=== PATIENT | female | born 1945 | race Caucasian/White ===

== ENCOUNTER 2020-05-01 13:50 | Outpatient (CLI) | payer MEDICARE, SELFPAY ==
[2020-05-03 21:00] LABS: SARS-CoV-2 RNA Undetected (Undetected); SARS-CoV-2 Specimen Source Nasopharynx
== END 2020-05-01 14:10 ==
PROVIDERS: Visit Provider Family Medicine
DX: Z11.59 Encounter for screening for other viral diseases (principal)
CPT/HCPCS: U0003

== ENCOUNTER 2022-08-30 05:27 | Inpatient (IN) | payer MEDICARE, SELFPAY ==
[2022-08-30] VITALS (86 sets, daily range): BP systolic 92–143; BP diastolic 33–103; PULSE 68–820; RESP 10–24; TEMP 36.6–36.8; O2SAT 94–100
--- NOTE | 2022-08-30 05:45 | RT.EKG_ITS ---
APPROVED REPORT Exam: Resting ECG Reason for Exam: weakness Patient Location: E HR:82 bpm ECG Measurements Heart Rate 82 AXIS FL 143 P 54 QRSd 135 QRS -84 QT 476 T 180 QTc 558 Conclusion Atrial-sensed ventricular-paced rhythm...ventricular pacing tracks p-waves
--- NOTE | 2022-08-30 05:59 | W.ED.GENAD ---
Discharge Plan Disposition Patient Disposition: Admit to [facility] Condition: Stable Discharge Details Chief Complaint: GenMedical Clinical Impression: Bilateral leg weakness, History of multiple sclerosis Primary Care Provider: Humera Kovacs ED Provider: Awilda Olmedo Home Meds and New Rx's Prescriptions: No Action multivitamin Tablet 1 tab PO DAILY carvedilol 6.25 mg Tablet 6.25 mg PO BID glipizide 5 mg Tablet Extended Release 24hr 5 mg PO BID levothyroxine 150 mcg Tablet 150 mcg PO DAILY omeprazole 20 mg Capsule,Delayed Release(Dr/Ec) 20 mg PO DAILY aspirin 81 mg Tablet 81 mg PO DAILY hydrochlorothiazide 25 mg Tablet 25 mg PO DAILY losartan 100 mg Tablet 100 mg PO DAILY metformin 500 mg Tablet Extended Release 24hr 500 mg PO DAILY insulin glargine [Lantus Solostar U-100 Insulin] 100 unit/mL (3 mL) Insulin Pen 12 unit SUBCUT .QHS cholecalciferol (vitamin D3) 50 mcg (2,000 unit) Tablet 2,000 mcg PO BID acetaminophen 500 mg Tablet 1,000 mg PO .Q6HRS Medical Decision Making <Dejuan Ferreira MD - Last Filed: 08/30/22 06:58> This is a 77-year-old female who presents with lower extremity weakness and some progressive over 2 weeks time. 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 She has been involved in a clinical study with once monthly spinal injections that she receives in [facility]. She was admitted to 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 She states that she presents today due to inability to ambulate at home with her walker. Upon arrival she is alert and interactive, pleasant and in no acute distress. Her pulse is slightly elevated at 99 blood pressure slightly low at 92/66. She was noted to have hyperglycemia prior to arrival. She is able to actively move both legs against gravity and resistance. Screening laboratories obtained, fluids initiated. Given the patient's recent cough a viral swab was obtained. Recent discharge summary from [facility] obtained. This notes the patient's admission for lower extremity weakness and encephalopathy that began after receiving her last intrathecal study injection on August 12. MRI imaging was performed on Carlos 10. MRI brain showed new demyelinating lesions compared to previous imaging from 2013, MRI of the spine showed new enhancing lesions at C2, T1, T8-9. The discharge summary notes concern for the reactivation of MS. During her admission, the case was discussed with her physician at the [facility], Dr. Cruz Salinas. The admission to [facility] also noted acute kidney injury. Today, white count of 9, hematocrit 29.6, platelets 244. Sodium 137, potassium 4.3, chloride 101, bicarb 27, BUN 29, creatinine 1.8, glucose 356. Troponin negative. MRI is pending. We will sign the patient out to Dr. Olmedo. Please see her note regarding final impression and disposition. <Awilda Olmedo, DO - Last Filed: 08/30/22 15:00> This is a 77-year-old female who presents with lower extremity weakness and some progressive over 2 weeks time. 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 She has been involved in a clinical study with once monthly spinal injections that she receives in [facility]. She was admitted to 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 She states that she presents today due to inability to ambulate at home with her walker. Upon arrival she is alert and interactive, pleasant and in no acute distress. Her pulse is slightly elevated at 99 blood pressure slightly low at 92/66. She was noted to have hyperglycemia prior to arrival. She is able to actively move both legs against gravity and resistance. Screening laboratories obtained, fluids initiated. Given the patient's recent cough a viral swab was obtained. Recent discharge summary from [facility] obtained. This notes the patient's admission for lower extremity weakness and encephalopathy that began after receiving her last intrathecal study injection on August 12. MRI imaging was performed on August 17. MRI brain showed new demyelinating lesions compared to previous imaging from 2013, MRI of the spine showed new enhancing lesions at C2, T1, T8-9. The discharge summary notes concern for the reactivation of MS. During her admission, the case was discussed with her physician at the [facility], Dr. Cruz Salinas. The admission to [facility] also noted acute kidney injury. Today, white count of 9, hematocrit 29.6, platelets 244. Sodium 137, potassium 4.3, chloride 101, bicarb 27, BUN 29, creatinine 1.8, glucose 356. Troponin negative. MRI is pending. We will sign the patient out to Dr. Olmedo. Please see her note regarding final impression and disposition. Dr. Olmedo [id number] --please see Dr. Ferreira's note for initial presentation, exam and plan. Case endorsed to follow-up on MRI results. Discussed with MRI and they are unable to take patient until 10:30 AM this morning. Discussed with patient and son at bedside. Patient and son state that patient has had similar lower extremity weakness in the past but states it has been can increase since last night and she was unable to ambulate without two-person assistance this morning. Patient is able to lift both legs and push against resistance. She does also admit to diminished sensation in her bilateral lower extremities. She denies any bowel or bladder incontinence. She denies any increased weakness in her upper extremities. She is oriented x3. Discussed again with MRI in patient is unable to receive MRIs here as she has a pacemaker in the near is no pacemaker compatible MRI system here. 1130 --discussed with Dr. Rodriguez Gomez neurology at [facility] --he agrees that patient needs an MRI and is unsure if her symptoms are secondary to MS as her age would make her unusual to have a relapsing remitting MS picture. He is going to review her chart further and call back. At this point in time recommends a CT head to rule out any acute process. She cannot receive a CTA head and neck secondary to her altered kidney function. 1400 --CT head negative. Discussed again with Dr. Gomez and he recommends starting Solu-Medrol 125 mg once daily. There is no bed availability at [facility] for transfer. He recommends admission here with IV fluid hydration to improve renal function with plan for transfer to [facility] for MRI brain with contrast for further evaluation once renal function improves. He discussed that her symptom presentation per neurology during her recent admission could be consistent with MS but also question the possible contributing factor of her intrathecal injections she receives in [place] as she reports that this causes brain fog. Case discussed with hospitalist who accepts patient for admission. Medical Records Medical records reviewed: Yes I reviewed the patient's medical records. Imaging Data Radiologic Study: Radiologist's impression: XR CHEST 2V PA ? LATERAL CLINICAL HISTORY:? cough, r/o acute disease TECHNIQUE:? 2D digital imaging was performed of the chest.? Two images were obtained.? PA and lateral views were obtained. COMPARISON:? No exams were available for comparison FINDINGS: MEDIASTINUM: Normal.? HEART: Normal. PULMONARY VASCULATURE: Normal. LUNGS: Clear. ? PLEURAL SPACE: No pleural effusion or pneumothorax. BONE:Within normal limits for the patient's age.? OTHER FINDINGS:Cardiac pacer wires are in good position. ? IMPRESSION: No acute pulmonary findings. CT HEAD WO CLINICAL HISTORY: ? bilateral lower extremity weakness, r/o cva. ? TECHNIQUE:? Imaging Protocol: Axial computed tomography images with coronal and sagittal reformatted images were created and reviewed COMPARISON:? CT CT HEAD WO CONTRAST (GENERIC) from 08/16/2022 FINDINGS: Ventricles and Extra axial spaces: Normal in size and morphology for the patient's age. Hemorrhage: None. Cerebral parenchyma: No evidence of an acute territorial infarct. Basal gangliar calcifications are unchanged compared to the prior examination. There are areas of decreased attenuation in the white matter most consistent with small vessel ischemic disease.? Midline shift: None. Brainstem/Cerebellum: Normal. Calvarium: Normal. Visualized Paranasal sinuses/Mastoids: Clear. Soft Tissues: Unremarkable. IMPRESSION: 1. No acute intracranial process. Lab Data Lab results reviewed: Yes I reviewed the patient's lab results. Labs: Laboratory Tests Range/Units 08/30/22 08/30/22 08/30/22 05:35 05:35 05:40 WBC (4.4-10.8) 10^3/uL 9.96 RBC (3.93-5.22) 10^6/uL 3.09 L Hgb (11.2-15.7) g/dL 9.4 L Hct (36.0-46.0) % 29.6 L MCV (80-95) fL 96 H MCH (27.0-33.0) pg 30.4 MCHC (32.0-36.0) % 31.8 L RDW (11.7-14.6) % 12.6 Plt Count (130-400) 10^3/uL 244 MPV (8.0-11.0) fL 9.8 Immature Gran % 0.2 Neutrophils % 74.5 Lymphocytes % 12.0 Monocytes % 11.2 Eosinophils % 1.4 Basophils % 0.7 Nucleated RBC % (0.0-0.3) % 0.0 Absolute Neutrophils (1.2-6.7) 10^3/uL 7.41 H Absolute Lymphocytes (1.2-3.4) 10^3/uL 1.20 Absolute Monocytes (0.1-0.8) 10^3/uL 1.12 H Absolute Eosinophils (0.0-0.7) 10^3/uL 0.14 Absolute Basophils (0.0-0.2) 10^3/uL 0.07 Sodium (136-145) mmol/L 137 Potassium (3.5-5.1) mmol/L 4.3 Chloride (98-107) mmol/L 101 Carbon Dioxide (21.0-32.0) mmol/L 27.3 Anion Gap (3-11) mmol/L 8.7 BUN (7-18) mg/dL 29 H Creatinine (0.55-1.02) mg/dL 1.8 H Est GFR (CKD-EPI 2020) (mL/min/1.73m2) 28.48 Glucose (74-106) mg/dL 356 H Calcium (8.5-10.1) mg/dL 10.0 Magnesium (1.8-2.4) mg/dL 1.6 L Total Bilirubin (0.2-1.0) mg/dL 0.5 AST (15-37) U/L 13 L ALT (14-59) U/L 12 L Alkaline Phosphatase (46-116) U/L 96 Troponin I (<or=60) ng/L < 50 Total Protein (6.4-8.2) g/dL 7.9 Albumin (3.4-5.0) g/dL 4.0 Urine Color (Yellow) Urine Clarity (Clear) Urine pH (5-8) Ur Specific Julian (1.005-1.025) Urine Protein (Negative) mg/dL Urine Ketones (Negative) mg/dL Urine Blood (Negative) Urine Nitrite (Negative) Urine Bilirubin (Negative) Urine Urobilinogen (Up TO 0.2) EU/dL Ur Leukocyte Esterase (Negative) Urine RBC (0-2) HPF Urine WBC (0-5) HPF Ur Epithelial Cells (Negative) HPF Urine Crystals (Negative) HPF Urine Bacteria (Negative) HPF Urine Casts (Negative) LPF Urine Mucus (Negative) Ur Culture Indicated? Urine Glucose (Negative) mg/dL COVID-19 Source Nasopharynx SARS-CoV-2 (PCR) (Negative) Negative Influenza Type A (PCR) (Negative) Negative Influenza Type B (PCR) (Negative) Negative RSV (PCR) (Negative) Negative Range/Units 08/30/22 06:20 WBC (4.4-10.8) 10^3/uL RBC (3.93-5.22) 10^6/uL Hgb (11.2-15.7) g/dL Hct (36.0-46.0) % MCV (80-95) fL MCH (27.0-33.0) pg MCHC (32.0-36.0) % RDW (11.7-14.6) % Plt Count (130-400) 10^3/uL MPV (8.0-11.0) fL Immature Gran % Neutrophils % Lymphocytes % Monocytes % Eosinophils % Basophils % Nucleated RBC % (0.0-0.3) % Absolute Neutrophils (1.2-6.7) 10^3/uL Absolute Lymphocytes (1.2-3.4) 10^3/uL Absolute Monocytes (0.1-0.8) 10^3/uL Absolute Eosinophils (0.0-0.7) 10^3/uL Absolute Basophils (0.0-0.2) 10^3/uL Sodium (136-145) mmol/L Potassium (3.5-5.1) mmol/L Chloride (98-107) mmol/L Carbon Dioxide (21.0-32.0) mmol/L Anion Gap (3-11) mmol/L BUN (7-18) mg/dL Creatinine (0.55-1.02) mg/dL Est GFR (CKD-EPI 2020) (mL/min/1.73m2) Glucose (74-106) mg/dL Calcium (8.5-10.1) mg/dL Magnesium (1.8-2.4) mg/dL Total Bilirubin (0.2-1.0) mg/dL AST (15-37) U/L ALT (14-59) U/L Alkaline Phosphatase (46-116) U/L Troponin I (<or=60) ng/L Total Protein (6.4-8.2) g/dL Albumin (3.4-5.0) g/dL Urine Color (Yellow) Yellow Urine Clarity (Clear) Clear Urine pH (5-8) 5.5 Ur Specific Julian (1.005-1.025) 1.020 Urine Protein (Negative) mg/dL Trace H Urine Ketones (Negative) mg/dL Negative Urine Blood (Negative) Negative Urine Nitrite (Negative) Negative Urine Bilirubin (Negative) Negative Urine Urobilinogen (Up TO 0.2) EU/dL 0.2 Ur Leukocyte Esterase (Negative) Negative Urine RBC (0-2) HPF Negative Urine WBC (0-5) HPF Negative Ur Epithelial Cells (Negative) HPF Rare Urine Crystals (Negative) HPF Negative Urine Bacteria (Negative) HPF Rare Urine Casts (Negative) LPF 0-2 Hyaline Urine Mucus (Negative) Negative Ur Culture Indicated? No Urine Glucose (Negative) mg/dL 500 H COVID-19 Source SARS-CoV-2 (PCR) (Negative) Influenza Type A (PCR) (Negative) Influenza Type B (PCR) (Negative) RSV (PCR) (Negative) HPI <Dejuan Ferreira MD - Last Filed: 08/30/22 06:58> General Mode of arrival: EMS. Date/Time Provider Initiated Documentation: 08/30/22 06:04. Limitations to Documentation: no limitations. Information obtained by: patient, family and EMS. History of Present Illness 77 year old F presents to the emergency department with the chief complaint of Lower extremity weakness, described as moderate, Quality is described as constant, and is localized to the left, right and lower extremity. Patient reports no radiation. Patient started experiencing this day(s) and it has been constant. No relieving factors improve symptom(s), No exacerbating factors reported . Patient notes cough and weakness; denies chest pain, fever/chills and loss of appetite. Patient did receive the following treatments prior to arrival, none Related Data Home Medications Medication Instructions Recorded Confirmed acetaminophen 500 mg tablet 1,000 mg PO .Q6HRS 08/30/22 08/30/22 aspirin 81 mg tablet 81 mg PO DAILY 08/30/22 08/30/22 carvedilol 6.25 mg tablet 6.25 mg PO BID 08/30/22 08/30/22 cholecalciferol (vitamin D3) 50 2,000 mcg PO BID 08/30/22 08/30/22 mcg (2,000 unit) tablet glipizide 5 mg tablet, extended 5 mg PO BID 08/30/22 08/30/22 release 24 hr hydrochlorothiazide 25 mg tablet 25 mg PO DAILY 08/30/22 08/30/22 insulin glargine 100 unit/mL (3 12 unit subcut .QHS 08/30/22 08/30/22 mL) subcutaneous pen (Lantus Solostar U-100 Insulin) levothyroxine 150 mcg tablet 150 mcg PO DAILY 08/30/22 08/30/22 losartan 100 mg tablet 100 mg PO DAILY 08/30/22 08/30/22 metformin 500 mg tablet,extended 500 mg PO DAILY 08/30/22 08/30/22 release 24hr multivitamin 1 tab PO DAILY 08/30/22 08/30/22 omeprazole 20 mg capsule,delayed 20 mg PO DAILY 08/30/22 08/30/22 release Allergies Allergy/AdvReac Type Severity Reaction Status Date / Time amlodipine Allergy Unverified 08/30/22 06:27 [id number] Reductase Allergy Unverified 08/30/22 06:28 Inhibitor milk containing products Allergy Uncoded 08/30/22 06:28 General Stated Complaint: GenMedical JUAN CARLOS: 3 Review of Systems <Dejuan Ferreira MD - Last Filed: 08/30/22 06:58> Narrative: 2 days of cough. Denies bowel or bladder incontinence. No numbness. No fevers. Denies headache. No back or neck pain. PFSH <Dejuan Ferreira MD - Last Filed: 08/30/22 06:58> All Active Problems (Updated 08/30/22 @ 15:00 by Awilda Olemdo DO) Bilateral leg weakness (Acute) History of multiple sclerosis (Acute) Social History Smoking/Tobacco Use Status: Never Smoking risk assessment performed?: Yes Substance use type: does not use Exam <Dejuan Ferreira MD - Last Filed: 08/30/22 06:58> Narrative Exam Narrative: GEN: awake, alert, oriented 3. Pleasant, well groomed, interactive. HEAD: Normocephalic, atraumatic ENT: Mucous membranes dry, oropharynx unremarkable, External ear exam unremarkable EYES: PERRL, EOMI NECK: Full ROM, no EDY, no menigismus CHEST/RESP: Nontender, clear to auscultation bilateral, no wheeze/rhonchi/rales CARDIOVASCULAR: RRR, no murmur, rub kwasi. 2+ Rad pulse bilateral ABDOMEN: Soft, nontender, no mass. +Bowel sounds EXT: Full ROM, able to move both legs off the bed against gravity and against resistance. Sensation is intact throughout. 1+ patellar reflexes bilaterally Neuro: Grossly normal neurologic exam, conversant, interactive. Psych: Speech fluent, thoughts congruent, affect normal Course <Dejuan Ferreira MD - Last Filed: 08/30/22 06:58> Vital Signs Vital signs: Vital Signs Temperature 36.7 C 08/30/22 05:30 Pulse 99 H 08/30/22 05:30 Blood Pressure 92/66 L 08/30/22 05:30 Pulse Oximetry 98 08/30/22 05:30 Temperature 36.7 C 08/30/22 05:30 Temperature Source Skin 08/30/22 05:30 Pulse 99 H 08/30/22 05:30 Respiratory Effort Non-Labored 08/30/22 05:45 Respiratory Depth Normal 08/30/22 05:45 Respiratory Pattern Normal 08/30/22 05:45 Blood Pressure 92/66 L 08/30/22 05:30 Blood Pressure Position Supine 08/30/22 05:30 Pulse Oximetry 98 08/30/22 05:30 Oxygen Delivery Method Room Air 08/30/22 05:30 Oxygen Flow Rate 0 08/30/22 05:30 Sign Out <Dejuan Ferreira MD - Last Filed: 08/30/22 06:58> Sign Out Data: Sign Out Comment: Followup MRI Last updated by Dejuan Ferreira MD at 08/30/22 06:59
[2022-08-30 06:08] LABS: Abs Immature Grans 0.02 10^3/uL (0.0-0.06); Absolute Basophil Count 0.07 10^3/uL (0.0-0.2); Absolute Eosinophil Count 0.14 10^3/uL (0.0-0.7); Absolute Monocyte Count 1.12 10^3/uL (0.1-0.8); Absolute Neutrophil Count 7.41 10^3/uL (1.2-6.7); Basophils % 0.7; Eosinophils % 1.4; HCT 29.6 % (36.0-46.0); HGB 9.4 g/dL (11.2-15.7); Immature Grans % 0.2; MCH 30.4 pg (27.0-33.0); MCHC 31.8 % (32.0-36.0); MCV 96 fL (80-95); MPV 9.8 fL (8.0-11.0); Monocytes % 11.2; Neutrophils % 74.5; Platelet Count 244 10^3/uL (130-400); RBC 3.09 10^6/uL (3.93-5.22); RDW 12.6 % (11.7-14.6); RDW-SD 43.2 fL; WBC 9.96 10^3/uL (4.4-10.8)
[2022-08-30 06:24] LABS: COVID-19 PCR Negative (Negative); Influenza A PCR Negative (Negative); Influenza B PCR Negative (Negative); RSV PCR Negative (Negative)
[2022-08-30 06:29] LABS: ALT 12 U/L (14-59); AST 13 U/L (15-37); Alkaline Phosphatase 96 U/L (46-116); Anion Gap 8.7 mmol/L (3-11); BUN 29 mg/dL (7-18); Bilirubin, Total 0.5 mg/dL (0.2-1.0); CO2 27.3 mmol/L (21.0-32.0); CREATININE 1.8 mg/dL (0.55-1.02); Chloride 101 mmol/L (98-107); Estimated GFR 28.48 (mL/min/1.73m2); Glucose 356 mg/dL (74-106); Magnesium 1.6 mg/dL (1.8-2.4); Potassium 4.3 mmol/L (3.5-5.1); Sodium 137 mmol/L (136-145); Total Protein 7.9 g/dL (6.4-8.2); Troponin I < 50 ng/L (<or=60)
[2022-08-30 06:30] LABS: Source Nasopharynx
[2022-08-30 06:35] LABS: Bilirubin Negative (Negative); Blood Negative (Negative); Clarity Clear (Clear); Glucose 500 mg/dL (Negative); Ketones Negative (Negative); Leukocyte Esterase Negative (Negative); Nitrite Negative (Negative); Urobilinogen 0.2 EU/dL (Up TO 0.2); pH 5.5 (5-8)
[2022-08-30] MEDS: Normal Saline 1,000 ML 1000 ML IV (06:40)
[2022-08-30] MEDS: MAGNESIUM SULFATE 2 GM/50 ML BAG IVPB (06:40)
[2022-08-30 06:48] LABS: Bacteria Rare HPF (Negative); C & S Indicated? No; Casts 0-2 Hyaline LPF (Negative); Crystals Negative HPF (Negative); Epithelial Cells Rare HPF (Negative); Mucus Negative (Negative); RBC Negative HPF (0-2); WBC Negative HPF (0-5)
--- NOTE | 2022-08-30 08:15 | DI.RAD_ITS ---
Exam(s) XR CHEST 2V PA LATERAL EXAM: XR CHEST 2V PA LATERAL CLINICAL HISTORY: cough, r/o acute disease TECHNIQUE: 2D digital imaging was performed of the chest. Two images were obtained. PA and lateral views were obtained. COMPARISON: No exams were available for comparison FINDINGS: MEDIASTINUM: Normal. HEART: Normal. PULMONARY VASCULATURE: Normal. LUNGS: Clear. PLEURAL SPACE: No pleural effusion or pneumothorax. BONE:Within normal limits for the patient's age. OTHER FINDINGS:Cardiac pacer wires are in good position. IMPRESSION: No acute pulmonary findings. DATA REPOSITORY: RADIATION DOSE DELIVERED:
[2022-08-30] MEDS: ACETAMINOPHEN 1,000 MG/100 ML BTL 400 MG IVPB (08:23)
--- NOTE | 2022-08-30 11:55 | DI.CT_ITS ---
Exam(s) CT HEAD WO EXAM: CT HEAD WO CLINICAL HISTORY: bilateral lower extremity weakness, r/o cva. TECHNIQUE: Imaging Protocol: Axial computed tomography images with coronal and sagittal reformatted images were created and reviewed COMPARISON: CT CT HEAD WO CONTRAST (GENERIC) from 08/16/2022 FINDINGS: Ventricles and Extra axial spaces: Normal in size and morphology for the patient's age. Hemorrhage: None. Cerebral parenchyma: No evidence of an acute territorial infarct. Basal gangliar calcifications are u nchanged compared to the prior examination. There are areas of decreased attenuation in the white mat ter most consistent with small vessel ischemic disease. Midline shift: None. Brainstem/Cerebellum: Normal. Calvarium: Normal. Visualized Paranasal sinuses/Mastoids: Clear. Soft Tissues: Unremarkable. IMPRESSION: 1. No acute intracranial process. 2. Findings were discussed with Dr. Olmedo on 08/30/2022. RADIATION DOSE DELIVERED: 710.27mGy.cm Total DLP DATA REPOSITORY: All CT scans at this facility are submitted to the National Radiology Data Registry (NRDR) Dose Index Registry (DIR) with the [employer] ([employer]). RADIATION OPTIMIZATION: All CT scans at this facility use at least one of these dose optimization te chniques: automated exposure control; mA and/or kV adjustment per patient size (includes targeted exa ms where dose is matched to clinical indication); or iterative reconstruction.
[2022-08-30] MEDS: methylPREDNISolone SUCC 125 MG VIAL IVP (13:51)
[2022-08-30] MEDS: Insulin Aspart 300 UNITS/3 ML PEN SC ×2 (16:32→21:36)
[2022-08-30] MEDS: Normal Saline Flush 10 ML SYR IVP (17:03)
[2022-08-30 17:04] LABS: Glucose 443 mg/dL (74-106)
[2022-08-30] MEDS: Lactated Ringers 1,000 ML 125 ML IV (17:42)
[2022-08-30] MEDS: Enoxaparin 40 MG/0.4 ML SYR SC (17:46)
--- NOTE | 2022-08-30 18:10 | W.PM.HP.N ---
Date of service: 08/30/22 Time of Service: 18:11 Assessment and Plan Assessment and plan (1) Bilateral leg weakness: Status: Acute Assessment and plan: Suspected to be due to MS flare. Trialing high dose steroids, as recommended by [facility] neurology. Consult neurology on Friday. (2) Ambulatory dysfunction: Status: Acute Assessment and plan: Due to above. PT consulted. (3) History of multiple sclerosis: Status: Acute Assessment and plan: As above (4) IDDM (insulin dependent diabetes mellitus): Status: Chronic Assessment and plan: Add NPH, adjust long acting insulin, add prandial coverage. 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 Will obtain medical records. (6) Steroid-induced hyperglycemia: Status: Acute Assessment and plan: As above (7) DVT prophylaxis: Status: Acute Assessment and plan: Enoxaparin (8) Discharge planning issues: Status: Acute Assessment and plan: Full code History of Present Illness History of Present Illness Chief Complaint: BLE weakness Narrative: Ms Alford is a 77 year old female with PMHx of MS and familial ALS, on a clinical study with intrathecal topherecin in [place], as well as h/o IDDM2, hypertension, hypothyroidism, who was recently discharged from [facility] (about two weeks ago) for intermittent weakness of BLEs of unclear etiology, who presented to [facility] today c/o BLE weakness since 3 days ago. At that time, she was walking to the bathroom with a walker when her legs gave out and she slid to the ground without injury. She spent two minutes on the ground and was helped up by her and another person. When she attempted to go to the bathroom again with a walker, her legs became shaky and she could not walk. She had not been able to get up independently and walk since then, necessitating her ER visit today. [facility] neurology recommended a trial of high dose steroids and a possible [id number] MRI Review of Systems Narrative: She specifically denies trauma, back pain, saddle anesthesia, incontinence of bowel/urine, numbness in her feet. 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) Bilateral leg edema (Acute) Arthritis (Acute) Eczema (Acute) Endometrial hyperplasia (Acute) Anemia due to stage 4 chronic kidney disease (Acute) 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) Hypercholesterolemia (Acute) Diabetic polyneuropathy (Acute) Familial ALS (amyotrophic lateral sclerosis) (Chronic) Hypothyroidism (Chronic) GERD (gastroesophageal reflux disease) (Chronic) Hypertension (Chronic) IDDM (insulin dependent diabetes mellitus) (Chronic) Bilateral leg weakness (Acute) History of multiple sclerosis (Acute) Medical History (Updated 08/31/22 @ 10:39 by Stephani Katz MD) 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 Surgical History (Updated 08/31/22 @ 10:33 by Stephani Katz MD) H/O colonoscopy with polypectomy H/O colposcopy with cervical biopsy several H/O left mastectomy Hx of esophagogastroduodenoscopy S/P bilateral cataract extraction S/P breast biopsy, right S/P carpal tunnel release right S/P left knee arthroscopy S/P lumpectomy, left breast S/P placement of cardiac pacemaker Family History (Updated 08/31/22 @ 10:35 by Stephani Katz MD) Sister Familial ALS (amyotrophic lateral sclerosis) Diabetes Sister Familial ALS (amyotrophic lateral sclerosis) Brother Familial ALS (amyotrophic lateral sclerosis) Maternal Grandmother Familial ALS (amyotrophic lateral sclerosis) Heart disease Mother Familial ALS (amyotrophic lateral sclerosis) Son Familial ALS (amyotrophic lateral sclerosis) Diabetes Father Family history of early CAD Paternal Grandmother Diabetes Social History (Updated 08/31/22 @ 10:41 by Stephani Katz MD) Smoking/Tobacco Use Status: Former Tobacco Use tobacco type: cigarettes Smoking risk assessment performed?: Yes Alcohol Intake: former Substance use type: does not use Meds Allergies and Home Medications Allergies Allergy/AdvReac Type Severity Reaction Status Date / Time amlodipine Allergy Unverified 08/30/22 06:27 Leqnoaa-TVA-LnN Reductase Allergy Unverified 08/30/22 06:28 Inhibitor milk containing products Allergy Uncoded 08/30/22 06:28 Home Medications Medication Instructions Recorded Confirmed Type acetaminophen 500 mg tablet 1,000 mg PO Q6H PRN PRN 08/30/22 08/31/22 History aspirin 81 mg tablet 81 mg PO DAILY 08/30/22 08/30/22 History carvedilol 6.25 mg tablet 6.25 mg PO BID 08/30/22 08/30/22 History hydrochlorothiazide 25 mg tablet 25 mg PO DAILY 08/30/22 08/30/22 History insulin glargine 100 unit/mL (3 12 unit subcut HS 08/30/22 08/31/22 History mL) subcutaneous pen (Lantus Solostar U-100 Insulin) levothyroxine 150 mcg tablet 150 mcg PO DAILY 08/30/22 08/30/22 History losartan 100 mg tablet 100 mg PO DAILY 08/30/22 08/30/22 History metformin 500 mg tablet,extended 500 mg PO BID 08/30/22 08/31/22 History release 24hr multivitamin 1 tab PO DAILY 08/30/22 08/30/22 History omeprazole 20 mg capsule,delayed 20 mg PO BID 08/30/22 08/31/22 History release glipizide 5 mg tablet 2.5 mg PO BID AC 08/31/22 08/31/22 History Exam Narrative Exam Narrative: General: Pleasant female who is A&Ox3, NAD Neurological: A&Ox3, able to move all 4 extremities in bed, 5/5 strength on exam in bed Psychiatric: appropriate speech pattern/content Skin: visible skin intact with the except of digit 4 RLE with several abrasions HEENT: Atraumatic, normocephalic, EOMI, MMM, clear oropharynx, no submandibular or cervical lymphadenopathy, no goiter or JVD Cardiovascular: RRR, no m/r/g, has a pacemaker Lungs: CATB Gastrointestinal: soft, nontender, nondistended Genitourinary: deferred Extremities: trace edema BLEs, BLEs are cold, able to move BLEs against resistance while in bed, no c/c. Results Imaging Additional studies: CXR: No acute pulmonary findings CT head: 1. No acute intracranial process. EKG: paced rhythm, HR 82 Labs Result diagrams: 08/31/22 06:00 08/31/22 06:00 Labs: Laboratory Results - last 24 hr 08/30/22 08/30/22 08/30/22 05:35 05:35 05:40 WBC 9.96 RBC 3.09 L Hgb 9.4 L Hct 29.6 L MCV 96 H MCH 30.4 MCHC 31.8 L RDW 12.6 Plt Count 244 MPV 9.8 Immature Gran % 0.2 Neutrophils % 74.5 Lymphocytes % 12.0 Monocytes % 11.2 Eosinophils % 1.4 Basophils % 0.7 Nucleated RBC % 0.0 Absolute Neutrophils 7.41 H Absolute Lymphocytes 1.20 Absolute Monocytes 1.12 H Absolute Eosinophils 0.14 Absolute Basophils 0.07 Sodium 137 Potassium 4.3 Chloride 101 Carbon Dioxide 27.3 Anion Gap 8.7 BUN 29 H Creatinine 1.8 H Est GFR (CKD-EPI 2020) 28.48 Glucose 356 H Calcium 10.0 Magnesium 1.6 L Total Bilirubin 0.5 AST 13 L ALT 12 L Alkaline Phosphatase 96 Troponin I < 50 Total Protein 7.9 Albumin 4.0 Urine Color Urine Clarity Urine pH Ur Specific [place] Urine Protein Urine Ketones Urine Blood Urine Nitrite Urine Bilirubin Urine Urobilinogen Ur Leukocyte Esterase Urine RBC Urine WBC Ur Epithelial Cells Urine Crystals Urine Bacteria Urine Casts Urine Mucus Ur Culture Indicated? Urine Glucose COVID-19 Source Nasopharynx SARS-CoV-2 (PCR) Negative Influenza Type A (PCR) Negative Influenza Type B (PCR) Negative RSV (PCR) Negative 08/30/22 08/30/22 06:20 16:43 WBC RBC Hgb Hct MCV MCH MCHC RDW Plt Count MPV Immature Gran % Neutrophils % Lymphocytes % Monocytes % Eosinophils % Basophils % Nucleated RBC % Absolute Neutrophils Absolute Lymphocytes Absolute Monocytes Absolute Eosinophils Absolute Basophils Sodium Potassium Chloride Carbon Dioxide Anion Gap BUN Creatinine Est GFR (CKD-EPI 2020) Glucose 443 H Calcium Magnesium Total Bilirubin AST ALT Alkaline Phosphatase Troponin I Total Protein Albumin Urine Color Yellow Urine Clarity Clear Urine pH 5.5 Ur Specific [place] 1.020 Urine Protein Trace H Urine Ketones Negative Urine Blood Negative Urine Nitrite Negative Urine Bilirubin Negative Urine Urobilinogen 0.2 Ur Leukocyte Esterase Negative Urine RBC Negative Urine WBC Negative Ur Epithelial Cells Rare Urine Crystals Negative Urine Bacteria Rare Urine Casts 0-2 Hyaline Urine Mucus Negative Ur Culture Indicated? No Urine Glucose 500 H COVID-19 Source SARS-CoV-2 (PCR) Influenza Type A (PCR) Influenza Type B (PCR) RSV (PCR) Last Vital Signs Temp 36.6 C 08/30/22 15:26 Pulse 80 08/30/22 15:26 Resp 16 08/30/22 15:26 BP 136/73 08/30/22 15:26 Pulse Ox 97 08/30/22 15:26
[2022-08-30] MEDS: glipiZIDE C.R. 5 MG TABCR PO (21:27)
[2022-08-30] MEDS: Acetaminophen 500 MG TAB 1000 MG PO (21:28)
[2022-08-30] MEDS: Carvedilol 6.25 MG TAB PO (21:28)
[2022-08-30] MEDS: Cholecalciferol (Vitamin D3) 1,000 UNIT TAB 2000 UNITS JT (21:28)
[2022-08-31] VITALS (10 sets, daily range): BP systolic 96–129; BP diastolic 43–70; PULSE 62–76; RESP 16–20; TEMP 34.2–36.8; O2SAT 93–100
[2022-08-31] MEDS: Acetaminophen 500 MG TAB 1000 MG PO ×4 (00:48→19:49)
[2022-08-31] MEDS: Lactated Ringers 1,000 ML 125 ML IV ×2 (00:50→08:57)
[2022-08-31] MEDS: Levothyroxine 150 MCG TAB PO (05:57)
[2022-08-31 06:43] LABS: Abs Immature Grans 0.04 10^3/uL (0.0-0.06); Absolute Basophil Count 0.01 10^3/uL (0.0-0.2); Absolute Lymphocyte Count 0.59 10^3/uL (1.2-3.4); Absolute Monocyte Count 0.17 10^3/uL (0.1-0.8); Absolute Neutrophil Count 7.57 10^3/uL (1.2-6.7); Basophils % 0.1; HCT 26.5 % (36.0-46.0); HGB 8.6 g/dL (11.2-15.7); Immature Grans % 0.5; MCH 30.5 pg (27.0-33.0); MCHC 32.5 % (32.0-36.0); MCV 94 fL (80-95); MPV 10.1 fL (8.0-11.0); Neutrophils % 90.4; Platelet Count 204 10^3/uL (130-400); RBC 2.82 10^6/uL (3.93-5.22); WBC 8.38 10^3/uL (4.4-10.8)
[2022-08-31 07:08] LABS: BUN 33 mg/dL (7-18); CREATININE 1.7 mg/dL (0.55-1.02); Calcium 9.5 mg/dL (8.5-10.1); Chloride 100 mmol/L (98-107); Glucose 386 mg/dL (74-106); Magnesium 1.9 mg/dL (1.8-2.4); Potassium 4.4 mmol/L (3.5-5.1); Sodium 133 mmol/L (136-145)
--- NOTE | 2022-08-31 08:01 | PDOC.CMIN ---
- If Service Date Differs Date of service: 08/31/22 Time of Service: 08:01 Care Management Initial Assess REASON FOR HOSPITALIZATION:: MS Flair PAST MEDICAL HISTORY/PAST SURGICAL HISTORY:: All Active Problems (Updated 08/30/22 @ 18:30 by Stephani Katz MD). Familial ALS (amyotrophic lateral sclerosis) (Acute). Hypothyroidism (Chronic). GERD (gastroesophageal reflux disease) (Chronic). Hypertension (Chronic). IDDM (insulin dependent diabetes mellitus) (Chronic). Bilateral leg weakness (Acute). History of multiple sclerosis (Acute) PREVIOUS FUNCTIONAL STATUS/SOCIAL/FAMILY SUPPORTS:: Betsy lives in [place] with her Ned. She is active, drives and independent at baseline. 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 Betsy shares that she has a large family and over 100 friends that she could call if she needed anything. CURRENT FUNCTIONAL STATUS:: Betsy is sitting up in her chair when CM met with her. She is awake, alert and easily engages in conversation. She is very talkatve and it is clear that she is very proud of her children and speaks of them with great pride. Betsy has a large family and feels very supported at home. ADVANCE DIRECTIVES:: None on file Has patient been provided with info about the portal/API?: Yes Did the patient sign up for the portal?: No CODE STATUS:: Full Code INSURANCE COVERAGE / FINANCIAL ISSUES:: [facility] PRIMARY CARE PHYSICIAN:: Goes to [facility] for her primary care. POTENTIAL DISCHARGE NEEDS:: Discharge plan of care, follow up appointments and evaluations for increased community support. PATIENT/FAMILY EDUCATION NEEDS:: Review discharge instructions, limitatons, medications and plan to follow up with community providers. Discuss ask me three and goals of self care. TRANSPORTATION:: via private vehicle with family. PLAN:: Anticipate, Betsy will discharge home with [facility] PT, if indicated. She will follow up with community providers and discharge plan of care as prescribed. Betsy will transport via private vehicle with family. CM will continue to follow.
[2022-08-31] MEDS: Insulin Glargine 300 UNITS/3 ML PEN 16 UNITS SC (08:57)
[2022-08-31] MEDS: Insulin Aspart 300 UNITS/3 ML PEN SC ×6 (08:58→21:11)
[2022-08-31] MEDS: Insulin NPH-Human 300 UNITS/3 ML PEN 20 UNIT SC (08:59)
[2022-08-31] MEDS: Aspirin 81 MG CHEW PO (09:00)
[2022-08-31] MEDS: Cholecalciferol (Vitamin D3) 1,000 UNIT TAB 2000 UNITS JT (09:00)
[2022-08-31] MEDS: glipiZIDE C.R. 5 MG TABCR PO ×2 (09:00→19:48)
[2022-08-31] MEDS: Multivitamin TAB 1 TAB PO (09:00)
[2022-08-31] MEDS: Carvedilol 6.25 MG TAB PO ×2 (09:00→19:48)
--- NOTE | 2022-08-31 11:58 | IN_ITS ---
PT Notes Visit Reasons: MS flare Physical Therapy Inpatient Initial Evaluation Date: 08/31/22 Referring Doctor: Stephnai Katz MD PT Orders: PT CONSULT: Limited Ability Precautions: Fall. Standard. Patient Profile/Admitting Diagnosis: Betsy is 77 yo female that presented to the ER on 08/30/22 for increasing LE weakness. She has MS and has been participating in a research study, receiving spinal injections monthly. She states it has been going well until recent injection. Was at [facility] and states left AMA. Found herself to be unable to get up to go to the bathroom so presented to the ER. PMHX: See EMR Social History/Home Situation: Lives with spouse, reports independent at [facility]. Equipment Owned/DME: Not assessed Subjective: Cleared by nursing to see patient and patient is agreeable to PT. Patient is sitting up in chair at time of consult and connected to IV. Objective: General Observation: Patient alert, very chatty Mental Status: A&O x3 Pain: None reported ROM: Right Upper Extremity: Shoulder Flexion WFL. Shoulder abduction WFL. Elbow flexion WFL. Wrist flexion WFL. Opening and closing of hand WFL. Left Upper Extremity: Shoulder Flexion WFL. Shoulder abduction WFL. Elbow flexion WFL. Wrist flexion WFL. Opening and closing of hand WFL. Right Lower Extremity: Hip flexion WFL. Hip abduction WFL. Knee flexion WFL. Ankle dorsiflexion WFL. Ankle plantarflexion WFL. Left Lower Extremity: Hip flexion WFL. Hip abduction WFL. Knee flexion WFL. Ankle dorsiflexion WFL. Ankle plantarflexion WFL. Strength: Right Upper Extremity: Shoulder flexors 5/5. Shoulder abductors 5/5. Elbow flexors 5/5. Elbow extensors 5/5. Director Of Photography strong. Left Upper Extremity: Shoulder flexors 5/5. Shoulder abductors 5/5. Elbow flexors 5/5. Elbow extensors 5/5. Director Of Photography strong. Right Lower Extremity: Hip flexors 3+/5. Knee flexors 4+/5. Knee extensors 4+/5. Ankle dorsiflexors 4/5. Ankle plantarflexors 5/5. Left Lower Extremity: Hip flexors 3+/5. Knee flexors 4+/5. Knee extensors 4+/5. Ankle dorsiflexors 4/5. Ankle plantarflexors 5/5. Sensation: Intact as to pain and pressure on bilateral lower extremities. Reports decreased plantar surface of feet Bed Mobility/Transfers: Supine to sit: Not assessed Sit to supine: Not assessed Sit to stand: Supervision Stand to sit: Supervision, Poor control Gait: Ambulated in room with FWW, CGA Stairs: Not assessed Balance: Static Sitting: Normal Dynamic Sitting: Normal Static Standing: Fair Dynamic Standing: Poor Special Tests: Mobility Limitations Standardized Measure [facility] 6 clicks Basic Mobility Inpatient Short Form: Raw Score: 16 CMS Score: 54% Informed Consent/Education: Patient instructed in purpose of PT consult and plan of care. Assessment: Patient presents with clinical signs and symptoms consistent with current/admitting diagnoses that have resulted to mobility limitations, gait instability, generalized weakness, and impairment of motor control as demonstrated by the following impairment level findings: 1. Decreased strength to hip major muscle groups 2. Impaired sitting/standing balance 3. Impaired activity tolerance Impairments are contributing to the following functional limitations: 1. Increased dependence with transfers 2. Inability to safely ambulate without assistive device and physical assistance 3. Increase completion time for mobility ADL performance 4. Increased fall risk 5. Inability to negotiate steps alone safely Patient is assessed as a moderate complexity based on the following: History: 77 year old female with impairment level findings, functional limitations, and past medical history as indicated above Examination: Demonstrable impairment in strength, balance, and mobility level with underlying impairments and functional limitations as documented above Presentation: Evolving Decision Making: moderate complexity Patient is very animated. Has definite leg weakness and left appears to be worse. Will not tolerate long distances of ambulation and use of AD is needed at this time. She has a lot of stories and reports being quite active. A little difficult to determine if all is accurate. Given HEP for her legs. Goals: Goals x1 week 1. Supine-Sit: independent 2. Sit-Supine: independent 3. Sit-Stand: independent 4. Stand-Sit: independent 5. Bed-Chair: independent 6. Chair-Bed: independent 7. Independent gait on level surface with use of least restrictive device for at least 300 feet without report of pain nor dyspnea 8. Good static and dynamic standing balance/tolerance 9. Independent with home exercise program 10. Independent stair negotiation while holding onto bilateral rails for at least 10 steps without report of pain nor dyspnea Plan of Care/Treatment Plan: 1-2x/day, 7 days/week x1 week. Plan of care has been reviewed with the SCREEN PRINTING LOADER UNLOADER providing the service under Physical Therapy direction. Initiate Physical Therapy intervention for strengthening, bed mobility, transfers, gait, stairs, balance training, and use of assistive device. Discharge Plan DISCHARGE RECOMMENDATIONS: Home with outpatient PT TREATMENT CODE/TIME: 12:55-13:15 (20 minutes), [id number] Thank you for the opportunity to participate in the care of this patient. Carmen Galindo, PT, DPT, OCS [facility] [place], [place]
--- NOTE | 2022-08-31 14:39 | PGE_ITS ---
Date of Service Date of service: 08/31/22 Time of Service: 14:39 Assessment and Plan Assessment and plan (1) Bilateral leg weakness: Status: Acute Assessment and plan: Suspected to be due to MS flare. This is already improving, per patient. Continue high dose steroids, as recommended by [facility] neurology. 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 Importantly, there was no evidence cord compression. Await neurology consult on Friday. Will start a scheduled bowel regimen and monitor for urinary retention. (2) Urinary retention: Status: Acute Assessment and plan: Bladder Scans/PVR. Manage constipation. Obtain US renal to ensure no hydronephrosis (3) Constipation: Status: Acute Assessment and plan: Start scheduled bowel regimen. (4) Ambulatory dysfunction: Status: Acute Assessment and plan: Due to above. PT consulted. Improving. (5) History of multiple sclerosis: Status: Acute Assessment and plan: As above (6) IDDM (insulin dependent diabetes mellitus): Status: Chronic Assessment and plan: Continue basal bolus insulin with NPH to help with steroid induced hyperglycemia. Continue sulfanylurea, hold metformin. 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 Await medical records. (8) Steroid-induced hyperglycemia: Status: Acute Assessment and plan: As above (9) DVT prophylaxis: Status: Acute Assessment and plan: Enoxaparin (10) Discharge planning issues: Status: Acute Assessment and plan: Full code Continues to require hospitalization Subjective Subjective Interval history since last seen: Retained urine (1300 cc per nursing, 1600 cc per patient) last night. She did not feel uncomfortable. She has not urinated since. The nursing said that she did. She also reports not having had a BM in 3 days. She denies ever having to have a catheter before. She does feel better as far as her strength today and was able to walk with a walker around the room, but she is not back to baseline. Nursing reports some confusion. No CP/SOB. Exam Narrative Exam Narrative: General: Pleasant female who is A&Ox3, NAD HEENT: EOMI, MMM Cardiovascular: RRR, no m/r/g, has a pacemaker Lungs: CTAB Gastrointestinal: soft, nontender, nondistended Extremities: trace edema BLEs, Objective Last Vital Signs Temp 36.2 C L 08/31/22 11:02 Pulse 70 08/31/22 11:28 Resp 17 08/31/22 11:02 BP 127/70 08/31/22 11:02 Pulse Ox 93 08/31/22 11:02 Laboratory Results - last 24 hr 08/30/22 08/31/22 08/31/22 16:43 06:00 06:00 WBC 8.38 RBC 2.82 L Hgb 8.6 L Hct 26.5 L MCV 94 MCH 30.5 MCHC 32.5 RDW 12.0 Plt Count 204 MPV 10.1 Immature Gran % 0.5 Neutrophils % 90.4 Lymphocytes % 7.0 Monocytes % 2.0 Eosinophils % 0.0 Basophils % 0.1 Nucleated RBC % 0.0 Absolute Neutrophils 7.57 H Absolute Lymphocytes 0.59 L Absolute Monocytes 0.17 Absolute Eosinophils 0.00 Absolute Basophils 0.01 Sodium 133 L Potassium 4.4 Chloride 100 Carbon Dioxide 23.0 Anion Gap 10.0 BUN 33 H Creatinine 1.7 H Est GFR (CKD-EPI 2020) 30.50 Glucose 443 H 386 H Calcium 9.5 Magnesium 1.9
[2022-08-31] MEDS: Docusate Sodium 100 MG CAP PO (14:49)
[2022-08-31] MEDS: Polyethylene Glycol 3350 17 GM PACKET PO (14:49)
[2022-08-31] MEDS: Enoxaparin 40 MG/0.4 ML SYR SC (17:26)
[2022-08-31] MEDS: Insulin Glargine 300 UNITS/3 ML PEN 12 UNITS SC (21:12)
[2022-09-01 03:25] VITALS: BP 95/54; PULSE 68; RESP 17; TEMP 35.3; O2SAT 97
[2022-09-01] MEDS: Levothyroxine 150 MCG TAB PO (05:21)
[2022-09-01 06:14] LABS: Abs Immature Grans 0.08 10^3/uL (0.0-0.06); Absolute Basophil Count 0.02 10^3/uL (0.0-0.2); Absolute Lymphocyte Count 0.83 10^3/uL (1.2-3.4); Absolute Monocyte Count 0.65 10^3/uL (0.1-0.8); Absolute Neutrophil Count 10.85 10^3/uL (1.2-6.7); Basophils % 0.2; HCT 26.4 % (36.0-46.0); HGB 8.6 g/dL (11.2-15.7); Immature Grans % 0.6; Lymphocytes % 6.7; MCH 30.1 pg (27.0-33.0); MCHC 32.6 % (32.0-36.0); MCV 92 fL (80-95); MPV 10.4 fL (8.0-11.0); Monocytes % 5.2; Neutrophils % 87.3; Platelet Count 226 10^3/uL (130-400); RBC 2.86 10^6/uL (3.93-5.22); RDW-SD 40.9 fL; WBC 12.43 10^3/uL (4.4-10.8)
[2022-09-01 06:28] LABS: Anion Gap 8.9 mmol/L (3-11); BUN 43 mg/dL (7-18); CO2 25.1 mmol/L (21.0-32.0); CREATININE 1.8 mg/dL (0.55-1.02); Calcium 9.4 mg/dL (8.5-10.1); Chloride 101 mmol/L (98-107); Estimated GFR 28.48 (mL/min/1.73m2); Glucose 158 mg/dL (74-106); Magnesium 1.9 mg/dL (1.8-2.4); Potassium 4.1 mmol/L (3.5-5.1); Sodium 135 mmol/L (136-145)
[2022-09-01 07:58] VITALS: BP 127/56; PULSE 62; RESP 17; TEMP 36; O2SAT 100
[2022-09-01] MEDS: Aspirin 81 MG CHEW PO (08:46)
[2022-09-01] MEDS: Carvedilol 6.25 MG TAB PO ×2 (08:46→19:32)
[2022-09-01] MEDS: Acetaminophen 500 MG TAB 1000 MG PO ×3 (08:46→23:13)
[2022-09-01] MEDS: glipiZIDE C.R. 5 MG TABCR PO ×2 (08:46→17:42)
[2022-09-01] MEDS: Multivitamin TAB 1 TAB PO (08:47)
[2022-09-01] MEDS: Insulin Aspart 300 UNITS/3 ML PEN SC ×7 (08:49→23:01)
[2022-09-01] MEDS: Insulin Glargine 300 UNITS/3 ML PEN 16 UNITS SC (08:50)
--- NOTE | 2022-09-01 11:39 | PGE_ITS ---
Date of Service Date of service: 09/01/22 Time of Service: 11:39 Assessment and Plan Assessment and plan (1) Bilateral leg weakness: Status: Acute Assessment and plan: Suspected to be due to MS flare. Improving. Continue high dose steroids, as recommended by [facility] neurology. Her MRI of the whole spine w/ contrast 08/17/22 at [facility] shows multiple new lesions, including abnormal thickening and enhancement of the nerve roots of the cauda equina which is seen with inflammatory demyelinating polyneuropathy. Importantly, there was no evidence cord compression. Await neurology consult tomorrow. (2) Urinary retention: Status: Acute Assessment and plan: S/p damon. Suspect neurogenic bladder. C/s urology. Manage constipation. Await US renal to ensure no hydronephrosis (3) Constipation: Status: Acute Assessment and plan: Continue scheduled bowel regimen. Has known decreased rectal tone and I suspect neurogenic bowel. (4) Ambulatory dysfunction: Status: Acute Assessment and plan: Due to above. PT consulted. Improving. (5) History of multiple sclerosis: Status: Acute Assessment and plan: As above (6) IDDM (insulin dependent diabetes mellitus): Status: Chronic Assessment and plan: Continue basal bolus insulin. Didn't require NPH today. Continue sulfanylurea, hold metformin. 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 Await medical records. (8) Steroid-induced hyperglycemia: Status: Acute Assessment and plan: As above (9) DVT prophylaxis: Status: Acute Assessment and plan: Enoxaparin (10) Discharge planning issues: Status: Acute Assessment and plan: Full code Continues to require hospitalization Subjective Subjective Interval history since last seen: Ms Alford did have to have a damon catheter placed yesterday. She was retaining 476 cc, 266 ccs, and 875 cc's. She had 1 BM yesterday and is about to have another. She states that she was told by neuroloyg at [facility] that she had decreased rectal tone. Has a headache. No dizziness, CP, SOB, nausea. Looking forward to her treats. Exam Narrative Exam Narrative: General: Pleasant female who is A&Ox3, NAD HEENT: EOMI, MMM Cardiovascular: RRR, no m/r/g, has a pacemaker Lungs: CTAB Gastrointestinal: soft, nontender, nondistended : has a damon - clear urine Extremities: trace edema BLEs, Objective Last Vital Signs Temp 36 C L 09/01/22 07:58 Pulse 62 09/01/22 07:58 Resp 17 09/01/22 07:58 BP 127/56 L 09/01/22 07:58 Pulse Ox 100 09/01/22 07:58 Laboratory Results - last 24 hr 09/01/22 09/01/22 05:32 05:32 WBC 12.43 H RBC 2.86 L Hgb 8.6 L Hct 26.4 L MCV 92 MCH 30.1 MCHC 32.6 RDW 12.0 Plt Count 226 MPV 10.4 Immature Gran % 0.6 Neutrophils % 87.3 Lymphocytes % 6.7 Monocytes % 5.2 Eosinophils % 0.0 Basophils % 0.2 Nucleated RBC % 0.0 Absolute Neutrophils 10.85 H Absolute Lymphocytes 0.83 L Absolute Monocytes 0.65 Absolute Eosinophils 0.00 Absolute Basophils 0.02 Sodium 135 L Potassium 4.1 Chloride 101 Carbon Dioxide 25.1 Anion Gap 8.9 BUN 43 H Creatinine 1.8 H Est GFR (CKD-EPI 2020) 28.48 Glucose 158 H Calcium 9.4 Magnesium 1.9
[2022-09-01 11:48] VITALS: BP 102/60; PULSE 64; RESP 17; TEMP 36.1; O2SAT 99
[2022-09-01 15:10] VITALS: BP 131/72; PULSE 63; RESP 17; TEMP 36.4; O2SAT 98
[2022-09-01] MEDS: Docusate Sodium 100 MG CAP PO ×2 (17:14→19:32)
[2022-09-01] MEDS: Enoxaparin 30 MG/0.3 ML SYR SC (17:56)
[2022-09-01 20:05] VITALS: BP 130/72; PULSE 65; RESP 17; TEMP 36.6; O2SAT 98
[2022-09-01] MEDS: Insulin Glargine 300 UNITS/3 ML PEN 12 UNITS SC (23:02)
[2022-09-01 23:08] VITALS: BP 132/66; PULSE 61; RESP 16; TEMP 36.4; O2SAT 97
[2022-09-02 03:35] VITALS: BP 130/66; PULSE 62; RESP 16; TEMP 36.8; O2SAT 97
[2022-09-02] MEDS: Levothyroxine 150 MCG TAB PO (05:54)
[2022-09-02 06:22] LABS: Absolute Basophil Count 0.01 10^3/uL (0.0-0.2); Absolute Lymphocyte Count 0.76 10^3/uL (1.2-3.4); Absolute Monocyte Count 0.77 10^3/uL (0.1-0.8); Absolute Neutrophil Count 8.51 10^3/uL (1.2-6.7); Basophils % 0.1; HCT 24.9 % (36.0-46.0); HGB 8.2 g/dL (11.2-15.7); Lymphocytes % 7.5; MCHC 32.9 % (32.0-36.0); MCV 91 fL (80-95); MPV 10.2 fL (8.0-11.0); Monocytes % 7.6; Neutrophils % 83.8; Platelet Count 230 10^3/uL (130-400); RBC 2.73 10^6/uL (3.93-5.22); WBC 10.15 10^3/uL (4.4-10.8)
[2022-09-02 06:29] LABS: Anion Gap 10.6 mmol/L (3-11); BUN 46 mg/dL (7-18); CO2 24.4 mmol/L (21.0-32.0); CREATININE 1.8 mg/dL (0.55-1.02); Calcium 8.9 mg/dL (8.5-10.1); Chloride 101 mmol/L (98-107); Estimated GFR 28.48 (mL/min/1.73m2); Glucose 185 mg/dL (74-106); Magnesium 1.8 mg/dL (1.8-2.4); Sodium 136 mmol/L (136-145)
[2022-09-02 07:19] VITALS: BP 137/86; PULSE 71; RESP 16; TEMP 36.5; O2SAT 98
[2022-09-02] MEDS: Multivitamin TAB 1 TAB PO (08:48)
[2022-09-02] MEDS: Normal Saline Flush 10 ML SYR IVP (08:49)
[2022-09-02] MEDS: glipiZIDE C.R. 5 MG TABCR PO (08:49)
[2022-09-02] MEDS: Acetaminophen 500 MG TAB 1000 MG PO (08:49)
[2022-09-02] MEDS: Aspirin 81 MG CHEW PO (08:49)
[2022-09-02] MEDS: Insulin Aspart 300 UNITS/3 ML PEN SC ×2 (08:50→08:53)
[2022-09-02] MEDS: Insulin Glargine 300 UNITS/3 ML PEN 16 UNITS SC (08:51)
[2022-09-02 11:24] VITALS: BP 140/74; PULSE 65; RESP 16; TEMP 36.4; O2SAT 97
--- NOTE | 2022-09-02 13:45 | W.PM.DS.N ---
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 (10) Steroid-induced hyperglycemia: Status: Acute Discharge Plan Disposition Patient Disposition: Home W/Home Health Services Condition: Good Discharge Details Reason For Visit: MS flare Admit Date/Time: 08/30/22 14:15 Admit Provider: Stephani Katz Attending Provider: Stephani Katz Hospital Course Hospital Course: Ms Alford is a 77 year old female with PMHx of MS and familial ALS, on a clinical trial with intrathecal topherecin, as well as h/o IDDM2, hypertension, hypothyroidism, who was a patient on [facility] hospitalist service from 08/30/22 until 09/02/22, having presented with bilateral leg weakness and inability to walk for three days prior to hospitalization. The patient denied any trauma, though did fall at the onset of symptoms. She had a negative CT of the head. [facility] neurology was consulted and recommended a trial of high dose steroids to see if the symptoms could be due to an MS flare. The patient responded rather well to 4 days of methylprednisolone 1000 mg. She worked with PT for the duration of her hospitalization and mobilized well enough today with a walker where I feel she would be safe to return home with a referral to home health physical therapy. The patient was also found to be retaining urine on this admission. On one of her post-void residuals, she had >1300 cc's. She did have a landin catheter placed. She initially denied, but later admitted to being constipated. She states she was told previously she had a weak rectal tone. She was started on a bowel regimen and is being discharged home on one. She is going to [place] where her medical team is located at the end of this week. She is felt safe for discharge home today with a landin catheter after urinary catheter teaching. She is being discharged home with a referral to home health nursing as well to help with the catheter management. Care for patient as well as completion of her discharge summary on day of discharge took 45 minutes. Home Meds and New Rx's Prescriptions: New bisacodyl 5 mg Tablet,Delayed Release (Dr/Ec) 5 mg PO DAILY PRN PRNQty: 10 0RF docusate sodium [Colace] 100 mg Capsule 100 mg PO TID Qty: 90 0RF polyethylene glycol 3350 17 gram Powder In Packet 17 g PO DAILY Qty: 30 0RF Continued multivitamin Tablet 1 tab PO DAILY carvedilol 6.25 mg Tablet 6.25 mg PO BID levothyroxine 150 mcg Tablet 150 mcg PO DAILY omeprazole 20 mg Capsule,Delayed Release(Dr/Ec) 20 mg PO BID aspirin 81 mg Tablet 81 mg PO DAILY hydrochlorothiazide 25 mg Tablet 25 mg PO DAILY losartan 100 mg Tablet 100 mg PO DAILY metformin 500 mg Tablet Extended Release 24hr 500 mg PO DAILY insulin glargine [Lantus Solostar U-100 Insulin] 100 unit/mL (3 mL) Insulin Pen 12 unit SUBCUT HS acetaminophen 500 mg Tablet 1,000 mg PO Q6H PRN PRN glipizide 5 mg Tablet 2.5 mg PO BID AC Discharge Instructions Instructions: Constipation (DC), Landin Catheter Placement and Care (GEN), Acute Urinary Retention in Women (ED), Chronic Urinary Retention in Women (DC), How to Change a Catheter Drainage Bag (DC) Additional Instructions: Follow up with your medical team in [place]. Return to the hospital with any fever, bleeding, chest pain, or shortness of breath. Return to the hospital with neurologic changes. Care Plan Goals: Home with home health nursing Stand Alone Forms: Nursing Discharge Form Referrals: Unknown,Unknown [STAFF PHYSICIAN] - (please follow up with your primary care provider in the next 2 weeks for hospital discharge ) Activity:: Activity as Tolerated Equipment/Supplies:: urinary catheter supplies Diet:: consistent carb heart healthy Discharge Orders Discharge Orders: Discharge Order (Routine); Ordered 09/02/22 Ordered By: Stephani Katz DS: Summary Time Spent with Patient providing and/or coordinating discharge services: Greater than 30 minutes Status at Discharge Functional status at discharge: uses cane/walker Overall status at discharge: patient is back to baseline Mental Status: mental status grossly normal Speech and Movement: speech and movement normal Mood: congruent mood Affect: normal affect Exam Narrative Exam Narrative: General: Pleasant female who is A&Ox3, NAD HEENT: EOMI, MMM Cardiovascular: RRR, no m/r/g, has a pacemaker Lungs: CTAB Gastrointestinal: soft, nontender, nondistended : has a landni - clear urine Extremities: trace edema BLEs, Psych Mental Status: mental status grossly normal Speech and Movement: speech and movement normal Mood: congruent mood Affect: normal affect DS: Data Vitals/I&O Vitals and I&O: Vital Signs Temperature 36.4 C L 09/02/22 11:24 Temperature Source Tympanic 09/02/22 11:24 Pulse 65 09/02/22 11:24 Pulse Rhythm Regular 09/02/22 08:37 Pulse 80 08/30/22 14:50 Respiratory Rate 16 09/02/22 11:24 Respiratory Effort Non-Labored 09/02/22 08:37 Respiratory Depth Normal 09/02/22 08:37 Respiratory Pattern Normal 09/02/22 08:37 Blood Pressure 140/74 09/02/22 11:24 Blood Pressure Mean 72 08/30/22 14:45 Blood Pressure Position Supine 08/30/22 05:30 Pulse Oximetry 97 09/02/22 11:24 Oxygen Delivery Method Room Air 09/02/22 11:24 Oxygen Flow Rate 0 09/02/22 11:24 Pain Level 0 09/02/22 11:24 Comment 09/01/22 11:48 Intake & Output 09/01/22 09/02/22 09/02/22 23:59 11:59 23:59 Intake Total 480 / 490 310 / 310 Output Total 1150 / 1800 500 / 500 Balance -670 / -1310 -190 / -190 Intake: IV 100 / 110 110 / 110 Oral 380 / 380 200 / 200 Output: Urine 1150 / 1800 500 / 500 Other: Urine Color Yellow Urine Appearance Clear Data Completed and Pending Completed studies during hospitalization [Text1]: CT head 08/30/22: 1. No acute intracranial process. CXR 08/30/22: No acute pulmonary findings. Labs on day of discharge: Labs from last 24 hours 09/02/22 09/02/22 05:40 05:40 WBC 10.15 RBC 2.73 L Hgb 8.2 L Hct 24.9 L MCV 91 MCH 30.0 MCHC 32.9 RDW 12.0 Plt Count 230 MPV 10.2 Immature Gran % 1.0 Neutrophils % 83.8 Lymphocytes % 7.5 Monocytes % 7.6 Eosinophils % 0.0 Basophils % 0.1 Nucleated RBC % 0.0 Absolute Neutrophils 8.51 H Absolute Lymphocytes 0.76 L Absolute Monocytes 0.77 Absolute Eosinophils 0.00 Absolute Basophils 0.01 Sodium 136 Potassium 4.0 Chloride 101 Carbon Dioxide 24.4 Anion Gap 10.6 BUN 46 H Creatinine 1.8 H Est GFR (CKD-EPI 2020) 28.48 Glucose 185 H Calcium 8.9 Magnesium 1.8 PFSH All Active Problems (Updated 09/02/22 @ 13:46 by Stephani Katz MD) Neurogenic bowel (Acute) Neurogenic bladder (Acute) Multiple sclerosis exacerbation (Acute) Constipation (Acute) Urinary retention (Acute) Discharge planning issues (Acute) DVT prophylaxis (Acute) Steroid-induced hyperglycemia (Acute) Ambulatory dysfunction (Acute) Bilateral leg weakness (Acute) Osteoarthritis (Chronic) Pulmonary hypertension (Acute) Right carpal tunnel syndrome (Acute) 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) Bilateral leg edema (Acute) Arthritis (Acute) Eczema (Acute) Endometrial hyperplasia (Acute) Anemia due to stage 4 chronic kidney disease (Acute) 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) Hypercholesterolemia (Acute) Diabetic polyneuropathy (Acute) Familial ALS (amyotrophic lateral sclerosis) (Chronic) Hypothyroidism (Chronic) GERD (gastroesophageal reflux disease) (Chronic) Hypertension (Chronic) IDDM (insulin dependent diabetes mellitus) (Chronic) Bilateral leg weakness (Acute) History of multiple sclerosis (Acute) Medical History (Updated 09/02/22 @ 13:46 by Stephani Katz MD) 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 Surgical History (Updated 08/31/22 @ 10:33 by Stephani Katz MD) H/O colonoscopy with polypectomy H/O colposcopy with cervical biopsy several H/O left mastectomy Hx of esophagogastroduodenoscopy S/P bilateral cataract extraction S/P breast biopsy, right S/P carpal tunnel release right S/P left knee arthroscopy S/P lumpectomy, left breast S/P placement of cardiac pacemaker Family History (Updated 08/31/22 @ 10:35 by Stephani Katz MD) Sister Familial ALS (amyotrophic lateral sclerosis) Diabetes Sister Familial ALS (amyotrophic lateral sclerosis) Brother Familial ALS (amyotrophic lateral sclerosis) Maternal Grandmother Familial ALS (amyotrophic lateral sclerosis) Heart disease Mother Familial ALS (amyotrophic lateral sclerosis) Son Familial ALS (amyotrophic lateral sclerosis) Diabetes Father Family history of early CAD Paternal Grandmother Diabetes Social History (Updated 08/31/22 @ 10:41 by Stephani Katz MD) Smoking/Tobacco Use Status: Former Tobacco Use tobacco type: cigarettes Smoking risk assessment performed?: Yes Alcohol Intake: former Substance use type: does not use
--- NOTE | 2022-09-02 14:21 | PDOC.HHF2F ---
Home Health Referral Home Health Orders Clinical synopsis of why skilled professionals are needed: Ms Alford is a 77 year old female with PMHx of MS and familial ALS, on a clinical trial with intrathecal topherecin, as well as h/o IDDM2, hypertension, hypothyroidism, who was a patient on [facility] hospitalist service from 08/30/22 until 09/02/22, having presented with bilateral leg weakness and inability to walk for three days prior to hospitalization. The patient denied any trauma, though did fall at the onset of symptoms. She had a negative CT of the head. [facility] neurology was consulted and recommended a trial of high dose steroids to see if the symptoms could be due to an MS flare. The patient responded rather well to 4 days of methylprednisolone 1000 mg. She worked with PT for the duration of her hospitalization and mobilized well enough today with a walker where I feel she would be safe to return home with a referral to home health physical therapy. The patient was also found to be retaining urine on this admission. On one of her post-void residuals, she had >1300 cc's. She did have a damon catheter placed. She initially denied, but later admitted to being constipated. She states she was told previously she had a weak rectal tone. She was started on a bowel regimen and is being discharged home on one. She is going to [place] where her medical team is located at the end of this week. She is felt safe for discharge home today with a damon catheter after urinary catheter teaching. She is being discharged home with a referral to home health nursing as well to help with the catheter management. Medical diagnosis necessitation home health referral: Multiple sclerosis flare, neurogenic bladder and bowel Registered Nurse: Check all that apply Instruct on, and maintenance of, urinary device: Ordered Physical Therapist: Check all that apply Increase strength & endurance for safe mobility at home: Ordered To design/establish home maintenance program: Ordered Fall reduction therapy program for patient with history of frequent falls: Ordered Home safety evaluation and teaching/gait training including stair management (if applicable): Ordered Home Bound Status Requires the aid of supportive device (check all that apply): Walker Describe why leaving home would require a considerable and taxing effort: Requires frequent rest periods Encounter Date and Reason: I certify that a FTF encounter for this patient was performed on September 02, 2022 and that such encounter was related to the primary reason the patient requires home health services. The encounter was conducted in the following manner: By me as the certifying physician, TACTICAL INTELLIGENCE OFFICER, PA or By an inpatient physician, TACTICAL INTELLIGENCE OFFICER or PA during an inpatient stay who communicated findings to me, Certification And Authentication I certify that I composed the above information based on my clinical judgment relating to this patient's medical condition and, if applicable, clinical findings communicated to me by the NPP or inpatient physician who performed the FTF encounter. Name of Provider that will be monitoring home health services: Joanna Stoddard
--- NOTE | 2022-09-02 14:25 | NUR.NOTE ---
Nursing Note: Pt teaching provided to patient with Landin care. Pt taught how to keep catheter and surrounding area clean with soap and water. No baths. Showers only. Pt states understanding. Teaching provided to patient on how to exchange mechanic Landin bag to leg bag. Pt return demonstrated how to empty Landin bag and leg bag, Took leg bag on and off of leg and adjusted the straps. Pt emptied both Landin bag and leg back independently after teaching. Pt denies any questions on Landin care. Pt voiced to RN how to change the leg bag over to the larger overnight Landin bag. Pt states good understanding of all teaching. 2 overnight Landin bags and 2 leg bags provided to patient to go home with. Pt currently has leg bag on leg.
[2022-09-02 15:05] VITALS: BP 138/78; PULSE 65; RESP 16; TEMP 36.5; O2SAT 97
--- NOTE | 2022-09-04 16:54 | INDS_ITS ---
Date of service: 09/04/22 Time of Service: 16:54 PT Notes Visit Reasons: MS flare Physical Therapy Inpatient Discharge Summary Date: 09/04/22 DAtes of Service: 08/31/2022 only This is a clinical summary of care provided for the duration of dates listed above. No charge was made in the completion of this documentation Referring Doctor: Stephani Katz MD PT Orders: PT CONSULT: Limited Ability Precautions: Fall. Standard. Patient Profile/Admitting Diagnosis:Malou Meyer is 77 yo female that presented to the ER on 08/30/22 for increasing LE weakness. She has MS and has been participating in a research study, receiving s madhuri injections monthly. She states it has been going well until recent injection. Was at [facility] and states left AMA. Found herself to be unable to get up to go to the bathroom so presented to the ER. PMHX: See EMR Social History/Home Situation: Lives with spouse, reports independent at baseline. Equipment Owned/DME: Not assessed Subjective:? NT. See most recent CHIEF ENGINEER notes. Objective:? General Observation: NT. See most recent CHIEF ENGINEER notes. Mental Status: NT. See most recent CHIEF ENGINEER notes. Pain: NT. See most recent CHIEF ENGINEER notes. ROM: Right Upper Extremity: Shoulder Flexion WFL. Shoulder abduction WFL. Elbow flexion WFL. Wrist flexion WFL. Opening and closing of hand WFL. Left Upper Extremity: Shoulder Flexion WFL. Shoulder abduction WFL. Elbow flexion WFL. Wrist flexion WFL. Opening and closing of hand WFL. Right Lower Extremity: Hip flexion WFL. Hip abduction WFL. Knee flexion WFL. Ankle dorsiflexion WFL. Ankle plantarflexion WFL. Left Lower Extremity: Hip flexion WFL. Hip abduction WFL. Knee flexion WFL. Ankle dorsiflexion WFL. Ankle plantarflexion WFL. Strength: Right Upper Extremity: Shoulder flexors 5/5. Shoulder abductors 5/5. Elbow flexors 5/5. Elbow extensors 5/5. Strike Off Machine Operator strong. Left Upper Extremity: Shoulder flexors 5/5. Shoulder abductors 5/5. Elbow flexors 5/5. Elbow extensors 5/5. Strike Off Machine Operator strong. Right Lower Extremity: Hip flexors 3+/5. Knee flexors 4+/5. Knee extensors 4+/5. Ankle dorsiflexors 4/5. Ankle plantarflexors 5/5. Left Lower Extremity: Hip flexors 3+/5. Knee flexors 4+/5. Knee extensors 4+/5. Ankle dorsiflexors 4/5. Ankle plantarflexors 5/5. Sensation:?Intact as to pain and pressure on bilateral lower extremities. Reports decreased plantar surface of feet Bed Mobility/Transfers: Supine to sit: Not assessed Sit to supine: Not assessed Sit to stand: Supervision Stand to sit: Supervision, Poor control Gait:?Ambulated in room with FWW, CGA Stairs:?Not assessed Balance:? Static Sitting: Normal Dynamic Sitting: Normal Static Standing: Fair Dynamic Standing: Poor Assessment: Patient presents with clinical signs and symptoms consistent with current/admitting diagnoses that have resulted to mobility limitations, gait instability, generalized weakness, and impairment of motor control as demonstrated by the following impairment level findings: 1. Decreased strength to hip major muscle groups 2. Impaired sitting/standing balance 3. Impaired activity tolerance Impairments are contributing to the following functional limitations: 1. Increased dependence with transfers 2. Inability to safely ambulate without assistive device and physical assistance 3. Increase completion time for mobility ADL performance 4. Increased fall risk 5. Inability to negotiate steps alone safely Goals: Goals x1 week 1. Supine-Sit: independent NOT MET 2. Sit-Supine: independent NOT MET 3. Sit-Stand: independent NOT MET 4. Stand-Sit: independent NOT MET 5. Bed-Chair: independent NOT MET 6. Chair-Bed: independent NOT MET 7. Independent gait on level surface with use of least restrictive device for at least 300 feet without report of pain nor dyspnea NOT MET 8. Good static and dynamic standing balance/tolerance NOT MET 9. Independent with home exercise program NOT MET 10. Independent stair negotiation while holding onto bilateral rails for at least 10 steps without report of pain nor dyspnea NOT MET Discharge Plan DISCHARGE RECOMMENDATIONS: Home with outpatient PT TREATMENT CODE/TIME: NC Thank you for the opportunity to participate in the care of this patient. Meera Fletcher PT, DPT, CLT [facility] [place], [place]
== END 2022-09-02 15:12 | disposition home health service (06) | DRG 59 ==
LOC: ER 15:00 → MS 15:23
PROVIDERS: Emergency Medicine; Admitting Provider Internal Medicine; Emergency Provider Physician Assistant; Visit Provider Internal Medicine
DX: G35 Multiple sclerosis (principal); G12.21 Amyotrophic lateral sclerosis; K59.2 Neurogenic bowel, not elsewhere classified; N18.4 Chronic kidney disease, stage 4 (severe); R29.898 Other symptoms and signs involving the musculoskeletal system; R53.1 Weakness; T38.0X5A Adverse effect of glucocorticoids and synthetic analogues, initial encounter; R33.9 Retention of urine, unspecified; K59.00 Constipation, unspecified; N31.9 Neuromuscular dysfunction of bladder, unspecified; E11.22 Type 2 diabetes mellitus with diabetic chronic kidney disease; I12.9 Hypertensive chronic kidney disease with stage 1 through stage 4 chronic kidney disease, or unspecified chronic kidney disease; E03.9 Hypothyroidism, unspecified; I27.20 Pulmonary hypertension, unspecified; D63.1 Anemia in chronic kidney disease; E11.42 Type 2 diabetes mellitus with diabetic polyneuropathy; E78.00 Pure hypercholesterolemia, unspecified; K21.9 Gastro-esophageal reflux disease without esophagitis; Z85.3 Personal history of malignant neoplasm of breast; W18.39XA Other fall on same level, initial encounter; E11.3299 Type 2 diabetes mellitus with mild nonproliferative diabetic retinopathy without macular edema, unspecified eye; I44.1 Atrioventricular block, second degree; Z95.0 Presence of cardiac pacemaker; Z87.891 Personal history of nicotine dependence; Z79.4 Long term (current) use of insulin; Z79.82 Long term (current) use of aspirin; Z79.84 Long term (current) use of oral hypoglycemic drugs; E11.65 Type 2 diabetes mellitus with hyperglycemia; R29.6 Repeated falls
CPT/HCPCS: 36415; 36416; 51701; 80048; 80053; 82947; 82962; 87637; 93005; 96361; 96365; 96366; 96367; 96375; 97162; 99284; 99285; J1650; 70450; 71046; 81003; 81015; 83735; 84484; 85025; 93010; 99223; 99232; 99233; 99239; J0131; J2930

== ENCOUNTER → 2022-09-04 02:00 | Outpatient (CLI) | payer MEDICARE, SELFPAY ==
--- NOTE | 2022-09-04 | DI.US_ITS ---
Exam(s) US RENAL EXAM: US RENAL CLINICAL HISTORY: urinary retention, concern for hydronephrosis. TECHNIQUE: Tim scale, color and spectral Doppler were used. COMPARISON: No exams were available for comparison FINDINGS: Renal size in cm: Right: 9.6. Left: 9.4. Echogenicity: Normal. Hydronephrosis: No. Cyst or mass: No. Nephrolithiasis: No. Other findings: None. Bladder:Normal. There is a Landin catheter in place. Ureteral jets: Right: Not visualized on this examination. Left: Not visualized on this examination. Prevoid vol:169 cc Postvoid vol:0 cc Renal color flow: Symmetric and within normal limits. IMPRESSION: No acute abnormality. DATA REPOSITORY:
== END ==
PROVIDERS: Visit Provider Internal Medicine
DX: R33.9 Retention of urine, unspecified (principal); N18.4 Chronic kidney disease, stage 4 (severe)
CPT/HCPCS: 76770

== ENCOUNTER 2022-12-25 18:54 | Emergency (ER) | payer MEDICARE, SELFPAY ==
[2022-12-25 18:54] VITALS: BP 169/70; PULSE 101; RESP 18; TEMP 36.7; O2SAT 100
[2022-12-25 19:33] LABS: HCT 25.7 % (36.0-46.0); HGB 8.2 g/dL (11.2-15.7); MCH 29.6 pg (27.0-33.0); MCHC 31.9 % (32.0-36.0); MCV 93 fL (80-95); MPV 8.6 fL (8.0-11.0); Platelet Count 274 10^3/uL (130-400); RBC 2.77 10^6/uL (3.93-5.22); RDW 13.4 % (11.7-14.6); RDW-SD 46.2 fL; WBC 6.62 10^3/uL (4.4-10.8)
[2022-12-25 19:47] LABS: INR 0.9 (0.9-1.1); Prothrombin Time 9.3 sec (9.3-11.0)
[2022-12-25 19:48] LABS: ALT 18 U/L (14-59); AST 12 U/L (15-37); Albumin 3.5 g/dL (3.4-5.0); Alkaline Phosphatase 67 U/L (46-116); Anion Gap 7.9 mmol/L (3-11); BUN 51 mg/dL (7-18); Bilirubin, Total 0.4 mg/dL (0.2-1.0); CO2 23.1 mmol/L (21.0-32.0); CREATININE 2.3 mg/dL (0.55-1.02); Calcium 9.5 mg/dL (8.5-10.1); Chloride 109 mmol/L (98-107); Estimated GFR 21.22 (mL/min/1.73m2); Glucose 233 mg/dL (74-106); Potassium 5.7 mmol/L (3.5-5.1); Sodium 140 mmol/L (136-145); Total Protein 7.2 g/dL (6.4-8.2)
--- NOTE | 2022-12-25 21:20 | ED.GENADUL_ITS ---
Discharge Plan Disposition Patient Disposition: Home Condition: Good Discharge Details Clinical Impression: Laceration of left lower leg Primary Care Provider: Unknown,Unknown ED Provider: Sari Rodriguez Home Meds and New Rx's Prescriptions: Continued multivitamin Tablet 1 tab PO DAILY carvedilol 6.25 mg Tablet 6.25 mg PO BID levothyroxine 150 mcg Tablet 150 mcg PO DAILY omeprazole 20 mg Capsule,Delayed Release(Dr/Ec) 20 mg PO BID aspirin 81 mg Tablet 81 mg PO DAILY hydrochlorothiazide 25 mg Tablet 25 mg PO DAILY losartan 100 mg Tablet 100 mg PO DAILY metformin 500 mg Tablet Extended Release 24hr 500 mg PO DAILY insulin glargine [Lantus Solostar U-100 Insulin] 100 unit/mL (3 mL) Insulin P en 12 unit SUBCUT HS acetaminophen 500 mg Tablet 1,000 mg PO Q6H PRN PRN glipizide 5 mg Tablet 2.5 mg PO BID AC bisacodyl 5 mg Tablet,Delayed Release (Dr/Ec) 5 mg PO DAILY PRN PRNQty: 10 0RF docusate sodium [Colace] 100 mg Capsule 100 mg PO TID Qty: 90 0RF polyethylene glycol 3350 17 gram Powder In Packet 17 g PO DAILY Qty: 30 0RF Discharge Instructions Instructions: Laceration (ED) Additional Instructions: Leave the dressing on for 48 hours. May then reapply 4 x 4's and Jo or Cobain. Return to ED for fever 100.4 or above, redness spreading outside the wound, etc. The black and blue on the skin flap is going to spread toward your ankle and foot and this is normal and baseline. Return also for cold pale p ainful foot. Sutures out in 10 days with your primary care provider or the ED. Expect to be achy and sore tomorrow. You can take Tylenol 650 mg every 4-6 hours as needed for pain. You should avoid Naprosyn or ibuprofen as your kidney function is not normal and has worsened slightly. Please call your primary care doc tomorrow for a follow-up appointment for next week regarding your kidney function. Return for severe headache, chest pain, belly pain, any other concerns. Medical Decision Making Patient complained of a very mild headache in the ED and asked for some Tylenol. She says she gets these off and on and does not want it getting worse. She starting to get a little bit sore from the fall. She again denies hitting her head or having any midline neck pain. She is not on anticoagulant medication. She understands what to watch out for in terms of infection. Cleansed the area well but did discuss antibiotics with her which I do not think she needs and she agrees. We talked about what to come back for in terms of severe head pain, chest pain, belly pain, infection issues, focal neurologic symptoms, compartment syndrome etc. The patient reported that her headache was gone on discharge. We again had discussed head CT and this was deferred. HPI General Date/Time Provider Initiated Documentation: 12/25/22 18:59 . HPI Narrative: This 77-year-old female patient presents with a right lower leg laceration after fall down the stairs. The patient tells me that she was worked up for familial ALS which runs in her family they have decided that she has MS. Her balance has been off for quite some time. She was walking up her carpeted stairs with much stuff in her hands when she lost her balance and fell backwards. She denies hitting her head and has no neck pain. She denies chest or abdominal pain. There is no pelvic pain. She has a significant laceration to her right lower leg but bleeding is controlled on arrival. Reportedly a tourniquet was placed by someone on the scene prior to EMS arrival. The patient has no idea when her last tetanus shot was. She has full recall and denies LOC. Nothing hurts except for the laceration. She denies any alcohol tonight. Related Data Home Medications Medication Instructions Recorded Confirmed acetaminophen 500 mg tablet 1,000 mg PO Q6H PRN PRN 08/30/22 08/31/22 aspirin 81 mg tablet 81 mg PO DAILY 08/30/22 08/30/22 carvedilol 6.25 mg tablet 6.25 mg PO BID 08/30/22 08/30/22 hydrochlorothiazide 25 mg tablet 25 mg PO DAILY 08/30/22 08/30/22 insulin glargine 100 unit/mL (3 12 unit subcut HS 08/30/22 08/31/22 mL) subcutaneous pen (Lantus Solostar U-100 Insulin) levothyroxine 150 mcg tablet 150 mcg PO DAILY 08/30/22 08/30/22 losartan 100 mg tablet 100 mg PO DAILY 08/30/22 08/30/22 metformin 500 mg tablet,extended 500 mg PO DAILY 08/30/22 08/31/22 release 24hr multivitamin 1 tab PO DAILY 08/30/22 08/30/22 omeprazole 20 mg capsule,delayed 20 mg PO BID 08/30/22 08/31/22 release glipizide 5 mg tablet 2.5 mg PO BID AC 08/31/22 08/31/22 bisacodyl 5 mg tablet,delayed 5 mg PO DAILY PRN PRN #10 tabs 09/02/22 release docusate sodium 100 mg capsule 100 mg PO TID #90 caps 09/02/22 (Colace) polyethylene glycol 3350 17 gram 17 g PO DAILY #30 ea 09/02/22 oral powder packet Previous Rx's Medication Instructions Recorded bisacodyl 5 mg tablet,delayed 5 mg PO DAILY PRN PRN #10 tabs 09/02/22 release docusate sodium 100 mg capsule 100 mg PO TID #90 caps 09/02/22 (Colace) polyethylene glycol 3350 17 gram 17 g PO DAILY #30 ea 09/02/22 oral powder packet Allergies Allergy/AdvReac Type Severity Reaction Status Date / Time amlodipine Allergy Unverified 08/30/22 06:27 [id number] Reductase Allergy Unverified 08/30/22 06:28 Inhibitor milk containing products Allergy Uncoded 08/30/22 06:28 General Stated Complaint: Fall/Non TraumaCriteria JUAN CARLOS: 3 Review of Systems Constitutional Constitutional: Denies chills, Denies fever(s), Denies headache(s) and Denies weakness Eyes Eyes: Denies diplopia, Denies loss of vision and Reports other (no redness) ENT Ears, Nose, Mouth, and Throat: Denies abnormal hearing, Denies otalgia, Denies headache(s), Denies nasal congestion, Denies nasal discharge, Denies neck pain and Denies sore throat Cardiovascular Cardiovascular: Denies chest pain, Denies palpitations and Denies dyspnea Comments: Chest is stable and nontender to compression Respiratory Respiratory: Denies cough and Denies dyspnea Gastrointestinal Gastrointestinal: Denies abdominal pain, Denies diarrhea, Denies nausea and Denies vomiting Genitourinary Genitourinary: Denies dysuria Musculoskeletal Musculoskeletal: Denies myalgias, Denies deformity (Extremities are atraumatic and nontender to palpation with FROM), Denies muscle weakness, Denies neck pain, Denies numbness and Reports other (edema) Comments: Pelvis is stable to compression, spine is nontender to palp, including cervical which has FROM Integumentary/Breasts Skin/Breast: Denies change in pigmentation and Denies rash Comments: Has 21 cm V-shaped laceration into the fat right lower leg medially Neurologic Neurologic: Denies abnormal hearing, Denies abnormal speech, Denies confusion, Denies headache(s), Denies localized weakness, Denies loss of vision, Denies memory loss, Denies numbness, Denies other visual disturbances, Reports restless legs (chronic), Denies sensory deficit, Denies weakness and Reports other (no LOC) Psychiatric Psychiatric: Denies confusion and Denies memory loss Endocrine Endocrine: Denies palpitations PFSH All Active Problems (Updated 12/25/22 @ 21:26 by Sari Rodriguez MD) Laceration of left lower leg (Acute) Neurogenic bowel (Acute) Neurogenic bladder (Acute) Multiple sclerosis exacerbation (Acute) Constipation (Acute) Urinary retention (Acute) Steroid-induced hyperglycemia (Acute) Ambulatory dysfunction (Acute) Bilateral leg weakness (Acute) Osteoarthritis (Chronic) Pulmonary hypertension (Acute) Right carpal tunnel syndrome (Acute) 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) Bilateral leg edema (Acute) Arthritis (Acute) Eczema (Acute) Endometrial hyperplasia (Acute) Anemia due to stage 4 chronic kidney disease (Acute) 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) Hypercholesterolemia (Acute) Diabetic polyneuropathy (Acute) Familial ALS (amyotrophic lateral sclerosis) (Chronic) Hypothyroidism (Chronic) GERD (gastroesophageal reflux disease) (Chronic) Hypertension (Chronic) IDDM (insulin dependent diabetes mellitus) (Chronic) Bilateral leg weakness (Acute) History of multiple sclerosis (Acute) Medical History (Updated 12/25/22 @ 21:26 by Sari Rodriguez MD) 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 Surgical History (Updated 08/31/22 @ 10:33 by Stephani Katz MD) H/O colonoscopy with polypectomy H/O colposcopy with cervical biopsy several H/O left mastectomy Hx of esophagogastroduodenoscopy S/P bilateral cataract extraction S/P breast biopsy, right S/P carpal tunnel release right S/P left knee arthroscopy S/P lumpectomy, left breast S/P placement of cardiac pacemaker Family History (Updated 08/31/22 @ 10:35 by Stephani Katz MD) Sister Familial ALS (amyotrophic lateral sclerosis) Diabetes Sister Familial ALS (amyotrophic lateral sclerosis) Brother Familial ALS (amyotrophic lateral sclerosis) Maternal Grandmother Familial ALS (amyotrophic lateral sclerosis) Heart disease Mother Familial ALS (amyotrophic lateral sclerosis) Son Familial ALS (amyotrophic lateral sclerosis) Diabetes Father Family history of early CAD Paternal Grandmother Diabetes Social History (Updated 08/31/22 @ 10:41 by Stephani Katz MD) Smoking/Tobacco Use Status: Former Tobacco Use tobacco type: cigarettes Smoking risk assessment performed?: Yes Alcohol Intake: former Substance use type: does not use Do you feel safe at home: Yes Do you feel safe in your relationship?: Yes Course Vital Signs Vital signs: Vital Signs Temperature 36.7 C 12/25/22 18:54 Pulse 101 H 12/25/22 18:54 Respiratory Rate 18 12/25/22 18:54 Blood Pressure 169/70 H 12/25/22 18:54 Pulse Oximetry 100 12/25/22 18:54 Temperature 36.7 C 12/25/22 18:54 Pulse 101 H 12/25/22 18:54 Respiratory Rate 18 12/25/22 18:54 Respiratory Effort Normal 12/25/22 19:01 Blood Pressure 169/70 H 12/25/22 18:54 Blood Pressure Position Supine 12/25/22 18:54 Pulse Oximetry 100 12/25/22 18:54 Oxygen Delivery Method Room Air 12/25/22 18:54 Oxygen Flow Rate 0 12/25/22 18:54 Pain Level 0 12/25/22 18:54 Lab/Test Results Lab/Test Results: Laboratory Tests Range/Units 12/25/22 12/25/22 12/25/22 19:24 19:24 19:24 WBC (4.4-10.8) 10^3/uL 6.62 RBC (3.93-5.22) 10^6/uL 2.77 L Hgb (11.2-15.7) g/dL 8.2 L Hct (36.0-46.0) % 25.7 L MCV (80-95) fL 93 MCH (27.0-33.0) pg 29.6 MCHC (32.0-36.0) % 31.9 L RDW (11.7-14.6) % 13.4 Plt Count (130-400) 10^3/uL 274 MPV (8.0-11.0) fL 8.6 PT (9.3-11.0) sec 9.3 INR (0.9-1.1) 0.9 APTT (21.5-31.9) sec 21.0 L Sodium (136-145) mmol/L 140 Potassium (3.5-5.1) mmol/L 5.7 H Chloride (98-107) mmol/L 109 H Carbon Dioxide (21.0-32.0) mmol/L 23.1 Anion Gap (3-11) mmol/L 7.9 BUN (7-18) mg/dL 51 H Creatinine (0.55-1.02) mg/dL 2.3 H Est GFR (CKD-EPI 2020) (mL/min/1.73m2) 21.22 Glucose (74-106) mg/dL 233 H Calcium (8.5-10.1) mg/dL 9.5 Total Bilirubin (0.2-1.0) mg/dL 0.4 AST (15-37) U/L 12 L ALT (14-59) U/L 18 Alkaline Phosphatase (46-116) U/L 67 Total Protein (6.4-8.2) g/dL 7.2 Albumin (3.4-5.0) g/dL 3.5 Procedures Other Description: Laceration repair: 21 cm avulsion lack, V-shaped, medial lower leg irrigated and then Betadine prepped. Wound was explored and was just into the subcutaneous fat with a small area of fascia lacerated. 1% lidocaine with epinephrine used to anesthetize the wound. The patient was sterilely draped and an attempt was made to bring the adipose together with 4-0 Vicryl. 4-0 Prolene was then used to finish closing the wound. This was done with horizontal mattress sutures and good approximation. The wound was cleansed and Steri-Strips with benzoin placed. Dressing and Cobain were placed on top of this. Patient tolerated this well.
== END 2022-12-25 21:50 | disposition home or self-care (01) ==
LOC: ER 21:41
PROVIDERS: Emergency Provider Emergency Medicine
DX: S81.811A Laceration without foreign body, right lower leg, initial encounter (principal); R51.9 Headache, unspecified; Z23 Encounter for immunization; W10.9XXA Fall (on) (from) unspecified stairs and steps, initial encounter; E11.40 Type 2 diabetes mellitus with diabetic neuropathy, unspecified
CPT/HCPCS: 12036; 80053; 85027; 90471; 99283; 85610; 85730

== ENCOUNTER 2023-02-03 08:47 | Emergency (ER) | payer MEDICARE, SELFPAY ==
[2023-02-03] VITALS (15 sets, daily range): BP systolic 139–165; BP diastolic 64–71; PULSE 89–99; RESP 18; TEMP 36.6; O2SAT 96–99
--- NOTE | 2023-02-03 08:45 | RT.EKG_ITS ---
APPROVED REPORT Exam: Resting ECG Reason for Exam: weakness Patient Location: E HR:94 bpm ECG Measurements Heart Rate [address] 137 P 79 QRSd 137 QRS -73 QT 395 T 89 QTc 495 Conclusion Atrial-sensed ventricular-paced rhythm...ventricular pacing tracks p-waves Atrial sensed ventricularly paced rhythm at a rate of 94. Not meeting Sgarbossa criteria nor ashwini Coley criteria for ischemia. T wave inversion in aVL persistent compared to prior dated last year. Improved T wave inversions in lead V3. No acute intervention. Mildly prolonged QTc improved darby red to prior.
[2023-02-03 09:24] LABS: Abs Immature Grans 0.01 10^3/uL (0.0-0.06); Absolute Basophil Count 0.09 10^3/uL (0.0-0.2); Absolute Lymphocyte Count 1.05 10^3/uL (1.2-3.4); Absolute Monocyte Count 0.72 10^3/uL (0.1-0.8); Absolute Neutrophil Count 3.12 10^3/uL (1.2-6.7); Basophils % 1.8; HCT 28.2 % (36.0-46.0); HGB 8.9 g/dL (11.2-15.7); Immature Grans % 0.2; Lymphocytes % 20.6; MCH 29.3 pg (27.0-33.0); MCHC 31.6 % (32.0-36.0); MCV 93 fL (80-95); MPV 9.5 fL (8.0-11.0); Monocytes % 14.1; Neutrophils % 61.3; Platelet Count 257 10^3/uL (130-400); RBC 3.04 10^6/uL (3.93-5.22); RDW 13.4 % (11.7-14.6); WBC 5.09 10^3/uL (4.4-10.8)
[2023-02-03 09:41] LABS: ALT 10 U/L (14-59); AST 10 U/L (15-37); Albumin 3.4 g/dL (3.4-5.0); Alkaline Phosphatase 96 U/L (46-116); Anion Gap 10.1 mmol/L (3-11); BUN 53 mg/dL (7-18); Bilirubin, Total 0.4 mg/dL (0.2-1.0); CO2 24.9 mmol/L (21.0-32.0); CREATININE 2.4 mg/dL (0.55-1.02); Calcium 10.3 mg/dL (8.5-10.1); Chloride 106 mmol/L (98-107); Estimated GFR 20.17 (mL/min/1.73m2); Glucose 414 mg/dL (74-106); Magnesium 1.7 mg/dL (1.8-2.4); Sodium 141 mmol/L (136-145); Total Protein 7.5 g/dL (6.4-8.2); Troponin I < 50 ng/L (<or=60)
[2023-02-03 09:43] LABS: BE (Venous) -4 mmol/L (-2-3); HCO3 (Venous) 22 mmol/L (23-28); O2 Sat (Venous) 81 %; TCO2 (Venous) 21 mmol/L (24-29); pCO2 (Venous) 42 mmHg (41-51); pH (Venous) 7.33 (7.31-7.41); pO2 (Venous) 46 mmHg
[2023-02-03 09:45] LABS: Lactate 1.4 mmol/L (0.6-1.4)
--- NOTE | 2023-02-03 09:45 | DI.RAD_ITS ---
Exam(s) XR PORTABLE CHEST AP EXAM: XR PORTABLE CHEST AP CLINICAL HISTORY: weakness. TECHNIQUE: 2D digital imaging was performed. COMPARISON: CR XR CHEST 2V PA LATERAL from 08/30/2022 FINDINGS: Single AP portable view. Right bipolar subclavian pacemaker wires are unchanged position. Heart size is upper normal. The mediastinum is not widened. Lungs are clear. No infiltrates nor obvious pleural effusions. No pulmonary edema. IMPRESSION: No acute pulmonary findings on this single AP portable view of the chest. Cardiac pacemaker. DATA REPOSITORY: RADIATION DOSE DELIVERED:
[2023-02-03] MEDS: Lactated Ringers 1,000 ML 1000 ML IV (10:08)
[2023-02-03 10:11] LABS: Bilirubin Negative (Negative); Blood Small (Negative); Clarity Clear (Clear); Glucose >=1000 mg/dL (Negative); Ketones Negative (Negative); Leukocyte Esterase Negative (Negative); Nitrite Negative (Negative); Specific Gravity 1.015 (1.005-1.025); Urobilinogen 0.2 mg/dL (Up to 0.2)
[2023-02-03 10:15] LABS: Procalcitonin 0.1 ng/mL
[2023-02-03] MEDS: Insulin REGULAR-Human 100 UNITS/ML UNIT 10 UNITS SC (10:17)
[2023-02-03 10:18] LABS: Bacteria Negative HPF (Negative); C & S Indicated? No; Casts 0-2 Hyaline LPF (Negative); Crystals Negative HPF (Negative); Epithelial Cells Rare HPF (Negative); Mucus Negative (Negative); WBC Negative HPF (0-5)
--- NOTE | 2023-02-03 10:30 | DI.VRAD_ITS ---
PROCEDURE INFORMATION: Exam: XR Chest Exam date and time: 02/03/2023 10:21 AM Age: 77 years old Clinical indication: Other: Weakness TECHNIQUE: Imaging protocol: Radiologic exam of the chest. Views: 1 view. COMPARISON: CR XR CHEST 2V PA LATERAL 08/30/2022 8:41 AM FINDINGS: Tubes, catheters and devices: Pacemaker right chest wall. Lungs: Unremarkable. No consolidation. Pleural spaces: Unremarkable. No pleural effusion. No pneumothorax. Heart/Mediastinum: Unremarkable. No cardiomegaly. Bones/joints: Unremarkable. IMPRESSION: No acute cardiopulmonary findings. Dictated and Authenticated by: Jose Gonzalez MD. Ordering:MARIBEL Mensah MD
--- NOTE | 2023-02-03 12:42 | W.ED.GENAD ---
Discharge Plan Disposition Patient Disposition: Transfer-Acute Inpatient Care Specific Acute Inpt Facility: [facility] Condition: Stable Discharge Details Clinical Impression: Bilateral leg weakness, History of multiple sclerosis, IDDM (insulin dependent diabetes mellitus), Ambulatory dysfunction Primary Care Provider: Humera Kovacs ED Provider: Makenna Vincent Home Meds and New Rx's Prescriptions: No Action multivitamin Tablet 1 tab PO DAILY carvedilol 6.25 mg Tablet 6.25 mg PO BID Patient Comments: does not take levothyroxine 150 mcg Tablet 150 mcg PO DAILY omeprazole 20 mg Capsule,Delayed Release(Dr/Ec) 20 mg PO BID aspirin 81 mg Tablet 81 mg PO DAILY hydrochlorothiazide 25 mg Tablet 25 mg PO DAILY losartan 100 mg Tablet 100 mg PO DAILY metformin 500 mg Tablet Extended Release 24hr 500 mg PO DAILY Patient Comments: pcp took off insulin glargine [Lantus Solostar U-100 Insulin] 100 unit/mL (3 mL) Insulin Pen 12 unit SUBCUT HS acetaminophen 500 mg Tablet 1,000 mg PO Q6H PRN PRN glipizide 5 mg Tablet 2.5 mg PO BID AC bisacodyl 5 mg Tablet,Delayed Release (Dr/Ec) 5 mg PO DAILY PRN PRNQty: 10 0RF Patient Comments: does not use docusate sodium [Colace] 100 mg Capsule 100 mg PO TID Qty: 90 0RF Patient Comments: does not use polyethylene glycol 3350 17 gram Powder In Packet 17 g PO DAILY Qty: 30 0RF Patient Comments: does not use insulin lispro 100 unit/mL Insulin Pen 1 - 5 sliding scale dose SUBCUT TID biotin 5 mg Tablet 5 mg PO DAILY cholecalciferol (vitamin D3) 50 mcg (2,000 unit) Capsule 500 mcg PO BID ubiquinone 90 mg Tablet,Disintegrating 100 mg PO DAILY teriflunomide [Aubagio] 7 mg Tablet 7 mg PO DAILY elderberry fruit 350 mg Capsule 350 mg PO DAILY Medical Decision Making 77-year-old female presents with complicated history specifically for MS and ALS and investigative trial [facility] under the care of Dr. Salinas Had a similar presentation in August of this year and had MRI with new MS lesions Unfortunately we are unable to form MRI on this patient secondary to patient's pacemaker status which was placed secondary to second-degree type II AV block No indication for CT imaging at this time, I have a low suspicion for intracranial lesion I also have low suspicion for infectious etiology of patient's complaints, she is notably hyperglycemic, she received 10 units of subcu regular insulin in the emergency department and fluids, there is no clinical evidence of diabetic ketoacidosis She does have CKD, her creatinine is 2.4, this is unchanged from her December blood work She has no obvious leukocytosis, she has baseline anemia with a hemoglobin of 8.9 which is actually improved for her Urinalysis does not show evidence of infection Chest x-ray without obvious infiltrate or acute abnormality She remains neurologically intact throughout this encounter Case was discussed with Dr. Brenner, neurology who is able to accept this patient in transfer [facility] General Date/Time Provider Initiated Documentation: 02/03/23 08:59. [facility] Narrative: This complex 77-year-old female with ALS, MS, neurogenic bladder, coronary artery disease, insulin-dependent diabetes CKD, hypothyroidism presents with report of ambulatory dysfunction. Unable to ambulate with reported weakness of bilateral lower extremities. And a trial at [facility] with Dr. Salinas and received intrathecal infusions for 5 days this week, last infusion was . She was ambulatory on Friday and then Friday morning she was unable to ambulate secondary to weakness. She states she feels slightly foggy to but this is normal postinfusion per patient. She denies any chest pain, shortness of breath, or dizziness. She states that she had a similar episode in August for which she was transferred to [facility] and had MRI. She denies any injuries. Denies any fever. Denies any urinary symptoms. Denies any sensation change to her extremities or changes in bowel or bladder. Denies any groin numbness. Patient also reports she supposed to have her wound VAC changed. She had a laceration repair to her lower extremity after a fall several weeks ago and had tissue necrosis and subsequent debridement and wound VAC placement. She denies any new concerns associated with this wound. Related Data Home Medications Medication Instructions Recorded Confirmed acetaminophen 500 mg tablet 1,000 mg PO Q6H PRN PRN 08/30/22 02/03/23 aspirin 81 mg tablet 81 mg PO DAILY 08/30/22 02/03/23 carvedilol 6.25 mg tablet 6.25 mg PO BID 08/30/22 08/30/22 hydrochlorothiazide 25 mg tablet 25 mg PO DAILY 08/30/22 02/03/23 insulin glargine 100 unit/mL (3 12 unit subcut HS 08/30/22 02/03/23 mL) subcutaneous pen (Lantus Solostar U-100 Insulin) levothyroxine 150 mcg tablet 150 mcg PO DAILY 08/30/22 02/03/23 losartan 100 mg tablet 100 mg PO DAILY 08/30/22 02/03/23 metformin 500 mg tablet,extended 500 mg PO DAILY 08/30/22 08/31/22 release 24hr multivitamin 1 tab PO DAILY 08/30/22 02/03/23 omeprazole 20 mg capsule,delayed 20 mg PO BID 08/30/22 02/03/23 release glipizide 5 mg tablet 2.5 mg PO BID AC 08/31/22 08/31/22 bisacodyl 5 mg tablet,delayed 5 mg PO DAILY PRN PRN #10 tabs 09/02/22 release docusate sodium 100 mg capsule 100 mg PO TID #90 caps 09/02/22 02/03/23 (Colace) polyethylene glycol 3350 17 gram 17 g PO DAILY #30 ea 09/02/22 oral powder packet biotin 5 mg tablet 5 mg PO DAILY 02/03/23 02/03/23 cholecalciferol (vitamin D3) 50 500 mcg PO BID 02/03/23 02/03/23 mcg (2,000 unit) capsule elderberry fruit 350 mg capsule 350 mg PO DAILY 02/03/23 02/03/23 insulin lispro 100 unit/mL 1 - 5 sliding scale dose subcut TID 02/03/23 02/03/23 subcutaneous pen teriflunomide 7 mg tablet (Aubagio) 7 mg PO DAILY 02/03/23 02/03/23 ubiquinone 90 mg disintegrating 100 mg PO DAILY 02/03/23 02/03/23 tablet Previous Rx's Medication Instructions Recorded bisacodyl 5 mg tablet,delayed 5 mg PO DAILY PRN PRN #10 tabs 09/02/22 release docusate sodium 100 mg capsule 100 mg PO TID #90 caps 09/02/22 (Colace) polyethylene glycol 3350 17 gram 17 g PO DAILY #30 ea 09/02/22 oral powder packet Allergies Allergy/AdvReac Type Severity Reaction Status Date / Time amlodipine Allergy Unverified 02/03/23 08:54 [id number] Reductase Allergy Unverified 02/03/23 08:54 Inhibitor milk containing products Allergy Uncoded 02/03/23 08:54 General Stated Complaint: [facility] JUAN CARLOS: 3 PFSH All Active Problems (Updated 02/03/23 @ 13:28 by JULISSA Rodrigues) Neurogenic bowel (Acute) Neurogenic bladder (Acute) Multiple sclerosis exacerbation (Acute) Constipation (Acute) Urinary retention (Acute) Steroid-induced hyperglycemia (Acute) Ambulatory dysfunction (Acute) Bilateral leg weakness (Acute) Osteoarthritis (Chronic) Pulmonary hypertension (Acute) Right carpal tunnel syndrome (Acute) 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) Bilateral leg edema (Acute) Arthritis (Acute) Eczema (Acute) Endometrial hyperplasia (Acute) Anemia due to stage 4 chronic kidney disease (Acute) 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) Hypercholesterolemia (Acute) Diabetic polyneuropathy (Acute) Familial ALS (amyotrophic lateral sclerosis) (Chronic) Hypothyroidism (Chronic) GERD (gastroesophageal reflux disease) (Chronic) Hypertension (Chronic) IDDM (insulin dependent diabetes mellitus) (Chronic) Bilateral leg weakness (Acute) History of multiple sclerosis (Acute) Medical History (Updated 02/03/23 @ 13:28 by JULISSA Rodrigues) 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 Surgical History (Updated 08/31/22 @ 10:33 by Stephani Katz MD) H/O colonoscopy with polypectomy H/O colposcopy with cervical biopsy several H/O left mastectomy Hx of esophagogastroduodenoscopy S/P bilateral cataract extraction S/P breast biopsy, right S/P carpal tunnel release right S/P left knee arthroscopy S/P lumpectomy, left breast S/P placement of cardiac pacemaker Family History (Updated 08/31/22 @ 10:35 by Stephani Katz MD) Sister Familial ALS (amyotrophic lateral sclerosis) Diabetes Sister Familial ALS (amyotrophic lateral sclerosis) Brother Familial ALS (amyotrophic lateral sclerosis) Maternal Grandmother Familial ALS (amyotrophic lateral sclerosis) Heart disease Mother Familial ALS (amyotrophic lateral sclerosis) Son Familial ALS (amyotrophic lateral sclerosis) Diabetes Father Family history of early CAD Paternal Grandmother Diabetes Social History (Updated 08/31/22 @ 10:41 by Stepahni Katz MD) Smoking/Tobacco Use Status: Former Tobacco Use tobacco type: cigarettes Smoking risk assessment performed?: Yes Alcohol Intake: former Substance use type: does not use Do you feel safe at home: Yes Do you feel safe in your relationship?: Yes Exam Narrative Exam Narrative: Patient is calm and cooperative, she is fully alert and oriented without obvious visible evidence of trauma, pupils equal round reactive to light and accommodation, no midline neck tenderness, no obvious carotid bruit, lungs clear to auscultation, cardiac rate rhythm regular, no abdominal tenderness, lumbar spine nontender without erythema, right lower extremity with wound VAC in place, large area of debridement noted without obvious cellulitis Drainage noted in wound VAC tubing Sensation intact distally to bilateral lower extremities and upper extremities, strength intact bilateral lower extremities and upper extremities, cranial nerves II through XII intact, distal pulses intact Course Vital Signs Vital signs: Vital Signs Temperature 36.6 C 02/03/23 08:48 Pulse 99 H 02/03/23 08:48 Respiratory Rate 18 02/03/23 08:48 Blood Pressure 165/71 H 02/03/23 08:48 Pulse Oximetry 99 02/03/23 08:48 Temperature 36.6 C 02/03/23 08:48 Temperature Source Oral 02/03/23 08:48 Pulse 89 02/03/23 11:32 Respiratory Rate 18 02/03/23 09:06 Respiratory Effort Normal 02/03/23 09:06 Respiratory Depth Normal 02/03/23 09:06 Respiratory Pattern Normal 02/03/23 09:06 Blood Pressure 139/71 02/03/23 11:32 Blood Pressure Mean 88 02/03/23 11:32 Blood Pressure Position Sitting 02/03/23 08:48 Pulse Oximetry 98 02/03/23 10:30 Oxygen Delivery Method Room Air 02/03/23 08:48 Oxygen Flow Rate 0 02/03/23 08:48 Pain Level 0 02/03/23 08:48 Lab/Test Results Lab/Test Results: 02/03/23 09:38 Blood Blood Culture - Pending 02/03/23 09:31 Blood Blood Culture - Pending Laboratory Tests Range/Units 02/03/23 02/03/23 02/03/23 08:50 08:50 09:31 WBC (4.4-10.8) 10^3/uL 5.09 RBC (3.93-5.22) 10^6/uL 3.04 L Hgb (11.2-15.7) g/dL 8.9 L Hct (36.0-46.0) % 28.2 L MCV (80-95) fL 93 MCH (27.0-33.0) pg 29.3 MCHC (32.0-36.0) % 31.6 L RDW (11.7-14.6) % 13.4 Plt Count (130-400) 10^3/uL 257 MPV (8.0-11.0) fL 9.5 Immature Gran % 0.2 Neutrophils % 61.3 Lymphocytes % 20.6 Monocytes % 14.1 Eosinophils % 2.0 Basophils % 1.8 Nucleated RBC % (0.0-0.3) % 0.0 Absolute Neutrophils (1.2-6.7) 10^3/uL 3.12 Absolute Lymphocytes (1.2-3.4) 10^3/uL 1.05 L Absolute Monocytes (0.1-0.8) 10^3/uL 0.72 Absolute Eosinophils (0.0-0.7) 10^3/uL 0.10 Absolute Basophils (0.0-0.2) 10^3/uL 0.09 VBG pH (7.31-7.41) VBG pCO2 (41-51) mmHg VBG pO2 mmHg VBG HCO3 (23-28) mmol/L VBG Total CO2 (24-29) mmol/L VBG O2 Saturation % VBG Base Excess (-2-3) mmol/L VBG Lactate (0.6-1.4) mmol/L 1.4 Sodium (136-145) mmol/L 141 Potassium (3.5-5.1) mmol/L 5.0 Chloride (98-107) mmol/L 106 Carbon Dioxide (21.0-32.0) mmol/L 24.9 Anion Gap (3-11) mmol/L 10.1 BUN (7-18) mg/dL 53 H Creatinine (0.55-1.02) mg/dL 2.4 H Est GFR (CKD-EPI 2020) (mL/min/1.73m2) 20.17 Glucose (74-106) mg/dL 414 H Calcium (8.5-10.1) mg/dL 10.3 H Magnesium (1.8-2.4) mg/dL 1.7 L Total Bilirubin (0.2-1.0) mg/dL 0.4 AST (15-37) U/L 10 L ALT (14-59) U/L 10 L Alkaline Phosphatase (46-116) U/L 96 Troponin I (<or=60) ng/L < 50 Total Protein (6.4-8.2) g/dL 7.5 Albumin (3.4-5.0) g/dL 3.4 Procalcitonin ng/mL 0.1 Urine Color (Yellow) Urine Clarity (Clear) Urine pH (5-8) Ur Specific [place] (1.005-1.025) Urine Protein (Negative) mg/dL Urine Ketones (Negative) mg/dL Urine Blood (Negative) Urine Nitrite (Negative) Urine Bilirubin (Negative) Urine Urobilinogen (Up to 0.2) mg/dL Ur Leukocyte Esterase (Negative) Urine RBC (0-2) HPF Urine WBC (0-5) HPF Ur Epithelial Cells (Negative) HPF Urine Crystals (Negative) HPF Urine Bacteria (Negative) HPF Urine Casts (Negative) LPF Urine Mucus (Negative) Ur Culture Indicated? Urine Glucose (Negative) mg/dL Range/Units 02/03/23 02/03/23 02/03/23 09:31 10:05 12:01 WBC (4.4-10.8) 10^3/uL RBC (3.93-5.22) 10^6/uL Hgb (11.2-15.7) g/dL Hct (36.0-46.0) % MCV (80-95) fL MCH (27.0-33.0) pg MCHC (32.0-36.0) % RDW (11.7-14.6) % Plt Count (130-400) 10^3/uL MPV (8.0-11.0) fL Immature Gran % Neutrophils % Lymphocytes % Monocytes % Eosinophils % Basophils % Nucleated RBC % (0.0-0.3) % Absolute Neutrophils (1.2-6.7) 10^3/uL Absolute Lymphocytes (1.2-3.4) 10^3/uL Absolute Monocytes (0.1-0.8) 10^3/uL Absolute Eosinophils (0.0-0.7) 10^3/uL Absolute Basophils (0.0-0.2) 10^3/uL VBG pH (7.31-7.41) 7.33 VBG pCO2 (41-51) mmHg 42 VBG pO2 mmHg 46 VBG HCO3 (23-28) mmol/L 22 L VBG Total CO2 (24-29) mmol/L 21 L VBG O2 Saturation % 81 VBG Base Excess (-2-3) mmol/L -4 L VBG Lactate (0.6-1.4) mmol/L Sodium (136-145) mmol/L Potassium (3.5-5.1) mmol/L Chloride (98-107) mmol/L Carbon Dioxide (21.0-32.0) mmol/L Anion Gap (3-11) mmol/L BUN (7-18) mg/dL Creatinine (0.55-1.02) mg/dL Est GFR (CKD-EPI 2020) (mL/min/1.73m2) Glucose (74-106) mg/dL Calcium (8.5-10.1) mg/dL Magnesium (1.8-2.4) mg/dL Total Bilirubin (0.2-1.0) mg/dL AST (15-37) U/L ALT (14-59) U/L Alkaline Phosphatase (46-116) U/L Troponin I (<or=60) ng/L Cancelled Total Protein (6.4-8.2) g/dL Albumin (3.4-5.0) g/dL Procalcitonin ng/mL Urine Color (Yellow) Yellow Urine Clarity (Clear) Clear Urine pH (5-8) 5.0 Ur Specific [place] (1.005-1.025) 1.015 Urine Protein (Negative) mg/dL 30 H Urine Ketones (Negative) mg/dL Negative Urine Blood (Negative) Small H Urine Nitrite (Negative) Negative Urine Bilirubin (Negative) Negative Urine Urobilinogen (Up to 0.2) mg/dL 0.2 Ur Leukocyte Esterase (Negative) Negative Urine RBC (0-2) HPF 3-5 H Urine WBC (0-5) HPF Negative Ur Epithelial Cells (Negative) HPF Rare Urine Crystals (Negative) HPF Negative Urine Bacteria (Negative) HPF Negative Urine Casts (Negative) LPF 0-2 Hyaline Urine Mucus (Negative) Negative Ur Culture Indicated? No Urine Glucose (Negative) mg/dL >=1000 H
== END 2023-02-03 13:25 | disposition short-term general hospital (02) ==
PROVIDERS: Emergency Provider Physician Assistant; PCP Internal Medicine Adolescent Medicine
DX: G35 Multiple sclerosis (principal); E11.22 Type 2 diabetes mellitus with diabetic chronic kidney disease; I25.10 Atherosclerotic heart disease of native coronary artery without angina pectoris; R53.1 Weakness; Z95.0 Presence of cardiac pacemaker
CPT/HCPCS: 36415; 36416; 80053; 82805; 82962; 84145; 87040; 93005; 96360; 96361; 96372; 99285; 71045; 81003; 81015; 83605; 83735; 84484; 85025; 93010

== ENCOUNTER 2023-03-03 15:28 | Inpatient (IN) | payer MEDICARE, SELFPAY ==
[2023-03-03 15:31] VITALS: BP 127/54; PULSE 70; RESP 18; TEMP 36.6; O2SAT 97
--- NOTE | 2023-03-03 16:21 | W.ED.GENAD ---
Discharge Plan Disposition Patient Disposition: Admit to [facility] Condition: Stable Discharge Details Clinical Impression: Bilateral leg weakness, History of multiple sclerosis Admit Date/Time: 03/03/23 17:17 Admit Provider: Rodriguez Doss Attending Provider: Rodriguez Doss Primary Care Provider: Humera Kovacs ED Provider: Rosalie Andrade Discharge Data Discharge Date/Time-TO BE ENTERED AT DEPARTURE: 03/03/23 17:34 Medical Decision Making Patient is a pleasant 77-year-old female with past medical history significant for MS, ALS, CKD, diabetes, HTN, BLE weakness, accompanied by her , with c/c of continued weakness, hoping for placement in assisted living facility. She states she was admitted one month ago, notes reviewed, since returning home has been struggling. States she has had several falls, all of which have been relatively atraumatic. has tried to help but is not able to pick her up well. She states that she has a wheelchair and walker at home but that she is even having difficulty with transitioning from one to the other. Denies fevers, chills, CP, SOB. Her neurologist is in [place], [place]. She goes down once a month for evaluation and care. New over recent months is bilatearl upper extremity tremor. She was previously on Aubagio but was concerned this ws causing some of her symtpoms and has not taken it in the past 3 week, since recent admission. On exam, patient appears chronically ill. She does appear anxious. She has tremor, is resting in wheelchair. She has no focal areas of weakness but does have global weakness. Wound vac to E. Will have PT evaluate the patient. Will refer to palliative care. Her story is not suggestive of acute process, sounds to be more chronic in nature. Concerned about progression of disease particulates the patient is not taking her medications. She did recently have an MRI and no new MS lesions were noted. Question of patient having reaction to medication recently. Patient would prefer to be able to be discharged home once able to be safe but is concerned that she is falling quite frequently recently. Management will be dictated by physical therapy but we will try to assist her with home health services and palliative care. Also offered referral to local neurologist if she does not wish to travel to [place]. Physical therapy evaluated the patient does not feel that she is safe for discharge home. Care management also saw the patient as well as her . Advised the patient does not need a 3 night qualifying stay but could potentially be moved to a rehabilitation center soon. Patient is not able to get to into rehab center at this time. She agrees to admission with plan for placement so she can work more with PT. Her ultimate goal is to be home with family, hopes to transition home after with palliative care. Consulted with hopstialist who agrees to admission for weakness, MS, ALS and medication noncompliance with plan for transition to rehab facility. HPI General Date/Time Provider Initiated Documentation: 03/03/23 15:46. Limitations to Documentation: no limitations. Information obtained by: patient, family, RN notes reviewed and old records reviewed. History of Present Illness 77 year old F presents to the emergency department with the chief complaint of struggingling at home with weakness, difficulties with ADLS, falls, described as moderate and similar to prior episodes (was recently hospitalized for possible MS flair, states she has not improved since ), Quality is described as aching (BLE has chronic pain, no acute change, no pain at the vac site on RLE), Patient started experiencing this month(s) (has become overwhelming, weak, falling and unsafe but no acute change) Patient notes weakness (generalized, no focal weak areas); denies confusion, chest pain, cough, fever/chills, headaches, loss of appetite, nausea/vomiting, rash, seizure and shortness of breath. Patient did receive the following treatments prior to arrival, none (stopped her aubagio) Related Data Home Medications Medication Instructions Recorded Confirmed aspirin 81 mg tablet 81 mg PO DAILY 08/30/22 03/03/23 carvedilol 6.25 mg tablet 6.25 mg PO BID 08/30/22 08/30/22 hydrochlorothiazide 25 mg tablet 25 mg PO DAILY 08/30/22 03/03/23 insulin glargine 100 unit/mL (3 20 unit subcut DAILY AM 08/30/22 03/03/23 mL) subcutaneous pen (Lantus Solostar U-100 Insulin) levothyroxine 150 mcg tablet 150 mcg PO DAILY 08/30/22 03/03/23 losartan 100 mg tablet 100 mg PO DAILY 08/30/22 03/03/23 multivitamin 1 tab PO DAILY 08/30/22 03/03/23 omeprazole 20 mg capsule,delayed 20 mg PO QDAY 08/30/22 03/03/23 release polyethylene glycol 3350 17 gram 17 g PO DAILY #30 ea 09/02/22 03/03/23 oral powder packet biotin 5 mg tablet 10 mg PO BID 02/03/23 03/03/23 elderberry fruit 350 mg capsule 350 mg PO DAILY 02/03/23 03/03/23 insulin lispro 100 unit/mL 1 - 5 sliding scale dose subcut TID 02/03/23 03/03/23 subcutaneous pen ubiquinone 90 mg disintegrating 100 mg PO DAILY 02/03/23 03/03/23 tablet acetaminophen 325 mg tablet 650 mg PO QAM 03/03/23 03/03/23 diphenhydramine 25 2 tab PO QHS 03/03/23 03/03/23 mg-acetaminophen 500 mg tablet (Acetaminophen PM) Previous Rx's Medication Instructions Recorded polyethylene glycol 3350 17 gram 17 g PO DAILY #30 ea 09/02/22 oral powder packet Allergies Allergy/AdvReac Type Severity Reaction Status Date / Time amlodipine Allergy Unverified 03/03/23 15:36 [id number]-[id number] Reductase Allergy Unverified 03/03/23 15:36 Inhibitor General Stated Complaint: GenMedical JUAN CARLOS: 4 Review of Systems Constitutional Constitutional: Reports as per HPI, Denies chills, Denies fever(s), Denies headache(s) and Denies poor appetite Eyes Eyes: Denies change in vision ENT Ears, Nose, Mouth, and Throat: Denies dizziness, Denies headache(s) and Reports disequilibrium Cardiovascular Cardiovascular: Reports as per HPI and Denies dyspnea Respiratory Respiratory: Reports as per HPI, Denies chest congestion, Denies cough and Denies dyspnea Gastrointestinal Gastrointestinal: Reports as per HPI, Denies abdominal pain, Denies diarrhea, Denies nausea and Denies vomiting Musculoskeletal Musculoskeletal: Reports as per HPI and Denies back pain Integumentary/Breasts Skin/Breast: Reports as per HPI and Denies rash Neurologic Neurologic: Reports as per HPI, Denies confusion, Denies dizziness, Denies headache(s), Reports lack of coordination, Denies localized weakness, Denies memory loss, Denies radicular pain, Denies restless legs, Denies convulsions, Reports tremor(s) (bilateral upper extremities for months, associates with ALS) and Reports disequilibrium Psychiatric Psychiatric: Denies confusion and Denies memory loss PFSH All Active Problems (Updated 03/07/23 @ 18:19 by JULISSA Law) Hypercalcemia (Acute) Discharge planning issues (Acute) Stroke (Chronic) Weakness (Acute) Medication care plan discussed with primary care provider (Acute) Wound of right lower extremity (Acute) Neurogenic bowel (Acute) Neurogenic bladder (Acute) Multiple sclerosis exacerbation (Acute) Constipation (Acute) Urinary retention (Acute) Steroid-induced hyperglycemia (Acute) Ambulatory dysfunction (Acute) Bilateral leg weakness (Acute) Osteoarthritis (Chronic) Pulmonary hypertension (Acute) Right carpal tunnel syndrome (Acute) 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 Surgical History (Updated 08/31/22 @ 10:33 by Stephani Katz MD) H/O colonoscopy with polypectomy H/O colposcopy with cervical biopsy several H/O left mastectomy Hx of esophagogastroduodenoscopy S/P bilateral cataract extraction S/P breast biopsy, right S/P carpal tunnel release right S/P left knee arthroscopy S/P lumpectomy, left breast S/P placement of cardiac pacemaker Family History (Updated 08/31/22 @ 10:35 by Stephani Katz MD) Sister Familial ALS (amyotrophic lateral sclerosis) Diabetes Sister Familial ALS (amyotrophic lateral sclerosis) Brother Familial ALS (amyotrophic lateral sclerosis) Maternal Grandmother Familial ALS (amyotrophic lateral sclerosis) Heart disease Mother Familial ALS (amyotrophic lateral sclerosis) Son Familial ALS (amyotrophic lateral sclerosis) Diabetes Father Family history of early CAD Paternal Grandmother Diabetes Social History (Updated 08/31/22 @ 10:41 by Stephani Katz MD) Smoking/Tobacco Use Status: Former Tobacco Use tobacco type: cigarettes Smoking risk assessment performed?: Yes Alcohol Intake: former Substance use type: does not use Do you feel safe at home: Yes Do you feel safe in your relationship?: Yes Exam Const General: cooperative, comfortable, no acute distress, well developed, frail appearing and ill appearing chronically Nutritional Appearance: average body habitus and well nourished Orientation: alert, awake and oriented x3 HENMT Head: normal to inspection Ears: hearing grossly normal bilaterally Mouth: moist mucous membranes Eyes General: appearance normal, both eyes and all related structures Resp Effort & Inspection: normal respiratory effort, able to speak in complete sentences and no respiratory distress Auscultation: clear to auscultation bilaterally, no rales, no rhonchi and no wheezes Cardio Rate: regular rate Rhythm: regular rhythm Heart Sounds: S1 normal and S2 normal GI Inspection: normal to inspection, no edema and non-distended Palpation: soft, no hepatosplenomegaly, not firm, no guarding, not rigid and nontender Auscultation: normal bowel sounds Back/Spine/Pelvis Back: no CVA tenderness Thoracic/Lumbar Spine: thoracic and lumbar spine normal to inspection Skin General skin exam: other (wound vac RLE) Neuro General: patient alert, patient awake and patient oriented x3 Cognition: normal cognition Speech: speech normal Gait: gait abnormal (in wheelchair) Motor: strength not 5/5 throughout (4/5 throughout), no pronator drift and tremor Extrem General: normal to inspection, capillary refill normal, no pedal edema, no calf tenderness and normal gait Psych Appearance: grossly normal and well kempt Mental Status: mental status grossly normal Speech and Movement: speech and movement normal Course Vital Signs Vital signs: Vital Signs Temperature 36.6 C 03/03/23 15:31 Pulse 70 03/03/23 15:31 Respiratory Rate 18 03/03/23 15:31 Blood Pressure 127/54 L 03/03/23 15:31 Pulse Oximetry 97 03/03/23 15:31 Temperature 36.6 C 03/03/23 15:31 Pulse 70 03/03/23 15:31 Respiratory Rate 18 03/03/23 15:31 Blood Pressure 127/54 L 03/03/23 15:31 Blood Pressure Position Sitting 03/03/23 15:31 Pulse Oximetry 97 03/03/23 15:31 Oxygen Delivery Method Room Air 03/03/23 15:31 Oxygen Flow Rate 0 03/03/23 15:31 Pain Level 0 03/03/23 15:31
--- NOTE | 2023-03-03 17:06 | IN_ITS ---
Date of service: 03/03/23 Time of Service: 16:29 PT Notes Visit Reasons: [facility] Emergency Department Initial Evaluation Date: 03/03/2023 Referring Doctor: JULISSA Law PT Orders: PT CONSULT: Safety consult for D/C Precautions: Fall. Standard. Activity as tolerated. Patient Profile/Admitting Diagnosis: Betsy is a 77-year-old female patient admitted to the ED today due to worsening B LE weakness, fall, history of MS, history of ALS, and ambulatory dysfunction. Referral was made to assess for safe discharge recommendations. 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) Bilateral leg edema (Acute) Arthritis (Acute) Eczema (Acute) Endometrial hyperplasia (Acute) Anemia due to stage 4 chronic kidney disease (Acute) 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) Hypercholesterolemia (Acute) Diabetic polyneuropathy (Acute) Familial ALS (amyotrophic lateral sclerosis) (Chronic) Hypothyroidism (Chronic) GERD (gastroesophageal reflux disease) (Chronic) Hypertension (Chronic) IDDM (insulin dependent diabetes mellitus) (Chronic) Bilateral leg weakness (Acute) History of multiple sclerosis (Acute) Medical History?(Updated 02/03/23 @ 13:28 by JULISSA Rodrigues) 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 uses a single point-cane to walk. Son and son's family live close by but may not available consistently during the day. Bedroom is on the second floor of the house. Has entry steps. Equipment Owned/DME: Wheelchair, FWW, shower chair Subjective: Per patient and patient's , patient has been a member of a research study for patients with MS and ALS for quite a while now but patient had been having worsening adverse reactions from medications and so needed to stop taking them. Patient has had 3 falls and was getting weaker family is unable to care for her at home. Son verbalized that they were advised at [facility] about options for care and mentioned bout palliative care. Per son, patient had zero strength yesterday when he and his were trying to help her off the floor. Objective: General Observation: Seated on transport chair. present throughout session, son came in in the middle of the session. Wound vacuum in place on R foot/leg. Mental Status: Alert and oriented as to person, place, time, and purpose. Able to pay attention, focus, and respond appropriately. Pain: Denies Vital Signs: Closley monitored by nursing staff ROM: Right Upper Extremity: Shoulder Flexion WFL. Shoulder abduction WFL. Elbow flexion WFL. Wrist flexion WFL. Functional opening and closing of hand WFL. Left Upper Extremity: Shoulder Flexion WFL. Shoulder abduction WFL. Elbow flexion WFL. Wrist flexion WFL. Functional opening and closing of hand WFL. Right Lower Extremity: Hip flexion WFL. Hip abduction WFL. Knee flexion WFL. Ankle dorsiflexion WFL. Ankle plantarflexion WFL. Left Lower Extremity: Hip flexion WFL. Hip abduction WFL. Knee flexion WFL. Ankle dorsiflexion WFL. Ankle plantarflexion WFL. Strength: Right Upper Extremity: Shoulder flexors 4-/5. Shoulder abductors 4-/5. Elbow flexors 4-/5. Elbow extensors 4-/5. Dinker strong. Left Upper Extremity: Shoulder flexors 4-/5. Shoulder abductors 4-/5. Elbow flexors 4-/5. Elbow extensors 4-/5. Dinker strong. Right Lower Extremity: Hip flexors 4/5. Hip abductors 4/5. Knee flexors 4/5. Knee extensors 4-/5. Ankle dorsiflexors 4/5. Ankle plantarflexors 4/5. Left Lower Extremity: Hip flexors 3/5. Hip abductors 3/5. Knee flexors 4-/5. Knee extensors 4-/5. Ankle dorsiflexors 4-/5. Ankle plantarflexors 4-/5. Bed Mobility/Transfers: Sit to stand with minimal assist using FWW Stand to sit with minimal assist using FWW Bed to reclining chair minimal assist using FWW Reclining chair to bed minimal assist using FWW Gait: Instructed patient with level surface ambulation of 6 feet requiring minimal assist and wheelchair follow for safety assist. Colleen decreased. Step height decreased. Step length decreased. Patient appears shaky and reports significant fatigue. Balance: Static Sitting: Normal Dynamic Sitting: Fair Static Standing: Fair Dynamic Standing: Fair Special Tests: Mobility Limitations Standardized Measure [facility] AM-PAC 6 clicks [facility] Mobility Inpatient Short Form: Raw Score: 18 CMS Score: 47% deficit 4-Stage Balance Test: Unable Informed Consent/Education: Patient was instructed in purpose of PT consult and plan of care. Agreeable to proceed with established PT POC to achieve personal goals. Assessment: Patient presents with clinical signs and symptoms consistent with current/admitting diagnoses that have resulted to mobility limitations, gait instability, generalized weakness, and overall ADL decline as demonstrated by the following impairment level findings: 1. Decreased strength to B UE/LE major muscle groups, L more affected than R 2. Impaired sitting/standing balance 3. Impaired activity tolerance 4. Fatigue Impairments are contributing to the following functional limitations: 1. Decline in bed mobility skills 2. Decline in transfer skills 3. Difficulty with ambulation without assistive device and physical assistance 4. Increased completion time for mobility ADL performance 5. Increased risk for falls 6. Difficulty with managing steps alone safely Patient is assessed as a [id number] moderate complexity based on the following: History: 77-year-old female with past medical history as indicated above Examination: Demonstrable impairment in strength, balance, and mobility level with underlying impairments and functional limitations as exhibited above as well as deficit score of 47% utilizing the [facility] Mobility Inpatient Short Form Presentation: Evolving Decision Makin moderate complexity Goals: Goals X1 week 1. Supine-Sit independent 2. Sit-Supine independent 3. Sit-Stand independent 4. Stand-Sit independent with FWW 5. Bed-Chair independent with FWW 6. Chair-Bed independent with FWW 7. Independent gait on level surface with use of FWW for at least 30 feet without report of pain nor dyspnea 8. Independent stair negotiation while holding onto B rails for at least 5 steps without report of pain nor dyspnea 9. Independent with home exercise program 10. Good static and dynamic standing balance/tolerance Plan of Care/Treatment Plan: 1-2x/day, 7 days/week x 1 week. Plan of care has been reviewed with the PREMI[employer] CANCELLATION CLERK providing the service under Physical Therapy direction. Initiate Physical Therapy intervention for pain management as needed, str engthening, bed mobility, transfers, gait, stairs, balance training, and use of assistive device. DISCHARGE RECOMMENDATIONS: [] Home with no services [] [] Home with services [specify] [] Home with outpatient PT [] [] SNF for continued rehabilitation [] [] Intermediate Care [] [X] SNF versus LTC based on ability to participate and progress towards goals TREATMENT CODE/TIME: 17033 x 33 minutes beginning at 4:29 PM. Thank you for the opportunity to participate in the care of this patient. Meera Fletcher PT, DPT, CLT [facility] [place], [place]
[2023-03-03 18:06] LABS: Abs Immature Grans 0.04 10^3/uL (0.0-0.06); Absolute Basophil Count 0.09 10^3/uL (0.0-0.2); Absolute Eosinophil Count 0.47 10^3/uL (0.0-0.7); Absolute Lymphocyte Count 1.08 10^3/uL (1.2-3.4); Absolute Monocyte Count 0.79 10^3/uL (0.1-0.8); Absolute Neutrophil Count 3.37 10^3/uL (1.2-6.7); Basophils % 1.5; HCT 29.7 % (36.0-46.0); HGB 9.3 g/dL (11.2-15.7); Immature Grans % 0.7; Lymphocytes % 18.5; MCH 28.1 pg (27.0-33.0); MCHC 31.3 % (32.0-36.0); MCV 90 fL (80-95); MPV 8.9 fL (8.0-11.0); Monocytes % 13.5; Neutrophils % 57.8; Platelet Count 249 10^3/uL (130-400); RBC 3.31 10^6/uL (3.93-5.22); WBC 5.84 10^3/uL (4.4-10.8)
--- NOTE | 2023-03-03 18:29 | HPE_ITS ---
Date of service: 03/03/23 Time of Service: 18:29 Assessment and Plan Assessment and plan (1) Bilateral leg weakness: Status: Acute Assessment and plan: Suspected to be due to MS flare or ALS progression Neuro consult pending (2) Constipation: Status: Acute Assessment and plan: Continue scheduled bowel regimen. Has known decreased rectal tone (3) Ambulatory dysfunction: Status: Acute Assessment and plan: Due to above. PT consulted. (4) History of multiple sclerosis: Status: Acute Assessment and plan: As above (5) IDDM (insulin dependent diabetes mellitus): Status: Chronic Assessment and plan: Continue basal bolus insulin. Continue sulfanylurea, hold metformin. 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 (7) DVT prophylaxis: Status: Acute Assessment and plan: Enoxaparin (8) Discharge planning issues: Status: Acute Assessment and plan: Does not want to be intubated, but would like compressions Care mgrs working on placement Discussed with Dr Doss (9) Wound of right lower extremity: Status: Acute Assessment and plan: Dressing intact, wound vac operating, no s/s of infection, minimal serosang drainage in vac; dsg was changed 03/02 We have reached out to to get records, it is unclear who is following her for her leg wound. (10) Medication care plan discussed with primary care provider: Status: Acute Assessment and plan: Recommended med changes from [facility] pharmacy Email to PCP for input; nothing is acute, will hold on any changes until reviewed with PCP - new PCP Ping Vázquez MD @ [facility] Internal Med History of Present Illness Narrative: This is a 77 year old female patient with past medical history of hypertension, diabetes, multiple sclerosis, GERD, hypothyroidism, ALS, CKD, hyperchcolesterolemia and pulmonary hypertension who presented to the [facility] ED with complaint of not being able to walk, increased weakness. She goes to [place] once a month for treatment of ALS. She endorses increased tremors. She has no new complaints. She has a wound vac on her right lower leg from a chronic wound. She would like compressions but would not like to be intubated. She is requesting SNF. Review of Systems All systems reviewed & are unremarkable except as noted in HPI and below PFSH All Active Problems (Updated 03/04/23 @ 17:29 by Bonnie Arce NP) DVT prophylaxis (Acute) Discharge planning issues (Acute) Medication care plan discussed with primary care provider (Acute) Wound of right lower extremity (Acute) Neurogenic bowel (Acute) Neurogenic bladder (Acute) Multiple sclerosis exacerbation (Acute) Constipation (Acute) Urinary retention (Acute) Steroid-induced hyperglycemia (Acute) Ambulatory dysfunction (Acute) Bilateral leg weakness (Acute) Osteoarthritis (Chronic) Pulmonary hypertension (Acute) Right carpal tunnel syndrome (Acute) 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) Bilateral leg edema (Acute) Arthritis (Acute) Eczema (Acute) Endometrial hyperplasia (Acute) Anemia due to stage 4 chronic kidney disease (Acute) 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) Hypercholesterolemia (Acute) Diabetic polyneuropathy (Acute) Familial ALS (amyotrophic lateral sclerosis) (Chronic) Hypothyroidism (Chronic) GERD (gastroesophageal reflux disease) (Chronic) Hypertension (Chronic) IDDM (insulin dependent diabetes mellitus) (Chronic) Bilateral leg weakness (Acute) History of multiple sclerosis (Acute) Medical History (Updated 03/04/23 @ 17:29 by Bonnie Arce NP) 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 Surgical History (Updated 08/31/22 @ 10:33 by Stephani Katz MD) H/O colonoscopy with polypectomy H/O colposcopy with cervical biopsy several H/O left mastectomy Hx of esophagogastroduodenoscopy S/P bilateral cataract extraction S/P breast biopsy, right S/P carpal tunnel release right S/P left knee arthroscopy S/P lumpectomy, left breast S/P placement of cardiac pacemaker Family History (Updated 08/31/22 @ 10:35 by Stephani Katz MD) Sister Familial ALS (amyotrophic lateral sclerosis) Diabetes Sister Familial ALS (amyotrophic lateral sclerosis) Brother Familial ALS (amyotrophic lateral sclerosis) Maternal Grandmother Familial ALS (amyotrophic lateral sclerosis) Heart disease Mother Familial ALS (amyotrophic lateral sclerosis) Son Familial ALS (amyotrophic lateral sclerosis) Diabetes Father Family history of early CAD Paternal Grandmother Diabetes Social History (Updated 08/31/22 @ 10:41 by Stephani Katz MD) Smoking/Tobacco Use Status: Former Tobacco Use tobacco type: cigarettes Smoking risk assessment performed?: Yes Alcohol Intake: former Substance use type: does not use Do you feel safe at home: Yes Do you feel safe in your relationship?: Yes Meds Allergies and Home Medications Allergies Allergy/AdvReac Type Severity Reaction Status Date / Time amlodipine Allergy Unverified 03/03/23 15:36 Lkkxuvi-MKA-HjD Reductase Allergy Unverified 03/03/23 15:36 Inhibitor Home Medications Medication Instructions Recorded Confirmed Type aspirin 81 mg tablet 81 mg PO DAILY 08/30/22 03/03/23 History carvedilol 6.25 mg tablet 6.25 mg PO BID 08/30/22 08/30/22 History hydrochlorothiazide 25 mg tablet 25 mg PO DAILY 08/30/22 03/03/23 History insulin glargine 100 unit/mL (3 20 unit subcut DAILY AM 08/30/22 03/03/23 History mL) subcutaneous pen (Lantus Solostar U-100 Insulin) levothyroxine 150 mcg tablet 150 mcg PO DAILY 08/30/22 03/03/23 History losartan 100 mg tablet 100 mg PO DAILY 08/30/22 03/03/23 History multivitamin 1 tab PO DAILY 08/30/22 03/03/23 History omeprazole 20 mg capsule,delayed 20 mg PO QDAY 08/30/22 03/03/23 History release polyethylene glycol 3350 17 gram 17 g PO DAILY #30 ea 09/02/22 03/03/23 Rx oral powder packet biotin 5 mg tablet 10 mg PO BID 02/03/23 03/03/23 History cholecalciferol (vitamin D3) 50 2,000 mcg PO BID 02/03/23 03/03/23 History mcg (2,000 unit) capsule elderberry fruit 350 mg capsule 350 mg PO DAILY 02/03/23 03/03/23 History insulin lispro 100 unit/mL 1 - 5 sliding scale dose subcut TID 02/03/23 03/03/23 History subcutaneous pen ubiquinone 90 mg disintegrating 100 mg PO DAILY 02/03/23 03/03/23 History tablet acetaminophen 325 mg tablet 650 mg PO QAM 03/03/23 03/03/23 History diphenhydramine 25 2 tab PO QHS 03/03/23 03/03/23 History mg-acetaminophen 500 mg tablet (Acetaminophen PM) Exam Narrative Exam Narrative: GEN: awake, alert, oriented 3. Pleasant, well groomed, interactive. HEAD: Normocephalic, atraumatic ENT: Mucous membranes dry, oropharynx unremarkable, External ear exam unremarkable EYES: PERRL, EOMI NECK: Full ROM, no EDY, no menigismus CHEST/RESP: Nontender, clear to auscultation bilateral, no wheeze/rhonchi/rales CARDIOVASCULAR: RRR, no murmur, rub kwasi. 2+ Rad pulse bilateral ABDOMEN: Soft, nontender, no mass. +Bowel sounds EXT: Full ROM, able to move both legs off the bed against gravity and against resistance. Sensation is intact throughout. 1+ patellar reflexes bilaterally Neuro: Grossly normal neurologic exam, conversant, interactive. Psych: Speech fluent, thoughts congruent, affect normal Results Labs 03/04/23 05:41 03/04/23 05:41 Labs: Laboratory Results - last 24 hr 03/03/23 18:01 WBC 5.84 RBC 3.31 L Hgb 9.3 L Hct 29.7 L MCV 90 MCH 28.1 MCHC 31.3 L RDW 13.0 Plt Count 249 MPV 8.9 Immature Gran % 0.7 Neutrophils % 57.8 Lymphocytes % 18.5 Monocytes % 13.5 Eosinophils % 8.0 Basophils % 1.5 Nucleated RBC % 0.0 Absolute Neutrophils 3.37 Absolute Lymphocytes 1.08 L Absolute Monocytes 0.79 Absolute Eosinophils 0.47 Absolute Basophils 0.09 Last Vital Signs Temp 36.6 C 03/03/23 15:31 Pulse 70 03/03/23 15:31 Resp 18 03/03/23 15:31 BP 127/54 L 03/03/23 15:31 Pulse Ox 97 03/03/23 15:31 Time Spent Time spent with Patient: 55-74 minutes Time was spent: preparing to see the patient(eg.review tests), obtaining and/or reviewing separately otained hiistory, ordering medications,tests, procedures, referring, communicating with other health manager intensive care, indepentently interpreting results, counseling the patient and care coordination
[2023-03-03 18:31] LABS: ALT 11 U/L (14-59); AST 17 U/L (15-37); Albumin 3.2 g/dL (3.4-5.0); Alkaline Phosphatase 124 U/L (46-116); Anion Gap 11.2 mmol/L (3-11); BUN 39 mg/dL (7-18); Bilirubin, Total 0.4 mg/dL (0.2-1.0); CO2 24.8 mmol/L (21.0-32.0); CREATININE 2.4 mg/dL (0.55-1.02); Chloride 100 mmol/L (98-107); Estimated GFR 20.17 (mL/min/1.73m2); Glucose 168 mg/dL (74-106); Magnesium 1.5 mg/dL (1.8-2.4); Potassium 4.8 mmol/L (3.5-5.1); Sodium 136 mmol/L (136-145); Total Protein 6.9 g/dL (6.4-8.2)
[2023-03-03 18:33] LABS: Calcium 12.5 mg/dL (8.5-10.1)
--- NOTE | 2023-03-03 18:39 | NUR.NOTE ---
while this rn was doing med rec, found oxycod
--- NOTE | 2023-03-03 18:39 | NUR.NOTE ---
during med rec, found oxycodone 5mg in pt belongings bag. this bottle of medications did not have a lid on it and there were 4 tablets in the bag and not in the empty oxycodone bottle. charge nurse kavitha notified. verified count with charge nurse. will send to pharmacy.
[2023-03-03 18:41] VITALS: BP 115/56; PULSE 98; RESP 16; TEMP 36.5; O2SAT 98
[2023-03-03 20:09] VITALS: BP 115/69; PULSE 91; RESP 18; TEMP 36.1; O2SAT 97
--- NOTE | 2023-03-03 20:12 | TELEP.MEDR_ITS ---
Date of service: 03/03/23 Time of Service: 20:13 Telepharmacy Home Med Rec Allergies Allergies: amlodipine Allergy (Unverified 03/03/23 15:36) Pyjigna-IVI-AeS Reductase Inhibitor Allergy (Unverified 03/03/23 15:36) milk containing products Allergy (Uncoded 03/03/23 15:36) Interview Person Interviewed: Pt Quality Quality of Interview/Accuracy of Medication List: Good Sources Sources used to compile medication list: [employer] Medication List, Patient List and SureScripts Changes made to Home Medication List: ADDITIONS: Acetaminophen/diphenhydramine mg po qhs DELETIONS: Bisacodyl Bismuth subsalicylate Docusate Glipizide Metformin Oxycodone Teriflunomide CHANGES: APAP 650 mg po qam Cholecalciferol 2000 units po bid Insulin glargine 20 units sc qam Omeprazole 20 mg po qday Additional Notes Additional Notes: Pt self-d/c'ed Aubagio after hospital admit due to AEs from it roughly a week and a half ago. Pt reports that she could not see, walk straight, or think. She keeps it to carry it back to her doctor in [place] (MS specialist). Pt also receives a monthly experimental infusion from her doctor in [place], but unsure of the name. Pt has missed at least one of these infusions and may miss infusion scheduled for mid-March depending on her health. The biotin listed in pt's med list is a supplement recommended by pt's MS specialist, not used as a hair, skin, nails supplement. Pt thought she was taking carvedilol but dispense hx and absence from her bag of meds indicate that she hasn't been. Pt did not administer either of her insulins today due to low BG readings. Pt currently has oxycodone in her possession that she would like wasted for her. Recommended Changes Recommended Changes(reason for recommendation): Pt's most recent SCr values (2.3, 2.4, and 2.4 again today) indicate that losartan may not be the wisest antihypertensive agent for pt. Avoid ACEIs or other ARBs, can add another diuretic, beta paolo (maybe restarting carvedilol?), or CCB for most common and affordable options. Attestation: The home medication list is now updated to the best of my knowledge and is ready to be reconciled by the provider. Please contact the TelePharmacy Medication Reconciliation Pharmacist at for any questions.
[2023-03-03] MEDS: Cholecalciferol (Vitamin D3) 1,000 UNIT TAB 500 UNITS PO (20:31)
[2023-03-03] MEDS: Omeprazole 20 MG CAPCR PO (20:31)
[2023-03-03] MEDS: Carvedilol 6.25 MG TAB PO (20:32)
[2023-03-03] MEDS: Enoxaparin 30 MG/0.3 ML SYR SC (20:32)
[2023-03-03] MEDS: Insulin Aspart 300 UNITS/3 ML PEN SC (22:06)
[2023-03-03] MEDS: Insulin Glargine 300 UNITS/3 ML PEN 12 UNITS SC (22:08)
--- NOTE | 2023-03-03 23:10 | NUR.NOTE ---
Pt sent bag of meds to Pharm via [facility]. Tells RN she doesn't want 4 pills in open script bottle oxycodone. email sent pharmacy
[2023-03-03 23:27] VITALS: BP 114/61; PULSE 85; RESP 18; TEMP 36.2; O2SAT 94
--- NOTE | 2023-03-04 00:01 | NUR.NOTE ---
PT UNABLE TO VOID WHEN TRANSFERRED TO [facility]. BLADDER SCANNED FOR >999. ORDER RECEIVED TO PLACE A HOOKER CATHETER. #16 GRENADIAN PLACED WITH 800ML CLEAR YELLOW URINE RETURNED. PT TOLERATED WELL.
[2023-03-04 00:34] LABS: Bilirubin Negative (Negative); Blood Negative (Negative); Clarity Clear (Clear); Glucose Negative (Negative); Ketones Negative (Negative); Leukocyte Esterase Negative (Negative); Nitrite Negative (Negative); Urobilinogen 0.2 mg/dL (Up to 0.2)
[2023-03-04 04:18] VITALS: BP 118/72; PULSE 82; RESP 18; TEMP 36.6; O2SAT 95
[2023-03-04] MEDS: Levothyroxine 150 MCG TAB PO (05:40)
[2023-03-04 06:13] LABS: Abs Immature Grans 0.02 10^3/uL (0.0-0.06); Absolute Basophil Count 0.09 10^3/uL (0.0-0.2); Absolute Eosinophil Count 0.56 10^3/uL (0.0-0.7); Absolute Lymphocyte Count 1.05 10^3/uL (1.2-3.4); Absolute Monocyte Count 0.83 10^3/uL (0.1-0.8); Absolute Neutrophil Count 2.14 10^3/uL (1.2-6.7); Basophils % 1.9; Eosinophils % 11.9; HCT 26.8 % (36.0-46.0); HGB 8.4 g/dL (11.2-15.7); Immature Grans % 0.4; Lymphocytes % 22.4; MCH 27.8 pg (27.0-33.0); MCHC 31.3 % (32.0-36.0); MCV 89 fL (80-95); MPV 9.3 fL (8.0-11.0); Monocytes % 17.7; Neutrophils % 45.7; Platelet Count 226 10^3/uL (130-400); RBC 3.02 10^6/uL (3.93-5.22); RDW-SD 42.1 fL; WBC 4.69 10^3/uL (4.4-10.8)
[2023-03-04 06:30] LABS: Anion Gap 9.1 mmol/L (3-11); BUN 43 mg/dL (7-18); CO2 24.9 mmol/L (21.0-32.0); CREATININE 2.4 mg/dL (0.55-1.02); Chloride 103 mmol/L (98-107); Estimated GFR 20.17 (mL/min/1.73m2); Glucose 146 mg/dL (74-106); Magnesium 1.5 mg/dL (1.8-2.4); Potassium 4.5 mmol/L (3.5-5.1); Sodium 137 mmol/L (136-145)
[2023-03-04 06:33] LABS: Calcium 11.8 mg/dL (8.5-10.1)
[2023-03-04 07:27] VITALS: BP 106/61; PULSE 67; RESP 17; TEMP 36.6; O2SAT 95
--- NOTE | 2023-03-04 08:32 | INITIAL_ITS ---
Date of service: 03/04/23 Time of Service: 08:33 Care Management Initial Assmt Initial Assessment REASON FOR HOSPITALIZATION:: bilateral leg weakness PREVIOUS FUNCTIONAL STATUS/SOCIAL/FAMILY SUPPORTS:: Betsy lives in [place] with her Ned. She had 6 sons, but only 4 are alive. She lost one to SIDS at the age of 4 months and another to ALS at age 26. Betsy was active, continued to drive and was independent at baseline. 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 Most recently, Betsy has been falling at home and is not longer able to walk. She is seeking short term rehab for strengthening and ambulatory assistance. CURRENT FUNCTIONAL STATUS:: Betsy was sitting up in bed when CM met with her. She was polite and agreeable to conversation. Betsy talked about her family and her 6 sons, 2 of which are . She also talked about her active life style until recently. She is currently in a clinical trial in [place] for ALS treatment. She goes once a month for an infusion. She and her also winter in [place] and stay at their son's home. ADVANCE DIRECTIVES:: none on file Has patient been provided with info about the portal/API?: Yes Did the patient sign up for the portal?: No CODE STATUS:: DNI INSURANCE COVERAGE / FINANCIAL ISSUES:: [facility] Medicare replacement CURRENT HOME/COMMUNITY SERVICES/EQUIPMENT:: wheelchair, walker, home health nursing for wound care PRIMARY CARE PHYSICIAN:: Humera Kovacs ([facility]) PATIENT/FAMILY EDUCATION NEEDS:: Review discharge instructions, limitations, medications and plan to follow up with community providers. Discuss ask me three and goals of self care. TRANSPORTATION:: to be determined by disposition PLAN:: is seeking SNF placement for Betsy for short term rehab. He is only willing to consider [facility] at this time. Unfortunately, both facilities declined to offer Betsy a bed. CM has coordinated a family meeting for tomorrow, to discuss additional options. CM will continue to follow and assess for ongoing discharge concerns. 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) Bilateral leg edema (Acute) Arthritis (Acute) Eczema (Acute) Endometrial hyperplasia (Acute) Anemia due to stage 4 chronic kidney disease (Acute) 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) Hypercholesterolemia (Acute) Diabetic polyneuropathy (Acute) Familial ALS (amyotrophic lateral sclerosis) (Chronic) Hypothyroidism (Chronic) GERD (gastroesophageal reflux disease) (Chronic) Hypertension (Chronic) IDDM (insulin dependent diabetes mellitus) (Chronic) Bilateral leg weakness (Acute) History of multiple sclerosis (Acute) Medical History (Updated 02/03/23 @ 13:28 by JULISSA Rodrigues) 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 Surgical History (Updated 08/31/22 @ 10:33 by Stephani Katz MD) H/O colonoscopy with polypectomy H/O colposcopy with cervical biopsy several H/O left mastectomy Hx of esophagogastroduodenoscopy S/P bilateral cataract extraction S/P breast biopsy, right S/P carpal tunnel release right S/P left knee arthroscopy S/P lumpectomy, left breast S/P placement of cardiac pacemaker Family History (Updated 08/31/22 @ 10:35 by Stephani Katz MD) Sister Familial ALS (amyotrophic lateral sclerosis) Diabetes Sister Familial ALS (amyotrophic lateral sclerosis) Brother Familial ALS (amyotrophic lateral sclerosis) Maternal Grandmother Familial ALS (amyotrophic lateral sclerosis) Heart disease Mother Familial ALS (amyotrophic lateral sclerosis) Son Familial ALS (amyotrophic lateral sclerosis) Diabetes Father Family history of early CAD Paternal Grandmother Diabetes Social History (Updated 08/31/22 @ 10:41 by Stephani Katz MD) Smoking/Tobacco Use Status: Former Tobacco Use tobacco type: cigarettes Smoking risk assessment performed?: Yes Alcohol Intake: former Substance use type: does not use Do you feel safe at home: Yes Do you feel safe in your relationship?: Yes
[2023-03-04] MEDS: Carvedilol 6.25 MG TAB PO ×2 (08:48→19:39)
[2023-03-04] MEDS: Omeprazole 20 MG CAPCR PO ×2 (08:49→19:40)
[2023-03-04] MEDS: Cholecalciferol (Vitamin D3) 1,000 UNIT TAB 500 UNITS PO ×2 (08:50→19:40)
[2023-03-04] MEDS: Losartan 50 MG TAB 100 MG PO (08:51)
[2023-03-04] MEDS: hydroCHLOROthiazide 25 MG TAB PO (08:51)
[2023-03-04] MEDS: Aspirin 81 MG CHEW PO (08:51)
[2023-03-04] MEDS: glipiZIDE 5 MG TAB 2.5 MG PO ×2 (08:52→15:02)
[2023-03-04] MEDS: Insulin Aspart 300 UNITS/3 ML PEN SC ×3 (08:52→20:51)
[2023-03-04] MEDS: Multivitamin TAB 1 TAB PO (08:53)
--- NOTE | 2023-03-04 09:55 | NUR.NOTE ---
communicated with [facility] pcp office for pt to verify if she was still prescribed ubiquinone and they state that she still has an active prescription for this medication. pt was made aware and states that she does not have this medication at home and will communicate with about this rx
[2023-03-04] MEDS: MAGNESIUM SULFATE 2 GM/50 ML BAG IVPB (11:10)
[2023-03-04 11:11] VITALS: BP 97/62; PULSE 77; RESP 16; TEMP 35.9; O2SAT 97
[2023-03-04 15:14] VITALS: BP 102/61; PULSE 71; RESP 17; TEMP 35.8; O2SAT 96
--- NOTE | 2023-03-04 17:35 | W.PM.PROGNOT ---
Date of Service Date of service: 03/04/23 Time of Service: 17:35 Assessment and Plan Assessment and plan (1) Bilateral leg weakness: Status: Acute Assessment and plan: Suspected to be due to MS flare or ALS progression Neurology consult pending PT consult (2) Constipation: Status: Acute Assessment and plan: Continue scheduled bowel regimen. Has known decreased rectal tone (3) Ambulatory dysfunction: Status: Acute Assessment and plan: Due to above. PT consulted. (4) History of multiple sclerosis: Status: Acute Assessment and plan: As above (5) IDDM (insulin dependent diabetes mellitus): Status: Chronic Assessment and plan: Continue basal bolus insulin. Continue sulfanylurea, hold metformin. 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 Palliative and Neuro consult pending (7) Wound of right lower extremity: Status: Acute Assessment and plan: Dressing intact, wound vac operating, no s/s of infection, minimal serosang drainage in vac; dsg was changed 03/02 Wound consult We have reached out to to get records, it is unclear who is following her for her leg wound; still pending (8) DVT prophylaxis: Status: Acute Assessment and plan: Enoxaparin (9) Discharge planning issues: Status: Acute Assessment and plan: Does not want to be intubated, but would like compressions Care mgrs working on placement Discussed with Dr Preciado (10) Medication care plan discussed with primary care provider: Status: Acute Assessment and plan: Recommended med changes from [facility] pharmacy Email to PCP for input; nothing is acute, will hold on any changes until reviewed with PCP - new PCP Ping Vázquez MD @ [facility] Internal Med Subjective Subjective Patient reports: no new complaints, feels better, tolerating a regular diet, bowel movement and afebrile; denies diarrhea, nausea or vomiting Interval history since last seen: Urinary retention last pm > 700 ml - request urinary catheter be removed. No complaints otherwise Exam Narrative Exam Narrative: GEN: awake, alert, oriented 3. Pleasant, well groomed, interactive. HEAD: Normocephalic, atraumatic ENT: Mucous membranes dry, oropharynx unremarkable, External ear exam unremarkable EYES: PERRL, EOMI NECK: Full ROM, no EDY, no menigismus CHEST/RESP: Nontender, clear to auscultation bilateral, no wheeze/rhonchi/rales CARDIOVASCULAR: RRR, no murmur, rub kwasi. 2+ Rad pulse bilateral ABDOMEN: Soft, nontender, no mass. +Bowel sounds EXT: Full ROM, able to move both legs off the bed against gravity and against resistance. Sensation is intact throughout. 1+ patellar reflexes bilaterally, RLE wound vac, dsg intact, small serosang drainage in canister Neuro: Grossly normal neurologic exam, conversant, interactive. Psych: Speech fluent, thoughts congruent, affect normal Objective Last Vital Signs Temp 35.8 C L 03/04/23 15:14 Pulse 71 03/04/23 15:14 Resp 17 03/04/23 15:14 BP 102/61 03/04/23 15:14 Pulse Ox 96 03/04/23 15:14 Laboratory Results - last 24 hr 03/03/23 03/03/23 03/03/23 18:01 18:01 23:40 WBC 5.84 RBC 3.31 L Hgb 9.3 L Hct 29.7 L MCV 90 MCH 28.1 MCHC 31.3 L RDW 13.0 Plt Count 249 MPV 8.9 Immature Gran % 0.7 Neutrophils % 57.8 Lymphocytes % 18.5 Monocytes % 13.5 Eosinophils % 8.0 Basophils % 1.5 Nucleated RBC % 0.0 Absolute Neutrophils 3.37 Absolute Lymphocytes 1.08 L Absolute Monocytes 0.79 Absolute Eosinophils 0.47 Absolute Basophils 0.09 Sodium 136 Potassium 4.8 Chloride 100 Carbon Dioxide 24.8 Anion Gap 11.2 H BUN 39 H Creatinine 2.4 H Est GFR (CKD-EPI 2020) 20.17 Glucose 168 H Calcium 12.5 H* Magnesium 1.5 L Total Bilirubin 0.4 AST 17 ALT 11 L Alkaline Phosphatase 124 H Total Protein 6.9 Albumin 3.2 L Urine Color Cancelled Urine Clarity Cancelled Urine pH Cancelled Ur Specific [place] Cancelled Urine Protein Cancelled Urine Ketones Cancelled Urine Blood Cancelled Urine Nitrite Cancelled Urine Bilirubin Cancelled Urine Urobilinogen Cancelled Ur Leukocyte Esterase Cancelled Urine Glucose Cancelled 03/04/23 03/04/23 03/04/23 00:07 05:41 05:41 WBC 4.69 RBC 3.02 L Hgb 8.4 L Hct 26.8 L MCV 89 MCH 27.8 MCHC 31.3 L RDW 13.0 Plt Count 226 MPV 9.3 Immature Gran % 0.4 Neutrophils % 45.7 Lymphocytes % 22.4 Monocytes % 17.7 Eosinophils % 11.9 Basophils % 1.9 Nucleated RBC % 0.0 Absolute Neutrophils 2.14 Absolute Lymphocytes 1.05 L Absolute Monocytes 0.83 H Absolute Eosinophils 0.56 Absolute Basophils 0.09 Sodium 137 Potassium 4.5 Chloride 103 Carbon Dioxide 24.9 Anion Gap 9.1 BUN 43 H Creatinine 2.4 H Est GFR (CKD-EPI 2020) 20.17 Glucose 146 H Calcium 11.8 H* Magnesium 1.5 L Total Bilirubin AST ALT Alkaline Phosphatase Total Protein Albumin Urine Color Yellow Urine Clarity Clear Urine pH 5.0 Ur Specific [place] 1.020 Urine Protein Negative Urine Ketones Negative Urine Blood Negative Urine Nitrite Negative Urine Bilirubin Negative Urine Urobilinogen 0.2 Ur Leukocyte Esterase Negative Urine Glucose Negative Time Spent with Patient Time Spent with Patient: 35-49 minutes Time was spent: preparing to see the patient(eg.review tests), ordering medications,tests, procedures, referring, communicating with other health customer care professional, indepentently interpreting results, counseling the patient and care coordination
--- NOTE | 2023-03-04 17:50 | NUR.NOTE ---
pt is stating that her damon catheter is causing her pain. when this rn goes to assess pt, she is tearful and states that the catheter is bothering her and she hasnt put out a lot of urine all day. this rn educated pt that she has not drank an excessive amount to put out a lot of urine. pt states that she knows what it feels like when i have urine in my bladder. this rn offered pt different options. one option to bladder scan and to see if she was retaining any urine in her bladder or second to remove catheter but to monitor very closely the need to void and to frequent bladder scans and straight catheters if applicable. pt states that she will keep catheter in. bladder scan was zero on assessment. asked pt if she wanted deeper pradeep care area as that may also be contributing to pain in that area, and she refused until tomorrow. charge nurse notified.
[2023-03-04 19:37] VITALS: BP 103/61; PULSE 83; RESP 16; TEMP 35.6; O2SAT 98
[2023-03-04] MEDS: Docusate Sodium 100 MG CAP PO (19:39)
[2023-03-04] MEDS: Insulin Glargine 300 UNITS/3 ML PEN 12 UNITS SC (20:50)
[2023-03-04 23:45] VITALS: BP 116/69; PULSE 77; RESP 16; TEMP 36.4; O2SAT 96
[2023-03-05 05:34] VITALS: BP 122/68; PULSE 79; RESP 16; TEMP 36.6; O2SAT 96
[2023-03-05] MEDS: Levothyroxine 150 MCG TAB PO (05:34)
[2023-03-05 06:48] VITALS: BP 114/65; PULSE 67; TEMP 36.3; O2SAT 94
[2023-03-05 07:34] LABS: Abs Immature Grans 0.02 10^3/uL (0.0-0.06); Absolute Basophil Count 0.08 10^3/uL (0.0-0.2); Absolute Eosinophil Count 0.52 10^3/uL (0.0-0.7); Absolute Lymphocyte Count 0.85 10^3/uL (1.2-3.4); Absolute Monocyte Count 0.69 10^3/uL (0.1-0.8); Absolute Neutrophil Count 2.65 10^3/uL (1.2-6.7); Basophils % 1.7; Eosinophils % 10.8; HCT 27.6 % (36.0-46.0); Immature Grans % 0.4; Lymphocytes % 17.7; MCH 29.1 pg (27.0-33.0); MCHC 32.6 % (32.0-36.0); MCV 89 fL (80-95); MPV 9.4 fL (8.0-11.0); Monocytes % 14.3; Neutrophils % 55.1; Platelet Count 251 10^3/uL (130-400); RBC 3.09 10^6/uL (3.93-5.22); RDW 12.8 % (11.7-14.6); RDW-SD 41.4 fL; WBC 4.81 10^3/uL (4.4-10.8)
[2023-03-05] MEDS: hydroCHLOROthiazide 25 MG TAB PO (07:37)
[2023-03-05] MEDS: glipiZIDE 5 MG TAB 2.5 MG PO (07:37)
[2023-03-05] MEDS: Multivitamin TAB 1 TAB PO (07:38)
[2023-03-05] MEDS: Omeprazole 20 MG CAPCR PO ×2 (07:38→21:22)
[2023-03-05] MEDS: Losartan 50 MG TAB 100 MG PO (07:38)
[2023-03-05] MEDS: Carvedilol 6.25 MG TAB PO ×2 (07:38→21:22)
[2023-03-05] MEDS: Cholecalciferol (Vitamin D3) 1,000 UNIT TAB 500 UNITS PO (07:38)
[2023-03-05] MEDS: Aspirin 81 MG CHEW PO (07:38)
[2023-03-05] MEDS: Normal Saline Flush 10 ML SYR IVP (07:39)
[2023-03-05 07:54] LABS: Anion Gap 9.9 mmol/L (3-11); BUN 46 mg/dL (7-18); CO2 25.1 mmol/L (21.0-32.0); CREATININE 2.3 mg/dL (0.55-1.02); Chloride 102 mmol/L (98-107); Estimated GFR 21.22 (mL/min/1.73m2); Glucose 119 mg/dL (74-106); Potassium 4.7 mmol/L (3.5-5.1); Sodium 137 mmol/L (136-145)
[2023-03-05 07:56] LABS: Calcium 12.7 mg/dL (8.5-10.1)
--- NOTE | 2023-03-05 08:20 | CMPROGNOTE_ITS ---
Date of service: 03/05/23 Time of Service: 08:20 Care Management Progress Note Progress Note Text Progress Note Text: S/O:Betsy was sitting up in a chair when CM met with her. She informed CM that she no longer wants to go to rehab. She stated that she feels her place is at home with her . Betsy has been able to ambulate to the bathroom and from bed to chair independently. She stated that she feels she is back to her baseline. A family meeting had been scheduled for 1 pm and it was held as scheduled. CM explained that neither of the facilities that referrals were sent to were able to offer her a bed. CM then explained what Betsy had shared this mo rning and made it clear that whether or not she goes to rehab, is her choice. Everyone verbalized understanding. By the end of the meeting, Betsy agreed to go to rehab, if a bed offer is received, for no more than 3 weeks. CM assured her that if, at any time, she wanted to leave the SNF, she would be free to do so. Referrals were sent as requested to a number of facilities in both [place] and [place] and CM will follow up with them tomorrow. A:Betsy is a 77 year old woman admitted on 03/03/23 with ambulatory dysfunction P:Family ( and son) are seeking SNF placement for Betsy for short term rehab. Additional referrals were sent today as [facility] were unable to offer a bed..? CM will continue to follow and assess for ongoing discharge concerns.
--- NOTE | 2023-03-05 10:11 | W.PM.PROGNOT ---
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 (4) Hypothyroidism: Status: Chronic Assessment and plan: continue levothyroxine (5) IDDM (insulin dependent diabetes mellitus): Status: Chronic Assessment and plan: continue current diabetes management (6) Discharge planning issues: Status: Acute Assessment and plan: case management is following anticipate discharge to home with home health services for PT/OT discussed with DR Preciado Subjective Subjective Patient reports: no new complaints, feels better, tolerating liquids well, tolerating a regular diet and afebrile; denies shortness of breath Exam Const General: cooperative, comfortable and no acute distress Nutritional Appearance: average body habitus and well nourished Orientation: alert, awake and oriented x3 HENMT Head: normal to inspection Mouth: moist mucous membranes Chest Chest: normal inspection of the chest Resp Effort & Inspection: normal respiratory effort, able to speak in complete sentences and no respiratory distress Auscultation: clear to auscultation bilaterally Cardio Rate: regular rate Rhythm: regular rhythm GI Inspection: normal to inspection and non-distended Palpation: soft and nontender Auscultation: normal bowel sounds Back/Spine/Pelvis Back: no CVA tenderness Thoracic/Lumbar Spine: thoracic and lumbar spine normal to inspection Skin General skin exam: no rashes or lesions noted Neuro General: patient alert, patient awake and patient oriented x3 Cognition: normal cognition Speech: speech normal Extrem General: normal to inspection and no pedal edema Psych Appearance: grossly normal and well kempt Mental Status: mental status grossly normal Speech and Movement: speech and movement normal Objective Last Vital Signs Temp 36.4 C L 03/06/23 06:34 Pulse 65 03/06/23 06:34 Resp 18 03/06/23 06:34 BP 95/56 L 03/06/23 06:34 Pulse Ox 97 03/06/23 06:34 Laboratory Results - last 24 hr 03/05/23 06:55 25-OH Vitamin D Total 128.6 H* Time Spent with Patient Time Spent with Patient: 25-34 minutes Time was spent: preparing to see the patient(eg.review tests), obtaining and/or reviewing separately otained hiistory, ordering medications,tests, procedures, referring, communicating with other health health care legal assistant and care coordination
--- NOTE | 2023-03-05 10:50 | CHAPLAIN ---
Betsy was up in the chair when I visited this morning. She talked about wanting to go home, and not to a facility which is what had been considered before. Betsy said she has all she same equipment at home and she would rather be there with her . They have been 60 years. They have some children who live nearby who can help. Betsy told me that one of her sons purchased a place in [place] and she and her stayed there this past winter while she was taking part in a medical trial for her MS and Parkinson's and need to be in [place] for three days every month. Nine family members have of ALS in her lifetime, including her son, Betsy said. She may be discharged as early as this afternoon.
--- NOTE | 2023-03-05 11:15 | W.PM.DS.N ---
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 She is asymptomatic. Lab including PTH, ionized calcium and vit D level are pending at time of discharge. Will defer further work-up of her hypercalcemia to outpatient team but possibly due to vitamin D supplementation in [place]. She should continue wound VAC as previously directed she will be discharged with resumption of home health services. Home Meds and New Rx's Prescriptions: Continued multivitamin Tablet 1 tab PO DAILY carvedilol 6.25 mg Tablet 6.25 mg PO BID Patient Comments: 03/03/23- pt thought she was taking, not in bag of meds, not filled recently in dispense hx levothyroxine 150 mcg Tablet 150 mcg PO DAILY omeprazole 20 mg Capsule,Delayed Release(Dr/Ec) 20 mg PO QDAY aspirin 81 mg Tablet 81 mg PO DAILY hydrochlorothiazide 25 mg Tablet 25 mg PO DAILY losartan 100 mg Tablet 100 mg PO DAILY insulin glargine [Lantus Solostar U-100 Insulin] 100 unit/mL (3 mL) Insulin Pen 20 unit SUBCUT DAILY AM polyethylene glycol 3350 17 gram Powder In Packet 17 g PO DAILY Qty: 30 0RF Patient Comments: prn insulin lispro 100 unit/mL Insulin Pen 1 - 5 sliding scale dose SUBCUT TID Patient Comments: Has been injecting 4 units most often lately biotin 5 mg Tablet 10 mg PO BID ubiquinone 90 mg Tablet,Disintegrating 100 mg PO DAILY elderberry fruit 350 mg Capsule 350 mg PO DAILY acetaminophen 325 mg Tablet 650 mg PO QAM diphenhydramine-acetaminophen [Acetaminophen PM] 25-500 mg Tablet 2 tab PO QHS Discontinued cholecalciferol (vitamin D3) 50 mcg (2,000 unit) Capsule 2,000 mcg PO BID Discharge Instructions Instructions: Fall Prevention for Older Adults (DC), Weakness (DC), Hypercalcemia (DC) Additional Instructions: Continue wound VAC as previously directed. Her dressing was changed today prior to discharge Referrals: Humera Kovacs [Primary Care Provider] - Activity:: Activity as Tolerated Equipment/Supplies:: No Equipment Needed Diet:: As Tolerated DS: Data Vitals/I&O Vitals and I&O: Vital Signs Temperature 36.3 C L 03/05/23 06:48 Temperature Source Tympanic 03/05/23 06:48 Pulse 67 03/05/23 06:48 Pulse Rhythm Regular 03/05/23 07:45 Respiratory Rate 16 03/05/23 05:34 Respiratory Effort Normal, Non-Labored 03/05/23 07:45 Respiratory Depth Normal 03/05/23 07:45 Respiratory Pattern Normal 03/05/23 07:45 Blood Pressure 114/65 03/05/23 06:48 Blood Pressure Position Sitting 03/03/23 15:31 Pulse Oximetry 94 03/05/23 06:48 Oxygen Delivery Method Room Air 03/05/23 06:48 Oxygen Flow Rate 0 03/05/23 06:48 Pain Level 0 03/05/23 06:48 Comment Rn notified about blood pressure 03/04/23 11:11 Intake & Output 03/04/23 03/04/23 03/05/23 11:59 23:59 11:59 Intake Total 550 / 670 120 / 670 Output Total 650 / 900 250 / 900 625 / 625 Balance -100 / -230 -130 / -230 -625 / -625 Intake: Oral 550 / 670 120 / 670 Output: Urine 650 / 900 250 / 900 625 / 625 Other: Urine Color Pale Yellow Pale Yellow Yellow Urine Appearance Clear Clear Clear Comment pt was having complaints that her damon catheter was not draining. used bladder scan to verify amount of urine in bladder for pt comfort Stool Size Large Stool Characteristics Soft Formed Data Completed and Pending Labs on day of discharge: Labs from last 24 hours 03/05/23 03/05/23 03/05/23 Unknown 11:14 06:55 WBC 4.81 RBC 3.09 L Hgb 9.0 L Hct 27.6 L MCV 89 MCH 29.1 MCHC 32.6 RDW 12.8 Plt Count 251 MPV 9.4 Immature Gran % 0.4 Neutrophils % 55.1 Lymphocytes % 17.7 Monocytes % 14.3 Eosinophils % 10.8 Basophils % 1.7 Nucleated RBC % 0.0 Absolute Neutrophils 2.65 Absolute Lymphocytes 0.85 L Absolute Monocytes 0.69 Absolute Eosinophils 0.52 Absolute Basophils 0.08 Sodium Potassium Chloride Carbon Dioxide Anion Gap BUN Creatinine Est GFR (CKD-EPI 2020) Glucose Calcium Ionized Calcium Pending Magnesium Anti-Parathy Hormone Ab Pending 03/05/23 06:55 WBC RBC Hgb Hct MCV MCH MCHC RDW Plt Count MPV Immature Gran % Neutrophils % Lymphocytes % Monocytes % Eosinophils % Basophils % Nucleated RBC % Absolute Neutrophils Absolute Lymphocytes Absolute Monocytes Absolute Eosinophils Absolute Basophils Sodium 137 Potassium 4.7 Chloride 102 Carbon Dioxide 25.1 Anion Gap 9.9 BUN 46 H Creatinine 2.3 H Est GFR (CKD-EPI 2020) 21.22 Glucose 119 H Calcium 12.7 H* Ionized Calcium Magnesium 2.0 Anti-Parathy Hormone Ab PFSH All Active Problems (Updated 03/04/23 @ 17:29 by Bonnie Arce NP) DVT prophylaxis (Acute) Discharge planning issues (Acute) Medication care plan discussed with primary care provider (Acute) Wound of right lower extremity (Acute) Neurogenic bowel (Acute) Neurogenic bladder (Acute) Multiple sclerosis exacerbation (Acute) Constipation (Acute) Urinary retention (Acute) Steroid-induced hyperglycemia (Acute) Ambulatory dysfunction (Acute) Bilateral leg weakness (Acute) Osteoarthritis (Chronic) Pulmonary hypertension (Acute) Right carpal tunnel syndrome (Acute) 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) Bilateral leg edema (Acute) Arthritis (Acute) Eczema (Acute) Endometrial hyperplasia (Acute) Anemia due to stage 4 chronic kidney disease (Acute) 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) Hypercholesterolemia (Acute) Diabetic polyneuropathy (Acute) Familial ALS (amyotrophic lateral sclerosis) (Chronic) Hypothyroidism (Chronic) GERD (gastroesophageal reflux disease) (Chronic) Hypertension (Chronic) IDDM (insulin dependent diabetes mellitus) (Chronic) Bilateral leg weakness (Acute) History of multiple sclerosis (Acute) Medical History (Updated 03/04/23 @ 17:29 by Bonnie Arce NP) 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 Surgical History (Updated 08/31/22 @ 10:33 by Stephani Katz MD) H/O colonoscopy with polypectomy H/O colposcopy with cervical biopsy several H/O left mastectomy Hx of esophagogastroduodenoscopy S/P bilateral cataract extraction S/P breast biopsy, right S/P carpal tunnel release right S/P left knee arthroscopy S/P lumpectomy, left breast S/P placement of cardiac pacemaker Family History (Updated 08/31/22 @ 10:35 by Stephani Katz MD) Sister Familial ALS (amyotrophic lateral sclerosis) Diabetes Sister Familial ALS (amyotrophic lateral sclerosis) Brother Familial ALS (amyotrophic lateral sclerosis) Maternal Grandmother Familial ALS (amyotrophic lateral sclerosis) Heart disease Mother Familial ALS (amyotrophic lateral sclerosis) Son Familial ALS (amyotrophic lateral sclerosis) Diabetes Father Family history of early CAD Paternal Grandmother Diabetes Social History (Updated 08/31/22 @ 10:41 by Stephani Katz MD) Smoking/Tobacco Use Status: Former Tobacco Use tobacco type: cigarettes Smoking risk assessment performed?: Yes Alcohol Intake: former Substance use type: does not use Do you feel safe at home: Yes Do you feel safe in your relationship?: Yes
[2023-03-05 13:18] LABS: Vitamin D 25 Total 128.6 ng/mL (30-100)
[2023-03-05] MEDS: Insulin Aspart 300 UNITS/3 ML PEN SC (14:10)
[2023-03-05 15:04] VITALS: BP 102/54; PULSE 73; TEMP 36.5; O2SAT 98
--- NOTE | 2023-03-05 15:30 | NUR.NOTE ---
pt has not had a bm since her admission. pt has been refusing her stool softener and miralax and states that i go three days without a poop and thats normal for me. this rn educated pt that if she stars feeling pain or discomfort in her abd she should take the medications that assist with bms as that could be the contributing factor. pt verbalizes understanding. no acute distress at this time.
--- NOTE | 2023-03-05 15:49 | NCONE_ITS ---
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 Alford is a 77 year-old woman with MS, SOD1 mutation, and family history of ALS - but who does NOT have ALS herself, who has been participating in the [employer] AT[employer] trial since February 2022 which has involved monthly intrathecal infusions of tofersen in people with SOD1 mutation withOUT si/sx of ALS - who has been having complications over the last 6 months, likely due to the study drug, involving MS-type activation of her PATTERN MAKER system and small areas of ischemia/stroke. She presents again with increased weakness and falls, with exam findings consistent with her known diabetic neuropathy. Her clinical status is complicated by worsening chronic renal failure (Cr 1.8 in Aug 2022 and now 2.4) and seemingly new hypercalcemia - please check SPEP in addition to other work- up. We are unable to perform MRI on her here at our facility due to her PM placement, though it is MRI compatible. MRIs performed 1mo ago at [facility] showed no active PATTERN MAKER inflammation, but given decline and previous response to prednisone, I think it would be reasonable to re-trial high dose steroids to see if this helps her. She is agreeable. Recommend 1000mg IV methylprednisone daily x 3 days (could do up to 5 days if still improving). Continue PT and working on placement for SNF. Otherwise, I am presuming that previously seen ischemia is also secondary to tofersen infusions, however, usual causes of ischemia should also likely be explored. She cannot get a CTA due to renal function and cannot get an MRA here due to her PM placement. A carotid ultrasound would not be helpful as both prior ischemic findings were in the posterior circulation. I recommend TTE and telemetry, with classroom monitor at discharge. Please also check A1c and lipid panel. She should continue aspirin 81mg daily for now. I also placed a phone call to discuss her case with her study team at [facility]. History of Present Illness History of Present Illness Chief Complaint: weakness Narrative: Handedness: right. HPI: Ms. 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 Ms. Alford was brought by family to the [facility] ER on 03/03/23 for increasing weakness and falls and inability to be cared for at home. She has had a complicated last few months and has a complicated history as below. She has had no further tofersen infusions since late January. She notes she had been improving following admission to [facility] earlier this month until the last few days/1 week in which she reports 2 falls. #1. MS. She was diagnosed with MS at age ~29 years when she developed bilateral hand numbness and discooridination for which she was treated with IV steroids. She had an MS relapse in 2013 manifested by R hemibody numbness, found to have a new/active T9 lesion at that time, which was treated with IV steroids. She otherwise had very minimal effects from her MS and was never on disease mo difying therapy. #2. SOD1 mutation, participation in clinical trial. Ms. Alford has a strong fami ly history of ALS including her mother, son (passed at age 26), 2 brothers, sister, MGM, and numerous cousins. She carries the SOD1 mutation but has NOT clinically developed ALS herself. In February 2022, she enrolled in the [employer] ATLAS trial through the [facility] with Dr. Salinas for SOD1 mutation carriers, pre-symptomatic of ALS. She has been getting intrathecal infusions of tofersen once monthly since that time. Tofersen is an antisense oligonucelotide that induces mRNA targeted at SOD1. -08/15/22-08/19/22 [facility] Admission: for generalized weakness and falls following her tofersen infusion. She underwent the work-up as below which showed active inflammation/demyelination throughout the PATTERN MAKER in an MS-like pattern as well as an apparent small pontine stroke. The [facility] team thought that these findings were likely an adverse effect from the tofersen. It doesn't appear that she was treated with steroids, though her symptoms improved. She was already on aspirin. -08/30/23-09/02/23 [facility] admission: again for weakness and falls falling tofersen infusion. She was treated with IVMP 1000mg daily x 4 days for suspected demyelinating/inflammatory process with improvement. -November 2022: Started on Aubagio 7mg daily by team in [place] for her demyelinating lesions. -December 2022: fall sustaining significant would to RLE which was later debrieded at [facility] in January 2023 and with wound vac placement. -02/03/23-02/08/23 [facility] admission: for weakness and falls but also confusion. MRI imaging with no acute findings per radiology - but per my view shows a small acute R medial occipital stroke. She improved. Following admission, she stopped Aubagio as she felt it was the cause of her symptoms. Work-up: -MRi brain w/o (08/17/22 at [facility]): Likely acute small R lateral pontine stroke. Chronic white matter changes consistent with MS. I reviewed these images personally and this is my personal interpretation. -MRI C-spine/T-spine (08/17/22 at [facility]): Active/enhancing lesions at C2, T1, T2- 3, T8-9, T9-10, and T10. Old linear C3-4 lesion. I reviewed these images personally and this is my personal interpretation. -MRI brain w/wo (02/07/23 at [facility]): She appears to have a small R medial occipital acute infarct. White matter changes consistent with MS and unchanged compared to previous. I reviewed these images personally and this is my personal interpre tation. -MRI c-spine w/wo (02/07/23 at [facility]): Old C3-4 linear lesion. Moderate central stenosis C4-6. I reviewed these images personally and this is my personal interpretation. PFSH All Active Problems (Updated 03/05/23 @ 21:08 by Fadumo Gallagher MD) Stroke (Chronic) Weakness (Acute) DVT prophylaxis (Acute) Discharge planning issues (Acute) Medication care plan discussed with primary care provider (Acute) Wound of right lower extremity (Acute) Neurogenic bowel (Acute) Neurogenic bladder (Acute) Multiple sclerosis exacerbation (Acute) Constipation (Acute) Urinary retention (Acute) Steroid-induced hyperglycemia (Acute) Ambulatory dysfunction (Acute) Bilateral leg weakness (Acute) Osteoarthritis (Chronic) Pulmonary hypertension (Acute) Right carpal tunnel syndrome (Acute) 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 Surgical History (Updated 08/31/22 @ 10:33 by Stephani Katz MD) H/O colonoscopy with polypectomy H/O colposcopy with cervical biopsy several H/O left mastectomy Hx of esophagogastroduodenoscopy S/P bilateral cataract extraction S/P breast biopsy, right S/P carpal tunnel release right S/P left knee arthroscopy S/P lumpectomy, left breast S/P placement of cardiac pacemaker Family History (Updated 08/31/22 @ 10:35 by Stephani Katz MD) Sister Familial ALS (amyotrophic lateral sclerosis) Diabetes Sister Familial ALS (amyotrophic lateral sclerosis) Brother Familial ALS (amyotrophic lateral sclerosis) Maternal Grandmother Familial ALS (amyotrophic lateral sclerosis) Heart disease Mother Familial ALS (amyotrophic lateral sclerosis) Son Familial ALS (amyotrophic lateral sclerosis) Diabetes Father Family history of early CAD Paternal Grandmother Diabetes Social History (Updated 08/31/22 @ 10:41 by Stephani Katz MD) Smoking/Tobacco Use Status: Former Tobacco Use tobacco type: cigarettes Smoking risk assessment performed?: Yes Alcohol Intake: former Substance use type: does not use Do you feel safe at home: Yes Do you feel safe in your relationship?: Yes Visit Medication and Allergies Active Medications Generic Name Dose Route Start Last Admin Trade Name Freq PRN Reason Stop Dose Admin Acetaminophen 0 mg 03/03/23 17:17 Acetaminophen 325 Mg Tab PO Q4H PRN PRN Aspirin 81 mg 03/04/23 08:30 03/05/23 07:38 Aspirin 81 Mg Chew PO 81 mg DAILY HADLEY Administration Bisacodyl 5 mg 03/03/23 17:21 Bisacodyl 5 Mg Tabec PO DAILY PRN PRN Carvedilol 6.25 mg 03/03/23 20:00 03/05/23 07:38 Carvedilol 6.25 Mg Tab PO 6.25 mg BID HADLEY Administration Dextrose 0 gm 03/03/23 17:23 Glucose Oral Gel 15 Gm/37.5 Gm Tube PO DIRECTED PRN Dextrose/Water 0 gm 03/03/23 17:23 Dextrose 50%-Water 25 Gm/50 Ml Syr IVP DIRECTED PRN Dimethicone/Zinc Oxide 0 gm 03/03/23 17:17 Christel Protect Cream 142 Gm Tube TP PRN PRN Docusate Sodium 100 mg 03/03/23 20:00 03/05/23 14:10 Docusate Sodium 100 Mg Cap PO Not Given TID [facility] Enoxaparin Sodium 30 mg 03/03/23 18:45 03/04/23 17:40 Enoxaparin 30 Mg/0.3 Ml Syr SC Not Given Q24H [facility] Glipizide 2.5 mg 03/04/23 07:30 03/05/23 07:37 Glipizide 5 Mg Tab PO 2.5 mg BID AC HADLEY Administration Hydrochlorothiazide 25 mg 03/04/23 08:30 03/05/23 07:37 Hydrochlorothiazide 25 Mg Tab PO 25 mg DAILY [facility] Administration Sodium Chloride 500 mls @ 0 mls/hr 03/03/23 18:42 Saline 500ml Bag IV PRN PRN As Directed IV Miscellaneous Supplies 1 each 03/03/23 18:45 Iv Access IV DIRECTED [facility] Insulin Aspart 0 units 03/03/23 22:00 03/05/23 14:10 Insulin Aspart 300 Units/3 Ml Pen SC 4 units 0800,1200,1700,2200 [facility] Administration Protocol Insulin Glargine 12 units 03/03/23 22:00 03/04/23 20:50 Insulin Glargine 300 Units/3 Ml Pen SC 12 units HS [facility] Administration Levothyroxine Sodium 150 mcg 03/04/23 05:35 03/05/23 05:34 Levothyroxine 150 Mcg Tab PO 150 mcg DAILY AM HADLEY Administration Losartan Potassium 100 mg 03/04/23 08:30 03/05/23 07:38 Losartan 50 Mg Tab PO 100 mg DAILY HADLEY Administration Multivitamins 1 tab 03/04/23 08:30 03/05/23 07:38 Multivitamin Tab PO 1 tab DAILY HADLEY Administration Omeprazole 20 mg 03/03/23 20:00 03/05/23 07:38 Omeprazole 20 Mg Capcr PO 20 mg BID HADLEY Administration Patient's Own 1 each 03/04/23 08:30 Medication ( PO Teriflunomide ( DAILY HADLEY Aubagio) 7 Mg Tablet ) Patient's Own 1 each 03/04/23 08:30 03/05/23 07:44 Medication ( PO Not Given Ubiquinone 90 Mg DAILY HADLEY Tablet) Patient's Own 2 each 03/04/23 20:00 03/05/23 07:44 Medication (Biotin PO 2 each 1000 Mcg Capsule) BID HADLEY Administration Polyethylene Glycol 17 gm 03/03/23 17:17 Polyethylene Glycol 3350 17 Gm Packet PO DAILY PRN PRN Constipation Polyethylene Glycol 17 gm 03/04/23 08:30 03/05/23 07:44 Polyethylene Glycol 3350 17 Gm Packet PO Not Given DAILY HADLEY Sodium Chloride 0 ml 03/03/23 18:42 03/05/23 07:39 Normal Saline Flush 10 Ml Syr IVP 20 ml PRN PRN Administration Allergies amlodipine Allergy (Unverified 03/03/23 15:36) [id number] Reductase Inhibitor Allergy (Unverified 03/03/23 15:36) Exam Narrative Exam Narrative: Physical Exam: Gen: Patient of apparent stated age, NAD Head and face: no facial or cranial abnormalities Neck: Supple, no meningismus, no occipital tenderness CV: RRR Resp: CTA B/L Abd: soft, nontender, nondistended Ext: No edema. No clubbing or cyanosis. No bony deformity. Wound vac on right lower leg. Neuro Exam: Language: fluency, naming, repetition, and comprehension intact; Mental Status: AAOx3, current events intact, fund of knowledge intact; Speech: no dysarthria Cranial nerves: Funduscopy: not performed CN II: visual michele intact CN III, IV, : extraocular movements intact, no nystagmus, pupils symmetric and reactive to light CN V: face sensation intact to LT and PP CN VII: no facial asymmetry noted CN VIII: hearing intact bilaterally CN IX, X: palate rises symmetrically CN XI: trapezius/SCM 5/5 bilaterally CN XII: protrudes tongue symmetrically Sensory: intact to LT, PP, and joint position in all extremities; reduced vibration in the toes bilaterally; Motor: bulk and tone intact. Fine motor movements intact bilaterally. No pronator drift. Strength 4+/5 throughout including the deltoids, biceps, triceps, wrist extensors, hip flexors, knee flexors, knee extensors, ankle flexors, and ankle extensors. Mild bilateral UE postural and action tremor. Reflexes: 1+/2+ at the biceps, triceps, brachioradialis, patella, and achilles tendons bilaterally; toes down going bilaterally; Coordination: FTN and HTS intact bilaterally Gait: not seen Results Last Vital Signs Temp 97.7 F 03/05/23 15:04 Pulse 73 03/05/23 15:04 Resp 16 03/05/23 05:34 BP 102/54 L 03/05/23 15:04 Pulse Ox 98 03/05/23 15:04 Labs 03/05/23 06:55 03/05/23 06:55 Labs: Laboratory Results - last 24 hr 03/05/23 03/05/23 03/05/23 06:55 06:55 06:55 WBC 4.81 RBC 3.09 L Hgb 9.0 L Hct 27.6 L MCV 89 MCH 29.1 MCHC 32.6 RDW 12.8 Plt Count 251 MPV 9.4 Immature Gran % 0.4 Neutrophils % 55.1 Lymphocytes % 17.7 Monocytes % 14.3 Eosinophils % 10.8 Basophils % 1.7 Nucleated RBC % 0.0 Absolute Neutrophils 2.65 Absolute Lymphocytes 0.85 L Absolute Monocytes 0.69 Absolute Eosinophils 0.52 Absolute Basophils 0.08 Sodium 137 Potassium 4.7 Chloride 102 Carbon Dioxide 25.1 Anion Gap 9.9 BUN 46 H Creatinine 2.3 H Est GFR (CKD-EPI 2020) 21.22 Glucose 119 H Calcium 12.7 H* Magnesium 2.0 25-OH Vitamin D Total 128.6 H*
[2023-03-05 19:30] VITALS: BP 115/65; PULSE 73; RESP 18; TEMP 36.3; O2SAT 97
[2023-03-05] MEDS: Insulin Glargine 300 UNITS/3 ML PEN 12 UNITS SC (21:25)
[2023-03-05 23:53] VITALS: BP 118/66; PULSE 73; RESP 18; TEMP 36.1; O2SAT 99
[2023-03-06 03:32] VITALS: BP 105/60; PULSE 70; RESP 16; TEMP 36.8; O2SAT 97
[2023-03-06] MEDS: Levothyroxine 150 MCG TAB PO (06:18)
[2023-03-06 06:34] VITALS: BP 95/56; PULSE 65; RESP 18; TEMP 36.4; O2SAT 97
[2023-03-06] MEDS: Insulin Aspart 300 UNITS/3 ML PEN SC ×4 (09:09→21:21)
[2023-03-06] MEDS: Polyethylene Glycol 3350 17 GM PACKET PO (09:09)
[2023-03-06] MEDS: Multivitamin TAB 1 TAB PO (09:10)
[2023-03-06] MEDS: Docusate Sodium 100 MG CAP PO ×2 (09:10→21:22)
[2023-03-06] MEDS: Aspirin 81 MG CHEW PO (09:10)
[2023-03-06] MEDS: glipiZIDE 5 MG TAB 2.5 MG PO ×2 (09:10→17:45)
[2023-03-06] MEDS: Omeprazole 20 MG CAPCR PO ×2 (09:10→21:22)
--- NOTE | 2023-03-06 09:23 | PDOC.CMPRO ---
Date of service: 03/06/23 Time of Service: 09:24 Care Management Progress Note Progress Note Text Progress Note Text: S/O:Betsy was sitting up in a chair when CM met with her. She was polite but not very talkative. CM informed her that there has been no response to the many referrals sent yesterday for short term rehab. CM also discussed the fact that her status has been changed from observation to inpatient due to some medical issues that arose. Betsy was seen by Dr. Raygoza who has recommended a short course of high dose steroids to help with the MS flare that she seems to be having. CM will follow. A:Betsy is a 77 year old woman admitted on 03/03/23 with ambulatory dysfunction P:Family ( and son) are seeking SNF placement for Betsy for short term rehab. Additional referrals were sent yesterday. No response has been received from any of the facilities and CM has called all of them and left messages, requesting an update.? CM will continue to support Betsy and any ongoing discharge concerns.
--- NOTE | 2023-03-06 10:17 | W.PM.PROGNOT ---
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 Alford is a 77 year-old woman with MS, SOD1 mutation, and family history of ALS - but who does NOT have ALS herself, who has been participating in the [employer] AT[employer] trial since February 2022 which has involved monthly intrathecal infusions of tofersen in people with SOD1 mutation withOUT si/sx of ALS - who has been having complications over the last 6 months, likely due to the study drug, involving MS-type activation of her PESTICIDE CHEMIST system and small areas of ischemia/stroke. She presents again with increased weakness and falls, with exam findings consistent with her known diabetic neuropathy. Her clinical status is complicated by worsening chronic renal failure (Cr 1.8 in Aug 2022 and now 2.4) and seemingly new hypercalcemia - work-up pending. We are unable to perform MRI on her here at our facility due to her PM placement, though it is MRI compatible. MRIs performed 1mo ago at [facility] showed no active PESTICIDE CHEMIST inflammation, but given decline and previous response to prednisone, I think it would be reasonable to re-trial high dose steroids to see if this helps her. She is agreeable. Recommend 1000mg IV methylprednisone daily x 3 days (could do up to 5 days if still improving). Continue PT and working on placement for SNF. Otherwise, I am presuming that previously seen ischemia is also secondary to tofersen infusions, however, usual causes of ischemia should also likely be explored. She cannot get a CTA due to renal function and cannot get an MRA here due to her PM placement. A carotid ultrasound would not be helpful as both prior ischemic findings were in the posterior circulation. I recommend TTE and telemetry, with etched circuit processor at discharge. A1c and lipid panel are pending. She should continue aspirin 81mg daily for now. MRA head/neck to be done outpatient at [facility]. I am anticipating discussion with her study team at [facility]. Subjective Subjective Interval history since last seen: No issues overnight. Betsy was seen by PT this am and able to walk the hallways. She remains interested in short stay SNF - no longer than 3 weeks per her. I have not heard back from her clinical study biomedical engineering technician. She will receive first dose of prednisone later this am. -VitD (03/05/23): 128.6 -Pending labs: SPEP, A1c, Lipid -Pending tests: TTE, telemetry Exam Narrative Exam Narrative: Physical Exam: Constitutional: Patient of apparent stated age, well nourished, well developed, no acute distress Neuro: MS/Language/Speech: Alert, oriented, clear language (fluency and comprehension), no dysarthria Motor: Normal bulk and tone. FMM intact, no pronator drift. 4+/5 strength in bilateral upper and lower extremities. Mild bilateral UE postural and action tremor - less prominent than yesterday. Coordination: Finger to nose performed without dysmetria Gait: not seen Objective Last Vital Signs Temp 97.5 F L 03/06/23 06:34 Pulse 65 03/06/23 06:34 Resp 18 03/06/23 06:34 BP 95/56 L 03/06/23 06:34 Pulse Ox 97 03/06/23 06:34 Laboratory Results - last 24 hr 03/05/23 06:55 25-OH Vitamin D Total 128.6 H* Time Spent with Patient Time Spent with Patient: 25-34 minutes Time was spent: preparing to see the patient(eg.review tests), referring, communicating with other health care tech and counseling the patient
--- NOTE | 2023-03-06 10:17 | W.PM.PROGNOT ---
Date of Service Date of service: 03/06/23 Time of Service: 10:18 Assessment and Plan Assessment and plan (1) Weakness: Status: Acute Assessment and plan: continue PT/OT (2) Stroke: Status: Chronic Assessment and plan: unable to obtain MRI (has pacer) neurology consulted with recommendations: continue asa daily TTE, cardiac monitoring, A1C and lipid panel PT/OT (3) CKD stage 4 due to type 2 diabetes mellitus: Status: Acute Assessment and plan: avoid nephrotoxic drugs, renal dose medication as needed. monitor. 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 (7) Hypothyroidism: Status: Chronic Assessment and plan: continue levothyroxine add TSH (8) IDDM (insulin dependent diabetes mellitus): Status: Chronic Assessment and plan: continue current diabetes management anticipate hyperglycemia with high dose steroids (9) Discharge planning issues: Status: Acute Assessment and plan: case management is following anticipate discharge to home with home health services for PT/OT discussed with DR Preciado Subjective Subjective Patient reports: no new complaints, tolerating liquids well, tolerating a regular diet and afebrile; denies shortness of breath Exam Const General: cooperative, comfortable and no acute distress Nutritional Appearance: average body habitus and well nourished Orientation: alert, awake and oriented x3 HENMT Head: normal to inspection Mouth: moist mucous membranes Chest Chest: normal inspection of the chest Resp Effort & Inspection: normal respiratory effort, able to speak in complete sentences and no respiratory distress Auscultation: clear to auscultation bilaterally Cardio Rate: regular rate Rhythm: regular rhythm GI Inspection: normal to inspection and non-distended Palpation: soft and nontender Auscultation: normal bowel sounds Back/Spine/Pelvis Back: no CVA tenderness Thoracic/Lumbar Spine: thoracic and lumbar spine normal to inspection Skin General skin exam: no rashes or lesions noted Neuro General: patient alert, patient awake and patient oriented x3 Cognition: normal cognition Speech: speech normal Extrem General: normal to inspection and no pedal edema Psych Appearance: grossly normal and well kempt Mental Status: mental status grossly normal Speech and Movement: speech and movement normal Objective Last Vital Signs Temp 36.4 C L 03/06/23 06:34 Pulse 65 03/06/23 06:34 Resp 18 03/06/23 06:34 BP 95/56 L 03/06/23 06:34 Pulse Ox 97 03/06/23 06:34 Laboratory Results - last 24 hr 03/05/23 06:55 25-OH Vitamin D Total 128.6 H* Time Spent with Patient Time Spent with Patient: 25-34 minutes Time was spent: preparing to see the patient(eg.review tests), obtaining and/or reviewing separately otained hiistory, ordering medications,tests, procedures, referring, communicating with other health care center manager and care coordination
--- NOTE | 2023-03-06 10:55 | PT.INIE ---
Date of service: 03/06/23 Time of Service: 09:29 PT Notes Visit Reasons: Ambulatory Dysfunction Physical Therapy Inpatient Initial Evaluation Date: 03/03/2023 Referring Doctor:? Rosalie Andrade? PA PT Orders: PT CONSULT: Safety consult for D/C Precautions: Fall. Standard. Activity as tolerated. Patient Profile/Admitting Diagnosis:? Betsy is a 77-year-old female wit past medical history significant for MS, CVA, and SOD1 mutation who presented to the ED on 03/03/2023 due to worsening B LE weakness,? falls,? and ambulatory dysfunction.? Patient is admitted for mangement of generalized weakness, late effects of CVA, stage IV CKD, hypercalcemia, MS exacerbation, hypothyroidism, NIDDM. Per clarification by neurologist Dr. Whyte, patient has no official diagnosis of ALS but that she has the mutated gene, SOD 1 gene, that increases predisposition for it. 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) Bilateral leg edema (Acute) Arthritis (Acute) Eczema (Acute) Endometrial hyperplasia (Acute) Anemia due to stage 4 chronic kidney disease (Acute) 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) Hypercholesterolemia (Acute) Diabetic polyneuropathy (Acute) Familial ALS (amyotrophic lateral sclerosis) (Chronic) Hypothyroidism (Chronic) GERD (gastroesophageal reflux disease) (Chronic) Hypertension (Chronic) IDDM (insulin dependent diabetes mellitus) (Chronic) Bilateral leg weakness (Acute) History of multiple sclerosis (Acute) Medical History?(Updated 02/03/23 @ 13:28 by JULISSA Rodrigues) 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 uses a single point-cane to walk.? Son and son's family live close by but may not available consistently during the day.? Bedroom is on the second floor of the house.? Has entry steps. Equipment Owned/DME: Wheelchair,? FWW,? shower chair Subjective: Patient agreeable to consult. Willing to get out of bed. Denies headache, chest pain, and lightheadedness throughout session. Still some shakiness but not as pronounced as several days ago. Objective: General Observation: Resting in bed.? Wound vacuum in place on?distal R foot/leg. Landin catheter in place. Mental Status: Alert and oriented as to person, place, time, and purpose. Able to pay attention, focus, and respond appropriately. Pain: Denies Vital Signs: Closely monitored by nursing staff ROM: Right Upper Extremity: ? Shoulder Flexion WFL. Shoulder abduction WFL. Elbow flexion WFL. Wrist flexion WFL. Functional opening and closing of hand WFL. Left Upper Extremity:? Shoulder Flexion WFL. Shoulder abduction WFL. Elbow flexion WFL. Wrist flexion WFL. Functional opening and closing of hand WFL. Right Lower Extremity: Hip flexion WFL. Hip abduction WFL. Knee flexion WFL. Ankle dorsiflexion WFL. Ankle plantarflexion WFL. Left Lower Extremity: Hip flexion WFL. Hip abduction WFL. Knee flexion WFL. Ankle dorsiflexion WFL. Ankle plantarflexion WFL. Strength: Right Upper Extremity: Shoulder flexors 4-/5. Shoulder abductors 4-/5. Elbow flexors 4-/5. Elbow extensors 4-/5. 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 Left Upper Extremity: Shoulder flexors 4-/5. Shoulder abductors 4-/5. Elbow flexors 4-/5. Elbow extensors 4-/5. 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 Right Lower Extremity: Hip flexors 4/5. Hip abductors 4/5. Knee flexors 4/5. Knee extensors 4-/5. Ankle dorsiflexors 4/5. Ankle plantarflexors 4/5. Left Lower Extremity: Hip flexors 3/5. Hip abductors 3/5. Knee flexors 4-/5. Knee extensors 4-/5. Ankle dorsiflexors 4-/5. Ankle plantarflexors 4-/5. Bed Mobility/Transfers: Sit to stand with contact guard assist using FWW Stand to sit with contact guard assist using FWW Bed to reclining contact guard assist using FWW Reclining chair to bed contact guard assist using FWW Gait: Instructed patient with level surface ambulation of 25 feet + 25 feet requiring contact guard assist and wheelchair follow for safety. Colleen decreased. Step height decreased. Step length decreased.? Patient appears shaky and reports significant fatigue. Balance: Static Sitting: Normal Dynamic Sitting: Fair Static Standing: Fair Dynamic Standing: Fair Special Tests: Mobility Limitations Standardized Measure [facility] 6 clicks Basic Mobility Inpatient Short Form: Raw Score: 18? CMS Score: 47% deficit? ? ? 4-Stage Balance Test:? Able to maintain feet together for 10 seconds but is unable to with semi-tandem, full tandem, and [id number] stance. Informed Consent/Education:? Patient was instructed in purpose of PT consult and plan of care. Agreeable to proceed with established PT POC to achieve personal goals. ASSESSMENT: Per clarification by neurologist Dr. Whyte, patient has no official diagnosis of ALS but that she has the mutated gene, SOD 1 gene, that increases predisposition for it. Patient performed much better this time compared to ED evaluation on 03/03/2023 where patient was considerably shaky and fatigued, only tolerated 5 small unsteady steps. Patient will beenfit from a consistent, gradual strengthening program coordinated with her MS pill intake Patient presents with clinical signs and symptoms consistent with current/admitting diagnoses that have resulted to mobility limitations, gait instability, generalized weakness, and overall ADL decline as demonstrated by the following impairment level findings: 1.? Decreased strength to B UE/LE major muscle groups,? L more affected than R 2.? Impaired sitting/standing balance 3.? Impaired activity tolerance 4.? Fatigue Impairments are contributing to the following functional limitations: 1.? Decline in bed mobility skills 2.? Decline in transfer skills 3.? Difficulty with ambulation without assistive device and physical assistance 4.? Increased completion time for mobility ADL performance 5.? Increased risk for falls 6.? Difficulty with managing steps alone safely Patient is assessed as a 75368 moderate complexity based on the following: History: 77-year-old female with past medical history as indicated above Examination: Demonstrable impairment in strength, balance, and mobility level with underlying impairments and functional limitations as exhibited above as well as deficit score of 47% utilizing the [facility] Mobility Inpatient Short Form Presentation: Evolving Decision Makin moderate complexity Goals: Goals X1 week 1. Supine-Sit independent 2. Sit-Supine independent 3. Sit-Stand independent 4. Stand-Sit independent with FWW 5. Bed-Chair independent with FWW 6. Chair-Bed independent with FWW 7. Independent gait on level surface with use of FWW for at least 30 feet without report of pain nor dyspnea 8. Independent stair negotiation while holding onto B rails for at least 5 steps without report of pain nor dyspnea 9. Independent with home exercise program 10. Good static and dynamic standing balance/tolerance Plan of Care/Treatment Plan: 1-2x/day, 7 days/week x 1 week. Plan of care has been reviewed with the [employer] providing the service under Physical Therapy direction. Initiate Physical Therapy intervention for pain management as needed, strengthening, bed mobility, transfers, gait, stairs, balance training, and use of assistive device. DISCHARGE RECOMMENDATIONS: [] ? Home with no services [] [] ? Home with services [specify] [] ? Home with outpatient PT [] [] ? SNF for continued rehabilitation [] [] ? Retirement Care [] [X] ? SNF versus PT based on ability to participate and progress towards goals. Will benefit from OT services TREATMENT CODE/TIME: 29981 x 20 minutes, 85489 x 12 minutes beginning at 9:29 AM. Thank you for the opportunity to participate in the care of this patient. Meera Fletcher PT, DPT, CLT [facility] [place], [place]
[2023-03-06] MEDS: Normal Saline Flush 10 ML SYR IVP (11:04)
[2023-03-06 11:07] VITALS: BP 90/59; PULSE 78; RESP 16; TEMP 37; O2SAT 97
[2023-03-06 11:10] LABS: Calculated LDL 158 mg/dL (<100); Cholesterol 243 mg/dL (<200); HDL Cholesterol 43 mg/dL (40-60); TSH (W/Ref FT4) 0.55 uIU/mL (0.36-3.74); Triglyceride 212 mg/dL (<150)
[2023-03-06 11:25] LABS: Hemoglobin A1C 8.7 % (<5.7)
--- NOTE | 2023-03-06 15:10 | DI.US_ITS ---
APPROVED REPORT EXAM: Comprehensive 2D, Doppler, and color-flow Echocardiogram Patient Location: In-Patient Room/Bed: [facility] [employer] Supervisor: Wei Denton RDMS, NATALIAT Indications: Stroke Evaluation Other Information Study Quality: Adequate Conclusion Normal left ventricular wall thickness and chamber size. Ejection fraction is 60%. Wall motion is n ormal Normal right ventricular size and systolic function Both atria are normal in size Device lead noted in the right heart Aortic valve is trileaflet and mildly sclerotic with trace regurgitation Normal mitral valve with mild regurgitation Normal tricuspid valve with trace regurgitation. Estimated right ventricular systolic pressure is 33 mmHg Borderline dilated ascending aorta Wall motion Left Ventricle The left ventricle is normal size. The left ventricular systolic function is normal. The left ventric ular ejection fraction is within the low normal range. There is normal left ventricular wall thicknes s. There is normal LV segmental wall motion. There is no ventricular septal defect visualized. LVEF i s 60%. Right Ventricle The right ventricle is normal size. The right ventricular systolic function is normal. The RVSP is 33 ,0_ mmHg. Pacemaker lead is present in the right ventricle. Atria The left atrium size is normal. The right atrium size is normal. The interatrial septum is intact wit h no evidence for an atrial septal defect. Aortic Valve Valve is very mildly sclerotic. It is trileaflet There is no aortic valvular stenosis. Trace aortic r egurgitation. Mitral Valve The mitral valve is normal in structure. No evidence of mitral valve stenosis. mild mitral regurgitat ion. Tricuspid Valve The tricuspid valve is normal in structure. There is no tricuspid valve stenosis. Trace tricuspid reg urgitation. Pulmonic Valve Pulmonic valve is not well visualized. There is no pulmonic valvular stenosis. There is no pulmonic v alvular regurgitation. Great Vessels The aortic root is normal in size. The ascending aorta is borderline dilated. Aortic arch is not well visualized. IVC is normal in size and collapses >50% with inspiration. Pericardium There is no pericardial effusion. 2D Dimensions IVSD d PLAX 0.62 cm F: 0.6-1.0 LV Vol A2C d MOD 64.2 mL LVPW d PLAX 0.65 cm F: 0.6 - 1.0 LV Vol A4C d MOD 95.5 mL LVID d PLAX 3.86 cm F: 3.8 - 5.2 LA vol/ BSA A4C s A-L 11.9 mL/m2 LVDs 2.50 cm F: 2.2 - 3.5 LA Area A4C s MOD 9.94 cm2 Ao Root d 3.00 cm F: 2.7 - 3.3 LV EF A4C MOD 51.5 % Ao Asc Diam d 3.38 cm F: 2.3 - 3.1 LV EF A2C MOD 52.6 % LV EF Teichholz 63.8 % LV EF Biplane MOD 52.3 % LVEF (Veras's) 52.28 % F: 54 - 74 SV 41.78 mL LV Volume 62.35 mL F: 46 - 106 SV Index 23.41 mL/m2 LV Volume Index 34.83 mL/m2 F: 29 - 61 LV Vol Biplane MOD 79.9 mL FS 34.10 % M-Mode TAPSE 1.75 cm (M/F) >1.7 LV Diastology MV E' medial 0.116 (>0.07 m/s) E/A Ratio 0.6 LV E/e MED 3.80 (<14) MV E Vmax 0.44 (0.4-1.3 m/s) MV E' lateral 0.088 (>0.1 m/s) MV A Vmax 0.80 (0.4-1.3 m/s) LV E/e LAT 5.00 (<14) MV E/A Ratio 0.54 MV E/E' medial 3.83 MV E/E' lateral 5.04 Aortic Valve LVOT Area 3.64 cm2 AoV Area Vmax 3.90 cm2 LVOT Vmax 0.86 m/s AoV Area/ BSA (Vmax) 2.19 cm2/m2 LVOT Mean Fermin. 0.58 m/s INDU Mean Fermin. 3.23 cm2 LVOT Peak Grad 3.0 mmHg INDU Mean Fermin. Index 1.81 cm2/m2 LVOT Mean Grad 1.5 mmHg LVOT VTI 0.190 m LVOT Diam s 2.15 cm AoV Vmax 0.80 m/s Velocity Ratio 1.08 AoV Mean Fermin. 0.65 m/s AoV Peak Grad 2.6 mmHg LVOT SV 69.18 mL AoV Mean Grad 1.8 mmHg AoV VTI 0.165 m AoV Area VTI 4.20 cm2 AoV Area/ BSA (VTI) 2.35 cm/m2 Mitral Valve MV DT 221 (160-240 msec) MV PHT 64 msec MV Area PHT 3.44 cm2 MV VTI 0.191 m MV Area VTI 3.63 (4.0-6.0 cm2) Pulmonary Valve PV Vmax 0.93 (0.5-1.5 m/s) RVOT Peak Gr. 2.40 mmHg PV Peak Grad 3.5 mmHg RVOT Mean Gr. 1.40 mmHg PV Mean Grad 1.5 mmHg RVOT VTI 0.144 m PV VTI 0.199 m RVOT Vmax 0.78 m/s Tricuspid Valve TR Peak Grad 29.9 mmHg TR Vmax 2.74 m/s RA Pressure 3.00 mmHg RVSP (TR) 33.0 mmHg
[2023-03-06 15:17] VITALS: BP 130/76; PULSE 73; RESP 16; TEMP 36.1; O2SAT 97
--- NOTE | 2023-03-06 15:27 | W.PALLCONSUL ---
Date of service: 03/06/23 Time of Service: 15:28 [facility] All Active Problems (Updated 03/06/23 @ 10:21 by Berenice Champagne NP) Hypercalcemia (Acute) Discharge planning issues (Acute) Stroke (Chronic) Weakness (Acute) Medication care plan discussed with primary care provider (Acute) Wound of right lower extremity (Acute) Neurogenic bowel (Acute) Neurogenic bladder (Acute) Multiple sclerosis exacerbation (Acute) Constipation (Acute) Urinary retention (Acute) Steroid-induced hyperglycemia (Acute) Ambulatory dysfunction (Acute) Bilateral leg weakness (Acute) Osteoarthritis (Chronic) Pulmonary hypertension (Acute) Right carpal tunnel syndrome (Acute) 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 Surgical History (Updated 08/31/22 @ 10:33 by Stephani Katz MD) H/O colonoscopy with polypectomy H/O colposcopy with cervical biopsy several H/O left mastectomy Hx of esophagogastroduodenoscopy S/P bilateral cataract extraction S/P breast biopsy, right S/P carpal tunnel release right S/P left knee arthroscopy S/P lumpectomy, left breast S/P placement of cardiac pacemaker Family History (Updated 08/31/22 @ 10:35 by Stephani Katz MD) Sister Familial ALS (amyotrophic lateral sclerosis) Diabetes Sister Familial ALS (amyotrophic lateral sclerosis) Brother Familial ALS (amyotrophic lateral sclerosis) Maternal Grandmother Familial ALS (amyotrophic lateral sclerosis) Heart disease Mother Familial ALS (amyotrophic lateral sclerosis) Son Familial ALS (amyotrophic lateral sclerosis) Diabetes Father Family history of early CAD Paternal Grandmother Diabetes Social History (Updated 08/31/22 @ 10:41 by Stephani Katz MD) Smoking/Tobacco Use Status: Former Tobacco Use tobacco type: cigarettes Smoking risk assessment performed?: Yes Alcohol Intake: former Substance use type: does not use Do you feel safe at home: Yes Do you feel safe in your relationship?: Yes Results Last Vital Signs Temp 36.1 C L 03/06/23 15:17 Pulse 73 03/06/23 15:17 Resp 16 03/06/23 15:17 BP 130/76 03/06/23 15:17 Pulse Ox 97 03/06/23 15:17 Labs 03/05/23 06:55 03/05/23 06:55 Labs: Laboratory Results - last 24 hr 03/06/23 03/06/23 06:35 06:35 Hemoglobin A1c 8.7 H Triglycerides 212 H Total Cholesterol 243 H LDL Cholesterol, Calc 158 H HDL Cholesterol 43 TSH 0.55
--- NOTE | 2023-03-06 17:18 | PT.INTREAT ---
Date of service: 03/06/23 Time of Service: 16:52 PT Notes Visit Reasons: Ambulatory Dysfunction Inpatient Physical Therapy Treatment Note [facility] Date: 03/06/23 PRECAUTIONS: Fall, standard, activity as tolerated, 24 hour urine collection, wound vac in place. SUBJECTIVE: Patient supine in bed, agreeable to therapy. OBJECTIVE: PAIN: none reported BED MOBILITY/TRANSFERS Sit-stand: Contact guard Stand-sit: Contact guard Bed-Chair: Contact guard Chair-bed: Contact guard GAIT Assistive Device: FWW Weight bearing: full Assist: contact guard Distance: 20 feet, seated rest, 80 feet. Deviation: slight antalgic gait pattern. ASSESSMENT: Patient tolerates therapy well PLAN: continue global strengthening per plan of care. TREATMENT CODE/TIME: 65597 Gait 22 minutes beginning at 1652
[2023-03-06] MEDS: Enoxaparin 30 MG/0.3 ML SYR SC (17:51)
[2023-03-06 18:05] LABS: Ionized Calcium 1.51 mmol/L (1.14-1.35)
[2023-03-06 19:27] LABS: Parathyroid Hormone,Intact 11 pg/mL (19-88)
[2023-03-06 19:49] VITALS: BP 113/67; PULSE 80; RESP 18; TEMP 36.2; O2SAT 94
[2023-03-06] MEDS: Insulin Glargine 300 UNITS/3 ML PEN 12 UNITS SC (21:20)
[2023-03-06] MEDS: Carvedilol 6.25 MG TAB PO (21:22)
[2023-03-06 21:24] LABS: Glucose 444 mg/dL (74-106)
[2023-03-06 22:21] VITALS: BP 117/70; PULSE 79; RESP 18; TEMP 36.1; O2SAT 93
[2023-03-06] MEDS: Insulin Aspart 100 UNITS/ML UNIT 8 UNITS SC (22:38)
[2023-03-07 03:41] VITALS: BP 113/72; PULSE 68; RESP 16; TEMP 36.2; O2SAT 95
[2023-03-07] MEDS: Levothyroxine 150 MCG TAB PO (05:19)
[2023-03-07] MEDS: Omeprazole 20 MG CAPCR PO (07:15)
[2023-03-07] MEDS: glipiZIDE 5 MG TAB 2.5 MG PO ×2 (07:15→16:42)
[2023-03-07 07:16] VITALS: BP 118/63; PULSE 81; RESP 16; TEMP 36.1; O2SAT 95
[2023-03-07] MEDS: Docusate Sodium 100 MG CAP PO (08:12)
[2023-03-07] MEDS: Carvedilol 6.25 MG TAB PO (08:12)
[2023-03-07] MEDS: Multivitamin TAB 1 TAB PO (08:12)
[2023-03-07] MEDS: hydroCHLOROthiazide 25 MG TAB PO (08:12)
[2023-03-07] MEDS: Aspirin 81 MG CHEW PO (08:12)
[2023-03-07] MEDS: Losartan 50 MG TAB 100 MG PO (08:13)
--- NOTE | 2023-03-07 08:28 | CMPROGNOTE_ITS ---
Date of service: 03/07/23 Time of Service: 08:28 Care Management Progress Note Progress Note Text Progress Note Text: S/O:Betsy was sitting up in bed when CM met with her. She was pleasant, but a little vague. Betsy apparently became quite confused and agitated during the night and called her son and [id number] at 3 am. She also called her at 5 am and insisted he come to the hospital right away for a meeting. This afternoon Betsy informed CM that a meeting with the doctors was scheduled for 10 pm. No meeting is scheduled. She also seemed unclear about her discharge plan. Betsy agreed to go to a SNF for short term rehab prior to returning home. Today she stated she agreed to remain here until next week. Referrals have been sent to 9 facilities but no bed offers have been received. She will likely remain at [facility] until at least Friday, possibly until Friday with the holiday weekend approaching. A:Betsy is a 77 year old woman admitted on 03/03/23 with ambulatory dysfunction P:Family ( and son) are seeking SNF placement for Betsy for short term rehab. Additional referrals were sent yesterday. No response has been received from any of the facilities and CM has called all of them and left messages, requesting an update.? CM will continue to support Betsy and any ongoing discharge concerns.
[2023-03-07] MEDS: Insulin Aspart 300 UNITS/3 ML PEN SC ×4 (08:44→21:23)
[2023-03-07] MEDS: Normal Saline Flush 10 ML SYR IVP (09:34)
[2023-03-07 09:52] VITALS: BP 119/76; PULSE 77; TEMP 36; O2SAT 99
--- NOTE | 2023-03-07 10:17 | OTIE_ITS ---
Occupational Therapy Notes Inpatient Occupational Therapy Evaluation Date: 03/07/23 Referring Doctor:Berenice Champagne NP OT Orders: Non Urgent Precautions: Fall, standard, DNI PATIENT PROFILE/ADMITTING DIAGNOSIS: Pt is a 77 year old female who was admitted through the ED to [facility] with the following dx of hypercalcemia, stroke, weakness, would of (R) LE, neurogenic bladdder, MS exacerbation, constipation, urinary retention, hypergylcemia, ambulatory dysfunction, (B) leg weakness, osteoarthritis, pulmonary hypertension, (R) CTS, (B) leg edema, arthritis, familial ALS, CKD stage 4, GERD. 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) Bilateral leg edema (Acute) Arthritis (Acute) Eczema (Acute) Endometrial hyperplasia (Acute) Anemia due to stage 4 chronic kidney disease (Acute) 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) Hypercholesterolemia (Acute) Diabetic polyneuropathy (Acute) Familial ALS (amyotrophic lateral sclerosis) (Chronic) Hypothyroidism (Chronic) GERD (gastroesophageal reflux disease) (Chronic) Hypertension (Chronic) IDDM (insulin dependent diabetes mellitus) (Chronic) Bilateral leg weakness (Acute) History of multiple sclerosis (Acute) Medical History?(Updated 03/04/23 @ 17:29 by Bonnie Arce NP) 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 She has a supportive family with her sons all relatively close nearby. She was previously (I) with her ADLs/IADL routines but has had a decline in her functional (I). She has Familial ALS and is emotional today speaking about the loss of her family members. She is currently participating in clinical trials and has been for numerous years at this time. She states that the first floor of her home is handicap accessible. She notes that she rents this out as an air B&B but states that this is currently on hold as she is not able to take care of it. She states that she was driving (I) up until this time. She is emotional about talking about her Ned and states that she needs to get home because she is not ready to leave him yet. She is receptive to (A) as needed but does feel that if she could walk better then she could be more (I). Equipment owned/DME: [employer] first floor of home. SUBJECTIVE: Pt was sitting in bed when OT arrives, she reports that she is confused on what the plan is. She notes that she thought she was supposed to have a meeting with the doctor this morning and reports that now its at night. She states that she just wants to go home but is not sure how she is going to be able to walk if she isn't allowed to walk freely in her room. OBJECTIVE: General Observation: Pleasant, Landin in place, wound vac on (R) ankle, (B) UE tremors with functional use Mental Status: A&Ox3 Pain: no c/o pain she reports that I have not had pain this whole time. ROM: RUE AROM WFL L UE AROM WFL STRENGTH: RUE 4/5 throughout LUE 4/5 throughout FUNCTIONAL MOBILITY/ADLS: BATHING NT at this time DRESSING Dressing LE NT d/t wound vac on pts ankle which is for her wound on the (R) LE. GROOMING (I) with brushing hair and oral hygiene in the sitting position TOILETING Landin in place, incontinent with bowel movements at this time. EATING Pt was eating her breakfast with (B) hand support. She has (B) UE tremors which limit her at this time. She is functionally (I) to bring hand to mouth and performance of this with no issues at this time with chewing or swallowing. BALANCE: Static sitting Good Dynamic Sitting Good INFORMED CONSENT/EDUCATION: Pt instructed in purpose of OT Consult and plan of care. ASSESSMENT: Patient is a 77-year-old female referred to occupational therapy services with diagnosis of hypercalcemia, stroke, weakness, would of (R) LE, neurogenic bladdder, MS exacerbation, constipation, urinary retention, hypergylcemia, ambulatory dysfunction, (B) leg weakness, osteoarthritis, pulmonary hypertension, (R) CTS, (B) leg edema, arthritis, familial ALS, CKD stage 4, GERD. Patient presents with clinical signs and symptoms consistent with dx, as demonstrated by the following impairment level findings/functional limitations: Impairments in ADL/IADL and leisure activities, decreased functional activity tolerance, decreased functional mobility required for ADL performance, decreased performance of ADLs at her baseline level of function, incontinent for toileting routines at this time. Patient is assessed as a Moderate 42570 complexity based on the following: History: see above Examination: see functional limitations as noted above Presentation: evolving Decision Making: moderate complexity GOALS Goals x1 week 1. Transfers (I) 2. Dressing (I) UE, min (A) LE 3. Bathing (I) seated 4. Toileting on toilet min (A) 5. Eating (I) PLAN OF CARE/TREATMENT PLAN: 1x/day, 5 days/ week x 1week Initiate Occupational Therapy Services for bathing, dressing, grooming, rinku leting, eating, transfer training. DISCHARGE RECOMMENDATIONS OT recommends SNF vs. HH OT/PT/Nursing services in home setting. Pt states that she wants to return home and feels that she could be successful with this. TREATMENT TIME/MINUTES/CODES 57999, 30 minutes Yanira Lovett OTR/[facility] [place], [place]
[2023-03-07] MEDS: Insulin NPH-Human 300 UNITS/3 ML PEN 20 UNIT SC (10:31)
[2023-03-07 10:58] VITALS: BP 99/52; PULSE 78; RESP 20; TEMP 36.1; O2SAT 96
[2023-03-07 14:48] LABS: Albumin 52.7 % (55.8-66.1); Albumin g/dL 3.2 g/dL (3.6-5.2)
[2023-03-07 15:13] VITALS: BP 111/49; PULSE 76; TEMP 35.9; O2SAT 96
[2023-03-07] MEDS: QUEtiapine 25 MG TAB PO (16:42)
--- NOTE | 2023-03-07 17:59 | PGE_ITS ---
Date of Service Date of service: 03/07/23 Time of Service: 17:59 Assessment and Plan Assessment and plan (1) Weakness: Status: Acute Assessment and plan: continue PT/OT (2) Stroke: Status: Chronic Assessment and plan: unable to obtain MRI (has pacer) neurology consulted with recommendations: continue asa daily TTE, cardiac monitoring, A1C and lipid panel PT/OT (3) CKD stage 4 due to type 2 diabetes mellitus: Status: Acute Assessment and plan: avoid nephrotoxic drugs, renal dose medication as needed. monitor. 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 she is followed in [place], on clinical trial. (7) Hypothyroidism: Status: Chronic Assessment and plan: continue levothyroxine add TSH (8) IDDM (insulin dependent diabetes mellitus): Status: Chronic Assessment and plan: continue current diabetes management anticipate hyperglycemia with high dose steroids (9) Discharge planning issues: Status: Acute Assessment and plan: case management is following anticipate discharge to home with home health services for PT/OT discussed with DR Preciado Subjective Subjective Patient reports: tolerating liquids well, tolerating a regular diet, diarrhea and afebrile Interval history since last seen: increased confusion overnight, no behavioral disturbances, denies pain Exam Const General: cooperative, comfortable and no acute distress Nutritional Appearance: average body habitus and well nourished Orientation: alert, awake and confused [facility] Head: normal to inspection Mouth: moist mucous membranes Chest Chest: normal inspection of the chest Resp Effort & Inspection: normal respiratory effort, able to speak in complete sentences and no respiratory distress Auscultation: clear to auscultation bilaterally Cardio Rate: regular rate Rhythm: regular rhythm GI Inspection: normal to inspection and non-distended Palpation: soft and nontender Auscultation: normal bowel sounds Back/Spine/Pelvis Back: no CVA tenderness Skin General skin exam: no rashes or lesions noted Neuro General: patient alert and patient awake Speech: speech normal Extrem General: normal to inspection and no pedal edema Psych Appearance: grossly normal and well kempt Mental Status: mental status grossly normal Speech and Movement: speech and movement normal Objective Last Vital Signs Temp 35.9 C L 03/07/23 15:13 Pulse 76 03/07/23 15:13 Resp 20 03/07/23 10:58 BP 111/49 L 03/07/23 15:13 Pulse Ox 96 03/07/23 15:13 Laboratory Results - last 24 hr 03/05/23 03/06/23 03/06/23 11:55 06:35 21:06 Glucose 444 H Ionized Calcium 1.51 H Total Protein (PEP) 6.0 L Albumin % (PEP) 52.7 L Albumin (PEP) 3.2 L Lruqp-2-Ksajnynbs 0.40 Vhiet-4-Jolmtckva (%) 6.3 H Llygr-6-Jxltfidqj 1.10 H Fxpgu-3-Wvwelqcvn (%) 18.3 H Beta Globulins (%) 12.8 Beta Gamma Globulin 0.80 Gamma Globulins 0.60 Gamma Globulins (%) 9.9 L M-Jesús Not Applicable M-Jesús % Not Applicable PEP Comment SEE BELOW PTH Intact 11 L Time Spent with Patient Time Spent with Patient: 25-34 minutes Time was spent: preparing to see the patient(eg.review tests), obtaining and/or reviewing separately otained hiistory, ordering medications,tests, procedures, indepentently interpreting results, counseling the patient and care coordination
--- NOTE | 2023-03-07 18:09 | PT.INTREAT ---
Date of service: 03/07/23 Time of Service: 17:42 PT Notes Visit Reasons: Ambulatory Dysfunction Inpatient Physical Therapy Treatment Note [facility] Date: 03/07/23 PRECAUTIONS: Fall, standard, activity as tolerated, Landin and wound vac in place SUBJECTIVE: patient supine in bed, agreeable to therapy OBJECTIVE: PAIN: none reported BED MOBILITY/TRANSFERS Rolling L/R: Standby Supine-sit: standby Sit-supine: standby Sit-stand: CGA Stand-sit: CGA Bed-Chair: CGA with help managing Landin and wound vac Chair-bed: CGA with help managing Landin and wound vac GAIT Assistive Device: FWW Weight bearing: full Assist: CGA with help managing Landin and wound vac Distance: 25 feet Deviation: Patient's posture is more stooped than it was when last this therapist treated her. Seems short of breath, confused which tube is Landin and which is wound vac, became increasingly wobbly as session progressed. THERACT: Bed mobility training, tube management training ASSESSMENT: Per RN Elaine, patient recently took a dose of Seroquel to help calm her, which would cause her to be more unsteady than normal. Patient tolerated therapy well, reports being fatigued at end of session. PLAN: continue strengthening per plan of care until patient is medically ready for discharge. TREATMENT CODE/TIME: 62630 Ther Act 16 [id number] Gait 8 minutes beginning at 17:42
[2023-03-07 19:00] VITALS: BP 96/49; PULSE 74; RESP 18; TEMP 36.4; O2SAT 95
--- NOTE | 2023-03-07 20:13 | WOUNDCARE ---
Wound Care Report I was planning on seeing this pt on 03/05/23 for her scheduled wound vac change and for assessment. When I called to check whether supplies had been received, I was told that the pt is being discharged and that the dressing had already been change. Therefore, I did not come in to do the wound eval. Upon my arrival today, I see the pt has not been discharged. I have called the Nursing [employer] to obtain a wound vac from storage so that a wound eval and dressing change can be done while I am here this evening.
[2023-03-07] MEDS: Insulin Glargine 300 UNITS/3 ML PEN 12 UNITS SC (21:23)
[2023-03-08 03:20] VITALS: BP 126/70; PULSE 83; RESP 18; TEMP 36.7; O2SAT 97
[2023-03-08 05:47] LABS: Abs Immature Grans 0.07 10^3/uL (0.0-0.06); Absolute Lymphocyte Count 0.49 10^3/uL (1.2-3.4); Absolute Monocyte Count 0.64 10^3/uL (0.1-0.8); Absolute Neutrophil Count 11.64 10^3/uL (1.2-6.7); Basophils % 0.2; HGB 8.7 g/dL (11.2-15.7); Immature Grans % 0.5; Lymphocytes % 3.8; MCH 28.8 pg (27.0-33.0); MCHC 33.5 % (32.0-36.0); MCV 86 fL (80-95); MPV 9.9 fL (8.0-11.0); Neutrophils % 90.5; Platelet Count 263 10^3/uL (130-400); RBC 3.02 10^6/uL (3.93-5.22); RDW 12.8 % (11.7-14.6); RDW-SD 39.7 fL; WBC 12.86 10^3/uL (4.4-10.8)
[2023-03-08 05:51] LABS: Absolute Basophil Count 0.03 10^3/uL (0.0-0.2)
[2023-03-08 06:03] LABS: ALT 14 U/L (14-59); AST 14 U/L (15-37); Alkaline Phosphatase 115 U/L (46-116); Anion Gap 13.3 mmol/L (3-11); Bilirubin, Total 0.2 mg/dL (0.2-1.0); CO2 20.7 mmol/L (21.0-32.0); Calcium 11.3 mg/dL (8.5-10.1); Chloride 100 mmol/L (98-107); Estimated GFR 15.43 (mL/min/1.73m2); Glucose 368 mg/dL (74-106); Potassium 3.9 mmol/L (3.5-5.1); Sodium 134 mmol/L (136-145); Total Protein 6.8 g/dL (6.4-8.2)
[2023-03-08] MEDS: Levothyroxine 150 MCG TAB PO (06:03)
[2023-03-08 06:06] LABS: BUN 88 mg/dL (7-18)
--- NOTE | 2023-03-08 08:05 | PT.INTREAT ---
PT Notes Visit Reasons: Ambulatory Dysfunction Date: 03/08/23 PRECAUTIONS: Fall, standard, activity as tolerated, Landin and wound vac in place SUBJECTIVE: patient sitting in chair, pt reports no pain, slept well last night OBJECTIVE: ? PAIN: none reported ? BED MOBILITY/TRANSFERS? Rolling L/R: Standby Supine-sit: standby? Sit-supine: standby ? Sit-stand: CGA? Stand-sit: CGA ? Bed-Chair: CGA with help managing Landin and wound vac ? Chair-bed: CGA with help managing Landin and wound vac ? GAIT? Assistive Device: FWW? Weight bearing: full Assist: CGA with help managing Landin and wound vac? Distance:? 150 feet? Deviation: Patient completed walk w/ standing rest breaks ? THERACT: Transfer training going in and out of recliner SBA, ? ASSESSMENT:? PLAN: continue strengthening per plan of care until patient is medically ready for discharge. TREATMENT CODE/TIME: 92839 Ther Act 16, 57617 Gait? (9:08-9:25am)
[2023-03-08] MEDS: Multivitamin TAB 1 TAB PO (08:15)
[2023-03-08] MEDS: glipiZIDE 5 MG TAB 2.5 MG PO ×2 (08:15→16:03)
[2023-03-08] MEDS: Omeprazole 20 MG CAPCR PO ×2 (08:15→20:13)
[2023-03-08] MEDS: Aspirin 81 MG CHEW PO (08:15)
[2023-03-08] MEDS: Insulin Aspart 300 UNITS/3 ML PEN SC ×3 (08:16→21:12)
[2023-03-08] MEDS: Docusate Sodium 100 MG CAP PO (08:16)
[2023-03-08] MEDS: Carvedilol 6.25 MG TAB PO ×2 (08:16→20:13)
[2023-03-08] MEDS: Heparin 5,000 UNITS/ML VIAL 5000 UNITS SC ×2 (09:36→16:03)
[2023-03-08] MEDS: Insulin NPH-Human 300 UNITS/3 ML PEN 20 UNIT SC (09:36)
[2023-03-08 11:12] VITALS: BP 99/51; PULSE 73; TEMP 36.1; O2SAT 99
--- NOTE | 2023-03-08 11:41 | W.PM.PROGNOT ---
Date of Service Date of service: 03/08/23 Time of Service: 11:41 Assessment and Plan Assessment and plan (1) Weakness: Status: Acute Assessment and plan: continue PT/OT (2) Stroke: Status: Chronic Assessment and plan: unable to obtain MRI (has pacer) neurology consulted with recommendations: continue asa daily TTE, cardiac monitoring, A1C and lipid panel PT/OT (3) CKD stage 4 due to type 2 diabetes mellitus: Status: Acute Assessment and plan: creatinine and BUN climbing. combination of poor po intake and continue hctz. will place on hold and initiate IV fluids. avoid nephrotoxic drugs, renal dose medication as needed. monitor. 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 she is followed in [place], on clinical trial. (7) Hypothyroidism: Status: Chronic Assessment and plan: continue levothyroxine TSH 0.55 (8) IDDM (insulin dependent diabetes mellitus): Status: Chronic Assessment and plan: continue current diabetes management anticipate hyperglycemia with high dose steroids (9) Discharge planning issues: Status: Acute Assessment and plan: case management is following anticipate discharge to home with home health services for PT/OT discussed with DR Preciado Subjective Subjective Patient reports: no bowel movement and afebrile Interval history since last seen: still confused intermittently, no behavioral issues. eating and drinking minimally Exam Const General: cooperative, no acute distress, frail appearing and ill appearing chronically Nutritional Appearance: average body habitus Orientation: alert, awake and confused [facility] Head: normal to inspection Mouth: moist mucous membranes Chest Chest: normal inspection of the chest Resp Effort & Inspection: normal respiratory effort, able to speak in complete sentences and no respiratory distress Auscultation: clear to auscultation bilaterally Cardio Rate: regular rate Rhythm: regular rhythm GI Inspection: normal to inspection and non-distended Palpation: soft and nontender Auscultation: normal bowel sounds Back/Spine/Pelvis Back: no CVA tenderness Skin General skin exam: no rashes or lesions noted Neuro General: patient alert and patient awake Speech: speech normal Extrem General: normal to inspection and no pedal edema Psych Appearance: grossly normal and well kempt Mental Status: mental status grossly normal Speech and Movement: speech and movement normal Objective Last Vital Signs Temp 36.1 C L 03/08/23 11:12 Pulse 73 03/08/23 11:12 Resp 18 03/08/23 03:20 BP 99/51 L 03/08/23 11:12 Pulse Ox 99 03/08/23 11:12 Laboratory Results - last 24 hr 03/06/23 03/08/23 03/08/23 06:35 05:28 05:28 WBC 12.86 H RBC 3.02 L Hgb 8.7 L Hct 26.0 L MCV 86 MCH 28.8 MCHC 33.5 RDW 12.8 Plt Count 263 MPV 9.9 Immature Gran % 0.5 Neutrophils % 90.5 Lymphocytes % 3.8 Monocytes % 5.0 Eosinophils % 0.0 Basophils % 0.2 Nucleated RBC % 0.0 Absolute Neutrophils 11.64 H Absolute Lymphocytes 0.49 L Absolute Monocytes 0.64 Absolute Eosinophils 0.00 Absolute Basophils 0.03 Sodium 134 L Potassium 3.9 Chloride 100 Carbon Dioxide 20.7 L Anion Gap 13.3 H BUN 88 H* Creatinine 3.0 H Est GFR (CKD-EPI 2020) 15.43 Glucose 368 H Calcium 11.3 H Total Bilirubin 0.2 AST 14 L ALT 14 Alkaline Phosphatase 115 Total Protein 6.8 Total Protein (PEP) 6.0 L Albumin 3.0 L Albumin % (PEP) 52.7 L Albumin (PEP) 3.2 L Mdgly-2-Jqexvvotr 0.40 Welcc-1-Abwuxuokr (%) 6.3 H Edmzp-0-Lwbxrabck 1.10 H Wivny-5-Yxizhxwfa (%) 18.3 H Beta Globulins (%) 12.8 Beta Gamma Globulin 0.80 Gamma Globulins 0.60 Gamma Globulins (%) 9.9 L M-Jesús Not Applicable M-Jesús % Not Applicable PEP Comment SEE BELOW Time Spent with Patient Time Spent with Patient: 25-34 minutes Time was spent: preparing to see the patient(eg.review tests), obtaining and/or reviewing separately otained hiistory, ordering medications,tests, procedures and indepentently interpreting results
[2023-03-08 14:56] VITALS: BP 100/62; PULSE 78; RESP 18; TEMP 36.5; O2SAT 94
[2023-03-08 19:20] VITALS: BP 106/60; PULSE 74; RESP 17; TEMP 35.8; O2SAT 98
[2023-03-08] MEDS: Insulin Glargine 300 UNITS/3 ML PEN 12 UNITS SC (21:12)
[2023-03-09 03:00] VITALS: BP 113/74; PULSE 68; RESP 14; TEMP 36.2; O2SAT 96
[2023-03-09] MEDS: Levothyroxine 150 MCG TAB PO (05:38)
[2023-03-09 05:50] VITALS: BP 128/67; PULSE 82; RESP 17; TEMP 35.3; O2SAT 96
[2023-03-09 07:24] VITALS: BP 121/65; PULSE 81; RESP 18; TEMP 36.5; O2SAT 96
[2023-03-09] MEDS: Aspirin 81 MG CHEW PO (07:50)
[2023-03-09] MEDS: glipiZIDE 5 MG TAB 2.5 MG PO ×2 (07:50→16:23)
[2023-03-09] MEDS: Carvedilol 6.25 MG TAB PO ×2 (07:50→21:02)
[2023-03-09] MEDS: Docusate Sodium 100 MG CAP PO (07:50)
[2023-03-09] MEDS: Insulin Aspart 300 UNITS/3 ML PEN SC ×4 (07:51→23:58)
[2023-03-09] MEDS: Heparin 5,000 UNITS/ML VIAL 5000 UNITS SC ×3 (07:51→23:56)
[2023-03-09] MEDS: Omeprazole 20 MG CAPCR PO ×2 (07:52→21:02)
[2023-03-09] MEDS: Multivitamin TAB 1 TAB PO (07:52)
--- NOTE | 2023-03-09 10:47 | PT.INTREAT ---
PT Notes Visit Reasons: Ambulatory Dysfunction Date: 03/09/23 PRECAUTIONS: Fall, standard, activity as tolerated, Ladnin and wound vac in place SUBJECTIVE: patient in bed when approached for therapy this morning, pt reports she had a good night and slept well, pt agreed to participating with therapy. OBJECTIVE: ? PAIN: none reported ? BED MOBILITY/TRANSFERS? Rolling L/R: Standby Supine-sit: standby? Sit-supine: standby ? Sit-stand: CGA? Stand-sit: CGA ? Bed-Chair: CGA with help managing Landin and wound vac ? Chair-bed: CGA with help managing Landin and wound vac ? GAIT? Assistive Device: FWW? Weight bearing: full Assist: CGA with help managing Landin and wound vac? Distance:? 20'x4 feet? Deviation: Patient completed walk w/ standing rest breaks ? THERACT: Transfer training going in and out of recliner? SBA,? ASSESSMENT:? PLAN: continue strengthening per plan of care until patient is medically ready for discharge. TREATMENT CODE/TIME: 27551 Ther Act 16? (9:50-10:05am)
[2023-03-09 11:04] VITALS: BP 100/63; PULSE 71; RESP 18; TEMP 36.5; O2SAT 98
--- NOTE | 2023-03-09 12:07 | W.PM.PROGNOT ---
Date of Service Date of service: 03/09/23 Time of Service: 12:07 Assessment and Plan Assessment and plan (1) Weakness: Status: Acute Assessment and plan: continue PT/OT (2) Stroke: Status: Chronic Assessment and plan: unable to obtain MRI (has pacer) neurology consulted with recommendations: continue asa daily TTE, cardiac monitoring, A1C and lipid panel PT/OT (3) CKD stage 4 due to type 2 diabetes mellitus: Status: Acute Assessment and plan: creatinine and BUN climbing. combination of poor po intake and continue hctz. will place on hold and initiate IV fluids. avoid nephrotoxic drugs, renal dose medication as needed. monitor. 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 she is followed in [place], on clinical trial. (7) Hypothyroidism: Status: Chronic Assessment and plan: continue levothyroxine TSH 0.55 (8) IDDM (insulin dependent diabetes mellitus): Status: Chronic Assessment and plan: continue current diabetes management anticipate hyperglycemia with high dose steroids (9) Discharge planning issues: Status: Acute Assessment and plan: case management is following anticipate discharge to home with home health services for PT/OT discussed with DR Preciado Subjective Subjective Patient reports: no new complaints, feels better and afebrile Exam Const General: cooperative, no acute distress, frail appearing and ill appearing chronically Nutritional Appearance: average body habitus Orientation: alert and awake [facility] Head: normal to inspection Mouth: moist mucous membranes Chest Chest: normal inspection of the chest Resp Effort & Inspection: normal respiratory effort, able to speak in complete sentences and no respiratory distress Auscultation: clear to auscultation bilaterally Cardio Rate: regular rate Rhythm: regular rhythm GI Inspection: normal to inspection and non-distended Palpation: soft and nontender Auscultation: normal bowel sounds Back/Spine/Pelvis Back: no CVA tenderness Skin General skin exam: no rashes or lesions noted Neuro General: patient alert and patient awake Speech: speech normal Extrem General: normal to inspection and no pedal edema Psych Appearance: grossly normal and well kempt Mental Status: mental status grossly normal Speech and Movement: speech and movement normal Objective Last Vital Signs Temp 36.5 C 03/09/23 11:04 Pulse 71 03/09/23 11:04 Resp 18 03/09/23 11:04 BP 100/63 03/09/23 11:04 Pulse Ox 98 03/09/23 11:04 Laboratory Results - last 24 hr 03/06/23 06:35 Iqtk-4-Avutbwcrfmjxl 10.40 H Time Spent with Patient Time Spent with Patient: 25-34 minutes Time was spent: preparing to see the patient(eg.review tests), ordering medications,tests, procedures, referring, communicating with other health continuum of care manager, indepentently interpreting results, counseling the patient (family) and care coordination
[2023-03-09 14:43] VITALS: BP 101/54; PULSE 68; RESP 16; TEMP 36.7; O2SAT 98
[2023-03-09 20:57] VITALS: BP 110/64; PULSE 80; RESP 18; TEMP 36.7; O2SAT 99
[2023-03-09] MEDS: Normal Saline Flush 10 ML SYR IVP (21:02)
[2023-03-09 21:58] LABS: Glucose 335 mg/dL (74-106)
[2023-03-09] MEDS: QUEtiapine 25 MG TAB PO (22:11)
[2023-03-09] MEDS: Insulin Glargine 300 UNITS/3 ML PEN 12 UNITS SC (23:57)
[2023-03-10] VITALS (7 sets, daily range): BP systolic 112–130; BP diastolic 63–69; PULSE 69–86; RESP 16–18; TEMP 35.5–36.8; O2SAT 95–99
--- NOTE | 2023-03-10 04:16 | NUR.NOTE ---
Patient Wound vac was heard beeping. Wound vac was reinforced and the beeping sound stopped.
[2023-03-10] MEDS: Levothyroxine 150 MCG TAB PO (06:26)
[2023-03-10 06:38] LABS: Abs Immature Grans 0.05 10^3/uL (0.0-0.06); Absolute Basophil Count 0.01 10^3/uL (0.0-0.2); Absolute Lymphocyte Count 0.44 10^3/uL (1.2-3.4); Absolute Monocyte Count 0.88 10^3/uL (0.1-0.8); Basophils % 0.1; HCT 27.8 % (36.0-46.0); HGB 9.4 g/dL (11.2-15.7); Immature Grans % 0.5; MCH 28.8 pg (27.0-33.0); MCHC 33.8 % (32.0-36.0); MCV 85 fL (80-95); Neutrophils % 87.4; Platelet Count 284 10^3/uL (130-400); RBC 3.26 10^6/uL (3.93-5.22); RDW-SD 39.8 fL; WBC 11.05 10^3/uL (4.4-10.8)
[2023-03-10 06:44] LABS: Absolute Neutrophil Count 9.66 10^3/uL (1.2-6.7)
[2023-03-10 07:11] LABS: ALT 16 U/L (14-59); AST 21 U/L (15-37); Alkaline Phosphatase 98 U/L (46-116); Anion Gap 12.9 mmol/L (3-11); Bilirubin, Total 0.3 mg/dL (0.2-1.0); CO2 24.1 mmol/L (21.0-32.0); CREATININE 2.5 mg/dL (0.55-1.02); Chloride 98 mmol/L (98-107); Glucose 180 mg/dL (74-106); Potassium 3.8 mmol/L (3.5-5.1); Sodium 135 mmol/L (136-145); Total Protein 6.9 g/dL (6.4-8.2)
[2023-03-10 07:15] LABS: BUN 87 mg/dL (7-18)
[2023-03-10] MEDS: Insulin Aspart 300 UNITS/3 ML PEN SC ×4 (08:29→20:00)
[2023-03-10] MEDS: Carvedilol 6.25 MG TAB PO ×2 (08:30→19:57)
[2023-03-10] MEDS: Multivitamin TAB 1 TAB PO (08:30)
[2023-03-10] MEDS: Heparin 5,000 UNITS/ML VIAL 5000 UNITS SC ×3 (08:30→23:31)
[2023-03-10] MEDS: Omeprazole 20 MG CAPCR PO ×2 (08:30→19:58)
[2023-03-10] MEDS: Aspirin 81 MG CHEW PO (08:30)
[2023-03-10] MEDS: glipiZIDE 5 MG TAB 2.5 MG PO ×2 (08:30→16:44)
[2023-03-10] MEDS: Docusate Sodium 100 MG CAP PO (08:30)
--- NOTE | 2023-03-10 12:55 | PT.INTREAT ---
Date of service: 03/10/23 Time of Service: 12:36 PT Notes Visit Reasons: Ambulatory Dysfunction Inpatient Physical Therapy Treatment Note [facility] Date: 03/10/23 PRECAUTIONS: Fall, standard, activity as tolerated, wound vac in place RLE, damon in place SUBJECTIVE: Patient supine in bed, bed alarm active, agreeable to therapy. Reports she got up in the middle of the night alone to jump to the commode. Expected to fall but didn't. OBJECTIVE: PAIN: none reported BED MOBILITY/TRANSFERS Rolling L/R: independent Supine-sit: independent Sit-supine: independent Sit-stand: standby Stand-sit: standby Bed-Chair: CGA Chair-bed: CGA GAIT Assistive Device: FWW Weight bearing: full Assist: CGA Distance: 200 feet Deviation: Frequent standing rests ASSESSMENT: Patient tolerates therapy well, Resting in recliner at end of session with LINDSAY alarm on, call adler in reach. PLAN: Continue global strengthening per plan of care TREATMENT CODE/TIME: 95121 Gait 16 minutes beginning at 12:36
[2023-03-10 13:23] LABS: Albumin, Urine % 22.6 %; Albumin, Urine mg/24hrs 38 mg/24hrs; Globulins, Urine % 77.4 %; Globulins, Urine mg/24hrs 131 mg/24hrs; Immunotyping, Urine (See Note); Total Protein Urine 13 mg/dL (See Note); Total Protein, Urine 24hrs 169 mg/24hrs (<150); Urine Volume 1300 mL
--- NOTE | 2023-03-10 15:10 | W.PM.PROGNOT ---
Date of Service Date of service: 03/10/23 Time of Service: 15:11 Assessment and Plan Assessment and plan (1) Weakness: Status: Acute Assessment and plan: continue PT/OT (2) Stroke: Status: Chronic Assessment and plan: unable to obtain MRI (has pacer) neurology consulted with recommendations: continue asa daily TTE, cardiac monitoring, A1C and lipid panel PT/OT (3) CKD stage 4 due to type 2 diabetes mellitus: Status: Acute Assessment and plan: creatinine and BUN were climbing but improved now after IV fluids yesterday. combination of poor po intake and continue hctz. avoid nephrotoxic drugs, renal dose medication as needed. monitor. 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 she is followed in [place], on clinical trial. (7) Hypothyroidism: Status: Chronic Assessment and plan: continue levothyroxine TSH 0.55 (8) IDDM (insulin dependent diabetes mellitus): Status: Chronic Assessment and plan: continue current diabetes management NPH now completed as steroids completed. (9) Discharge planning issues: Status: Acute Assessment and plan: case management is following and referrals have been sent for short term inpatient rehab anticipate discharge to home with home health services for PT/OT discussed with DR Katz Subjective Subjective Patient reports: no new complaints, feels better, tolerating liquids well, tolerating a regular diet and afebrile; denies shortness of breath Exam Const General: cooperative, no acute distress, frail appearing and ill appearing chronically Nutritional Appearance: average body habitus Orientation: alert and awake [facility] Head: normal to inspection Mouth: moist mucous membranes Chest Chest: normal inspection of the chest Resp Effort & Inspection: normal respiratory effort, able to speak in complete sentences and no respiratory distress Auscultation: clear to auscultation bilaterally Cardio Rate: regular rate Rhythm: regular rhythm GI Inspection: normal to inspection and non-distended Palpation: soft and nontender Auscultation: normal bowel sounds Back/Spine/Pelvis Back: no CVA tenderness Skin General skin exam: no rashes or lesions noted Neuro General: patient alert and patient awake Speech: speech normal Extrem General: normal to inspection and no pedal edema Psych Appearance: grossly normal and well kempt Mental Status: mental status grossly normal Speech and Movement: speech and movement normal Objective Last Vital Signs Temp 35.8 C L 03/10/23 14:57 Pulse 86 03/10/23 14:57 Resp 16 03/10/23 11:33 BP 112/67 03/10/23 14:57 Pulse Ox 95 03/10/23 14:57 Laboratory Results - last 24 hr 03/09/23 03/10/23 03/10/23 21:10 05:56 05:56 WBC 11.05 H RBC 3.26 L Hgb 9.4 L Hct 27.8 L MCV 85 MCH 28.8 MCHC 33.8 RDW 13.0 Plt Count 284 MPV 10.0 Immature Gran % 0.5 Neutrophils % 87.4 Lymphocytes % 4.0 Monocytes % 8.0 Eosinophils % 0.0 Basophils % 0.1 Nucleated RBC % 0.0 Absolute Neutrophils 9.66 H Absolute Lymphocytes 0.44 L Absolute Monocytes 0.88 H Absolute Eosinophils 0.00 Absolute Basophils 0.01 Sodium 135 L Potassium 3.8 Chloride 98 Carbon Dioxide 24.1 Anion Gap 12.9 H BUN 87 H* Creatinine 2.5 H Est GFR (CKD-EPI 2020) 19.20 Glucose 335 H 180 H Calcium 10.0 Total Bilirubin 0.3 AST 21 ALT 16 Alkaline Phosphatase 98 Total Protein 6.9 Albumin 3.0 L Time Spent with Patient Time Spent with Patient: 25-34 minutes Time was spent: preparing to see the patient(eg.review tests), ordering medications,tests, procedures, indepentently interpreting results and counseling the patient
--- NOTE | 2023-03-10 18:43 | PDOC.CMPRO ---
Date of service: 03/10/23 Time of Service: 18:43 Care Management Progress Note Progress Note Text Progress Note Text: S/O:Betsy was sitting up in a chair when CM met with her. She seemed relaxed and was smiling. CM informed her that none of the SNFs to whom referrals were sent have made a bed offer. In the meantime Betsy has continued to work with PT and has responded well to the high dose steroids she has received. She shared that she feels stronger and she and her have both indicated that they feel she will do well at home. He has installed additional grab bars in their home while she has been hospitalized to augment the other handicapped accessible equipment and accommodations she has. A:Betsy is a 77 year old woman admitted on 03/03/23 with ambulatory dysfunction P: Today, CM again contacted all of the SNFs to whom referrals were sent. No bed offers have been received. With the improvements Betsy has made, it is likely that she will be able to discharge home instead of seeking placement. She will follow up with her community providers and plan of care and transport with family.? CM will continue to support Betsy and any ongoing discharge concerns.
--- NOTE | 2023-03-10 18:55 | PDOC.CMIN ---
Date of service: 03/10/23 Time of Service: 18:56 [facility] All Active Problems (Updated 03/10/23 @ 15:15 by Berenice Champagne NP) Discharge planning issues (Acute) Stroke (Chronic) Weakness (Acute) Medication care plan discussed with primary care provider (Acute) Wound of right lower extremity (Acute) Neurogenic bowel (Acute) Neurogenic bladder (Acute) Multiple sclerosis exacerbation (Acute) Constipation (Acute) Urinary retention (Acute) Steroid-induced hyperglycemia (Acute) Ambulatory dysfunction (Acute) Bilateral leg weakness (Acute) Osteoarthritis (Chronic) Pulmonary hypertension (Acute) Right carpal tunnel syndrome (Acute) 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 Surgical History (Updated 08/31/22 @ 10:33 by Stephani Katz MD) H/O colonoscopy with polypectomy H/O colposcopy with cervical biopsy several H/O left mastectomy Hx of esophagogastroduodenoscopy S/P bilateral cataract extraction S/P breast biopsy, right S/P carpal tunnel release right S/P left knee arthroscopy S/P lumpectomy, left breast S/P placement of cardiac pacemaker Family History (Updated 08/31/22 @ 10:35 by Stephani Katz MD) Sister Familial ALS (amyotrophic lateral sclerosis) Diabetes Sister Familial ALS (amyotrophic lateral sclerosis) Brother Familial ALS (amyotrophic lateral sclerosis) Maternal Grandmother Familial ALS (amyotrophic lateral sclerosis) Heart disease Mother Familial ALS (amyotrophic lateral sclerosis) Son Familial ALS (amyotrophic lateral sclerosis) Diabetes Father Family history of early CAD Paternal Grandmother Diabetes Social History (Updated 08/31/22 @ 10:41 by Stephani Katz MD) Smoking/Tobacco Use Status: Former Tobacco Use tobacco type: cigarettes Smoking risk assessment performed?: Yes Alcohol Intake: former Substance use type: does not use Do you feel safe at home: Yes Do you feel safe in your relationship?: Yes
[2023-03-10] MEDS: QUEtiapine 25 MG TAB PO (19:57)
[2023-03-10] MEDS: Insulin Glargine 300 UNITS/3 ML PEN 12 UNITS SC (20:02)
[2023-03-10] MEDS: Melatonin 3 MG TAB PO (22:30)
[2023-03-11 03:30] VITALS: BP 112/66; PULSE 80; RESP 18; TEMP 36.6; O2SAT 96
[2023-03-11] MEDS: Levothyroxine 150 MCG TAB PO (05:49)
[2023-03-11 07:23] VITALS: BP 92/59; PULSE 84; TEMP 36.3; O2SAT 99
[2023-03-11] MEDS: glipiZIDE 5 MG TAB 2.5 MG PO ×2 (08:26→16:08)
[2023-03-11] MEDS: Multivitamin TAB 1 TAB PO (08:26)
[2023-03-11] MEDS: Carvedilol 6.25 MG TAB PO ×2 (08:26→19:15)
[2023-03-11] MEDS: Omeprazole 20 MG CAPCR PO ×2 (08:26→19:15)
[2023-03-11] MEDS: Heparin 5,000 UNITS/ML VIAL 5000 UNITS SC ×2 (08:27→16:09)
[2023-03-11] MEDS: Insulin Aspart 300 UNITS/3 ML PEN SC ×4 (08:28→19:24)
[2023-03-11] MEDS: Aspirin 81 MG CHEW PO (08:28)
[2023-03-11 11:10] VITALS: BP 97/58; PULSE 74; TEMP 35.5; O2SAT 99
--- NOTE | 2023-03-11 13:24 | PGE_ITS ---
Date of Service Date of service: 03/11/23 Time of Service: 13:24 Assessment and Plan Assessment and plan (1) Weakness: Status: Acute Assessment and plan: continue PT/OT (2) Stroke: Status: Chronic Assessment and plan: unable to obtain MRI (has pacer) neurology consulted with recommendations: continue asa daily TTE, cardiac monitoring, A1C and lipid panel PT/OT (3) CKD stage 4 due to type 2 diabetes mellitus: Status: Acute Assessment and plan: creatinine and BUN were climbing but improved now after IV fluids yesterday. combination of poor po intake and continue hctz. avoid nephrotoxic drugs, renal dose medication as needed. monitor. 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 she is followed in [place], on clinical trial. (7) Hypothyroidism: Status: Chronic Assessment and plan: continue levothyroxine TSH 0.55 (8) IDDM (insulin dependent diabetes mellitus): Status: Chronic Assessment and plan: continue current diabetes management NPH now completed as steroids completed. (9) Discharge planning issues: Status: Acute Assessment and plan: case management is following and referrals have been sent for short term inpatient rehab anticipate discharge to home with home health services for PT/OT discussed with DR Katz Subjective Subjective Patient reports: no new complaints, tolerating liquids well, tolerating a regular diet and afebrile; denies shortness of breath Interval history since last seen: feeling better, working with PT Exam Const General: cooperative, no acute distress, frail appearing and ill appearing chronically Nutritional Appearance: average body habitus Orientation: alert and awake [facility] Head: normal to inspection Mouth: moist mucous membranes Chest Chest: normal inspection of the chest Resp Effort & Inspection: normal respiratory effort, able to speak in complete sentences and no respiratory distress Auscultation: clear to auscultation bilaterally Cardio Rate: regular rate Rhythm: regular rhythm GI Inspection: normal to inspection and non-distended Palpation: soft and nontender Auscultation: normal bowel sounds Back/Spine/Pelvis Back: no CVA tenderness Skin General skin exam: no rashes or lesions noted Neuro General: patient alert and patient awake Speech: speech normal Extrem General: normal to inspection and no pedal edema Psych Appearance: grossly normal and well kempt Mental Status: mental status grossly normal Speech and Movement: speech and movement normal Objective Last Vital Signs Temp 35.5 C L 03/11/23 11:10 Pulse 74 03/11/23 11:10 Resp 18 03/11/23 03:30 BP 97/58 L 03/11/23 11:10 Pulse Ox 99 03/11/23 11:10 Laboratory Results - last 24 hr 03/06/23 20:09 Ur 24 Hour Volume 1300 Ur Albumin 24 Hour 38 Ur Globulin 24 Hr 131 U Collection Duration 24.0 U Total Protein mg/dL 13 Ur Protein 24 Hr Calc 169 H Urine Albumin (%) 22.6 Urine Globulin 77.4 Urine Immunofixation (See Note) Urine FERNANDO Comments See Comment Ur IEP M-Jesús % 24 hr Not Applicable Ur IEP M-Jesús mg/24hr Not Applicable Time Spent with Patient Time Spent with Patient: 25-34 minutes Time was spent: preparing to see the patient(eg.review tests), counseling the patient and care coordination
--- NOTE | 2023-03-11 13:53 | PT.INTREAT ---
Date of service: 03/11/23 Time of Service: 10:30 PT Notes Visit Reasons: Ambulatory Dysfunction Inpatient Physical Therapy Treatment Note [facility] Date: 03/11/2023 PRECAUTIONS: Fall, standard and activities as tolerated, Wound vac in place right LE and damon in place SUBJECTIVE: Wants to walk, but not too far. OBJECTIVE: PAIN: No complaints of pain offered. BED MOBILITY/TRANSFERS Up in chair when I arrived to patient's room. GAIT Assistive Device: FWW Weight bearing: Full Assist: CGA Distance: 200ft with 4 short standing breaks ASSESSMENT:? Patient tolerates therapy well. Resting in recliner at end of session with LINDSAY alarm on, call adler in reach. PLAN: Continue global strengthening per plan of care. TREATMENT CODE/TIME: 30433 x1, 10:30 to 10:50 (20')
--- NOTE | 2023-03-11 14:04 | CHAPLAIN ---
Betsy said she thinks she'll be going home, but she's waiting to hear. She's been doing PT here while waiting to be to rehab, but now thinks she's ready to go home. Handrails have been installed all over her house and she's looking forward to sitting on her deck and enjoying the view. Betsy has Parkinson's and several family members (nine her in lifetime, including her son) have from ALS.
[2023-03-11 14:51] VITALS: BP 104/61; PULSE 75; TEMP 36.1; O2SAT 100
[2023-03-11] MEDS: QUEtiapine 25 MG TAB PO (19:15)
[2023-03-11] MEDS: Melatonin 3 MG TAB PO (19:23)
[2023-03-11] MEDS: Insulin Glargine 300 UNITS/3 ML PEN 12 UNITS SC (19:24)
[2023-03-11 20:11] VITALS: BP 97/54; PULSE 85; RESP 20; TEMP 36.3; O2SAT 97
[2023-03-12 00:40] VITALS: BP 100/62; PULSE 98; RESP 16; TEMP 37.6; O2SAT 98
[2023-03-12] MEDS: Heparin 5,000 UNITS/ML VIAL 5000 UNITS SC (01:39)
[2023-03-12 03:54] VITALS: BP 113/52; PULSE 79; RESP 18; TEMP 37.2; O2SAT 100
[2023-03-12] MEDS: Levothyroxine 150 MCG TAB PO (04:58)
[2023-03-12 07:05] VITALS: BP 101/58; PULSE 76; TEMP 36.2; O2SAT 98
[2023-03-12] MEDS: Aspirin 81 MG CHEW PO (08:10)
[2023-03-12] MEDS: Docusate Sodium 100 MG CAP PO (08:10)
[2023-03-12] MEDS: glipiZIDE 5 MG TAB 2.5 MG PO (08:10)
[2023-03-12] MEDS: Carvedilol 6.25 MG TAB PO (08:11)
[2023-03-12] MEDS: Omeprazole 20 MG CAPCR PO (08:11)
[2023-03-12] MEDS: Multivitamin TAB 1 TAB PO (08:11)
--- NOTE | 2023-03-12 08:51 | OTTR_ITS ---
Occupational Therapy Notes Occupational Therapy Inpatient Treatment Note Date: 03/12/23 PRECAUTIONS: Fall, standard, DNI SUBJECTIVE: Pt was lying in bed when OT arrived. She states that she does feel that her leg is improving. She was trying to plug in her phone but was putting the wrong end in the phone so OT did (A) her with this. She was slightly confused but not throughout the whole session. OBJECTIVE- FUNCTIONAL MOBILITY Rolling L/R: (I) Supine-sit: (I) Sit-supine: (I) BATHING: max (A) Set up/clean up Upper Body: (I) face and (B) UE with min vc, min (A) abdomen, max (A) hair and back Lower Body: min (A) DRESSING: Upper Extremity: min (A) [facility] gown Lower Extremity: mod (A) donning (B) socks GROOMING: seated on side of the bed (I) with brushing hair TOILETING: Device: Landin in place EATING: sitting in bed (I) ASSESSMENT/PLAN: Ot continues to recommend SNF vs. home with HH services. Functionally pt was receptive to performance of ADLs but was slightly confused at times throughout session. Functionally she is able to perform her ADLs with increased (I). She reports multiple times that she would like to return home. TREATMENT CODES/TIME: 25130y7, 25 minutes [facility] [place], [place]
--- NOTE | 2023-03-12 10:45 | DSE_ITS ---
Date of service: 03/12/23 Time of Service: 10:47 DS: Diagnosis Discharge Diagnosis (1) Weakness: Status: Acute (2) Stroke: Status: Chronic (3) CKD stage 4 due to type 2 diabetes mellitus: Status: Acute (4) Hypercalcemia: Status: Resolved (5) Multiple sclerosis exacerbation: Status: Acute (6) Familial ALS (amyotrophic lateral sclerosis): Status: Chronic (7) Hypothyroidism: Status: Chronic (8) IDDM (insulin dependent diabetes mellitus): Status: Chronic (9) Discharge planning issues: Status: Deleted Discharge Plan Disposition Patient Disposition: Home W/Home Health Services Condition: Stable Discharge Details Reason For Visit: Ambulatory Dysfunction Admit Date/Time: 03/03/23 17:17 Admit Provider: Rodriguez Doss Attending Provider: Rodriguez Doss Primary Care Provider: Ping Vázquez Hospital Course Hospital Course: This is a 77 year old female patient with past medical history of hypertension, diabetes, multiple sclerosis, GERD, hypothyroidism, ALS, CKD, hyperchcolesterolemia and pulmonary hypertension who presented to the [facility] ED with complaint of not being able to walk, increased weakness.? She goes to [place] once a month for treatment of ALS.? She endorsed increased tremors. She had no other new complaints.? She has a wound vac on her right lower leg from a chronic wound. She would like chest compressions but would not like to be intubated.? S he is requesting SNF. After several days of hospitalization she decided she wanted to go home and have home health services. I called [facility] general surgery to make sure she had an appointment for Wednesday 03/14 for her wound. I did call and advise [facility] General Surgery that when nursing changed the wound vac there was a bad odor. We agreed to start her on Augmentin with follow up 03/14 with them. Patient states she has a ride to the clinic and she will attend the appointment. She is discharged to home, stable, with home health services. ? Home Meds and New Rx's Prescriptions: New amoxicillin-pot clavulanate 875-125 mg tablet 1 tab PO BID Qty: 14 0RF Continued multivitamin Tablet 1 tab PO DAILY carvedilol 6.25 mg Tablet 6.25 mg PO BID Patient Comments: 03/03/23- pt thought she was taking, not in bag of meds, not filled recently in dispense hx levothyroxine 150 mcg Tablet 150 mcg PO DAILY omeprazole 20 mg Capsule,Delayed Release(Dr/Ec) 20 mg PO QDAY aspirin 81 mg Tablet 81 mg PO DAILY hydrochlorothiazide 25 mg Tablet 25 mg PO DAILY losartan 100 mg Tablet 100 mg PO DAILY insulin glargine [Lantus Solostar U-100 Insulin] 100 unit/mL (3 mL) Insulin Pen 20 unit SUBCUT DAILY AM polyethylene glycol 3350 17 gram Powder In Packet 17 g PO DAILY Qty: 30 0RF Patient Comments: prn insulin lispro 100 unit/mL Insulin Pen 1 - 5 sliding scale dose SUBCUT TID Patient Comments: Has been injecting 4 units most often lately biotin 5 mg Tablet 10 mg PO BID ubiquinone 90 mg Tablet,Disintegrating 100 mg PO DAILY elderberry fruit 350 mg Capsule 350 mg PO DAILY acetaminophen 325 mg Tablet 650 mg PO QAM diphenhydramine-acetaminophen [Acetaminophen PM] 25-500 mg Tablet 2 tab PO QHS Discontinued cholecalciferol (vitamin D3) 50 mcg (2,000 unit) Capsule 2,000 mcg PO BID Discharge Instructions Instructions: Amoxicillin/Clavulanate Potassium (By mouth), Fall Prevention for Older Adults (DC), Weakness (DC), Hypercalcemia (DC) Additional Instructions: Continue wound VAC as previously directed. Take Augmentin twice a day for 7 days. Stand Alone Forms: Nursing Discharge Form Referrals: [facility] [Outside] - 03/14/23 9:30 am (You have an appointment FridayMar 14 @ 0930 @ general surgery at [facility] - it is very important for you to go to this appointment.) Ping Vázquez MD [Primary Care Provider] - (1-2 weeks. Patient noted to have hypercalcemia during this hospitalization. She is asymptomatic. Lab including PTH, ionized calcium and vit D level are pending at time of discharge. Will defer further work-up of her hypercalcemia to outpatient team but possibly due to vitamin D supplementation in MS. She should continue wound VAC as previously directed she will be discharged with resumption of home health services RN and add PT OT and [employer]INE[employer] TENDER.. ) Activity:: Activity as Tolerated Equipment/Supplies:: No Equipment Needed Diet:: As Tolerated Discharge Orders Discharge Orders: Discharge Order (Routine); Ordered 03/12/23 Ordered By: Bonnie Arce Discharge Data Discharge Date/Time-TO BE ENTERED AT DEPARTURE: 03/12/23 16:05 Discharge Comment: home with family and HH DS: Summary Time Spent with Patient providing and/or coordinating discharge services: Greater than 30 minutes Status at Discharge Functional status at discharge: independent ambulation Overall status at discharge: patient is back to baseline Mental Status: mental status grossly normal Speech and Movement: speech and movement normal Mood: congruent mood Affect: normal affect Exam Const General: cooperative, no acute distress, frail appearing and ill appearing chronically Nutritional Appearance: average body habitus Orientation: alert and awake HENMT Head: normal to inspection Mouth: moist mucous membranes Chest Chest: normal inspection of the chest Resp Effort & Inspection: normal respiratory effort, able to speak in complete sentences and no respiratory distress Auscultation: clear to auscultation bilaterally Cardio Rate: regular rate Rhythm: regular rhythm GI Inspection: normal to inspection and non-distended Palpation: soft and nontender Auscultation: normal bowel sounds Back/Spine/Pelvis Back: no CVA tenderness Skin General skin exam: no rashes or lesions noted Neuro General: patient alert and patient awake Speech: speech normal Extrem General: normal to inspection and no pedal edema Other: wound vac to chronic wound on right lower leg. Psych Appearance: grossly normal and well kempt Mental Status: mental status grossly normal Speech and Movement: speech and movement normal Mood: congruent mood Affect: normal affect DS: Data Vitals/I&O Vitals and I&O: Vital Signs Temperature 36.2 C L 03/12/23 07:05 Temperature Source Temporal Artery Scan 03/12/23 03:54 Pulse 76 03/12/23 07:05 Pulse Rhythm Regular 03/12/23 07:30 Respiratory Rate 18 03/12/23 03:54 Respiratory Effort Normal, Non-Labored 03/12/23 07:30 Respiratory Depth Normal 03/12/23 07:30 Respiratory Pattern Normal 03/12/23 07:30 Blood Pressure 101/58 L 03/12/23 07:05 Blood Pressure Position Sitting 03/03/23 15:31 Pulse Oximetry 98 03/12/23 07:05 Oxygen Delivery Method Room Air 03/12/23 07:05 Oxygen Flow Rate 0 03/12/23 07:05 Pain Level 0 03/12/23 07:30 Comment Pt. denies pain at this time. 03/10/23 11:33 Intake & Output 03/11/23 03/11/23 03/12/23 11:59 23:59 11:59 Intake Total Output Total 400 / 550 150 / 550 1000 / 1000 Balance -390 / -540 -150 / -540 -1000 / -1000 Intake: IV Output: Urine 400 / 550 150 / 550 1000 / 1000 Other: Urine Color Straw Yellow Pale Yellow Urine Appearance Cloudy Clear Clear Sediment Stool Size Smear Moderate Stool Characteristics Formed PFSH All Active Problems (Updated 03/13/23 @ 00:06 by ANTONIA DAVIS) Stroke (Chronic) Weakness (Acute) Wound of right lower extremity (Acute) Neurogenic bowel (Acute) Neurogenic bladder (Acute) Multiple sclerosis exacerbation (Acute) Constipation (Acute) Urinary retention (Acute) Steroid-induced hyperglycemia (Acute) Ambulatory dysfunction (Acute) Bilateral leg weakness (Acute) Osteoarthritis (Chronic) Pulmonary hypertension (Acute) Right carpal tunnel syndrome (Acute) 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 Surgical History (Updated 08/31/22 @ 10:33 by Stephani Katz MD) H/O colonoscopy with polypectomy H/O colposcopy with cervical biopsy several H/O left mastectomy Hx of esophagogastroduodenoscopy S/P bilateral cataract extraction S/P breast biopsy, right S/P carpal tunnel release right S/P left knee arthroscopy S/P lumpectomy, left breast S/P placement of cardiac pacemaker Family History (Updated 08/31/22 @ 10:35 by Stephani Katz MD) Sister Familial ALS (amyotrophic lateral sclerosis) Diabetes Sister Familial ALS (amyotrophic lateral sclerosis) Brother Familial ALS (amyotrophic lateral sclerosis) Maternal Grandmother Familial ALS (amyotrophic lateral sclerosis) Heart disease Mother Familial ALS (amyotrophic lateral sclerosis) Son Familial ALS (amyotrophic lateral sclerosis) Diabetes Father Family history of early CAD Paternal Grandmother Diabetes Social History (Updated 08/31/22 @ 10:41 by Stephani Katz MD) Smoking/Tobacco Use Status: Former Tobacco Use tobacco type: cigarettes Smoking risk assessment performed?: Yes Alcohol Intake: former Substance use type: does not use Do you feel safe at home: Yes Do you feel safe in your relationship?: Yes Time Spent with Patient Time Spent with Patient: 45-69 minutes Time was spent: preparing to see the patient(eg.review tests), ordering medications,tests, procedures, referring, communicating with other health animal caretaker, indepentently interpreting results, counseling the patient and care coordination
[2023-03-12 10:53] VITALS: BP 105/62; PULSE 76; TEMP 36; O2SAT 98
[2023-03-12] MEDS: Insulin Aspart 300 UNITS/3 ML PEN SC (12:32)
--- NOTE | 2023-03-12 13:26 | CMDISCH_ITS ---
Date of service: 03/12/23 Time of Service: 13:27 LACE Index Scoring Tool Questions: Length of Stay (in days): 7 - 13 Was the patient admitted via the E.D.?: Yes Comorbidities: Diabetes w/o Complication, Any Tumor, Connective Tissue Disease and Liver or Renal Disease E.D. Visits: 4 Answers: Total Score: 17 Risk of Readmission: High Risk Care Management Discharge Plan Reason for Hospitalization: bilateral leg weakness Discharge Plan: Betsy will discharge home with new home health services for RN, PT, OT and [employer]. instead of seeking placement. She will follow up with her community providers and plan of care and transport with family. Patient/Family Education Needs: Review discharge instructions, limitations, medications and plan to follow up with community providers. Discuss ask me three and goals of self care.
--- NOTE | 2023-03-12 14:19 | PT.INNT ---
Date of service: 03/12/23 Time of Service: 09:55 PT Notes Visit Reasons: Ambulatory Dysfunction This therapist attempts to see patient at 9:55 and is asked to hold off as patient is expecting someone to come change her wound vac any minute and she doesn't want to miss them. At 12:59 patient declined therapy as she is headed home, has no concerns, wants to save her energy.
--- NOTE | 2023-03-12 15:26 | PDOC.HHF2F_ITS ---
Home Health Referral Home Health Orders Clinical synopsis of why skilled professionals are needed: This is a 77 year old female patient with past medical history of hypertension, diabetes, multiple sclerosis, GERD, hypothyroidism, ALS, CKD, hyperchcolesterolemia and pulmonary hypertension who presented to the [facility] ED with complaint of not being able to walk, increased weakness.? She goes to [place] once a month for treatment of ALS.? She endorses increased tremors. She has no new complaints.? She has a wound vac on her right lower leg from a chronic wound. She would like compressions but would not like to be intubated.? She is requesting SNF. Medical diagnosis necessitation home health referral: MS, HTN, CKD, ALS Registered Nurse: Check all that apply Instruct on new or changed medication(s)/assess compliance: Ordered Assess for exacerbation of medical condition, instruct patient/caregivers on signs and symptoms to report for early detection: Ordered Assess wound for signs and symptoms of infection, instruct on wound care and/or provide skilled wound care consisting of: Continue previous wound vac orders; black foam; change dsg M W F and PRN - wound has an odor, [facility] is aware - started on Augmentin BID x 7d Other: She has follow up appointment with general surgery @ [facility] 03/14 @ 0930 Physical Therapist: Check all that apply Increase strength & endurance for safe mobility at home: Ordered To design/establish home maintenance program: Ordered Fall reduction therapy program for patient with history of frequent falls: Ordered Home safety evaluation and teaching/gait training including stair management (if applicable): Ordered Occupational Therapist: Evaluate and treat for patient unable to perform ADL/IADL/self-care: Ordered Upper extremity strengthening, range and motion: Ordered Pharmaceutical Sales: Assist with community resources: Ordered Assist with mcc care planning: Ordered Home Bound Status Requires the aid of supportive device (check all that apply): Walker Assistance of another person (Describe assistance and medical necessity): requires the assistance of another person and a device to walk safely outdoors. Describe why leaving home would require a considerable and taxing effort: Requires frequent rest periods Encounter Date and Reason: I certify that a FTF encounter for this patient was performed on March 12, 2023 and that such encounter was related to the primary reason the patient requires home health services. The encounter was conducted in the following manner: * By me as the certifying physician, TAP PULLER, PA or * By an inpatient physician, TAP PULLER or PA during an inpatient stay who communicated findings to me, Certification And Authentication I certify that I composed the above information based on my clinical judgment relating to this patient's medical condition and, if applicable, clinical findings communicated to me by the NPP or inpatient physician who performed the FTF encounter. Name of Provider that will be monitoring home health services: Ping Vázquez
--- NOTE | 2023-03-13 07:46 | OTDS_ITS ---
Occupational Therapy Notes Occupational Therapy Inpatient Discharge Summary Date: 03/13/23 Dates of Service: 03/07/23-03/12/23 Referring Doctor:Berenice Champagne NP OT Orders: Non Urgent Precautions: Fall, standard, DNI *This document serves as a summary of care, no skilled OT services were provided for this documentation on this date* PATIENT PROFILE/ADMITTING DIAGNOSIS: Pt is a 77 year old female who was admitted through the ED to [facility] with the following dx of hypercalcemia, stroke, weakness, would of (R) LE, neurogenic bladdder, MS exacerbation, constipation, urinary retention, hypergylcemia, ambulatory dysfunction, (B) leg weakness, osteoarthritis, pulmonary hypertension, (R) CTS, (B) leg edema, arthritis, familial ALS, CKD stage 4, GERD. 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) Bilateral leg edema (Acute) Arthritis (Acute) Eczema (Acute) Endometrial hyperplasia (Acute) Anemia due to stage 4 chronic kidney disease (Acute) 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) Hypercholesterolemia (Acute) Diabetic polyneuropathy (Acute) Familial ALS (amyotrophic lateral sclerosis) (Chronic) Hypothyroidism (Chronic) GERD (gastroesophageal reflux disease) (Chronic) Hypertension (Chronic) IDDM (insulin dependent diabetes mellitus) (Chronic) Bilateral leg weakness (Acute) History of multiple sclerosis (Acute) Medical History?(Updated 03/04/23 @ 17:29 by Bonnie Arce NP) 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 She has a supportive family with her sons all relatively close nearby. She was previously (I) with her ADLs/IADL routines but has had a decline in her functional (I). She has Familial ALS and is emotional today speaking about the loss of her family members. She is currently participating in clinical trials and has been for numerous years at this time. She states that the first floor of her home is handicap accessible. She notes that she rents this out as an air B&B but states that this is currently on hold as she is not able to take care of it. She states that she was driving (I) up until this time. She is emotional about talking about her Ned and states that she needs to get home because she is not ready to leave him yet. She is receptive to (A) as needed but does feel that if she could walk better then she could be more (I). Equipment owned/DME: Handicap first floor of home. SUBJECTIVE:?NT OBJECTIVE:? FUNCTIONAL MOBILITY/ADLS:? *Based off treatment from yesterday 03/12/23 this is a summary of pts CLOF, no skilled OT services were provided on this date* Rolling L/R: (I) ? Supine-sit: (I) ? Sit-supine:? (I) ? BATHING:?max (A) Set? up/clean up Upper Body: (I) face and (B) UE with min vc, min (A) abdomen, max (A) hair and back Lower Body: min (A) DRESSING:? Upper Extremity: min (A) don and dounion general hospital gown Lower Extremity: mod (A) donning (B) socks GROOMING:?seated on side of the bed (I) with brushing hair TOILETING: Device: Landin in place EATING:?sitting in bed (I) ? ASSESSMENT:?? Patient is a 77-year-old female referred to occupational therapy services with diagnosis of hypercalcemia, stroke, weakness, would of (R) LE, neurogenic bladdder, MS exacerbation, constipation, urinary retention, hypergylcemia, ambulatory dysfunction, (B) leg weakness, osteoarthritis, pulmonary hypertension, (R) CTS, (B) leg edema, arthritis, familial ALS, CKD stage 4, GERD. Patient made increased progress since her initial evaluation. She is slightly confused at time and requires vc for task initiation but functionally her goal is to be as (I) as possible. GOALS 1.? Transfers (I) 2.? Dressing (I) UE, min (A) LE- met 3.? Bathing (I) seated-met with vc 4.? Toileting on toilet min (A)- not met 5.? Eating (I)- met PLAN OF CARE/TREATMENT PLAN: Pt was medically cleared and discharged home with HH services. DISCHARGE RECOMMENDATIONS OT recommends SNF vs. HH OT/PT/Nursing services in home setting. Pt states that she wants to return home and feels that she could be successful with this. TREATMENT TIME/MINUTES/CODES N/A Yanira Lvoett OTR/L [facility] [place], [place]
[2023-03-13 12:06] LABS: 1,25-Dihydroxyvitamin D 63 pg/mL (18-78)
[2023-03-13 14:41] LABS: PTH-Related Peptide 1.6 pmol/L (< or = 4.2)
[2023-03-13 17:28] LABS: PTH AB NEGATIVE (NEGATIVE)
--- NOTE | 2023-03-18 10:47 | INDS_ITS ---
PT Notes Visit Reasons: Ambulatory Dysfunction Physical Therapy Inpatient Discharge Summary Date: 03/11/2023 Dates of service: 03/06/2023 through 03/11/2023 This is a clinical summary of care provided for the duration of dates listed above. No charge was made in the completion of this documentation. Referring Doctor:Malou Andrade? JULISSA PT Orders: PT CONSULT: Safety consult for D/C Precautions: Fall. Standard. Activity as tolerated. Patient Profile/Admitting Diagnosis:? Betsy is a 77-year-old female wit past medical history significant for MS,? CVA,? and SOD1 mutation who presented to the ED on 03/03/2023 due to worsening B LE weakness,? falls,? and ambulatory dysfunction.? Patient is admitted for mangement of generalized weakness, late effects of CVA, stage IV CKD, hypercalcemia, MS exacerbation, hypothyroidism, NIDDM.? Per clarification by neurologist Dr. Whyte,? patient has no official diagnosis of ALS but that she has the mutated gene,? SOD 1 gene, that increases predisposition for it. 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) Bilateral leg edema (Acute) Arthritis (Acute) Eczema (Acute) Endometrial hyperplasia (Acute) Anemia due to stage 4 chronic kidney disease (Acute) 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) Hypercholesterolemia (Acute) Diabetic polyneuropathy (Acute) Familial ALS (amyotrophic lateral sclerosis) (Chronic) Hypothyroidism (Chronic) GERD (gastroesophageal reflux disease) (Chronic) Hypertension (Chronic) IDDM (insulin dependent diabetes mellitus) (Chronic) Bilateral leg weakness (Acute) History of multiple sclerosis (Acute) Medical History?(Updated 02/03/23 @ 13:28 by JULISSA Rodrigues) 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 uses a single point-cane to walk.? Son and son's family live close by but may not available consistently during the day.? Bedroom is on the second floor of the house.? Has entry steps. Equipment Owned/DME: Wheelchair,? FWW,? shower chair Subjective: NT. See most recent FIELD MARKETING REPRESENTATIVE notes. Objective: General Observation: NT. See most recent FIELD MARKETING REPRESENTATIVE notes. Mental Status: NT. See most recent FIELD MARKETING REPRESENTATIVE notes. Pain: NT. See most recent FIELD MARKETING REPRESENTATIVE notes. Vital Signs: NT. See most recent FIELD MARKETING REPRESENTATIVE notes. ROM: Right Upper Extremity: ? Shoulder Flexion WFL. Shoulder abduction WFL. Elbow flexion WFL. Wrist flexion WFL. Functional opening and closing of hand WFL. Left Upper Extremity:? Shoulder Flexion WFL. Shoulder abduction WFL. Elbow flexion WFL. Wrist flexion WFL. Functional opening and closing of hand WFL. Right Lower Extremity: Hip flexion WFL. Hip abduction WFL. Knee flexion WFL. Ankle dorsiflexion WFL. Ankle plantarflexion WFL. Left Lower Extremity: Hip flexion WFL. Hip abduction WFL. Knee flexion WFL. Ankle dorsiflexion WFL. Ankle plantarflexion WFL. Strength: Right Upper Extremity: Shoulder flexors 4-/5. Shoulder abductors 4-/5. Elbow flexors 4-/5. Elbow extensors 4-/5. Telegraph Inspector strong. Left Upper Extremity: Shoulder flexors 4-/5. Shoulder abductors 4-/5. Elbow flexors 4-/5. Elbow extensors 4-/5. Telegraph Inspector strong. Right Lower Extremity: Hip flexors 4/5. Hip abductors 4/5. Knee flexors 4/5. Knee extensors 4-/5. Ankle dorsiflexors 4/5. Ankle plantarflexors 4/5. Left Lower Extremity: Hip flexors 3/5. Hip abductors 3/5. Knee flexors 4-/5. Knee extensors 4-/5. Ankle dorsiflexors 4-/5. Ankle plantarflexors 4-/5. BED MOBILITY/TRANSFERS? Rolling L/R: independent Supine-sit: independent? Sit-supine: independent ? Sit-stand: standby? Stand-sit: standby ? Bed-Chair: CGA ? Chair-bed: CGA ? GAIT? Assistive Device: FWW? Weight bearing: full Assist: CGA ? Distance:? 200 feet? Deviation: Frequent standing rests ? Balance: Static Sitting: Normal Dynamic Sitting: Fair Static Standing: Fair Dynamic Standing: Fair ASSESSMENT: Per clarification by neurologist Dr. Whyte,? patient has no official diagnosis of ALS but that she has the mutated gene,? SOD 1 gene, that increases predisposition for it.? Patient performed much better this time compared to ED evaluation on 03/03/2023 where patient was considerably shaky and fatigued,? only tolerated 5 small unsteady steps.? Patient will beenfit from a consistent,? gradual strengthening program coordinated with her MS pill intake Patient presents with clinical signs and symptoms consistent with current/admitting diagnoses that have resulted to mobility limitations, gait instability, generalized weakness, and overall ADL decline as demonstrated by the following impairment level findings: 1.? Decreased strength to B UE/LE major muscle groups,? L more affected than R 2.? Impaired sitting/standing balance 3.? Impaired activity tolerance 4.? Fatigue Impairments are contributing to the following functional limitations: 1.? Decline in bed mobility skills 2.? Decline in transfer skills 3.? Difficulty with ambulation without assistive device and physical assistance 4.? Increased completion time for mobility ADL performance 5.? Increased risk for falls 6.? Difficulty with managing steps alone safely Goals: Goals X1 week 1. Supine-Sit independent MET 2. Sit-Supine independent MET 3. Sit-Stand independent NOT MET 4. Stand-Sit independent with FWW NOT MET 5. Bed-Chair independent with FWW NOT MET 6. Chair-Bed independent with FWW NOT MET 7. Independent gait on level surface with use of FWW for at least 30 feet without report of pain nor dyspnea NOT MET 8. Independent stair negotiation while holding onto B rails for at least 5 steps without report of pain nor dyspnea NOT MET 9. Independent with home exercise program NOT MET 10. Good static and dynamic standing balance/tolerance NOT MET DISCHARGE RECOMMENDATIONS: [] ? Home with no services [] [] ? Home with services [specify] [] ? Home with outpatient PT [] [] ? SNF for continued rehabilitation [] [] ? [facility] [] [X] ? SNF versus HH PT based on ability to participate and progress towards goals.? Will benefit from OT services TREATMENT CODE/TIME: NC Thank you for the opportunity to participate in the care of this patient. Meera Fletcher PT, DPT, CLT [facility] [place], [place]
== END 2023-03-12 16:05 | disposition home health service (06) | DRG 59 ==
LOC: ER 17:46 → MS 18:24
PROVIDERS: Family Medicine; General Practice; Internal Medicine; Nurse Practitioner Acute Care; Nurse Practitioner Family; Admitting Provider Family Medicine; Emergency Provider Physician Assistant; PCP Internal Medicine; Visit Provider Family Medicine
DX: G35 Multiple sclerosis (principal); K59.2 Neurogenic bowel, not elsewhere classified; N18.4 Chronic kidney disease, stage 4 (severe); R53.1 Weakness; R29.6 Repeated falls; N18.9 Chronic kidney disease, unspecified; E11.22 Type 2 diabetes mellitus with diabetic chronic kidney disease; E83.52 Hypercalcemia; T50.995A Adverse effect of other drugs, medicaments and biological substances, initial encounter; Z86.73 Personal history of transient ischemic attack (TIA), and cerebral infarction without residual deficits; N31.8 Other neuromuscular dysfunction of bladder; K59.00 Constipation, unspecified; R33.9 Retention of urine, unspecified; R60.0 Localized edema; E11.42 Type 2 diabetes mellitus with diabetic polyneuropathy; E03.9 Hypothyroidism, unspecified; K21.9 Gastro-esophageal reflux disease without esophagitis; Z79.4 Long term (current) use of insulin; I12.9 Hypertensive chronic kidney disease with stage 1 through stage 4 chronic kidney disease, or unspecified chronic kidney disease; D63.1 Anemia in chronic kidney disease; E11.3299 Type 2 diabetes mellitus with mild nonproliferative diabetic retinopathy without macular edema, unspecified eye; Z95.0 Presence of cardiac pacemaker; Z14.8 Genetic carrier of other disease
CPT/HCPCS: 36415; 80048; 80053; 80061; 82306; 82947; 83519; 84156; 84166; 85027; 86335; 93306; 97116; 97161; 97162; 97166; 97530; 97535; 99223; 99232; 99285; 81003; 81050; 82232; 82330; 82397; 82652; 83036; 83735; 83970; 84165; 84443; 85025; 99222; 99233; 99239; G0378; J1644; J1650; J1815; J2930

== ENCOUNTER → 2023-03-05 07:09 | Outpatient (BNVA) | payer MEDICARE, SELFPAY | PROVIDERS: PCP Internal Medicine Adolescent Medicine; Referring Provider Internal Medicine Adolescent Medicine; Visit Provider Psychiatry & Neurology Neurology ==

== ENCOUNTER 2024-01-27 21:25 | Emergency (ER) | payer MEDICARE, SELFPAY ==
[2024-01-27 21:27] VITALS: BP 197/71; PULSE 91; RESP 16; TEMP 36.6; O2SAT 98
--- NOTE | 2024-01-27 21:30 | DI.RAD_ITS ---
Exam(s) XR SOFT TISSUE NECK EXAM: XR SOFT TISSUE NECK CLINICAL HISTORY: Foreign body sensation throat. TECHNIQUE: 2D digital imaging was performed. COMPARISON: No exams were available for comparison FINDINGS: Two views. Some increased soft tissue density is noted in the hypopharynx region. Consider follow-up CT scan. Multilevel chronic degenerative disc disease. Also degenerative anterolisthesis of C3 upon C4 Also noted is calcification in the soft tissues on the left side of the neck which probably within ca rotid artery plaque and can be further study with Doppler ultrasound if clinically indicated. IMPRESSION: As above. If clinically indicated follow-up CT scan can be performed. DATA REPOSITORY: RADIATION DOSE DELIVERED:
--- NOTE | 2024-01-27 21:35 | W.ED.GENAD ---
Discharge Plan Disposition Patient Disposition: Home Condition: Stable Discharge Details Clinical Impression: Foreign body sensation in throat Primary Care Provider: Pnig Vázquez ED Provider: Mora Peoples Home Meds and New Rx's Prescriptions: No Action multivitamin Tablet 1 tab PO DAILY levothyroxine 150 mcg Tablet 150 mcg PO DAILY omeprazole 20 mg Capsule,Delayed Release(Dr/Ec) 20 mg PO QDAY hydrochlorothiazide 25 mg Tablet 25 mg PO DAILY losartan 100 mg Tablet 100 mg PO DAILY insulin glargine [Lantus Solostar U-100 Insulin] 100 unit/mL (3 mL) Insulin Pen 20 unit SUBCUT DAILY AM polyethylene glycol 3350 17 gram Powder In Packet 17 g PO DAILY Qty: 30 0RF Patient Comments: prn insulin lispro 100 unit/mL Insulin Pen 1 - 5 sliding scale dose SUBCUT TID Patient Comments: Has been injecting 4 units most often lately acetaminophen 325 mg Tablet 650 mg PO QAM Acetaminophen PM 25-500 mg Tablet 2 tab PO QHS Eliquis 5 mg tablet Patient Comments: TAKE ONE TABLET BY MOUTH TWICE A DAY teriflunomide [Aubagio] 7 mg tablet 7 mg PO DAILY Discharge Instructions Instructions: Foreign Body Ingestion (ED) Additional Instructions: Please return if any further concerns, trouble handling your saliva or concerns. Follow up with primary care provider/ear nose and throat in 3-5 days for further evaluation. Return to ED sooner if any worsening or concerns. Referrals: Ping Vázquez MD [Primary Care Provider] - Jordan Verdugo MD [ [facility] STAFF PHYSICIAN] - 1 week HPI General Mode of arrival: ambulatory. Date/Time Provider Initiated Documentation: 01/27/24 21:32. Limitations to Documentation: no limitations. Information obtained by: patient, RN notes reviewed and old records reviewed. HPI Narrative: 78-year-old female presents to the ER with chief complaint of foreign body sensation in throat. Patient reports that she opened a new bottle of Robitussin and took a swig and possibly swallowed the paper foil cover from the bottle. She reports that she feels it stuck in her distal esophagus. She is handling her secretions without difficulty speaks in full sentences no obvious foreign body noted in her posterior oropharynx. No stridor. Vitals are stable. She does have a history of insulin dependent diabetes, CVA, chronic kidney disease stage IV, GERD osteoarthritis, hypothyroidism, second-degree AV block she is on apixaban. Related Data Home Medications Medication Instructions Recorded Confirmed hydrochlorothiazide 25 mg tablet 25 mg PO DAILY 08/30/22 01/27/24 insulin glargine 100 unit/mL (3 20 unit subcut DAILY AM 08/30/22 01/27/24 mL) subcutaneous pen (Lantus Solostar U-100 Insulin) levothyroxine 150 mcg tablet 150 mcg PO DAILY 08/30/22 01/27/24 losartan 100 mg tablet 100 mg PO DAILY 08/30/22 01/27/24 multivitamin 1 tab PO DAILY 08/30/22 01/27/24 omeprazole 20 mg capsule,delayed 20 mg PO QDAY 08/30/22 01/27/24 release polyethylene glycol 3350 17 gram 17 g PO DAILY #30 ea 09/02/22 01/27/24 oral powder packet insulin lispro 100 unit/mL 1 - 5 sliding scale dose subcut TID 02/03/23 01/27/24 subcutaneous pen acetaminophen 325 mg tablet 650 mg PO QAM 03/03/23 01/27/24 diphenhydramine 25 2 tab PO QHS 03/03/23 01/27/24 mg-acetaminophen 500 mg tablet (Acetaminophen PM) apixaban 5 mg tablet (Eliquis) mg 01/27/24 teriflunomide 7 mg tablet (Aubagio) 7 mg PO DAILY 01/27/24 01/27/24 Previous Rx's Medication Instructions Recorded polyethylene glycol 3350 17 gram 17 g PO DAILY #30 ea 09/02/22 oral powder packet Allergies Allergy/AdvReac Type Severity Reaction Status Date / Time amlodipine Allergy Unknown Unverified 01/27/24 21:30 Woarfnz-NBC-BeC Reductase Allergy Unknown Unverified 01/27/24 21:30 Inhibitor General Stated Complaint: ThroatFB JUAN CARLOS: 4 Review of Systems All systems reviewed & are unremarkable except as noted in HPI and below Exam Narrative Exam Narrative: Constitutional: Alert and oriented x3. Appears stated age. Normal body habitus. Head: Normocephalic, no trauma. Eyes: Pupils PERRL, Red reflex noted, EOM's intact. Eyelids symmetrical without lesions, discharge, or swelling. ENT: Bilateral TM's WNL, External ear normal to inspection, no mastoid TTP, swelling, or erythema, Nasal turbinates WNL, no nasal discharge. Normal dentition, Posterior pharynx WNL, no exudate. Chest: RRR, Normal S1, S2, distal pulses intact. Resp: Lungs clear to auscultation bilaterally, no wheezes, rales, or rhonchi. Abdomen: Soft, non-distended, Normoactive bowel sounds all 4 quads. Musculoskeletal: Moves all 4 extremities without difficulty. Skin: No suspicious rashes or lesions. Capillary refill less than 2 sec. Neurologic: Cranial nerves II-XII intact. Alert and oriented x 3. Motor: No deficits noted. Sensory: Intact bilaterally all 4 extremities. Hematologic/Lymphatic: No ecchymosis, no lymphadenopathy. Course Vital Signs Vital signs: Vital Signs Temperature 36.6 C 01/27/24 21: Pulse 91 H 01/27/24 21: Respiratory Rate 16 01/27/24 21:27 Blood Pressure 197/71 H 01/27/24 21:27 Pulse Oximetry 98 01/27/24 21:27 Temperature 36.6 C 01/27/24 21: Pulse 91 H 01/27/24 21:27 Respiratory Rate 16 01/27/24 21:27 Respiratory Effort Normal 01/27/24 21:33 Respiratory Pattern Normal 01/27/24 21:33 Blood Pressure 197/71 H 01/27/24 21:27 Pulse Oximetry 98 01/27/24 21:27 Oxygen Delivery Method Room Air 01/27/24 21:27 Oxygen Flow Rate 0 01/27/24 21:27 Pain Level 0 01/27/24 21:27 Medical Decision Making 78-year-old female presents to the ER with chief complaint of foreign body sensation in throat. Patient reports that she opened a new bottle of Robitussin and took a swig and possibly swallowed the paper foil cover from the bottle. She reports that she feels it stuck in her distal esophagus. She is handling her secretions without difficulty speaks in full sentences no obvious foreign body noted in her posterior oropharynx. No stridor. Vitals are stable. She does have a history of insulin dependent diabetes, CVA, chronic kidney disease stage IV, GERD osteoarthritis, hypothyroidism, second-degree AV block she is on apixaban. Soft tissue neck x-ray ordered. Effervescent granules attempted tp dislodge FB, 1st dose unsuccessful, patient able to swallow, still feels FB sensation. Will try another dose. Will also consider pudding or a piece of bread as well. PAtient reports no change after 2nd Effervescent dose, given a sandwich and was able to eat a few pieces of bread without difficulty. 2301: PAtient states she feels like it is completely gone, x-ray chest shows other is possibly a radiopaque density just anterior to C6. They also note a soft tissue mass cannot be excluded and are recommending CT. Will repeat the XR to confirm passing of the Forieign body. Patient placed on ENT follow up care management list. Discharged with instructions and strict return instructions. This text was generated using [employer] dictation system, please disregard any oddities of phrase or misspellings. Imaging Data Radiologic Study: Imaging: X-Ray Radiologist's impression: Tubes, catheters and devices: There is a right subclavian pacemaker present. Airway: Normal. No abnormal narrowing. Soft tissues: Increased soft tissue density within the pharyngeal and hypopharyngeal region. A soft tissue mass cannot be excluded I would recommend CT scan with contrast for further evaluation. Bones/joints: There is anterolisthesis of C3 on C4 of approximately 3.3 mm. There is moderate degenerative change present within the cervical discs. There are moderate to severe degenerative changes present within the facets of the cervical spine. Impression very. There is a mild convex dextroscoliosis of the cervical spine. Other findings: The apices of the lungs are unremarkable. IMPRESSION: 1. Increased soft tissue density within the pharyngeal and hypopharyngeal region. A soft tissue mass cannot be excluded I would recommend CT scan with contrast for further evaluation. Radiopaque density present on the lateral image anterior to C6 may represent a radiopaque foreign body. 2. There is anterolisthesis of C3 on C4 of approximately 3.3 mm. 3. There is a mild convex dextroscoliosis of the cervical spine. 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 Surgical History Hx of esophagogastroduodenoscopy S/P left knee arthroscopy S/P carpal tunnel release right H/O colonoscopy with polypectomy H/O colposcopy with cervical biopsy several H/O left mastectomy S/P bilateral cataract extraction S/P lumpectomy, left breast S/P breast biopsy, right S/P placement of cardiac pacemaker Family History Sister Familial ALS (amyotrophic lateral sclerosis) Diabetes Sister Familial ALS (amyotrophic lateral sclerosis) Brother Familial ALS (amyotrophic lateral sclerosis) Maternal Grandmother Familial ALS (amyotrophic lateral sclerosis) Heart disease Mother Familial ALS (amyotrophic lateral sclerosis) Son Familial ALS (amyotrophic lateral sclerosis) Diabetes Father Family history of early CAD Paternal Grandmother Diabetes Social History Smoking/Tobacco Use Status: Former Tobacco Use tobacco type: cigarettes Smoking risk assessment performed?: Yes Alcohol Intake: former Substance use type: does not use Do you feel safe at home: Yes Do you feel safe in your relationship?: Yes
[2024-01-27] MEDS: Simethicone/Sod Bicarb/Cit Ac, 4 gram PACKET 1 PACKET PO ×2 (22:19→22:28)
--- NOTE | 2024-01-27 22:58 | DI.VRAD_ITS ---
PROCEDURE INFORMATION: Exam: XR Soft Tissue Neck Exam date and time: 01/27/2024 9:45 PM Age: 78 years old Clinical indication: Other: Concern for fb; Patient HX: Foreign body sensation throat TECHNIQUE: Imaging protocol: Radiologic exam of the soft tissues of the neck. 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 Airway: Normal. No abnormal narrowing. Soft tissues: Increased soft tissue density within the pharyngeal and hypopharyngeal region. A soft tissue mass cannot be excluded I would recommend CT scan with contrast for further evaluation. Bones/joints: There is anterolisthesis of C3 on C4 of approximately 3.3 mm. There is moderate degenerative change present within the cervical discs. There are moderate to severe degenerative changes present within the facets of the cervical spine. Impression very. There is a mild convex dextroscoliosis of the cervical spine. Other findings: The apices of the lungs are unremarkable. IMPRESSION: 1. Increased soft tissue density within the pharyngeal and hypopharyngeal region. A soft tissue mass cannot be excluded I would recommend CT scan with contrast for further evaluation. Radiopaque density present on the lateral image anterior to C6 may represent a radiopaque foreign body. 2. There is anterolisthesis of C3 on C4 of approximately 3.3 mm. 3. There is a mild convex dextroscoliosis of the cervical spine. Dictated and Authenticated by: Adán Baird MD. Ordering:DANTE Velazco MD
--- NOTE | 2024-01-27 23:00 | DI.RAD_ITS ---
Exam(s) XR SOFT TISSUE NECK EXAM: XR SOFT TISSUE NECK CLINICAL HISTORY: Repeat, confirm foreign body removal. TECHNIQUE: 2D digital imaging was performed. COMPARISON: CR,XR XR SOFT TISSUE NECK from 01/27/2024 FINDINGS: Two views-AP and lateral Epiglottis is not thickened. There is no prevertebral soft tissue swelling. However, the previously described soft tissue densities in the hypopharynx region are again noted. IMPRESSION: As above. Recommend follow-up CT scan soft tissues of the neck. DATA REPOSITORY: RADIATION DOSE DELIVERED:
--- NOTE | 2024-01-27 23:25 | DI.VRAD_ITS ---
Addendum created by Adán Baird MD on 01/27/2024 11:25:19 PM EDT: THIS REPORT CONTAINS FINDINGS THAT MAY BE CRITICAL TO PATIENT CARE. The findings were verbally communicated via telephone conference with [employer] at 11:25 PM EDT on 01/27/2024. The findings were acknowledged and understood. Initial report created on 01/27/2024 11:24:53 PM EDT: PROCEDURE INFORMATION: Exam: XR Soft Tissue Neck Exam date and time: 01/27/2024 11:09 PM Age: 78 years old Clinical indication: Other: Question fb; Prior surgery; Surgery date: 6+ months; Surgery type: Pacemaker; Patient HX: Repeat, confirm foreign body removal TECHNIQUE: Imaging protocol: Radiologic exam of the soft tissues of the neck. COMPARISON: CR XR SOFT TISSUE NECK 01/27/2024 9:45 PM FINDINGS: Airway: Normal. No abnormal narrowing. Soft tissues: No difference in the appearance of the soft tissue neck can be identified on 01/27/2024 at 11:10 p.m. compared to 01/27 24 at 9:45 p.m.. There is residual soft tissue density within the pharyngeal and hypopharyngeal region. Again I would recommend a CT scan for further evaluation. Bones/joints: No change. IMPRESSION: No difference in the appearance of the soft tissue neck can be identified on 01/27/2024 at 11:10 p.m. compared to 01/27 24 at 9:45 p.m.. Dictated and Authenticated by: Adán Baird MD. Ordering:DANTE Velazco MD
--- NOTE | 2024-01-28 01:20 | NUR.NOTE ---
Pt placed on care management referral list to be seen by ENT to be seen in 1-2 weeks per JULISSA Peoples
== END 2024-01-27 23:28 | disposition home or self-care (01) ==
PROVIDERS: Emergency Provider Registered Nurse Emergency; PCP Internal Medicine
DX: R09.A2 Foreign body sensation, throat (principal); I12.9 Hypertensive chronic kidney disease with stage 1 through stage 4 chronic kidney disease, or unspecified chronic kidney disease; E11.22 Type 2 diabetes mellitus with diabetic chronic kidney disease; N18.4 Chronic kidney disease, stage 4 (severe); I44.1 Atrioventricular block, second degree; K21.9 Gastro-esophageal reflux disease without esophagitis; E03.9 Hypothyroidism, unspecified; Z86.73 Personal history of transient ischemic attack (TIA), and cerebral infarction without residual deficits; Z79.01 Long term (current) use of anticoagulants; Z79.4 Long term (current) use of insulin; Z87.891 Personal history of nicotine dependence
CPT/HCPCS: 99283; 70360

== ENCOUNTER 2025-03-29 08:53 | Outpatient (CLI) | payer MEDICARE, SELFPAY ==
[2025-03-29 12:48] LABS: TSH (W/Ref FT4) 6.87 uIU/mL (0.36-3.74)
[2025-03-31 09:36] LABS: CD16+CD56 25 % (5-31); CD19 <1 % (5-25); CD3 74 % (56-84); CD4 59 % (31-64); CD8 13 % (9-39); Total CD3 747 Cells/uL (840-2,669)
[2025-03-31 09:37] LABS: Absolute CD16+CD56 257 Cells/uL (108-680)
== END 2025-03-29 08:54 | disposition home or self-care (01) ==
LOC: LBO 08:54
PROVIDERS: PCP Internal Medicine; Visit Provider Psychiatry & Neurology Neurology
DX: G35 Multiple sclerosis (principal); G04.91 Myelitis, unspecified
CPT/HCPCS: 36415; 82784; 84439; 84443; 86355; 86357; 86359; 86360

== ENCOUNTER 2025-04-22 10:08 | Observation (INO) | payer MEDICARE, SELFPAY ==
[2025-04-22] VITALS (26 sets, daily range): BP systolic 95–163; BP diastolic 38–83; PULSE 74–85; RESP 14–21; TEMP 36.4–37; O2SAT 96–100
[2025-04-22 10:50] LABS: Abs Immature Grans 0.08 10^3/uL (0.0-0.06); HCT 29.4 % (36.0-46.0); HGB 9.6 g/dL (11.2-15.7); Immature Grans % 1.2 %; MCH 30.0 pg (27.0-33.0); MCHC 32.7 % (32.0-36.0); MCV 92 fL (80-95); MPV 8.5 fL (8.0-11.0); Platelet Count 315 10^3/uL (130-400); RBC 3.20 10^6/uL (3.93-5.22); RDW 13.4 % (11.7-14.6); RDW-SD 44.4 fL; WBC 6.68 10^3/uL (4.4-10.8)
--- NOTE | 2025-04-22 11:03 | IN_ITS ---
PT Notes Visit Reasons: [place]/tremors Inpatient Physical Therapy Evaluation Date: 04/22/25 Referring Doctor: Logan Charles PT Orders: PT CONSULT: safety consult for d/c Precautions: fall precautions Patient Profile/Admitting Diagnosis: increased tremors, hx of ALS and MS, fall last night, more unsteady than usual Subjective: Betsy presented to the ED after being sent by her home health nursing staff this morning. She reports she fell last night and has had more tremors than usual. She lives in [place] with her who also doesn't move well. However, they have a very big support system at home as her sons live very close to her and see her daily. She also has many friends and family that stop in daily. She normally uses a rollator. She has a stair chair. She has a ramp. They have wheelchairs at home if needed. Objective: General Observation: sitting up in bed, tele in place Mental Status: A+Ox4 Pain: no pain noted Vital Signs: stable, spO2 in the low 90s ROM: Full active motion observed in both bilat UE/LEs Strength: Able to perform seated and standing marching Able to perform supine SLRs bilaterally Sensation: Normal sensation Bed Mobility/Transfers: semi-supine to sitting - SBA sitting to standing - CGA standing to sitting - CGA sitting to semi-supine - SBA Gait: ambulates 30 ft w/RW and CGA - does report fatigue with this Balance: Static Sitting: good Dynamic Sitting: good Static Standing: fair Dynamic Standing: fair - requires UE support on RW Special Tests: Mobility Limitations Standardized Measure [facility] AM-PAC 6 clicks Basic Mobility Inpatient Short Form: Raw Score: 19 CMS Score: 41.47% Informed Consent/Education: Patient instructed in purpose of PT consult and plan of care. Assessment: Pt currently demonstrates mild ambulatory deficits from her baseline caused by increased tremors likely from her ALS and a possible UTI. She was able to demonstrate all forms of bed mobility without assistance. She was able to ambulate about 30 ft but fatigued with this and required CGA. She has a very supportive family and a ramp at home, allowing her to return home today. She will be d/c'd home safely with the support of her family and the resumption of home health services when medically cleared. She is fully cognitively intact and understands her limitations. Patient is assessed as a [x] Low 08544 complexity based on the following: History: Low Examination: Low Presentation: Low Decision Making: Low Goals: No goals at this time due to patient returning home today Plan of Care/Treatment Plan: No PT POC due to patient returning home today DISCHARGE RECOMMENDATIONS: [x] Home with resumption of home health PT and nursing TREATMENT CODE/TIME: Low eval 02712 x1 - 25 min
[2025-04-22 11:06] LABS: ALT 39 U/L (14-59); AST 15 U/L (15-37); Albumin 3.7 g/dL (3.4-5.0); Alkaline Phosphatase 238 U/L (46-116); Anion Gap 10.6 mmol/L (3-11); Bilirubin, Total 0.2 mg/dL (0.2-1.0); CO2 23.4 mmol/L (21.0-32.0); Calcium 10.4 mg/dL (8.5-10.1); Chloride 99 mmol/L (98-107); Estimated GFR 7.70 (mL/min/1.73m2); Glucose 232 mg/dL (74-106); Sodium 133 mmol/L (136-145); Total Protein 7.0 g/dL (6.4-8.2); Troponin I 10 ng/L (<or=51)
[2025-04-22 11:10] LABS: BUN 85 mg/dL (7-18)
[2025-04-22 11:11] LABS: Potassium 6.6 mmol/L (3.5-5.1)
--- NOTE | 2025-04-22 11:15 | RT.EKG_ITS ---
APPROVED REPORT Exam: Resting ECG Reason for Exam: hyperkalemia Patient Location: E HR:74 bpm ECG Measurements Heart Rate 74 AXIS NJ 192 P 91 QRSd 150 QRS -73 QT 458 T 103 QTc 508 Conclusion Atrial-sensed ventricular-paced rhythm...ventricular pacing tracks p-waves
[2025-04-22 11:31] LABS: Glucose Negative (Negative)
[2025-04-22 11:43] LABS: C & S Indicated? Yes; WBC >50 HPF (0-5)
[2025-04-22] MEDS: Dextrose 25%-Water 10 ML SYR IVP (11:46)
[2025-04-22] MEDS: Calcium Gluconate 4.65 MEQ/10 ML VIAL 4.65 MG IVP (11:46)
[2025-04-22] MEDS: Insulin REGULAR-Human 100 UNITS/ML UNIT IV (11:46)
[2025-04-22] MEDS: Albuterol 2.5 MG/3 ML INH SOLN VIAL UPD (11:47)
[2025-04-22 11:54] LABS: Magnesium 2.9 mg/dL (1.8-2.4); TSH (W/Ref FT4) 5.62 uIU/mL (0.36-3.74)
--- NOTE | 2025-04-22 12:16 | W.ED.GENAD ---
Discharge Plan Disposition Patient Disposition: Admit to [facility] Condition: Improving Discharge Details Clinical Impression: Hyperkalemia, Acute renal failure, Urinary tract infection Primary Care Provider: Ping Vázquez ED Provider: Valentino Charles Home Meds and New Rx's Prescriptions: No Action multivitamin Tablet 1 tab PO DAILY levothyroxine 150 mcg Tablet 150 mcg PO DAILY omeprazole 20 mg Capsule,Delayed Release(Dr/Ec) 20 mg PO QDAY hydrochlorothiazide 25 mg Tablet 25 mg PO DAILY losartan 100 mg Tablet 100 mg PO DAILY insulin glargine [Lantus Solostar U-100 Insulin] 100 unit/mL (3 mL) Insulin Pen 20 unit SUBCUT DAILY AM polyethylene glycol 3350 17 gram Powder In Packet 17 g PO DAILY Qty: 30 0RF Patient Comments: prn insulin lispro 100 unit/mL Insulin Pen 1 - 5 sliding scale dose SUBCUT TID Patient Comments: Has been injecting 4 units most often lately acetaminophen 325 mg Tablet 650 mg PO QAM diphenhydramine-acetaminophen [Acetaminophen PM] 25-500 mg Tablet 2 tab PO QHS teriflunomide [Aubagio] 7 mg tablet 7 mg PO DAILY HPI General Date/Time Provider Initiated Documentation: 04/22/25 10:20. HPI Narrative: 79 year-old female presents to ED today by EMS with a chief complaint of increased shakiness, fall last night while using her walker without injury in the setting of chronic ALS and MS. Quality described as no pain- had very minor pain in her R knee last night but feels fine today, no radiation to headstrike, LOC, nausea, vomiting, fever, flank pain, hip pain, abdominal pain, cough, shortness of breath, chest pain- endorses frequent urination in the evenings with history of UTIs. Severity is described as mild for pain. Palliating factors include nothing specific. Provoking factors include nothing specific. Events leading up to the incident/Associated Symptoms: Patient has HomeHealth aides, has ramps at home, walkers, good resources. Patient not anticoagulated- discontinued for an orthopaedic surgery and hasn't restarted. Related Data Home Medications ?Medication ?Instructions ?Recorded ?Confirmed hydrochlorothiazide 25 mg tablet 25 mg PO DAILY 08/30/22 04/22/25 insulin glargine 100 unit/mL (3 20 unit subcut DAILY AM 08/30/22 04/22/25 mL) subcutaneous pen (Lantus Solostar U-100 Insulin) levothyroxine 150 mcg tablet 150 mcg PO DAILY 08/30/22 04/22/25 losartan 100 mg tablet 100 mg PO DAILY 08/30/22 04/22/25 multivitamin 1 tab PO DAILY 08/30/22 04/22/25 omeprazole 20 mg capsule,delayed 20 mg PO QDAY 08/30/22 04/22/25 release polyethylene glycol 3350 17 gram 17 g PO DAILY #30 ea 09/02/22 04/22/25 oral powder packet insulin lispro 100 unit/mL 1 - 5 sliding scale dose subcut TID 02/03/23 04/22/25 subcutaneous pen acetaminophen 325 mg tablet 650 mg PO QAM 03/03/23 04/22/25 diphenhydramine 25 2 tab PO QHS 03/03/23 04/22/25 mg-acetaminophen 500 mg tablet (Acetaminophen PM) teriflunomide 7 mg tablet (Aubagio) 7 mg PO DAILY 01/27/24 04/22/25 Previous Rx's ?Medication ?Instructions ?Recorded polyethylene glycol 3350 17 gram 17 g PO DAILY #30 ea 09/02/22 oral powder packet Allergies Allergy/AdvReac Type Severity Reaction Status Date / Time amlodipine Allergy Unknown Unverified 04/22/25 10:13 [id number]-[id number] Reductase Allergy Unknown Unverified 04/22/25 10:13 Inhibitor General Stated Complaint: [facility]Medical JUAN CARLOS: 4 Review of Systems All systems reviewed & are unremarkable except as noted in HPI and below Exam Narrative Exam Narrative: GENERAL APPEARANCE: Frail, non-toxic, awake and alert, atraumatic, mild acute distress. SKIN: Warm, pink, dry, intact, without rashes/lesions/ulcerations. HEAD: Normocephalic, atraumatic, normal hair distribution for gender/age. EYES: Normal conjunctiva, no exudates on lids/lashes, EOMs intact without nystagmus ENT: Nares patent, no circumoral cyanosis, no facial swelling NECK: Supple, trachea midline, painless cervical ROM no midline vertebral tenderness/crepitus/step-offs, LUNGS/CHEST: Lungs CTA bilaterally-no rhonchi/rales/wheezes., non-labored respirations, normal A/P diameter, symmetrical expansion, no chest wall deformity HEART (CV/PV): Regular rate and rhythm without murmur, no peripheral edema, no JVD. ABDOMEN: Soft, non-distended, no guarding, no tenderness. MSK: Normal ROM, no swelling/deformity to bilateral UEs or LEs, moving all extremities without weakness, no cyanosis, spine midline without tenderness, normal curvature. NEURO: Mental Status AAOx4 - alert to person, place, time, events No facial droop, no forehead involvement. Motor: No focal weakness - strength 5/5 in bilateral UEs and LEs, proximal and distal, symmetric, baseline tremor Sensory: sensation intact to light touch globally. Gait unsteady at baseline but able to pass ambulatory trial with her baseline walker use with physical therapy PSYCH: euthymic, cooperative, pleasant, appropriate speech Course Vital Signs Vital signs: Vital Signs Temperature 36.6 C 04/22/25 10:09 Pulse 82 04/22/25 10:09 Respiratory Rate 18 04/22/25 10:09 Blood Pressure 146/62 H 04/22/25 10:09 Pulse Oximetry 100 04/22/25 10:09 Temperature 36.6 C 04/22/25 10:13 Pulse 82 04/22/25 10:13 Respiratory Rate 18 04/22/25 10:13 Respiratory Effort Normal 04/22/25 11:33 Respiratory Depth Normal 04/22/25 11:33 Respiratory Pattern Normal 04/22/25 11:33 Blood Pressure 146/62 H 04/22/25 10:13 Pulse Oximetry 100 04/22/25 10:13 Pain Level 0 04/22/25 10:13 Lab/Test Results Lab/Test Results: 04/22/25 11:15 Urine - Reflex from Ua Urine Culture - Pending Laboratory Tests Range/Units 04/22/25 04/22/25 10:45 11:15 WBC (4.4-10.8) 10^3/uL 6.68 RBC (3.93-5.22) 10^6/uL 3.20 L Hgb (11.2-15.7) g/dL 9.6 L Hct (36.0-46.0) % 29.4 L MCV (80-95) fL 92 MCH (27.0-33.0) pg 30.0 MCHC (32.0-36.0) % 32.7 RDW (11.7-14.6) % 13.4 Plt Count (130-400) 10^3/uL 315 MPV (8.0-11.0) fL 8.5 Immature Gran % % 1.2 Neutrophils % % 70.4 Lymphocytes % % 12.6 Monocytes % % 10.5 Eosinophils % % 4.0 Basophils % % 1.3 Nucleated RBC % (0.0-0.3) % 0.0 Absolute Neutrophils (1.2-6.7) 10^3/uL 4.70 Absolute Lymphocytes (1.2-3.4) 10^3/uL 0.84 L Absolute Monocytes (0.1-0.8) 10^3/uL 0.70 Absolute Eosinophils (0.0-0.7) 10^3/uL 0.27 Absolute Basophils (0.0-0.2) 10^3/uL 0.09 Sodium (136-145) mmol/L 133 L Potassium (3.5-5.1) mmol/L 6.6 H* Chloride (98-107) mmol/L 99 Carbon Dioxide (21.0-32.0) mmol/L 23.4 Anion Gap (3-11) mmol/L 10.6 BUN (7-18) mg/dL 85 H* Creatinine (0.55-1.02) mg/dL 5.3 H* Est GFR (CKD-EPI 2020) (mL/min/1.73m2) 7.70 Glucose (74-106) mg/dL 232 H Calcium (8.5-10.1) mg/dL 10.4 H Magnesium (1.8-2.4) mg/dL 2.9 H Total Bilirubin (0.2-1.0) mg/dL 0.2 AST (15-37) U/L 15 ALT (14-59) U/L 39 Alkaline Phosphatase (46-116) U/L 238 H Troponin I (<or=51) ng/L 10 Total Protein (6.4-8.2) g/dL 7.0 Albumin (3.4-5.0) g/dL 3.7 TSH (0.36-3.74) uIU/mL 5.62 H Free T4 (0.76-1.46) ng/dL 0.98 Urine Color (Yellow) Yellow Urine Clarity (Clear) Cloudy Urine pH (5-8) 6.0 Ur Specific [place] (1.005-1.025) 1.020 Urine Protein (Neg-Trace) mg/dL 100 H Urine Ketones (Negative) mg/dL Negative Urine Blood (Negative) Moderate H Urine Nitrite (Negative) Negative Urine Bilirubin (Negative) Negative Urine Urobilinogen (Up to 0.2) mg/dL 0.2 Ur Leukocyte Esterase (Negative) Large H Urine RBC Not Applicable Urine WBC (0-5) HPF >50 H Ur Epithelial Cells Not Applicable Urine Crystals Not Applicable Urine Bacteria Not Applicable Urine Mucus Not Applicable Ur Culture Indicated? Yes Urine Glucose (Negative) mg/dL Negative Medical Decision Making This dictation utilizes [id number] dictation software and may contain unedited grammatical errors. 79 year-old female presents to ED today by EMS with a chief complaint of increased shakiness, fall last night while using her walker without injury in the setting of chronic ALS and MS. Quality described as no pain- had very minor pain in her R knee last night but feels fine today, no radiation to headstrike, LOC, nausea, vomiting, fever, flank pain, hip pain, abdominal pain, cough, shortness of breath, chest pain- endorses frequent urination in the evenings with history of UTIs. Severity is described as mild for pain. Palliating factors include nothing specific. Provoking factors include nothing specific. Events leading up to the incident/Associated Symptoms: Patient has HomeHealth aides, has ramps at home, walkers, good resources. Patients' medical history: Left breast carcinoma, second-degree AV block, ALS,, status post left mastectomy, neurogenic bowel and bladder, pulmonary hypertension, bilateral leg edema, CKD stage IV, hypertension, t2DM. Family and social history: HomeHealth at home, eats normal diet, no ETOH/IVDU. Pertinent exam findings / vital signs include tremor at baseline, mentating normally, speaking full sentences answer questions appropriately, benign cardiopulmonary status, vital signs stable, no signs of injury to right knee, no vertebral midline tenderness/crepitus/step-offs, benign cardiopulmonary exam. Differential / pathologies of concern include ALS, chronic tremor, debility, MS, UTI, dehydration. Diagnostic studies of: -CBC, CMP, urinalysis, magnesium, VBG, ammonia, TSH, troponin, EKG. - CBC shows chronic stable anemia 9.6, no leukocytosis, 1.2% immature granulocytes - CMP shows significant derangements with mild hyponatremia of 133, significant hyperkalemia of 6.6, BUN of 85 and a creatinine of 5.3 (last value late 2022 2.5- likely acute) indicating acute renal failure but patient is still making urine - Magnesium elevated at 2.9 in setting of hemoconcentration - Troponin negative - Ammonia negative - Increased TSH to 5.60 with normal T4 - UA shows a UTI with greater than 50 WBCs, urine culture pending - EKG without peaked T waves, does have a mildly widened QRS Rpt. BMP after hyper-K+ treatment and fluids shows improvement of K+ to 5.6, and SCr to 4.8 with good urine output in damon Interventions of: -4.65 mEq of calcium gluconate, 1 albuterol nebulizer, 5 units regular insulin IV, 1 bolus of D 25, sodium zirconium cyclosilicate, 1 L D5 LR, 1 L IVF NS. -2 g IV ceftriaxone - With repeat BMP her SCr had rapidly improved, K+, improved- she had 500mL output with catheter on sample collection- damon placed and ahving 50mL output in under 30 minutes, reasonable to admit here and avoid dialysis ED Course/Assessment/Plan: 79-year-old female presents with increased shakiness and unsteadiness with a fall last night with minor pain to right knee that resolved by this morning, home health was concerned for increased shakiness and fall, she reports that she is having frequent urination at night, her urine appeared very milky and shows signs of severe infection. She was incidentally found to have severe hyperkalemia warranting treatment to shift her potassium, she also has acute renal failure in the setting of urinary tract infection. I discussed this with hospitalist Dr. Shah @ [phone] who accepted for admission, reasonable with that she can stay here and receive fluids as her kidneys are shown that are responding to fluid resuscitation and have adequate output without fluid overload. Patient is otherwise stable. Disposition of Hyperkalemia, Acute Renal Failure, Urinary Tract Infection. Patient verbalized understanding of the plan and return to ED criteria and engaged in shared decision making. Medical Records Medical records reviewed: Yes I reviewed the patient's medical records. Lab Data Lab results reviewed: Yes I reviewed the patient's lab results. Labs: 04/22/25 11:15 Urine - Reflex from Ua Urine Culture - Pending Laboratory Tests Range/Units 04/22/25 04/22/25 04/22/25 10:45 11:15 12:40 WBC (4.4-10.8) 10^3/uL 6.68 RBC (3.93-5.22) 10^6/uL 3.20 L Hgb (11.2-15.7) g/dL 9.6 L Hct (36.0-46.0) % 29.4 L MCV (80-95) fL 92 MCH (27.0-33.0) pg 30.0 MCHC (32.0-36.0) % 32.7 RDW (11.7-14.6) % 13.4 Plt Count (130-400) 10^3/uL 315 MPV (8.0-11.0) fL 8.5 Immature Gran % % 1.2 Neutrophils % % 70.4 Lymphocytes % % 12.6 Monocytes % % 10.5 Eosinophils % % 4.0 Basophils % % 1.3 Nucleated RBC % (0.0-0.3) % 0.0 Absolute Neutrophils (1.2-6.7) 10^3/uL 4.70 Absolute Lymphocytes (1.2-3.4) 10^3/uL 0.84 L Absolute Monocytes (0.1-0.8) 10^3/uL 0.70 Absolute Eosinophils (0.0-0.7) 10^3/uL 0.27 Absolute Basophils (0.0-0.2) 10^3/uL 0.09 VBG pH (7.31-7.41) 7.25 L VBG pCO2 (41-51) mmHg 44 VBG pO2 mmHg 31 VBG HCO3 (23-28) mmol/L 19 L VBG Total CO2 (24-29) mmol/L 19 L VBG O2 Saturation % 48 VBG Base Excess (-2-3) mmol/L -8 L Sodium (136-145) mmol/L 133 L Potassium (3.5-5.1) mmol/L 6.6 H* Chloride (98-107) mmol/L 99 Carbon Dioxide (21.0-32.0) mmol/L 23.4 Anion Gap (3-11) mmol/L 10.6 BUN (7-18) mg/dL 85 H* Creatinine (0.55-1.02) mg/dL 5.3 H* Est GFR (CKD-EPI 2020) (mL/min/1.73m2) 7.70 Glucose (74-106) mg/dL 232 H Calcium (8.5-10.1) mg/dL 10.4 H Magnesium (1.8-2.4) mg/dL 2.9 H Total Bilirubin (0.2-1.0) mg/dL 0.2 AST (15-37) U/L 15 ALT (14-59) U/L 39 Alkaline Phosphatase (46-116) U/L 238 H Ammonia (11-32) umol/L < 10 L Troponin I (<or=51) ng/L 10 Total Protein (6.4-8.2) g/dL 7.0 Albumin (3.4-5.0) g/dL 3.7 TSH (0.36-3.74) uIU/mL 5.62 H Free T4 (0.76-1.46) ng/dL 0.98 Urine Color (Yellow) Yellow Urine Clarity (Clear) Cloudy Urine pH (5-8) 6.0 Ur Specific [place] (1.005-1.025) 1.020 Urine Protein (Neg-Trace) mg/dL 100 H Urine Ketones (Negative) mg/dL Negative Urine Blood (Negative) Moderate H Urine Nitrite (Negative) Negative Urine Bilirubin (Negative) Negative Urine Urobilinogen (Up to 0.2) mg/dL 0.2 Ur Leukocyte Esterase (Negative) Large H Urine RBC Not Applicable Urine WBC (0-5) HPF >50 H Ur Epithelial Cells Not Applicable Urine Crystals Not Applicable Urine Bacteria Not Applicable Urine Mucus Not Applicable Ur Culture Indicated? Yes Urine Glucose (Negative) mg/dL Negative Range/Units 04/22/25 14:40 WBC (4.4-10.8) 10^3/uL RBC (3.93-5.22) 10^6/uL Hgb (11.2-15.7) g/dL Hct (36.0-46.0) % MCV (80-95) fL MCH (27.0-33.0) pg MCHC (32.0-36.0) % RDW (11.7-14.6) % Plt Count (130-400) 10^3/uL MPV (8.0-11.0) fL Immature Gran % % Neutrophils % % Lymphocytes % % Monocytes % % Eosinophils % % Basophils % % Nucleated RBC % (0.0-0.3) % Absolute Neutrophils (1.2-6.7) 10^3/uL Absolute Lymphocytes (1.2-3.4) 10^3/uL Absolute Monocytes (0.1-0.8) 10^3/uL Absolute Eosinophils (0.0-0.7) 10^3/uL Absolute Basophils (0.0-0.2) 10^3/uL VBG pH (7.31-7.41) VBG pCO2 (41-51) mmHg VBG pO2 mmHg VBG HCO3 (23-28) mmol/L VBG Total CO2 (24-29) mmol/L VBG O2 Saturation % VBG Base Excess (-2-3) mmol/L Sodium (136-145) mmol/L 137 Potassium (3.5-5.1) mmol/L 5.6 H D Chloride (98-107) mmol/L 103 Carbon Dioxide (21.0-32.0) mmol/L 23.1 Anion Gap (3-11) mmol/L 10.9 BUN (7-18) mg/dL 79 H Creatinine (0.55-1.02) mg/dL 4.8 H* Est GFR (CKD-EPI 2020) (mL/min/1.73m2) 8.67 Glucose (74-106) mg/dL 163 H Calcium (8.5-10.1) mg/dL 10.3 H Magnesium (1.8-2.4) mg/dL Total Bilirubin (0.2-1.0) mg/dL AST (15-37) U/L ALT (14-59) U/L Alkaline Phosphatase (46-116) U/L Ammonia (11-32) umol/L Troponin I (<or=51) ng/L Total Protein (6.4-8.2) g/dL Albumin (3.4-5.0) g/dL TSH (0.36-3.74) uIU/mL Free T4 (0.76-1.46) ng/dL Urine Color (Yellow) Urine Clarity (Clear) Urine pH (5-8) Ur Specific [place] (1.005-1.025) Urine Protein (Neg-Trace) mg/dL Urine Ketones (Negative) mg/dL Urine Blood (Negative) Urine Nitrite (Negative) Urine Bilirubin (Negative) Urine Urobilinogen (Up to 0.2) mg/dL Ur Leukocyte Esterase (Negative) Urine RBC Urine WBC (0-5) HPF Ur Epithelial Cells Urine Crystals Urine Bacteria Urine Mucus Ur Culture Indicated? 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) Bilateral leg edema (Acute) Arthritis (Acute) Eczema (Acute) Endometrial hyperplasia (Acute) Anemia due to stage 4 chronic kidney disease (Acute) 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) Hypercholesterolemia (Acute) Diabetic polyneuropathy (Acute) 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 Surgical History Hx of esophagogastroduodenoscopy S/P left knee arthroscopy S/P carpal tunnel release right H/O colonoscopy with polypectomy H/O colposcopy with cervical biopsy several H/O left mastectomy S/P bilateral cataract extraction S/P lumpectomy, left breast S/P breast biopsy, right S/P placement of cardiac pacemaker Family History Sister Familial ALS (amyotrophic lateral sclerosis) Diabetes Sister Familial ALS (amyotrophic lateral sclerosis) Brother Familial ALS (amyotrophic lateral sclerosis) Maternal Grandmother Familial ALS (amyotrophic lateral sclerosis) Heart disease Mother Familial ALS (amyotrophic lateral sclerosis) Son Familial ALS (amyotrophic lateral sclerosis) Diabetes Father Family history of early CAD Paternal Grandmother Diabetes Social History Smoking/Tobacco Use Status: Former Tobacco Use tobacco type: cigarettes Smoking risk assessment performed?: Yes Alcohol Intake: former Substance use type: does not use Do you feel safe at home: Yes Do you feel safe in your relationship?: Yes
[2025-04-22 12:49] LABS: BE (Venous) -8 mmol/L (-2-3); HCO3 (Venous) 19 mmol/L (23-28); O2 Sat (Venous) 48 %; TCO2 (Venous) 19 mmol/L (24-29); pCO2 (Venous) 44 mmHg (41-51); pO2 (Venous) 31 mmHg
[2025-04-22] MEDS: Sodium Zirconium Cyclosilicate 10 GM PKT PO (12:50)
[2025-04-22] MEDS: DEXTROSE 5%-LACTATED RINGERS 1,000 ML 150 ML IV (12:50)
[2025-04-22 13:03] LABS: Ammonia < 10 umol/L (11-32)
[2025-04-22] MEDS: Normal Saline 50 ML (13:29)
[2025-04-22] MEDS: Normal Saline 1,000 ML 1000 ML IV ×2 (13:31→16:39)
[2025-04-22 14:58] LABS: Anion Gap 10.9 mmol/L (3-11); BUN 79 mg/dL (7-18); CO2 23.1 mmol/L (21.0-32.0); Calcium 10.3 mg/dL (8.5-10.1); Chloride 103 mmol/L (98-107); Estimated GFR 8.67 (mL/min/1.73m2); Glucose 163 mg/dL (74-106); Potassium 5.6 mmol/L (3.5-5.1); Sodium 137 mmol/L (136-145)
--- NOTE | 2025-04-22 16:23 | W.PM.HP.N ---
Date of service: 04/23/25 Time of Service: 16:00 Assessment and Plan Assessment and plan (1) Acute renal failure: Status: Acute Assessment and plan: Reported CKD stage 4, last known GFR below 20 Cr 5.3 on arrival, improving to 4.3 after admission Very likely due to high temps in the 90's this week leading to dehydration in this patient with multiple comorbidities Continue fluid resuscitation (2) Hyperkalemia: Status: Acute Assessment and plan: K 6.6 on arrival, improving to 5.6 with hydration, slight increase to 5.7 after admission Lispro 5 given on the floor, blood sugar over 250 Continue monitoring improvement with hydration and insulin (3) Tremor due to metabolic disorder: Status: Acute Assessment and plan: Essential tremor at baseline, exacerbated by WILLOW likely secondary to dehydration Improved with hydration, continue IVF (4) Bacteriuria with pyuria: Status: Acute Assessment and plan: Patient reports dysuria No fever, no hematuria Will hold additional antibiotics pending cultures, as dehydration and diabetes can lead to dysuria (5) Insulin dependent type 2 diabetes mellitus: Status: Acute Assessment and plan: Last available A1C was 8.7 in February 2023, ordered repeat Home regimen basal insulin, TDD unknown Her blood glucose is over 250 on admission, giving 5u short-acting now SSI pending med rec, patient does not know what she takes (6) Steroid-induced hyperglycemia: Status: Chronic Assessment and plan: assisted use of prednisone, presumably for MS Continue home prednisone 5 daily (7) Hypothyroidism: Status: Chronic Assessment and plan: Continue home levothyroxine (8) CKD stage 4 due to type 2 diabetes mellitus: Status: Chronic Assessment and plan: Last known creatinine 2.5 in March 2023, GFR 19.2 at that time WILLOW is evident with improvement in creatinine from 5's to 4's with hydration (9) Chronic insomnia: Status: Acute Assessment and plan: Patient takes tylenol PM regularly at home Will give benadryl here (10) Familial ALS (amyotrophic lateral sclerosis): Assessment and plan: Per last notes here, patient does *not* have ALS but has an associated gene for which she was in a research group in [place]. Unclear if she developed ALS herself in the interim Awaiting info on her home medications (11) History of multiple sclerosis: Status: Acute Assessment and plan: She has been on teriflunomide which appears to have been recently refilled Continue if family is able to bring it in History of Present Illness History of Present Illness Chief Complaint: shaking Narrative: Betsy Alford is an 79 year old woman presenting April 22 with a few days of worsening chronic full body tremors that resulted in a fall while using her walker. She did not hit her head but she mildly injured her right knee. She is very frustrated that she feels so poorly and wants the shakes to stop. She does not think she has been ill and she does not recall missing any medications. She lives at home where she helps care for her chronically ill with the help of multiple family members. Much of her medical care is in [place]. No chest pain, no SOB, no abdominal pain, no N/V/D. PMH: MS on teriflunomide, ALS, DM on insulin, hypothyroid, HTN, insomnia, breast cancer, CKD IV In the ED she was found to be hyperkalemic 6.6, WILLOW with creatinine 5.3 and BUN 85, hyperglycemia 232, abnormal UA. EKG without effect of hyperkalemia, troponin negative. Urine output adequate. She was given calcium gluconate, nebs, insulin and fluids with improvement Cr 4.8 and K 5.6. She was given a dose of ceftriaxone. PFSH All Active Problems (Updated 04/23/25 @ 01:19 by Luis Shah MD) Chronic insomnia (Acute) Bacteriuria with pyuria (Acute) Dysuria (Acute) Insulin dependent type 2 diabetes mellitus (Acute) Tremor due to metabolic disorder (Acute) Urinary tract infection (Acute) Acute renal failure (Acute) Hyperkalemia (Acute) Stroke (Chronic) Weakness (Acute) Wound of right lower extremity (Acute) Neurogenic bowel (Acute) Neurogenic bladder (Acute) Multiple sclerosis exacerbation (Acute) Constipation (Acute) Urinary retention (Acute) Steroid-induced hyperglycemia (Chronic) Ambulatory dysfunction (Acute) Bilateral leg weakness (Acute) Osteoarthritis (Chronic) Pulmonary hypertension (Acute) Right carpal tunnel syndrome (Acute) 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) Bilateral leg edema (Acute) Arthritis (Acute) Eczema (Acute) Endometrial hyperplasia (Acute) Anemia due to stage 4 chronic kidney disease (Acute) 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) Hypercholesterolemia (Acute) Diabetic polyneuropathy (Acute) 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 Surgical History Hx of esophagogastroduodenoscopy S/P left knee arthroscopy S/P carpal tunnel release right H/O colonoscopy with polypectomy H/O colposcopy with cervical biopsy several H/O left mastectomy S/P bilateral cataract extraction S/P lumpectomy, left breast S/P breast biopsy, right S/P placement of cardiac pacemaker Family History Sister Familial ALS (amyotrophic lateral sclerosis) Diabetes Sister Familial ALS (amyotrophic lateral sclerosis) Brother Familial ALS (amyotrophic lateral sclerosis) Maternal Grandmother Familial ALS (amyotrophic lateral sclerosis) Heart disease Mother Familial ALS (amyotrophic lateral sclerosis) Son Familial ALS (amyotrophic lateral sclerosis) Diabetes Father Family history of early CAD Paternal Grandmother Diabetes Social History Smoking/Tobacco Use Status: Former Tobacco Use tobacco type: cigarettes Smoking risk assessment performed?: Yes Alcohol Intake: former Substance use type: does not use Housing: house Do you feel safe at home: Yes Do you feel safe in your relationship?: Yes Meds Allergies and Home Medications Allergies Allergy/AdvReac Type Severity Reaction Status Date / Time amlodipine Allergy Unknown Unverified 04/22/25 10:13 [id number] Reductase Allergy Unknown Unverified 04/22/25 10:13 Inhibitor Home Medications ?Medication ?Instructions ?Recorded ?Confirmed ?Type hydrochlorothiazide 25 mg tablet 25 mg PO DAILY 08/30/22 04/22/25 History insulin glargine 100 unit/mL (3 20 unit subcut DAILY AM 08/30/22 04/22/25 History mL) subcutaneous pen (Lantus Solostar U-100 Insulin) levothyroxine 150 mcg tablet 150 mcg PO DAILY 08/30/22 04/22/25 History losartan 100 mg tablet 100 mg PO DAILY 08/30/22 04/22/25 History multivitamin 1 tab PO DAILY 08/30/22 04/22/25 History omeprazole 20 mg capsule,delayed 20 mg PO QDAY 08/30/22 04/22/25 History release polyethylene glycol 3350 17 gram 17 g PO DAILY #30 ea 09/02/22 04/22/25 Rx oral powder packet insulin lispro 100 unit/mL 1 - 5 sliding scale dose subcut TID 02/03/23 04/22/25 History subcutaneous pen acetaminophen 325 mg tablet 650 mg PO QAM 03/03/23 04/22/25 History diphenhydramine 25 2 tab PO QHS 03/03/23 04/22/25 History mg-acetaminophen 500 mg tablet (Acetaminophen PM) teriflunomide 7 mg tablet (Aubagio) 7 mg PO DAILY 01/27/24 04/22/25 History Exam Narrative Exam Narrative: General: This is a pleasant, elderly woman, in mild distress due to tremors HEENT: Normocephalic, atraumatic CV: RRR Resp: CTAB Abd: soft, NTND, +NBS MSK: voluntary motion x4, nontender Neuro: awake, alert, CN II-XI intact. BUE/BLE strength intact, sensation intact, tremor is symmetric and constant Results Labs 04/22/25 10:45 04/22/25 18:40 Labs: Laboratory Results - last 24 hr 04/22/25 04/22/25 04/22/25 10:45 11:15 12:40 WBC 6.68 RBC 3.20 L Hgb 9.6 L Hct 29.4 L MCV 92 MCH 30.0 MCHC 32.7 RDW 13.4 Plt Count 315 MPV 8.5 Immature Gran % 1.2 Neutrophils % 70.4 Lymphocytes % 12.6 Monocytes % 10.5 Eosinophils % 4.0 Basophils % 1.3 Nucleated RBC % 0.0 Absolute Neutrophils 4.70 Absolute Lymphocytes 0.84 L Absolute Monocytes 0.70 Absolute Eosinophils 0.27 Absolute Basophils 0.09 VBG pH 7.25 L VBG pCO2 44 VBG pO2 31 VBG HCO3 19 L VBG Total CO2 19 L VBG O2 Saturation 48 VBG Base Excess -8 L Sodium 133 L Potassium 6.6 H* Chloride 99 Carbon Dioxide 23.4 Anion Gap 10.6 BUN 85 H* Creatinine 5.3 H* Est GFR (CKD-EPI 2020) 7.70 Glucose 232 H Calcium 10.4 H Magnesium 2.9 H Total Bilirubin 0.2 AST 15 ALT 39 Alkaline Phosphatase 238 H Ammonia < 10 L Troponin I 10 Total Protein 7.0 Albumin 3.7 TSH 5.62 H Free T4 0.98 Urine Color Yellow Urine Clarity Cloudy Urine pH 6.0 Ur Specific [place] 1.020 Urine Protein 100 H Urine Ketones Negative Urine Blood Moderate H Urine Nitrite Negative Urine Bilirubin Negative Urine Urobilinogen 0.2 Ur Leukocyte Esterase Large H Urine RBC Not Applicable Urine WBC >50 H Ur Epithelial Cells Not Applicable Urine Crystals Not Applicable Urine Bacteria Not Applicable Urine Mucus Not Applicable Ur Culture Indicated? Yes Urine Glucose Negative 04/22/25 14:40 WBC RBC Hgb Hct MCV MCH MCHC RDW Plt Count MPV Immature Gran % Neutrophils % Lymphocytes % Monocytes % Eosinophils % Basophils % Nucleated RBC % Absolute Neutrophils Absolute Lymphocytes Absolute Monocytes Absolute Eosinophils Absolute Basophils VBG pH VBG pCO2 VBG pO2 VBG HCO3 VBG Total CO2 VBG O2 Saturation VBG Base Excess Sodium 137 Potassium 5.6 H D Chloride 103 Carbon Dioxide 23.1 Anion Gap 10.9 BUN 79 H Creatinine 4.8 H* Est GFR (CKD-EPI 2020) 8.67 Glucose 163 H Calcium 10.3 H Magnesium Total Bilirubin AST ALT Alkaline Phosphatase Ammonia Troponin I Total Protein Albumin TSH Free T4 Urine Color Urine Clarity Urine pH Ur Specific [place] Urine Protein Urine Ketones Urine Blood Urine Nitrite Urine Bilirubin Urine Urobilinogen Ur Leukocyte Esterase Urine RBC Urine WBC Ur Epithelial Cells Urine Crystals Urine Bacteria Urine Mucus Ur Culture Indicated? Urine Glucose Last Vital Signs Temp 36.6 C 04/22/25 10:13 Pulse 82 04/22/25 15:50 Resp 17 04/22/25 15:50 BP 105/83 04/22/25 15:30 Pulse Ox 99 04/22/25 15:50 Time Spent Time spent with Patient: 40-54 minutes Time was spent: preparing to see the patient(eg.review tests), obtaining and/or reviewing separately otained hiistory, ordering medications,tests, procedures, referring, communicating with other health child care supervisor, indepentently interpreting results, counseling the patient and care coordination
--- NOTE | 2025-04-22 16:42 | W.PC.ACHO ---
Registration Status: REG ER Primary Language: Preferred Language: Bengali ED Information & Data Chief Complaint GenMedical 04/22/25 12:16 Triage Note arrived per ems for 04/22/25 10:09 worsening condition increased weakness and increased tremors. BS 250. fell last night, no inuries. axox4. normally able to walk but can't anymore. 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 ALS (amyotrophic lateral sclerosis) (Last Reviewed 01/27/24 @ 21:37 by Mora Peoples NP) Hx of esophagogastroduodenoscopy S/P left knee arthroscopy S/P carpal tunnel release H/O colonoscopy with polypectomy H/O colposcopy with cervical biopsy H/O left mastectomy S/P bilateral cataract extraction S/P lumpectomy, left breast S/P breast biopsy, right S/P placement of cardiac pacemaker Most Recent Vital Signs Temperature 36.6 C 04/22/25 10:13 Pulse 82 04/22/25 15:50 Pulse 77 04/22/25 15:50 Respiratory Rate 17 04/22/25 15:50 Respiratory Effort Normal 04/22/25 11:33 Respiratory Depth Normal 04/22/25 11:33 Respiratory Pattern Normal 04/22/25 11:33 Blood Pressure 105/83 04/22/25 15:30 Blood Pressure Mean 87 04/22/25 15:30 Pulse Oximetry 99 04/22/25 15:50 Pain Level 0 04/22/25 10:13 Allergies amlodipine Allergy (Unverified 04/22/25 10:13) Unknown [id number] Reductase Inhibitor Allergy (Unverified 04/22/25 10:13) Unknown Active Medications Generic Name Dose Route Start Last Admin Trade Name Freq PRN Reason Stop Dose Admin Sodium Chloride 1,000 mls @ 1,000 mls/hr 04/22/25 16:27 04/22/25 16:39 Saline 1000ml Bag IV 04/22/25 17:26 1,000 mls/hr BOLUS ONE Administration IV IV Catheter Gauge [Right 20 Antecubital] Diet Orders Category Date Time Status Regular/Normal [DIET] Nutrition 04/22/25 Dinner Active Diagnostics 04/22/25 04/22/25 04/22/25 Range/Units 18:00 14:40 12:40 WBC (4.4-10.8) 10^3/uL RBC (3.93-5.22) 10^6/uL Hgb (11.2-15.7) g/dL Hct (36.0-46.0) % MCV (80-95) fL MCH (27.0-33.0) pg MCHC (32.0-36.0) % RDW (11.7-14.6) % Plt Count (130-400) 10^3/uL MPV (8.0-11.0) fL Immature Gran % % Neutrophils % % Lymphocytes % % Monocytes % % Eosinophils % % Basophils % % Nucleated RBC % (0.0-0.3) % Absolute Neutrophils (1.2-6.7) 10^3/uL Absolute Lymphocytes (1.2-3.4) 10^3/uL Absolute Monocytes (0.1-0.8) 10^3/uL Absolute Eosinophils (0.0-0.7) 10^3/uL Absolute Basophils (0.0-0.2) 10^3/uL VBG pH 7.25 L (7.31-7.41) VBG pCO2 44 (41-51) mmHg VBG pO2 31 mmHg VBG HCO3 19 L (23-28) mmol/L VBG Total CO2 19 L (24-29) mmol/L VBG O2 Saturation 48 % VBG Base Excess -8 L (-2-3) mmol/L Sodium Pending 137 (136-145) mmol/L Potassium Pending 5.6 H D (3.5-5.1) mmol/L Chloride Pending 103 (98-107) mmol/L Carbon Dioxide Pending 23.1 (21.0-32.0) mmol/L Anion Gap Pending 10.9 (3-11) mmol/L BUN Pending 79 H (7-18) mg/dL Creatinine Pending 4.8 H* (0.55-1.02) mg/dL Est GFR (CKD-EPI 2020) Pending 8.67 (mL/min/1.73m2) Glucose Pending 163 H (74-106) mg/dL Calcium Pending 10.3 H (8.5-10.1) mg/dL Magnesium (1.8-2.4) mg/dL Total Bilirubin (0.2-1.0) mg/dL AST (15-37) U/L ALT (14-59) U/L Alkaline Phosphatase (46-116) U/L Ammonia < 10 L (11-32) umol/L Troponin I (<or=51) ng/L Total Protein (6.4-8.2) g/dL Albumin (3.4-5.0) g/dL TSH (0.36-3.74) uIU/mL Free T4 (0.76-1.46) ng/dL Urine Color (Yellow) Urine Clarity (Clear) Urine pH (5-8) Ur Specific [place] (1.005-1.025) Urine Protein (Neg-Trace) mg/dL Urine Ketones (Negative) mg/dL Urine Blood (Negative) Urine Nitrite (Negative) Urine Bilirubin (Negative) Urine Urobilinogen (Up to 0.2) mg/dL Ur Leukocyte Esterase (Negative) Urine RBC Urine WBC (0-5) HPF Ur Epithelial Cells Urine Crystals Urine Bacteria Urine Mucus Ur Culture Indicated? Urine Glucose (Negative) mg/dL 04/22/25 04/22/25 Range/Units 11:15 10:45 WBC 6.68 (4.4-10.8) 10^3/uL RBC 3.20 L (3.93-5.22) 10^6/uL Hgb 9.6 L (11.2-15.7) g/dL Hct 29.4 L (36.0-46.0) % MCV 92 (80-95) fL MCH 30.0 (27.0-33.0) pg MCHC 32.7 (32.0-36.0) % RDW 13.4 (11.7-14.6) % Plt Count 315 (130-400) 10^3/uL MPV 8.5 (8.0-11.0) fL Immature Gran % 1.2 % Neutrophils % 70.4 % Lymphocytes % 12.6 % Monocytes % 10.5 % Eosinophils % 4.0 % Basophils % 1.3 % Nucleated RBC % 0.0 (0.0-0.3) % Absolute Neutrophils 4.70 (1.2-6.7) 10^3/uL Absolute Lymphocytes 0.84 L (1.2-3.4) 10^3/uL Absolute Monocytes 0.70 (0.1-0.8) 10^3/uL Absolute Eosinophils 0.27 (0.0-0.7) 10^3/uL Absolute Basophils 0.09 (0.0-0.2) 10^3/uL VBG pH (7.31-7.41) VBG pCO2 (41-51) mmHg VBG pO2 mmHg VBG HCO3 (23-28) mmol/L VBG Total CO2 (24-29) mmol/L VBG O2 Saturation % VBG Base Excess (-2-3) mmol/L Sodium 133 L (136-145) mmol/L Potassium 6.6 H* (3.5-5.1) mmol/L Chloride 99 (98-107) mmol/L Carbon Dioxide 23.4 (21.0-32.0) mmol/L Anion Gap 10.6 (3-11) mmol/L BUN 85 H* (7-18) mg/dL Creatinine 5.3 H* (0.55-1.02) mg/dL Est GFR (CKD-EPI 2020) 7.70 (mL/min/1.73m2) Glucose 232 H (74-106) mg/dL Calcium 10.4 H (8.5-10.1) mg/dL Magnesium 2.9 H (1.8-2.4) mg/dL Total Bilirubin 0.2 (0.2-1.0) mg/dL AST 15 (15-37) U/L ALT 39 (14-59) U/L Alkaline Phosphatase 238 H (46-116) U/L Ammonia (11-32) umol/L Troponin I 10 (<or=51) ng/L Total Protein 7.0 (6.4-8.2) g/dL Albumin 3.7 (3.4-5.0) g/dL TSH 5.62 H (0.36-3.74) uIU/mL Free T4 0.98 (0.76-1.46) ng/dL Urine Color Yellow (Yellow) Urine Clarity Cloudy (Clear) Urine pH 6.0 (5-8) Ur Specific [place] 1.020 (1.005-1.025) Urine Protein 100 H (Neg-Trace) mg/dL Urine Ketones Negative (Negative) mg/dL Urine Blood Moderate H (Negative) Urine Nitrite Negative (Negative) Urine Bilirubin Negative (Negative) Urine Urobilinogen 0.2 (Up to 0.2) mg/dL Ur Leukocyte Esterase Large H (Negative) Urine RBC Not Applicable Urine WBC >50 H (0-5) HPF Ur Epithelial Cells Not Applicable Urine Crystals Not Applicable Urine Bacteria Not Applicable Urine Mucus Not Applicable Ur Culture Indicated? Yes Urine Glucose Negative (Negative) mg/dL 04/22/25 11:15 Urine Culture - Pending Urine - Reflex from Ua [id number] Documentation Fingerstick Glucose Start: 04/22/25 13:23 Freq: Status: Complete Protocol: Activity Type Activity Date Activity User E-sign Co-sign Detail Recorded Client Recorded Date Recorded By Document 04/22/25 14:18 BKG DAEMON(3) [id number] 04/22/25 14:19 BKG DAEMON(4) Intake and Output - 24 Hour Total 04/22/25 10:03 thru 04/22/25 15:14 Intake Total 1000 Output Total 700 Balance 300 Weight 73.6 kg Intake: IV 1000 Output: Urine 700 Urinary Catheter Urinary Catheter Date of 04/22/25 Insertion [Urethral (Landin)] Time of insertion [Urethral ( 15:59 Landin)] Falls Risk Assessment History of Falls No History 04/22/25 11:33 Contributing Factors No Factors 04/22/25 11:33 Ambulatory Aids Independent 04/22/25 11:33 Tubes/Lines None 04/22/25 11:33 Gait Evaluation No gait disturbance 04/22/25 11:33 Cognition No cognitive impairment 04/22/25 11:33 Fall Total Score 0 04/22/25 11:33 Level of Risk Standard/Low Risk 04/22/25 11:33 v v v v v v v v v Sending and/or Receiving Nurses: Please use comment section below to note any information pertinent to the patient hand-off not included above. Information / Comments: Report received from: pt c/o nausea and purulent uti increased tremors and weakness. K 6.6, Cr 4.8 VS WNL, has had some recent falls at home, receiving IV hydration PMH oh left mastectomy with lympedema left side. MARU Lees
[2025-04-22 18:59] LABS: Anion Gap 9.0 mmol/L (3-11); BUN 71 mg/dL (7-18); CO2 23.0 mmol/L (21.0-32.0); Calcium 9.4 mg/dL (8.5-10.1); Chloride 105 mmol/L (98-107); Estimated GFR 9.89 (mL/min/1.73m2); Glucose 272 mg/dL (74-106); Potassium 5.7 mmol/L (3.5-5.1); Sodium 137 mmol/L (136-145)
[2025-04-22] MEDS: Insulin Aspart 300 UNITS/3 ML PEN SC (21:12)
[2025-04-22] MEDS: diphenhydrAMINE 25 MG CAP PO (21:13)
[2025-04-22] MEDS: Normal Saline 1,000 ML 125 ML IV (21:14)
[2025-04-22] MEDS: Normal Saline Flush 10 ML SYR (21:20)
[2025-04-23 03:37] VITALS: BP 122/76; PULSE 78; RESP 16; TEMP 36.9; O2SAT 96
[2025-04-23] MEDS: Normal Saline 1,000 ML 125 ML IV ×2 (04:55→21:38)
[2025-04-23] MEDS: Levothyroxine 150 MCG TAB PO (05:09)
[2025-04-23] MEDS: Polyethylene Glycol 3350 17 GM PACKET PO (05:10)
[2025-04-23 07:10] LABS: HCT 27.3 % (36.0-46.0); HGB 8.7 g/dL (11.2-15.7); MCH 29.5 pg (27.0-33.0); MCHC 31.9 % (32.0-36.0); MCV 93 fL (80-95); MPV 8.8 fL (8.0-11.0); Platelet Count 285 10^3/uL (130-400); RBC 2.95 10^6/uL (3.93-5.22); RDW 13.5 % (11.7-14.6); RDW-SD 44.9 fL; WBC 6.48 10^3/uL (4.4-10.8)
[2025-04-23 07:16] VITALS: BP 139/65; PULSE 76; RESP 16; TEMP 36.5; O2SAT 99
[2025-04-23 07:29] LABS: Hemoglobin A1C 8.3 % (<5.7)
[2025-04-23 07:35] LABS: ALT 30 U/L (14-59); AST 15 U/L (15-37); Albumin 2.9 g/dL (3.4-5.0); Alkaline Phosphatase 185 U/L (46-116); Anion Gap 9.5 mmol/L (3-11); BUN 54 mg/dL (7-18); Bilirubin, Total 0.2 mg/dL (0.2-1.0); CO2 23.5 mmol/L (21.0-32.0); Calcium 9.1 mg/dL (8.5-10.1); Chloride 107 mmol/L (98-107); Estimated GFR 13.59 (mL/min/1.73m2); Glucose 153 mg/dL (74-106); Magnesium 2.2 mg/dL (1.8-2.4); Potassium 4.9 mmol/L (3.5-5.1); Sodium 140 mmol/L (136-145); Total Protein 5.8 g/dL (6.4-8.2)
[2025-04-23] MEDS: Omeprazole 20 MG CAPCR PO (07:35)
[2025-04-23] MEDS: Insulin Glargine 300 UNITS/3 ML PEN 15 UNITS SC (08:09)
[2025-04-23] MEDS: Losartan 50 MG TAB PO (08:09)
[2025-04-23] MEDS: Insulin Aspart 300 UNITS/3 ML PEN SC ×3 (08:10→17:46)
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
[2025-04-23 11:14] VITALS: BP 119/65; PULSE 75; RESP 16; TEMP 36.5; O2SAT 100
[2025-04-23] MEDS: Fosfomycin Tromethamine 3 GM PACKET PO (11:50)
--- NOTE | 2025-04-23 14:19 | W.PM.PROGNOT ---
Date of Service Date of service: 04/23/25 Time of Service: 14:19 Assessment and Plan Assessment and plan (1) Acute renal failure: Status: Acute Assessment and plan: Reported CKD stage 4, last known GFR below 20 Cr 5.3 on arrival, improving to 4.3 after admission Very likely due to high temps in the 90's this week leading to dehydration in this patient with multiple comorbidities Continue fluid resuscitation 04/23/25 GFR improved from 9.89 to 13.59 CW NS @ 125/hr. Recheck labs in am (2) Hyperkalemia: Status: Acute Assessment and plan: K 6.6 on arrival, improving to 5.6 with hydration, slight increase to 5.7 after admission Lispro 5 given on the floor, blood sugar over 250 Continue monitoring improvement with hydration and insulin 04/23/25 latest potassium at 4.9 indicating resolution (3) Tremor due to metabolic disorder: Status: Acute Assessment and plan: Essential tremor at baseline, exacerbated by WILLOW likely secondary to dehydration Improved with hydration, continue IVF (4) Bacteriuria with pyuria: Status: Acute Assessment and plan: Patient reports dysuria No fever, no hematuria Will hold additional antibiotics pending cultures, as dehydration and diabetes can lead to dysuria (5) Insulin dependent type 2 diabetes mellitus: Status: Acute Assessment and plan: Last available A1C was 8.7 in February 2023, ordered repeat Home regimen basal insulin, TDD unknown Her blood glucose is over 250 on admission, giving 5u short-acting now SSI pending med rec, patient does not know what she takes (6) Steroid-induced hyperglycemia: Status: Chronic Assessment and plan: terminal operations manager use of prednisone, presumably for MS Continue home prednisone 5 daily (7) Hypothyroidism: Status: Chronic Assessment and plan: Continue home levothyroxine (8) CKD stage 4 due to type 2 diabetes mellitus: Status: Chronic Assessment and plan: Last known creatinine 2.5 in March 2023, GFR 19.2 at that time WILLOW is evident with improvement in creatinine from 5's to 4's with hydration (9) Chronic insomnia: Status: Acute Assessment and plan: Patient takes tylenol PM regularly at home Will give benadryl here (10) Familial ALS (amyotrophic lateral sclerosis): Assessment and plan: Per last notes here, patient does *not* have ALS but has an associated gene for which she was in a research group in [place]. Unclear if she developed ALS herself in the interim Awaiting info on her home medications (11) History of multiple sclerosis: Status: Acute Assessment and plan: She has been on teriflunomide which appears to have been recently refilled Continue if family is able to bring it in Subjective Subjective Interval history since last seen: Pt seen and examined in her room. Decreased tremulousness Exam Narrative Exam Narrative: General: This is a pleasant, elderly woman, in mild distress due to tremors HEENT: Normocephalic, atraumatic CV: RRR Resp: CTAB Abd: soft, NTND, +NBS MSK: voluntary motion x4, nontender Neuro: awake, alert, CN II-XI intact. BUE/BLE strength intact, sensation intact, tremor is symmetric and constant Objective Last Vital Signs Temp 36.5 C 04/23/25 11:14 Pulse 75 04/23/25 11:14 Resp 16 04/23/25 11:14 BP 119/65 04/23/25 11:14 Pulse Ox 100 04/23/25 11:14 Laboratory Results - last 24 hr 04/22/25 04/22/25 04/23/25 14:40 18:40 06:00 WBC 6.48 RBC 2.95 L Hgb 8.7 L Hct 27.3 L MCV 93 MCH 29.5 MCHC 31.9 L RDW 13.5 Plt Count 285 MPV 8.8 Sodium 137 137 140 Potassium 5.6 H D 5.7 H 4.9 Chloride 103 105 107 Carbon Dioxide 23.1 23.0 23.5 Anion Gap 10.9 9.0 9.5 BUN 79 H 71 H 54 H Creatinine 4.8 H* 4.3 H* 3.3 H Est GFR (CKD-EPI 2020) 8.67 9.89 13.59 Glucose 163 H 272 H 153 H Hemoglobin A1c 8.3 H Calcium 10.3 H 9.4 9.1 Magnesium 2.2 Total Bilirubin 0.2 AST 15 ALT 30 Alkaline Phosphatase 185 H Total Protein 5.8 L Albumin 2.9 L Time Spent with Patient Time Spent with Patient: 25-34 minutes Time was spent: preparing to see the patient(eg.review tests), obtaining and/or reviewing separately otained hiistory, ordering medications,tests, procedures, referring, communicating with other health urgent care physician, indepentently interpreting results, counseling the patient and care coordination
[2025-04-23 15:10] VITALS: BP 128/54; PULSE 78; RESP 16; TEMP 36.4; O2SAT 98
--- NOTE | 2025-04-23 15:45 | PGE_ITS ---
Date of Service Date of service: 04/23/25 Time of Service: 13:00 Assessment and Plan Assessment and plan (1) Acute renal failure: Status: Acute Assessment and plan: Reported CKD stage 4, last known GFR below 20 Cr 5.3 on arrival, improving to 4.3 after admission Very likely due to high temps in the 90's this week leading to dehydration in this patient with multiple comorbidities Continue fluid resuscitation 04/23/25 GFR improved from 9.89 to 13.59 CW NS @ 125/hr. Recheck labs in am 04/24/25 GFR now at 22 which is close/at baseline. Will stop IVF and recheck labs in am. Plan is for dc in am (2) Hyperkalemia: Status: Acute Assessment and plan: K 6.6 on arrival, improving to 5.6 with hydration, slight increase to 5.7 after admission Lispro 5 given on the floor, blood sugar over 250 Continue monitoring improvement with hydration and insulin 04/23/25 latest potassium at 4.9 indicating resolution 04/24/25 Potassium today is 5.3. Will stop ARB and change to lasix to see if this will help with her elevated potassium. Pt does have underlying renal dysfunction most likely 2/2 DM. Will be a difficult balance between electrolytes/renal fx/fluid status. (3) Tremor due to metabolic disorder: Status: Acute Assessment and plan: Essential tremor at baseline, exacerbated by WILLOW likely secondary to dehydration Improved with hydration, continue IVF (4) Bacteriuria with pyuria: Status: Acute Assessment and plan: Patient reports dysuria No fever, no hematuria Will hold additional antibiotics pending cultures, as dehydration and diabetes can lead to dysuria 04/24/25 Pt did get Fosfomycin which should have appropriate sensitivity. Culture results below Urine Culture Final 04/24/25-0759 Day 1 Result ISOLATES BELOW ISOLATE 1 COLONY COUNT >100,000 COLONIES/ML ISOLATE 1 APPEARANCE Gram Positive Tamar ISOLATE 1 ACTION ID AND SUSCEPTIBILITY TO FOLLOW Day 2 Result ISOLATES BELOW ISOLATE 1 COLONY COUNT >100,000 COLONIES/ML ISOLATE 1 APPEARANCE Gram Positive Tamar Organism 1 Enterococcus faecalis COLONY COUNT >100,000 COLONIES/ML Ente faeca Result Ampicillin S Ciprofloxacin S Daptomycin S Vancomycin S (5) Insulin dependent type 2 diabetes mellitus: Status: Acute Assessment and plan: Last available A1C was 8.7 in February 2023, ordered repeat Home regimen basal insulin, TDD unknown Her blood glucose is over 250 on admission, giving 5u short-acting now SSI pending med rec, patient does not know what she takes 04/24/15 Will need optimization in the outpatient setting. A1c is 8.3 (6) Steroid-induced hyperglycemia: Status: Chronic Assessment and plan: continuous churn buttermaker use of prednisone, presumably for MS Continue home prednisone 5 daily (7) Hypothyroidism: Status: Chronic Assessment and plan: Continue home levothyroxine (8) CKD stage 4 due to type 2 diabetes mellitus: Status: Chronic Assessment and plan: Last known creatinine 2.5 in March 2023, GFR 19.2 at that time WILLOW is evident with improvement in creatinine from 5's to 4's with hydration (9) Chronic insomnia: Status: Acute Assessment and plan: Patient takes tylenol PM regularly at home Will give benadryl here (10) Familial ALS (amyotrophic lateral sclerosis): Assessment and plan: Per last notes here, patient does *not* have ALS but has an associated gene for which she was in a research group in [place]. Unclear if she developed ALS herself in the interim Awaiting info on her home medications (11) History of multiple sclerosis: Status: Acute Assessment and plan: She has been on teriflunomide which appears to have been recently refilled Continue if family is able to bring it in Exam Narrative Exam Narrative: General: This is a pleasant, elderly woman, HEENT: Normocephalic, atraumatic CV: RRR Resp: CTAB Abd: soft, NTND, +NBS MSK: voluntary motion x4, nontender Neuro: awake, alert, CN II-XI intact. BUE/BLE strength intact, sensation intact, tremor is symmetric and constant Objective Last Vital Signs Temp 36.4 C L 04/23/25 15:10 Pulse 78 04/23/25 15:10 Resp 16 04/23/25 15:10 BP 128/54 L 04/23/25 15:10 Pulse Ox 98 04/23/25 15:10 Laboratory Results - last 24 hr 04/22/25 04/23/25 18:40 06:00 WBC 6.48 RBC 2.95 L Hgb 8.7 L Hct 27.3 L MCV 93 MCH 29.5 MCHC 31.9 L RDW 13.5 Plt Count 285 MPV 8.8 Sodium 137 140 Potassium 5.7 H 4.9 Chloride 105 107 Carbon Dioxide 23.0 23.5 Anion Gap 9.0 9.5 BUN 71 H 54 H Creatinine 4.3 H* 3.3 H Est GFR (CKD-EPI 2020) 9.89 13.59 Glucose 272 H 153 H Hemoglobin A1c 8.3 H Calcium 9.4 9.1 Magnesium 2.2 Total Bilirubin 0.2 AST 15 ALT 30 Alkaline Phosphatase 185 H Total Protein 5.8 L Albumin 2.9 L Time Spent with Patient Time Spent with Patient: <25 minutes Time was spent: preparing to see the patient(eg.review tests), obtaining and/or reviewing separately otained hiistory, ordering medications,tests, procedures, referring, communicating with other health account executive healthcare, indepentently interpreting results, counseling the patient and care coordination
[2025-04-23 19:41] VITALS: BP 148/58; PULSE 76; RESP 18; TEMP 36.6; O2SAT 97
[2025-04-23] MEDS: Acetaminophen 325 MG TAB 650 MG PO (20:22)
[2025-04-23 22:41] VITALS: BP 134/60; PULSE 70; RESP 16; TEMP 36.6; O2SAT 97
[2025-04-24] MEDS: Levothyroxine 150 MCG TAB PO (05:28)
[2025-04-24] MEDS: Normal Saline 1,000 ML 125 ML IV (05:29)
[2025-04-24 05:31] VITALS: BP 147/74; PULSE 70; RESP 15; TEMP 36.8; O2SAT 97
[2025-04-24 06:30] LABS: Abs Immature Grans 0.05 10^3/uL (0.0-0.06); HCT 28.3 % (36.0-46.0); HGB 9.0 g/dL (11.2-15.7); Immature Grans % 0.8 %; MCH 29.4 pg (27.0-33.0); MCHC 31.8 % (32.0-36.0); MCV 93 fL (80-95); MPV 8.7 fL (8.0-11.0); Platelet Count 286 10^3/uL (130-400); RBC 3.06 10^6/uL (3.93-5.22); RDW 13.4 % (11.7-14.6); RDW-SD 45.1 fL; WBC 6.40 10^3/uL (4.4-10.8)
[2025-04-24 06:44] LABS: Magnesium 1.8 mg/dL (1.8-2.4)
[2025-04-24 06:50] LABS: ALT 25 U/L (14-59); AST 15 U/L (15-37); Albumin 2.8 g/dL (3.4-5.0); Alkaline Phosphatase 177 U/L (46-116); Anion Gap 9.8 mmol/L (3-11); BUN 43 mg/dL (7-18); Bilirubin, Total 0.2 mg/dL (0.2-1.0); CO2 22.2 mmol/L (21.0-32.0); Calcium 8.7 mg/dL (8.5-10.1); Chloride 110 mmol/L (98-107); Estimated GFR 22.11 (mL/min/1.73m2); Glucose 131 mg/dL (74-106); Potassium 5.3 mmol/L (3.5-5.1); Sodium 142 mmol/L (136-145); Total Protein 5.8 g/dL (6.4-8.2)
[2025-04-24] MEDS: Omeprazole 20 MG CAPCR PO (07:21)
[2025-04-24] MEDS: Insulin Glargine 300 UNITS/3 ML PEN 15 UNITS SC (07:45)
--- NOTE | 2025-04-24 08:41 | PGE_ITS ---
Date of Service Date of service: 04/24/25 Time of Service: 08:42 Assessment and Plan Assessment and plan (1) Acute renal failure: Status: Acute Assessment and plan: Reported CKD stage 4, last known GFR below 20 Cr 5.3 on arrival, improving to 4.3 after admission Very likely due to high temps in the 90's this week leading to dehydration in this patient with multiple comorbidities Continue fluid resuscitation 04/23/25 GFR improved from 9.89 to 13.59 CW NS @ 125/hr. Recheck labs in am 04/24/25 GFR now at 22 which is close/at baseline. Will stop IVF and recheck labs in am. Plan is for dc in am (2) Hyperkalemia: Status: Acute Assessment and plan: K 6.6 on arrival, improving to 5.6 with hydration, slight increase to 5.7 after admission Lispro 5 given on the floor, blood sugar over 250 Continue monitoring improvement with hydration and insulin 04/23/25 latest potassium at 4.9 indicating resolution 04/24/25 Potassium today is 5.3. Will stop ARB and change to lasix to see if this will help with her elevated potassium. Pt does have underlying renal dysfunction most likely 2/2 DM. Will be a difficult balance between electrolytes/renal fx/fluid status. (3) Tremor due to metabolic disorder: Status: Acute Assessment and plan: Essential tremor at baseline, exacerbated by WILLOW likely secondary to dehydration Improved with hydration, continue IVF (4) Bacteriuria with pyuria: Status: Acute Assessment and plan: Patient reports dysuria No fever, no hematuria Will hold additional antibiotics pending cultures, as dehydration and diabetes can lead to dysuria 04/24/25 Pt did get Fosfomycin which should have appropriate sensitivity. Culture results below Urine Culture Final 04/24/25-0759 Day 1 Result ISOLATES BELOW ISOLATE 1 COLONY COUNT >100,000 COLONIES/ML ISOLATE 1 APPEARANCE Gram Positive Tamar ISOLATE 1 ACTION ID AND SUSCEPTIBILITY TO FOLLOW Day 2 Result ISOLATES BELOW ISOLATE 1 COLONY COUNT >100,000 COLONIES/ML ISOLATE 1 APPEARANCE Gram Positive Tamar Organism 1 Enterococcus faecalis COLONY COUNT >100,000 COLONIES/ML Ente faeca Result Ampicillin S Ciprofloxacin S Daptomycin S Vancomycin S (5) Insulin dependent type 2 diabetes mellitus: Status: Acute Assessment and plan: Last available A1C was 8.7 in February 2023, ordered repeat Home regimen basal insulin, TDD unknown Her blood glucose is over 250 on admission, giving 5u short-acting now SSI pending med rec, patient does not know what she takes 04/24/15 Will need optimization in the outpatient setting. A1c is 8.3 (6) Steroid-induced hyperglycemia: Status: Chronic Assessment and plan: buttermaker helper use of prednisone, presumably for MS Continue home prednisone 5 daily (7) Hypothyroidism: Status: Chronic Assessment and plan: Continue home levothyroxine (8) CKD stage 4 due to type 2 diabetes mellitus: Status: Chronic Assessment and plan: Last known creatinine 2.5 in March 2023, GFR 19.2 at that time WILLOW is evident with improvement in creatinine from 5's to 4's with hydration (9) Chronic insomnia: Status: Acute Assessment and plan: Patient takes tylenol PM regularly at home Will give benadryl here (10) Familial ALS (amyotrophic lateral sclerosis): Assessment and plan: Per last notes here, patient does *not* have ALS but has an associated gene for which she was in a research group in [place]. Unclear if she developed ALS herself in the interim Awaiting info on her home medications (11) History of multiple sclerosis: Status: Acute Assessment and plan: She has been on teriflunomide which appears to have been recently refilled Continue if family is able to bring it in Subjective Subjective Interval history since last seen: Pt seen and examined in her room this am. Pt states that she wants to stay another day as she still feels weak Exam Narrative Exam Narrative: General: This is a pleasant, elderly woman, HEENT: Normocephalic, atraumatic CV: RRR Resp: CTAB Abd: soft, NTND, +NBS MSK: voluntary motion x4, nontender Neuro: awake, alert, CN II-XI intact. BUE/BLE strength intact, sensation intact, tremor is symmetric and constant Objective Last Vital Signs Temp 36.8 C 04/24/25 05:31 Pulse 70 04/24/25 05:31 Resp 15 04/24/25 05:31 BP 147/74 H 04/24/25 05:31 Pulse Ox 97 04/24/25 05:31 Laboratory Results - last 24 hr 04/24/25 05:47 WBC 6.40 RBC 3.06 L Hgb 9.0 L Hct 28.3 L MCV 93 MCH 29.4 MCHC 31.8 L RDW 13.4 Plt Count 286 MPV 8.7 Immature Gran % 0.8 Neutrophils % 63.4 Lymphocytes % 15.0 Monocytes % 10.9 Eosinophils % 8.3 Basophils % 1.6 Nucleated RBC % 0.0 Absolute Neutrophils 4.06 Absolute Lymphocytes 0.96 L Absolute Monocytes 0.70 Absolute Eosinophils 0.53 Absolute Basophils 0.10 Sodium 142 Potassium 5.3 H Chloride 110 H Carbon Dioxide 22.2 Anion Gap 9.8 BUN 43 H Creatinine 2.2 H D Est GFR (CKD-EPI 2020) 22.11 Glucose 131 H Calcium 8.7 Magnesium 1.8 Total Bilirubin 0.2 AST 15 ALT 25 Alkaline Phosphatase 177 H Total Protein 5.8 L Albumin 2.8 L Time Spent with Patient Time Spent with Patient: 35-49 minutes Time was spent: preparing to see the patient(eg.review tests), obtaining and/or reviewing separately otained hiistory, ordering medications,tests, procedures, referring, communicating with other health hospice care transitions coordinator, indepentently interpreting results, counseling the patient and care coordination
[2025-04-24] MEDS: Furosemide 20 MG TAB PO ×2 (09:20→15:37)
[2025-04-24] MEDS: Sodium Zirconium Cyclosilicate 10 GM PKT PO (09:20)
--- NOTE | 2025-04-24 10:20 | PT.INPN ---
PT Notes Visit Reasons: WILLOW Inpatient Physical Therapy Progress Note Date: 04/24/2025 Betsy is an 79-year-old female with ALS, MS who presented to the emergency department on 04/22/2025 with increased tremors. Patient was diagnosed with acute kidney injury treated with IV fluids. Patient was to be discharged to home initially with resumption of home services however patient later in day was admitted to the medical surgical unit for further medical management and treatment of IV fluids. Patient now reassessed goals and plan of care established. Home situation:She lives in [place] with her who also doesn't move well. However, they have a very big support system at home as her sons live very close to her and see her daily. She also has many friends and family that stop in daily. She normally uses a rollator. She has a stair chair. She has a ramp. They have wheelchairs at home if needed. PRECAUTIONS: Landin catheter, standard, fall SUBJECTIVE: Patient reports she is feeling much better today and would like to take a walk. OBJECTIVE PAIN: Denies BED MOBILITY/TRANSFERS Rolling L/R: Supervision Supine-sit: Supervision Sit-supine: Supervision Sit-stand: Standby assist Stand-sit: Standby assist Bed-Chair: Standby assist with cues to lock brakes on four-wheel walker Chair-bed: Standby assist with cues to lock brakes on four-wheel walker GAIT Assistive Device: Four-wheel walker Weight bearing: Full Assist: Standby assist Distance: 150 feet Deviation: Decreased left knee flexion during swing phase VITALS: Monitored by nursing throughout Balance: Static Sitting: Normal Dynamic Sitting: good Static Standing: Good Dynamic Standing: fair able to take min challenges outside of base of support without upper extremity support Special Tests: Mobility Limitations Standardized Measure [facility] AM-PAC 6 clicks Basic Mobility Inpatient Short Form: Raw Score: 21 CMS Score: 28.97 % deficit STAIRS: N/A as patient has stair lift and ramp to enter home ASSESSMENT: Patient is a 79year old female referred to physical therapy services with diagnosis of WILLOW. Patient presents with clinical signs and symptoms consistent with admitting diagnosis as demonstrated by the following impairment level findings 1. Impaired motor coordination/control and strength BUE BLE major muscle groups 2. Impaired functional activity tolerance 3. Impaired balance reactions 4. Pain right knee Impairments are contributing to the following functional limitations: 1. AMPAC score 2. Decline in transfer skills 3. Decline in ambulation 4. Increased time to complete ADL/mobility tasks Patient is assessed as a: [X] Low 91011 [] Moderate 25054 [] High 68383 complexity based on the following: o History: 79-year-old female presenting with multiple comorbidities and past medical history as outlined above o Examination: As stated above o Presentation: Stable/evolving o Decision Making: Low GOALS Goals x1 week 1. Independent bed mobility 2. Modified independent transfers with 4 wheeled walker 3. Modified independent ambulation with four-wheel walker less than 50 feet 4. SBA ambulation with four-wheel walker distances greater than 50 feet for community access PLAN OF CARE/TREATMENT PLAN: 1-2x/day, 7 days/ week x 1 week Plan of care has been reviewed with the SYNTHETIC PLASTERER providing the service under Physical therapy direction. Initiate physical therapy intervention for strengthening, bed mobility, transfers, gait, stairs, balance training, use of assistive device. DISCHARGE RECOMMENDATIONS: Home with resumption of HHPT TREATMENT CODE/TIME: 53738/ [id number]
[2025-04-24 11:32] VITALS: BP 116/73; PULSE 74; RESP 17; TEMP 36.7; O2SAT 100
[2025-04-24] MEDS: Insulin Aspart 300 UNITS/3 ML PEN SC (11:56)
--- NOTE | 2025-04-24 14:51 | PT.INTREAT ---
PT Notes Visit Reasons: WILLOW Inpatient Physical Therapy Treatment Note [facility] Date: 04/24/2025 PRECAUTIONS: Fall risk, standard SUBJECTIVE:Patient states right knee pain started prior to her last fall on the night prior to admission she landed on her knee on cement floor. OBJECTIVE: Patient presented seated in chair Landin removed prior to session? PAIN: Right knee 4 VITALS: ?Monitored by nursing Therapeutic Activities (79684b[]): Direct one-on-one instruction in dynamic activities to improve functional performance. ? BED MOBILITY/TRANSFERS? Rolling L/R: Independent Supine-sit: Independent ? Sit-supine: Independent? Sit-stand: SBA ? Stand-sit: SBA? Bed-Chair: SBA with 4 wheeled walker ? Chair-bed: SBA with four-wheel walker Provided skilled cues and instruction on performance and technique throughout. [x] Patient education regarding pacing and breathing techniques to maximize activity tolerance? Ambulation:? Assistive Device: 4 wheeled walker? Weight bearing: Full Assist: SBA/CGA? Distance: 200 feet ? Deviation: Last 40 feet patient noted with antalgic gait right LE. Patient declined to sit but noted pain in right knee with weightbearing. Patient continued with slight ataxic pattern left lower extremity? ASSESSMENT: Patient developed right knee pain during ambulation. Upon assessment patient able to perform full range of motion active open chain without reports of pain. Patient with no visible tremors throughout session. PLAN: [] Continue per plan of care TREATMENT CODE/TIME: 11982/1315?1332 DISCHARGE RECOMMENDATION: Home with resumption of HH PT
[2025-04-24 15:23] VITALS: BP 132/84; PULSE 75; RESP 16; TEMP 36.7; O2SAT 99
[2025-04-24 19:45] VITALS: BP 149/66; PULSE 74; RESP 16; TEMP 36.5; O2SAT 99
[2025-04-24] MEDS: Acetaminophen 325 MG TAB 650 MG PO (20:09)
--- NOTE | 2025-04-24 22:37 | NUR.NOTE ---
there is order for NS fluid at 125ml/h, was told from day shift RN Mal that she had a verbal order to DC the fluid, and she said she will DC the order before shift change. Nursing Note:
[2025-04-25] MEDS: Levothyroxine 150 MCG TAB PO (06:01)
[2025-04-25] MEDS: Omeprazole 20 MG CAPCR PO (06:01)
[2025-04-25 06:10] LABS: Abs Immature Grans 0.07 10^3/uL (0.0-0.06); HCT 31.5 % (36.0-46.0); HGB 10.3 g/dL (11.2-15.7); Immature Grans % 0.9 %; MCH 30.3 pg (27.0-33.0); MCHC 32.7 % (32.0-36.0); MCV 93 fL (80-95); MPV 8.3 fL (8.0-11.0); Platelet Count 293 10^3/uL (130-400); RBC 3.40 10^6/uL (3.93-5.22); RDW 13.4 % (11.7-14.6); RDW-SD 44.7 fL; WBC 8.20 10^3/uL (4.4-10.8)
[2025-04-25 06:32] LABS: Magnesium 1.7 mg/dL (1.8-2.4)
[2025-04-25 06:38] LABS: ALT 29 U/L (14-59); AST 17 U/L (15-37); Albumin 3.3 g/dL (3.4-5.0); Alkaline Phosphatase 194 U/L (46-116); Anion Gap 10.1 mmol/L (3-11); BUN 36 mg/dL (7-18); Bilirubin, Total 0.3 mg/dL (0.2-1.0); CO2 24.9 mmol/L (21.0-32.0); Calcium 10.0 mg/dL (8.5-10.1); Chloride 104 mmol/L (98-107); Estimated GFR 20.96 (mL/min/1.73m2); Glucose 191 mg/dL (74-106); Potassium 4.6 mmol/L (3.5-5.1); Sodium 139 mmol/L (136-145); Total Protein 6.7 g/dL (6.4-8.2)
[2025-04-25 07:25] VITALS: BP 148/72; PULSE 78; RESP 16; TEMP 36.7; O2SAT 99
[2025-04-25] MEDS: Insulin Glargine 300 UNITS/3 ML PEN 15 UNITS SC (07:44)
[2025-04-25] MEDS: Insulin Aspart 300 UNITS/3 ML PEN SC (07:45)
[2025-04-25] MEDS: Furosemide 20 MG TAB PO (07:46)
[2025-04-25] MEDS: Normal Saline Flush 10 ML SYR (07:50)
[2025-04-25] MEDS: Polyethylene Glycol 3350 17 GM PACKET PO (07:55)
[2025-04-25] MEDS: Heparin 5,000 UNITS/ML VIAL 5000 UNITS SC (07:56)
--- NOTE | 2025-04-25 08:32 | DSE_ITS ---
Date of service: 04/25/25 Time of Service: 08:33 DS: Diagnosis Discharge Diagnosis (1) Acute renal failure: Status: Acute (2) Hyperkalemia: Status: Acute (3) Tremor due to metabolic disorder: Status: Acute (4) Bacteriuria with pyuria: Status: Acute (5) Insulin dependent type 2 diabetes mellitus: Status: Acute (6) Steroid-induced hyperglycemia: Status: Chronic (7) Hypothyroidism: Status: Chronic (8) CKD stage 4 due to type 2 diabetes mellitus: Status: Chronic (9) Chronic insomnia: Status: Acute (10) Familial ALS (amyotrophic lateral sclerosis): (11) History of multiple sclerosis: Status: Acute Discharge Plan Disposition Condition: Improving Condition: Improving Discharge Details Reason For Visit: WILLOW Admit Date/Time: 04/22/25 16:09 Admit Provider: Luis Shah Attending Provider: Luis Shah Primary Care Provider: Ping Vázquez Hospital Course Hospital Course: This is an 79-year-old female who was admitted to the hospital on 04/22/2025 for acute on chronic kidney disease as well as dizziness. On admission she was noted to have significant hyperkalemia as well as look like a UTI. Patient was treated with Lokelma as well as IV fluids and improved in regards to her electrolyte abnormalities. Patient's urine culture did show Enterococcus facialis with sensitivity to Cipro. Patient was treated with fosfomycin. On the the patient's potassium was 4.6 and she had improved in regards to her renal function. In reviewing her labs patient was noted to have mild anemia to be worked up in the outpatient setting. Patient's A1c was noted to be 8.3 will need optimization in the outpatient setting. Patient was also noted to have hematuria and I recommend a repeat urinalysis in 4 to 6 weeks to ensure resol ution. Patient will be discharged with resumption of home health care. Of note, I did stop the patient's valsartan and switch to Lasix. The reason for this was her hypokalemia. Would recommend follow-up labs and then resumption of [facility]B at that discretion of her PCP. Recommendations for Follow Up Recommended tests to be ordered by follow up provider: anemia work up repeat urinalysis in 4-6 weeks to ensure resolution of hematuria Home Meds and New Rx's Prescriptions: Continued multivitamin Tablet 1 tab PO DAILY omeprazole 20 mg Capsule,Delayed Release(Dr/Ec) 20 mg PO DAILY insulin glargine [Lantus Solostar U-100 Insulin] 100 unit/mL (3 mL) Insulin Pen 20 unit SUBCUT DAILY AM amantadine HCl 100 mg capsule 100 mg PO DAILY Patient Comments: TAKE ONE CAPSULE BY MOUTH EVERY DAY furosemide 20 mg tablet 20 mg PO DAILY Patient Comments: TAKE ONE TABLET BY MOUTH EVERY DAY clindamycin HCl 300 mg capsule 300 mg PO ONCE PRN Patient Comments: TAKE 2 CAPSULES BY MOUTH 30 TO 60 MINUTES PRIOR TO DENTAL APPOINTMENT levothyroxine 100 mcg tablet 100 mcg PO DAILY Patient Comments: TAKE ONE TABLET BY MOUTH EVERY DAY insulin asp prt-insulin aspart [Novolog Mix 70-30FlexPen U-100] 100 unit/mL (70-30) insulin pen SUBCUT Patient Comments: INJECT 20 UNITS UNDER THE SKIN WITH BREAKFAST AND INJECT 10 UNITS UNDER THE SKIN WITH DINNER aspirin 81 mg tablet,chewable 81 mg PO DAILY coenzyme Q10 [CoQ-10] 100 mg capsule 200 mg PO DAILY ferrous sulfate [iron] 325 mg (65 mg iron) tablet 325 mg PO QDAY phenazopyridine [Azo Urinary Pain Relief] 95 mg tablet 95 mg PO DAILY PRN acetaminophen 500 mg capsule 500 mg PO HS PRN (DME) FreeStyle Delfino 3 Plus Sensor Device MISCELLANEOUS Patient Comments: USE 1 SENSOR EVERY 15 DAYS (DME) FreeStyle Delfino 3 Baltic Misc MISCELLANEOUS Patient Comments: USE DIRECTED DAILY (DME) pen needle, diabetic [Meg 2nd Gen Pen Needle] 32 gauge x 5/32 needle MISCELLANEOUS Patient Comments: INJECT 1 NEEDLE SUBCUTANEOUSLY TWO TIMES A DAY Discontinued valsartan 80 mg tablet 80 mg PO DAILY Patient Comments: TAKE ONE TABLET BY MOUTH EVERY DAY Discharge Instructions Stand Alone Forms: Nursing Discharge Form Referrals: Ping Vázquez MD [Primary Care Provider, Medicine] Referral Note: follow up in 5-7 days Activity:: Activity as Tolerated Equipment/Supplies:: No Equipment Needed Diet:: As Tolerated DS: Summary Time Spent with Patient providing and/or coordinating discharge services: Greater than 30 minutes Status at Discharge Functional status at discharge: uses cane/walker Overall status at discharge: patient is back to baseline Mental Status: mental status grossly normal Speech and Movement: speech and movement normal Mood: congruent mood Affect: normal affect Quality:SDOH Health Related Social Needs: Health related social needs house/econ circumstance Health related social needs details no issues voiced Health related social needs details: no issues voiced Exam Narrative Exam Narrative: General: This is a pleasant, elderly woman, HEENT: Normocephalic, atraumatic CV: RRR Resp: CTAB Abd: soft, NTND, +NBS MSK: voluntary motion x4, nontender Neuro: awake, alert, CN II-XI intact. BUE/BLE strength intact, sensation intact, tremor is symmetric and constant Psych Mental Status: mental status grossly normal Speech and Movement: speech and movement normal Mood: congruent mood Affect: normal affect DS: Data Vitals/I&O Vitals and I&O: Vital Signs Temperature 36.7 C 04/25/25 07:25 Temperature Source Temporal Artery Scan 04/25/25 07:25 Pulse 78 04/25/25 07:25 Pulse Rhythm Regular 04/22/25 17:02 Pulse 77 04/22/25 15:50 Respiratory Rate 16 04/25/25 07:25 Respiratory Effort Normal 04/22/25 17:02 Respiratory Depth Normal 04/22/25 17:02 Respiratory Pattern Normal 04/22/25 17:02 Blood Pressure 148/72 H 04/25/25 07:25 Blood Pressure Mean 97 04/25/25 07:25 Pulse Oximetry 99 04/25/25 07:25 Oxygen Delivery Method Room Air 04/25/25 07:25 Oxygen Flow Rate 0 04/25/25 07:25 Pain Level 0 04/25/25 07:25 Intake & Output 04/24/25 04/24/25 04/25/25 11:59 23:59 11:59 Intake Total 1690.00 / 1698.00 8 1698.00 Output Total 2049 650 / 2700 Balance -360.00 / -1002.00 -642 / -1002.00 Intake: IV 1450.00 / 1450.00 0 / 1450.00 Oral 240 / 248 8 Output: Urine 2049 650 / 2700 Stool 0 / 0 Other: Urine Color Pale Yellow Yellow Yellow Urine Appearance Clear Clear Clear Urine Odor None None Comment non measured Stool Size Smear Stool Characteristics Black Data Completed and Pending Labs on day of discharge: Labs from last 24 hours 04/25/25 06:02 WBC 8.20 RBC 3.40 L Hgb 10.3 L Hct 31.5 L MCV 93 MCH 30.3 MCHC 32.7 RDW 13.4 Plt Count 293 MPV 8.3 Immature Gran % 0.9 Neutrophils % 65.6 Lymphocytes % 13.5 Monocytes % 10.1 Eosinophils % 8.4 Basophils % 1.5 Nucleated RBC % 0.0 Absolute Neutrophils 5.38 Absolute Lymphocytes 1.11 L Absolute Monocytes 0.83 H Absolute Eosinophils 0.69 Absolute Basophils 0.12 Sodium 139 Potassium 4.6 Chloride 104 Carbon Dioxide 24.9 Anion Gap 10.1 BUN 36 H Creatinine 2.3 H Est GFR (CKD-EPI 2020) 20.96 Glucose 191 H Calcium 10.0 Magnesium 1.7 L Total Bilirubin 0.3 AST 17 ALT 29 Alkaline Phosphatase 194 H Total Protein 6.7 Albumin 3.3 L PFSH All Active Problems (Updated 04/23/25 @ 01:19 by Luis Shah MD) Chronic insomnia (Acute) Bacteriuria with pyuria (Acute) Dysuria (Acute) Insulin dependent type 2 diabetes mellitus (Acute) Tremor due to metabolic disorder (Acute) Urinary tract infection (Acute) Acute renal failure (Acute) Hyperkalemia (Acute) Stroke (Chronic) Weakness (Acute) Wound of right lower extremity (Acute) Neurogenic bowel (Acute) Neurogenic bladder (Acute) Multiple sclerosis exacerbation (Acute) Constipation (Acute) Urinary retention (Acute) Steroid-induced hyperglycemia (Chronic) Ambulatory dysfunction (Acute) Bilateral leg weakness (Acute) Osteoarthritis (Chronic) Pulmonary hypertension (Acute) Right carpal tunnel syndrome (Acute) 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) Bilateral leg edema (Acute) Arthritis (Acute) Eczema (Acute) Endometrial hyperplasia (Acute) Anemia due to stage 4 chronic kidney disease (Acute) 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) Hypercholesterolemia (Acute) Diabetic polyneuropathy (Acute) 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 Surgical History Hx of esophagogastroduodenoscopy S/P left knee arthroscopy S/P carpal tunnel release right H/O colonoscopy with polypectomy H/O colposcopy with cervical biopsy several H/O left mastectomy S/P bilateral cataract extraction S/P lumpectomy, left breast S/P breast biopsy, right S/P placement of cardiac pacemaker Family History Sister Familial ALS (amyotrophic lateral sclerosis) Diabetes Sister Familial ALS (amyotrophic lateral sclerosis) Brother Familial ALS (amyotrophic lateral sclerosis) Maternal Grandmother Familial ALS (amyotrophic lateral sclerosis) Heart disease Mother Familial ALS (amyotrophic lateral sclerosis) Son Familial ALS (amyotrophic lateral sclerosis) Diabetes Father Family history of early CAD Paternal Grandmother Diabetes Social History Smoking/Tobacco Use Status: Former Tobacco Use tobacco type: cigarettes Smoking risk assessment performed?: Yes Alcohol Intake: former Substance use type: does not use Housing: house Do you feel safe at home: Yes Do you feel safe in your relationship?: Yes Time Spent with Patient Time Spent with Patient: 45-69 minutes Time was spent: preparing to see the patient(eg.review tests), obtaining and/or reviewing separately otained hiistory, ordering medications,tests, procedures, referring, communicating with other health intensive care medicine specialist, indepentently interpreting results, counseling the patient and care coordination
--- NOTE | 2025-04-25 08:56 | PDOC.CMDIS ---
Date of service: 04/25/25 Time of Service: 08:57 LACE Index Scoring Tool Questions: Length of Stay (in days): 3 Was the patient admitted via the E.D.?: Yes Comorbidities: Diabetes w/o Complication E.D. Visits: 1 Answers: Total Score: 8 Risk of Readmission: Low Risk Care Management Discharge Plan Reason for Hospitalization: UTI and WILLOW Discharge Plan: Betsy will discharge home later this morning with continuation of her HH services. She will f/u with her PCP and continue with her plan care. Betsy will transport home in a private vehicle. Patient/Family Education Needs: Review of discharge instructions, activity, limitations and discuss ask me 3. Services Needed at Discharge: Home Health Care Services (resumption of HH PT and SN) SDOH Health Related Social Needs: Health related social needs house/econ circumstance Health related social needs details no issues voiced Health related social needs details: no issues voiced
--- NOTE | 2025-04-25 09:08 | W.DIABETESNO ---
Date of service: 04/25/25 Time of Service: 09:11 Diabetes Note Reason for Visit: inpatient rounding - initial assessment NOTE: patient being discharged - made quick contact to provide card for any outpatient diabetes education she may desire. no questions at this time Time Spent in Nutritional Counseling and Treatment: 1min
--- NOTE | 2025-04-25 11:01 | PT.INTREAT ---
PT Notes Visit Reasons: WILLOW Date: 04/25/2025 PRECAUTIONS: Fall, Standard, Activity as tolerated. SUBJECTIVE: Pt in recliner when approached for therapy this morning, agreed to participating with therapy session. ? PAIN: none VITALS: MOnitored by nursing Therapeutic Activities 93515: Direct one-on-one instruction in dynamic activities to improve functional performance. ?? BED MOBILITY/TRANSFERS? Rolling L/R: independent Supine-sit: independent? Sit-supine: independent? Sit-stand: ?independent? Stand-sit: ?independent? Bed-Chair:? independent? Chair-bed: independent? Provided skilled cues and instruction on performance and technique throughout. Gait Training 10975: Direct one-on-one instruction and skilled instruction in: Employing an assistive device Modified weight-bearing status Movement sequencing Turning and movement with proper form Provided verbal cues for equipment management and technique Provided instruction in gait pattern Patient education regarding pacing and breathing techniques to maximize activity tolerance? GAIT? Assistive Device: ?FWW? Weight bearing: FWB Assist: ?Supervision? Distance:??300'? Deviation: ?Stoop forward posture, low step height, short step lenght? STAIRS:? ? 6 x 4 steps, 4 x 6 steps, step over step bilateral handrail SBA? ASSESSMENT:?pt looking forward to going home today, getting ready for DC PLAN: Continue with balance training, global strengthening and general conditioning for improved safety, mobility and activity tolerance until pt is ready for DC. Home with HHPT TREATMENT CODE/TIME: [id number] 15mins (10:05-10:20am)
== END 2025-04-25 10:52 | disposition home health service (06) ==
LOC: ER 16:31 → MS 16:45
PROVIDERS: Admitting Provider Family Medicine; Emergency Provider Physician Assistant; PCP Internal Medicine; Responsible Provider Hospitalist; Visit Provider Family Medicine
DX: N17.9 Acute kidney failure, unspecified (principal); E87.5 Hyperkalemia; R25.1 Tremor, unspecified; R82.81 Pyuria; E11.65 Type 2 diabetes mellitus with hyperglycemia; E11.22 Type 2 diabetes mellitus with diabetic chronic kidney disease; E03.9 Hypothyroidism, unspecified; N18.4 Chronic kidney disease, stage 4 (severe); F51.04 Psychophysiologic insomnia; G12.21 Amyotrophic lateral sclerosis; G35 Multiple sclerosis; R30.0 Dysuria; T38.0X5A Adverse effect of glucocorticoids and synthetic analogues, initial encounter; W19.XXXA Unspecified fall, initial encounter; R53.1 Weakness; N31.9 Neuromuscular dysfunction of bladder, unspecified; K59.2 Neurogenic bowel, not elsewhere classified; R60.0 Localized edema; D63.1 Anemia in chronic kidney disease; E78.00 Pure hypercholesterolemia, unspecified; E11.42 Type 2 diabetes mellitus with diabetic polyneuropathy; I12.9 Hypertensive chronic kidney disease with stage 1 through stage 4 chronic kidney disease, or unspecified chronic kidney disease; K21.9 Gastro-esophageal reflux disease without esophagitis; Z95.0 Presence of cardiac pacemaker; Z85.3 Personal history of malignant neoplasm of breast; Z79.4 Long term (current) use of insulin
CPT/HCPCS: 00123; 36415; 36416; 51702; 80048; 80053; 82805; 82962; 85027; 87077; 93005; 94640; 96361; 96372; 96374; 96375; 97161; 97530; 99285; 81003; 81015; 82140; 83036; 83735; 84439; 84443; 84484; 85025; 87086; 87186; 93010; 99222; 99232; 99233; 99239; G0378; J0612; J1644; J1815; J3490; J7613

== ENCOUNTER 2025-05-19 20:51 | Outpatient (REF) | payer MEDICARE, SELFPAY ==
[2025-05-19 21:36] LABS: TSH (W/Ref FT4) 9.82 uIU/mL (0.36-3.74)
[2025-05-19 21:45] LABS: Hemoglobin A1C 8.1 % (<5.7)
== END 2025-05-19 20:52 | disposition home or self-care (01) ==
LOC: NCHCN 20:51
PROVIDERS: PCP Internal Medicine; Visit Provider Family Medicine
DX: E11.69 Type 2 diabetes mellitus with other specified complication (principal)
CPT/HCPCS: 83036; 84439; 84443; 87086

== ENCOUNTER 2025-05-20 15:17 | Outpatient (REF) | payer MEDICARE, SELFPAY | END 2025-05-20 15:18 | disposition home or self-care (01) | LOC: NCHCN 15:17 | PROVIDERS: PCP Internal Medicine; Visit Provider Family Medicine | DX: N39.0 Urinary tract infection, site not specified (principal) | CPT/HCPCS: 87077; 87086; 87186 ==

== ENCOUNTER 2025-06-07 22:21 | Outpatient (REF) | payer MEDICARE, SELFPAY ==
[2025-06-07 22:33] LABS: Glucose Negative (Negative)
[2025-06-07 22:43] LABS: RBC 0-2 HPF (0-2)
== END 2025-06-07 22:22 | disposition home or self-care (01) ==
LOC: NCHCN 22:21
PROVIDERS: PCP Internal Medicine; Visit Provider Family Medicine
DX: N39.0 Urinary tract infection, site not specified (principal); N17.9 Acute kidney failure, unspecified; I12.9 Hypertensive chronic kidney disease with stage 1 through stage 4 chronic kidney disease, or unspecified chronic kidney disease
CPT/HCPCS: 81003; 81015; 87086

== ENCOUNTER 2025-06-16 09:35 | Outpatient (CLI) | payer MEDICARE, SELFPAY ==
--- NOTE | 2025-06-16 | DI.RAD_ITS ---
Exam(s) XR KNEE RT 3V AP,LAT,CHELSEY EXAM: XR KNEE RT 3V AP,LAT,CHELSEY CLINICAL HISTORY: RT KNEE PAIN, M25.561. TECHNIQUE: 2D digital imaging was performed. COMPARISON: No exams were available for comparison FINDINGS: The femoral component of the prosthesis appears well seated with no obvious loosening. The tibial component of the prosthesis appears absent although there is no height loss. This may be some type of revision in progress. There is no evidence of osteomyelitis. There appears to be a small joint effusion. There is soft tissue swelling in the subcutaneous tissues on the medial aspect of the knee. IMPRESSION: As above. DATA REPOSITORY: RADIATION DOSE DELIVERED:
== END 2025-06-16 09:55 ==
PROVIDERS: PCP Internal Medicine; Visit Provider Family Medicine
DX: M25.561 Pain in right knee (principal)
CPT/HCPCS: 73562

== ENCOUNTER 2025-07-07 17:54 | Outpatient (REF) | payer MEDICARE, SELFPAY ==
[2025-07-07 21:14] LABS: Glucose Negative (Negative)
[2025-07-07 21:16] LABS: WBC >50 HPF (0-5)
[2025-07-07 21:17] LABS: C & S Indicated? Yes
== END 2025-07-07 17:55 | disposition home or self-care (01) ==
LOC: NCHCN 17:54
PROVIDERS: PCP Internal Medicine; Visit Provider Family Medicine
DX: N39.0 Urinary tract infection, site not specified (principal)
CPT/HCPCS: 81003; 81015; 87086

== ENCOUNTER 2025-07-13 17:32 | Outpatient (REF) | payer MEDICARE, SELFPAY ==
[2025-07-13 15:22] LABS: Glucose Negative (Negative)
[2025-07-13 15:33] LABS: RBC 0-2 HPF (0-2)
== END 2025-07-13 17:33 | disposition home or self-care (01) ==
LOC: NCHCN 17:32
PROVIDERS: PCP Internal Medicine; Visit Provider Family Medicine
DX: N39.0 Urinary tract infection, site not specified (principal)
CPT/HCPCS: 81003; 81015

== ENCOUNTER 2025-07-14 17:43 | Outpatient (REF) | payer MEDICARE, SELFPAY | END 2025-07-14 17:44 | disposition home or self-care (01) | LOC: NCHCN 17:43 | PROVIDERS: PCP Internal Medicine; Visit Provider Family Medicine | DX: N39.0 Urinary tract infection, site not specified (principal) | CPT/HCPCS: 87086 ==

== ENCOUNTER 2025-07-28 00:45 | Outpatient (RCR) | payer MEDICARE, SELFPAY ==
[2025-07-14] MEDS: IRON SUCROSE COMPLEX 300 MG in Normal Saline 250 ML 176.667 MG IVPB (11:17)
[2025-07-14] MEDS: Normal Saline Flush 10 ML SYR IVP (11:17)
[2025-07-21] MEDS: Normal Saline Flush 10 ML SYR IVP (11:58)
[2025-07-21] MEDS: IRON SUCROSE COMPLEX 300 MG in Normal Saline 250 ML 176.667 MG IVPB (11:59)
[2025-07-28] MEDS: Normal Saline Flush 10 ML SYR IVP (11:09)
[2025-07-28] MEDS: IRON SUCROSE COMPLEX 300 MG in Normal Saline 250 ML 176.667 MG IVPB (11:09)
== END 2025-08-07 23:59 | disposition home or self-care (01) ==
LOC: INF 00:45
PROVIDERS: PCP Internal Medicine; Visit Provider Internal Medicine Nephrology
DX: N18.4 Chronic kidney disease, stage 4 (severe) (principal); D63.1 Anemia in chronic kidney disease; D50.9 Iron deficiency anemia, unspecified
CPT/HCPCS: 96365; 96366; J1756

== ENCOUNTER 2025-08-11 16:44 | Outpatient (REF) | payer MEDICARE, SELFPAY ==
[2025-08-11 21:15] LABS: HCT 37.1 % (36.0-46.0); HGB 11.9 g/dL (11.2-15.7); MCH 30.7 pg (27.0-33.0); MCHC 32.1 % (32.0-36.0); MCV 96 fL (80-95); MPV 9.6 fL (8.0-11.0); Platelet Count 252 10^3/uL (130-400); RBC 3.88 10^6/uL (3.93-5.22); RDW 13.1 % (11.7-14.6); RDW-SD 46.3 fL; WBC 6.60 10^3/uL (4.4-10.8)
[2025-08-11 21:34] LABS: Iron 72 ug/dL (50-170); Total Iron Binding Capacity 297 ug/dL (250-425); Transferrin Sat 24 % (15-50)
[2025-08-11 21:36] LABS: TSH (W/Ref FT4) 4.80 uIU/mL (0.55-4.78)
[2025-08-11 21:39] LABS: Hemoglobin A1C 6.8 % (<5.7)
[2025-08-11 21:42] LABS: ALT 18 U/L (10-49); AST 20 U/L (<34); Albumin 4.6 g/dL (3.2-5.0); Alkaline Phosphatase 109 U/L (46-116); Anion Gap 11.4 mmol/L (3-11); BUN 43 mg/dL (9-23); Bilirubin, Total 0.40 mg/dL (0.2-1.2); CO2 27.6 mmol/L (20.0-31.0); Calcium 10.7 mg/dL (8.3-10.6); Chloride 104 mmol/L (98-107); Glucose 107 mg/dL (74-106); Potassium 5.0 mmol/L (3.5-5.1); Sodium 143 mmol/L (136-145); Total Protein 6.7 g/dL (5.7-8.2)
== END 2025-08-11 16:45 | disposition home or self-care (01) ==
LOC: NCHCN 16:44
PROVIDERS: PCP Internal Medicine; Visit Provider Family Medicine
DX: D64.9 Anemia, unspecified (principal); N18.4 Chronic kidney disease, stage 4 (severe); E11.69 Type 2 diabetes mellitus with other specified complication; E03.9 Hypothyroidism, unspecified
CPT/HCPCS: 80053; 85027; 83036; 83540; 83550; 84439; 84443

== ENCOUNTER 2025-09-02 16:11 | Emergency (ER) | payer MEDICARE, SELFPAY ==
[2025-09-02 16:44] VITALS: BP 140/63; PULSE 92; RESP 16; TEMP 36.8; O2SAT 97
--- NOTE | 2025-09-02 16:45 | DI.RAD_ITS ---
Exam(s) XR KNEE RT 3V AP,LAT,CHELSEY EXAM: XR KNEE RT 3V AP,LAT,CHELSEY CLINICAL HISTORY: Knee pain, hx of replacement. TECHNIQUE: 2D digital imaging was performed of the right knee. Three views obtained. AP, lateral and PA tunnel views were obtained. COMPARISON: CR XR KNEE RT 3V AP,LAT,CHELSEY from 06/16/2025 FINDINGS: BONES: No acute fracture is present. No bony destructive lesion is seen. JOINTS: There are stable postsurgical changes of a right knee arthroplasty. There may be a small joint effusion. SOFT TISSUE: Vascular calcifications are seen in the soft tissues. IMPRESSION: There is no acute abnormality. DATA REPOSITORY: RADIATION DOSE DELIVERED:
--- NOTE | 2025-09-02 18:00 | ED.GENADUL_ITS ---
Discharge Plan Disposition Patient Disposition: Home Condition: Stable Discharge Details Clinical Impression: Right knee sprain, Arthritis Primary Care Provider: Ping Vázquez ED Provider: Mora Peoples Home Meds and New Rx's Prescriptions: Continued multivitamin Tablet 1 tab PO DAILY omeprazole 20 mg Capsule,Delayed Release(Dr/Ec) 20 mg PO DAILY insulin glargine [Lantus Solostar U-100 Insulin] 100 unit/mL (3 mL) Insulin Pen 20 unit SUBCUT DAILY AM amantadine HCl 100 mg capsule 100 mg PO DAILY Patient Comments: TAKE ONE CAPSULE BY MOUTH EVERY DAY furosemide 20 mg tablet 20 mg PO DAILY Patient Comments: TAKE ONE TABLET BY MOUTH EVERY DAY clindamycin HCl 300 mg capsule 300 mg PO ONCE PRN Patient Comments: TAKE 2 CAPSULES BY MOUTH 30 TO 60 MINUTES PRIOR TO DENTAL APPOINTMENT levothyroxine 100 mcg tablet 100 mcg PO DAILY Patient Comments: TAKE ONE TABLET BY MOUTH EVERY DAY insulin asp prt-insulin aspart [Novolog Mix 70-30FlexPen U-100] 100 unit/mL (70-30) insulin pen SUBCUT Patient Comments: INJECT 20 UNITS UNDER THE SKIN WITH BREAKFAST AND INJECT 10 UNITS UNDER THE SKIN WITH DINNER aspirin 81 mg tablet,chewable 81 mg PO DAILY coenzyme Q10 [CoQ-10] 100 mg capsule 200 mg PO DAILY ferrous sulfate [iron] 325 mg (65 mg iron) tablet 325 mg PO QDAY phenazopyridine [Azo Urinary Pain Relief] 95 mg tablet 95 mg PO DAILY PRN acetaminophen 500 mg capsule 500 mg PO HS PRN (DME) FreeStyle Delfino 3 Plus Sensor Device MISCELLANEOUS Patient Comments: USE 1 SENSOR EVERY 15 DAYS (DME) FreeStyle Delfino 3 [place] Misc MISCELLANEOUS Patient Comments: USE DIRECTED DAILY (DME) pen needle, diabetic [Meg 2nd Gen Pen Needle] 32 gauge x needle MISCELLANEOUS Patient Comments: INJECT 1 NEEDLE SUBCUTANEOUSLY TWO TIMES A DAY Discharge Instructions Instructions: Osteoarthritis, Knee Sprain ED Additional Instructions: No evidence for fractures, broken bones or abnormality of hardware on x-rays. Please wear the brace over the next week as needed for comfort. If you have crutches or a walker at home use that if you need to ambulate. Rest, Ice, compression, and elevation x 1-2 weeks. Please take Tylenol or Ibuprofen with food every 4-6 hours as needed for pain and swelling. Follow up with Orhtopedics/primary care provider in 3-5 days. Return to ED soon er if any worsening or concerns. Stand Alone Forms: Portal Information Referrals: Ping Vázquez MD [Primary Care Provider, Medicine] - 5 days Referral Note: ER follow up call for appointment Shakir Cross MD [ [facility] STAFF PHYSICIAN, Orthopaedic Surgical] - 2 weeks HPI General Mode of arrival: wheelchair . Date/Time Provider Initiated Documentation: 09/02/25 16:16 . Limitations to Documentation: no limitations . Information obtained by: patient, RN notes reviewed and old records reviewed . HPI Narrative: 80-year-old female presents to the ER via EMS with a chief complaint of right knee pain which is worse with weightbearing. She states that she did fall approximately little over a week ago Friday. Reports unable to bear weight. She does have a history of a knee replacement. Denies any neck or back pain or head pain or any other injuries from the fall. She is moving her leg flexing and extending it without difficulty while in the wheelchair. She reports mostly when she bears weight that the pain is worse. She does have a past medical history of type 2 diabetes, CVA, MS, pulmonary hypertension, arthritis, chronic kidney disease stage IV, high cholesterol neuropathy. Also reports possible UTI. Related Data Home Medications ?Medication ?Instructions ?Recorded ?Confirmed insulin glargine 100 unit/mL (3 20 unit subcut DAILY A M 08/30/22 04/22/25 mL) subcutaneous pen (Lantus Solostar U-100 Insulin) multivitamin 1 tab PO DAILY 08/30/2204/08 omeprazole 20 mg capsule,delayed 20 mg PO DAILY 04/24/25 release acetaminophen 500 mg capsule 500 mg PO HS PRN 04/24/25 04/24/25 amantadine HCl 100 mg capsule 100 mg PO DAILY 04/24/25 04/24/25 aspirin 81 mg chewable tablet 81 mg PO DAILY 04/24/25 04/24/25 blood-glucose sensor (FreeStyle 04/24/25 04/24/25 Delfino 3 Plus Sensor device) blood-glucose,wall and floor tiler,cont 04/24/25 04/24/25 (FreeStyle Delfino 3 [place]) clindamycin HCl 300 mg capsule 300 mg PO ONCE PRN 04/0804/24/25 coenzyme Q10 100 mg capsule 200 mg PO DAILY 04/24/25 0 04/24/25 (CoQ-10) ferrous sulfate 325 mg (65 mg 325 mg PO QDAY 04/24/25 04/24/25 iron) tablet (iron) furosemide 20 mg tablet 20 mg PO DAILY 04/24/2504/08 insulin aspar prot-insulin aspart subcut 04/24/25 100 unit/mL (70-30) subcutaneous pen (Novolog Mix 70-30FlexPen U-100) levothyroxine 100 mcg tablet 100 mcg PO DAILY 04/24/25 04/24/25 pen needle, diabetic 32 gauge x 04/24/25 04/24/25 (Meg 2nd Gen Pen Needle) phenazopyridine 95 mg tablet (Azo 95 mg PO DAILY PRN 0 04/24/25 04/24/25 Urinary Pain Relief) Allergies Allergy/AdvReac Type Severity Reaction Status Date / Time amlodipine Allergy Unknown Unverified 09/02/25 16:47 Hebtxtw-IEH-HfO Reductase Allergy Unknown Unverified 09/02/25 16:47 Inhibitor General Stated Complaint: Orthopedic JUAN CARLOS: 4 Review of Systems Musculoskeletal Musculoskeletal: Reports as per HPI, Reports arthralgias and Reports joint swelling Exam Extrem General: normal to inspection and full ROM Right upper extremity: normal to inspection Left upper extremity: normal to inspection Right lower extremity: normal to inspection, normal capillary refill and knee Details: normal to inspection and swelling Location: of the infrapatellar area (Mild); ROM normal and abnormal knee ligament exam Left lower extremity: normal to inspection and normal capillary refill Course Vital Signs Vital signs: Vital Signs Temperature 36.8 C 09/02/25 16:44 Pulse 92 H 09/02/25 16:44 Respiratory Rate 16 09/02/25 16:44 Blood Pressure 140/63 09/02/25 16:44 Pulse Oximetry 97 09/02/25 16:44 Temperature 36.8 C 09/02/25 16:44 Pulse 92 H 09/02/25 16:44 Respiratory Rate 16 09/02/25 16:44 Blood Pressure 140/63 09/02/25 16:44 Pulse Oximetry 97 09/02/25 16:44 Pain Level 0 09/02/25 16:44 Medical Decision Making 80-year-old female presents to the ER via EMS with a chief complaint of right knee pain which is worse with weightbearing. She states that she did fall approximately little over a week ago Friday. Reports unable to bear weight. She does have a history of a knee replacement. Denies any neck or back pain or head pain or any other injuries from the fall. She is moving her leg flexing and extending it without difficulty while in the wheelchair. She reports mostly when she bears weight that the pain is worse. She does have a past medical history of type 2 diabetes, CVA, MS, pulmonary hypertension, arthritis, chronic kidney disease stage IV, high cholesterol neuropathy. Also reports possible UTI. XR right knee ordered. Xray shows stable hardware and no acute bony abnormality, questionable small effusion. Will give Tylenol and hinged knee brace. Patient ambulatory with hinged knee brace with minimal assistance. Patient discharged in the care of her ride. This text was generated using [employer] dictation system, please disregard any oddities of phrase or misspellings. Imaging Data Radiologic Study: Imaging: X-Ray Radiologist's impression: EXAM: XR KNEE RT 3V AP,LAT,CHELSEY CLINICAL HISTORY: Knee pain, hx of replacement. TECHNIQUE: 2D digital imaging was performed of the right knee. Three views obtained. AP, lateral and PA tunnel views were obtained. COMPARISON: CR XR KNEE RT 3V AP,LAT,CHELSEY from 06/16/2025 FINDINGS: BONES: No acute fracture is present. No bony destructive lesion is seen. JOINTS: There are stable postsurgical changes of a right knee arthroplasty. There may be a small joint effusion. SOFT TISSUE: Vascular calcifications are seen in the soft tissues. IMPRESSION: There is no acute abnormality. Quality:SDOH Health Related Social Needs: Health related social needs house/econ circumstance Health related social needs details no issues voiced PFSH All Active Problems (Updated 09/02/25 @ 18:40 by Mora Peoples NP) Right knee sprain (Acute) Chronic insomnia (Acute) Insulin dependent type 2 diabetes mellitus (Acute) Tremor due to metabolic disorder (Acute) Stroke (Chronic) Weakness (Acute) Wound of right lower extremity (Acute) Neurogenic bowel (Acute) Neurogenic bladder (Acute) Multiple sclerosis exacerbation (Acute) Constipation (Acute) Urinary retention (Acute) Steroid-induced hyperglycemia (Chronic) Ambulatory dysfunction (Acute) Bilateral leg weakness (Acute) Osteoarthritis (Chronic) Pulmonary hypertension (Acute) Right carpal tunnel syndrome (Acute) 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) Bilateral leg edema (Acute) Arthritis (Acute) Eczema (Acute) Endometrial hyperplasia (Acute) Anemia due to stage 4 chronic kidney disease (Acute) 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) Hypercholesterolemia (Acute) Diabetic polyneuropathy (Acute) Hypothyroidism (Chronic) GERD (gastroesophageal reflux disease) (Chronic) Hypertension (Chronic) IDDM (insulin dependent diabetes mellitus) (Chronic) Bilateral leg weakness (Acute) History of multiple sclerosis (Acute) Medical History Urinary tract infection 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 Surgical History Hx of esophagogastroduodenoscopy S/P left knee arthroscopy S/P carpal tunnel release right H/O colonoscopy with polypectomy H/O colposcopy with cervical biopsy several H/O left mastectomy S/P bilateral cataract extraction S/P lumpectomy, left breast S/P breast biopsy, right S/P placement of cardiac pacemaker Family History Sister Familial ALS (amyotrophic lateral sclerosis) Diabetes Sister Familial ALS (amyotrophic lateral sclerosis) Brother Familial ALS (amyotrophic lateral sclerosis) Maternal Grandmother Familial ALS (amyotrophic lateral sclerosis) Heart disease Mother Familial ALS (amyotrophic lateral sclerosis) Son Familial ALS (amyotrophic lateral sclerosis) Diabetes Father Family history of early CAD Paternal Grandmother Diabetes Social History Smoking/Tobacco Use Status: Former Tobacco Use tobacco type: cigarettes Smoking risk assessment performed?: Yes Alcohol Intake: former Substance use type: does not use Housing: house Do you feel safe at home: Yes Do you feel safe in your relationship?: Yes
[2025-09-02] MEDS: Acetaminophen 325 MG TAB 650 MG PO (18:41)
[2025-09-02 19:24] VITALS: BP 131/73; PULSE 82; RESP 18; O2SAT 97
--- NOTE | 2025-09-04 06:52 | NUR.NOTE ---
Accessed Pt chart to print a face sheet and complete patient product agreement.
== END 2025-09-02 18:44 | disposition home or self-care (01) ==
PROVIDERS: Emergency Provider Registered Nurse Emergency; PCP Internal Medicine
DX: S83.91XA Sprain of unspecified site of right knee, initial encounter (principal); Z96.651 Presence of right artificial knee joint; X50.0XXA Overexertion from strenuous movement or load, initial encounter; Z59.89 Other problems related to housing and economic circumstances
CPT/HCPCS: 99283 ×2; 29505; 73562